=== PATIENT | male | born 1945 ===

== ENCOUNTER 2020-06-19 07:16 | Outpatient (REF) | payer MEDICARE, SELFPAY ==
--- NOTE | 2020-06-19 07:34 | CT_ITS ---
EXAMINATION: CT CHEST WITHOUT CONTRAST CLINICAL INFORMATION: Pulmonary nodules, follow-up. COMPARISON: Chest CT scans dated 01/18/2020 and 10/12/2019. TECHNIQUE: Multidetector volumetric CT imaging of the chest was done. Axial MIP volume rendering provided. Sagittal and coronal reformatted images were obtained. This CT examination was performed using dose optimization techniques as appropriate, variously including the following: *Automated exposure control *Adjustment of mA and/or kV according to patient size (this includes techniques or standardized protocols for targeted exams where dose is matched to indication/reason for exam; i.e. extremities or head) *Use of iterative reconstruction technique DLP: 230.4 mGy-cm FINDINGS: LUNGS/PLEURA/AIRWAYS: Right: The previously seen branching opacity posterolaterally in the right lower lobe demonstrates a similar, if not less pronounced appearance, especially in the coronal projection (construction representative image 198, series 7). A 0.4 cm nodule inferomedially in the right middle lobe is unchanged (image 451, series 7). Left: A nodule medially along the left major fissure is again seen measuring 0.6 cm without interval change (image 277, series 7). A nodule centrally in the left lower lobe has decreased in size measuring 0.3 cm (previously 0.7 cm), image 422, series 7. Mild linear atelectasis/scarring is again seen in the right middle lobe, lingula and lung bases. There are no pleural effusions. The central airways are patent. MEDIASTINUM: The thyroid gland shows a coarsely calcified nodules bilaterally without significant change. Mild to moderate coronary and thoracic aortic atherosclerosis is seen. Ectasia of the posterior arch measures up to 4.1 cm (image 18, series 3). No pericardial effusion. No mediastinal or hilar lymphadenopathy. AXILLA: No lymphadenopathy. UPPER ABDOMEN: Partial visualization of high attenuation renal cysts bilaterally, right greater than left without significant change. Partial visualization of left lateral pararenal calcifications without significant change. OSSEOUS STRUCTURES: Mild to moderate multilevel marginal osteophyte formation is seen. No suspicious abnormality. IMPRESSION: 1. No significant new or suspicious pulmonary abnormality. A nodule in the left lower lobe has decreased in size as detailed above and may represent an improving mucous plugging. Other findings have not significantly changed. A precautionary follow-up chest CT scan could be performed in 9-12 months to assess for change.
== END 2020-06-19 07:17 | disposition home or self-care (01) ==
LOC: HO.CT 07:16
PROVIDERS: PCP Nurse Practitioner Family; Referring Provider Internal Medicine; Visit Provider Hospitalist
DX: Z20.828 Contact with and (suspected) exposure to other viral communicable diseases (principal); J41.8 Mixed simple and mucopurulent chronic bronchitis; R05 Cough; R91.1 Solitary pulmonary nodule
CPT/HCPCS: 71250; 87635

== ENCOUNTER → 2020-06-28 08:54 | Outpatient (BNVA) | payer MEDICARE, SELFPAY | PROVIDERS: PCP Nurse Practitioner Family; Referring Provider Nurse Practitioner Family; Visit Provider Hospitalist | DX: J41.0 Simple chronic bronchitis (principal); R91.8 Other nonspecific abnormal finding of lung field; J30.9 Allergic rhinitis, unspecified; F17.210 Nicotine dependence, cigarettes, uncomplicated | CPT/HCPCS: 99214 ==

== ENCOUNTER 2021-01-15 07:38 | Outpatient (REF) | payer MEDICARE, SELFPAY ==
--- NOTE | 2021-01-15 17:37 | PFT_ITS ---
INDICATION: Bronchitis, COPD. SPIROMETRY: The FEV1 to FVC of 72% with an FEV1 of 2.87 L which is 97% predicted, and FVC of 4 L, which is 98% predicted. The maximum voluntary ventilation 104% predicted. Again, bronchodilators were not used due to the fact that he had used Symbicort recently just prior to the procedure. LUNG VOLUMES: Total lung capacity 92% predicted with expiratory reserve volume of 25% predicted. DIFFUSION CAPACITY: DLCO 49% predicted. COMPARISONS: None available at this time. INTERPRETATION: No definitive obstructive ventilatory defect, although, he does have an obstructive physiology. Likely has a component of asthma/COPD overlap syndrome. Again, bronchodilators were not used because he had just used them. Lung volumes do demonstrate a decrease in the expiratory reserve volume secondary to elevated BMI. However, the patient does have an audible portion moderate decrease in his diffusing capacity suggesting moderate diffusion impairment, therefore need to consider underlying anemia or pulmonary vascular conditions or occult interstitial lung conditions to account for that. Clinical correlation warranted. MD JARETH Schroeder/HEMAL / [id number]
== END 2021-01-15 07:39 | disposition home or self-care (01) ==
LOC: HO.RESP 07:38
PROVIDERS: PCP Nurse Practitioner Family; Visit Provider Hospitalist
DX: J41.0 Simple chronic bronchitis (principal)
CPT/HCPCS: 94010; 94727; 94729; 99212

== ENCOUNTER 2021-01-24 06:01 | Outpatient (REF) | payer MEDICARE, SELFPAY ==
[2021-01-24 12:21] LABS: Alanine Aminotransferase 29 U/L (0-40); Albumin Level 4.1 g/dL (3.5-5.0); Alkaline Phosphatase 52 U/L (39-117); Anion Gap 13 (12-20); Aspartate Amino Transferase 23 U/L (5-37); Bilirubin Total 0.6 mg/dL (0.0-1.0); Blood Urea Nitrogen 18 mg/dL (9-16); Calcium 9.6 mg/dL (8.4-10.2); Carbon Dioxide 28 mmol/L (22-29); Chloride 106 mmol/L (96-108); Cholesterol 132 mg/dL; Estimated Glomerular Filt Rate > 60; Glucose Fasting 101 mg/dL (60-99); HDL Cholesterol 30 mg/dL; LDL Cholesterol Calculated 38 mg/dl; Potassium 3.7 mmol/L (3.3-5.1); Prostate Specific Antigen Scr 0.32 ng/mL (<0.05-4.0); Sodium 143 mmol/L (135-145); TSH reflex Free T4 2.69 uIU/mL (0.32-4.0); Total Protein 6.6 g/dL (6.5-8.0); Triglycerides 320 mg/dL
[2021-01-24 12:37] LABS: Creatinine Urine 162.96 mg/dL; Microalbum/Creatinine Ratio Ur 34.3 ug/mg cr
== END 2021-01-24 06:02 | disposition home or self-care (01) ==
LOC: HO.HMGCLDS 06:01
PROVIDERS: PCP Nurse Practitioner Family; Visit Provider Nurse Practitioner Family
DX: E11.9 Type 2 diabetes mellitus without complications (principal); R19.7 Diarrhea, unspecified; I48.0 Paroxysmal atrial fibrillation; I10 Essential (primary) hypertension; Z87.891 Personal history of nicotine dependence; Z12.5 Encounter for screening for malignant neoplasm of prostate; Z79.899 Other long term (current) drug therapy
CPT/HCPCS: 36415; 80053; 80061; 82043; 84153; 84443; 93005; 99212

== ENCOUNTER 2021-05-23 06:50 | Outpatient (REF) | payer MEDICARE, SELFPAY ==
[2021-05-23 11:54] LABS: Alanine Aminotransferase 35 U/L (0-40); Albumin Level 4.3 g/dL (3.5-5.0); Alkaline Phosphatase 53 U/L (39-117); Anion Gap 13 (12-20); Aspartate Amino Transferase 27 U/L (5-37); Blood Urea Nitrogen 18 mg/dL (9-16); Calcium 9.6 mg/dL (8.4-10.2); Carbon Dioxide 26 mmol/L (22-29); Chloride 107 mmol/L (96-108); Cholesterol 119 mg/dL; Estimated Glomerular Filt Rate 56; Glucose Fasting 112 mg/dL (60-99); HDL Cholesterol 32 mg/dL; LDL Cholesterol Calculated 48 mg/dl; Potassium 3.9 mmol/L (3.3-5.1); Sodium 142 mmol/L (135-145); Total Protein 6.9 g/dL (6.5-8.0); Triglycerides 198 mg/dL
== END 2021-05-23 06:51 | disposition home or self-care (01) ==
LOC: HO.HMGCLDS 06:50
PROVIDERS: PCP Nurse Practitioner Family; Visit Provider Nurse Practitioner Family
DX: E78.1 Pure hyperglyceridemia (principal)
CPT/HCPCS: 36415; 80053; 80061

== ENCOUNTER 2021-05-29 12:38 | Outpatient (REF) | payer MEDICARE, SELFPAY ==
--- NOTE | ~2021-05-29 | CT_ITS ---
EXAMINATION: CT CHEST WITHOUT CONTRAST CLINICAL INFORMATION: Follow-up lung nodule left lower lobe. COMPARISON: CT chest 06/19/2020. TECHNIQUE: Multidetector volumetric CT imaging of the chest was done. Axial MIP volume rendering provided. Sagittal and coronal reformatted images were obtained. This CT examination was performed using dose optimization techniques as appropriate, variously including the following: *Automated exposure control *Adjustment of mA and/or kV according to patient size (this includes techniques or standardized protocols for targeted exams where dose is matched to indication/reason for exam; i.e. extremities or head) *Use of iterative reconstruction technique DLP: 345 mGy-cm. FINDINGS: SITE PROJECT MANAGER: Unremarkable. LUNGS: Previously seen branching opacity right upper lobe posterior segment is again visualized and is less prominent on present exam, axial image 171/9. There is a 7 mm nodule along the left major fissure in left lower lobe, axial image 245/9, a 2 mm calcified nodule left lower lobe superior segment, image 225/9 and a 2 mm nodule left lower lobe centrally, axial image 368/9 is stable. No new nodules are visualized. MEDIASTINUM: The thyroid lobes are symmetrical with punctate calcifications. The central trachea and the bronchi are widely patent. Heart size and the great vessels are normal caliber. There are coronary artery calcifications present. No pericardial effusion seen. PLEURA: There is no pleural effusion. No pleural mass or thickening. AXILLA: Small shotty lymph nodes are seen in the axilla. UPPER ABDOMEN: Visualized liver, spleen, pancreas and bilateral adrenal glands are unremarkable. OSSEOUS STRUCTURES: No lytic or sclerotic process seen. There is moderate ventral spondylosis mid dorsal spine. CT/CT chest wo con IMPRESSION: Stable bilateral upper nodules and the largest 7 mm left lower lobe pulmonary nodule adjacent to a major fissure. Branching tree opacity right upper lobe posterior segment is stable or slightly improved. There are no new findings. No abnormal lymphadenopathy. Recommend follow-up in 18-24 months.
== END 2021-05-29 12:39 | disposition home or self-care (01) ==
LOC: HO.CT 12:38
PROVIDERS: PCP Nurse Practitioner Family; Visit Provider Hospitalist
DX: R91.8 Other nonspecific abnormal finding of lung field (principal)
CPT/HCPCS: 71250

== ENCOUNTER → 2021-07-17 08:11 | Outpatient (BNVA) | payer MEDICARE, SELFPAY | PROVIDERS: PCP Nurse Practitioner Family; Visit Provider Hospitalist | DX: J41.0 Simple chronic bronchitis (principal); J30.9 Allergic rhinitis, unspecified; R91.8 Other nonspecific abnormal finding of lung field | CPT/HCPCS: 99212 ==

== ENCOUNTER 2021-10-24 07:27 | Outpatient (REF) | payer MEDICARE, SELFPAY ==
[2021-10-24 11:37] LABS: Appearance Urine CLEAR; Color Urine YELLOW; Glucose Urine UA NEG (NEG); Leukocyte Esterase Urine NEG (NEG); Nitrite Urine NEG (NEG); Specific Gravity - Urine >= 1.030 (1.005-1.025); UACC Culture Trigger NO; Urine Blood TRACE (NEG); Urine Ketones NEG (NEG); Urine Protein TRACE MG/DL (NEG-TRACE)
[2021-10-24 11:52] LABS: WBC Urine 0-2 /HPF (0-4)
[2021-10-24 11:53] LABS: Squamous Epithelial Cell Urine 1+ /LPF
[2021-10-24 14:09] LABS: Alanine Aminotransferase 30 U/L (0-40); Albumin Level 4.2 g/dL (3.5-5.0); Alkaline Phosphatase 54 U/L (39-117); Anion Gap 12 (12-20); Aspartate Amino Transferase 24 U/L (5-37); Bilirubin Total 0.8 mg/dL (0.0-1.0); Carbon Dioxide 29 mmol/L (22-29); Chloride 106 mmol/L (96-108); Cholesterol 125 mg/dL; Estimated Glomerular Filt Rate > 60; Glucose Fasting 126 mg/dL (60-99); HDL Cholesterol 29 mg/dL; LDL Cholesterol Calculated 54 mg/dl; Potassium 3.9 mmol/L (3.3-5.1); Sodium 143 mmol/L (135-145); Triglycerides 214 mg/dL
[2021-10-24 14:27] LABS: TSH reflex Free T4 1.38 uIU/mL (0.32-4.0)
[2021-10-24 14:58] LABS: Blood Urea Nitrogen 15 mg/dL (9-16); Calcium 9.9 mg/dL (8.4-10.2)
[2021-10-24 15:37] LABS: Estimated Average Glucose 137 mg/dL; Hemoglobin A1c % 6.4 %
== END 2021-10-24 07:28 | disposition home or self-care (01) ==
LOC: HO.HMGCLDS 07:27
PROVIDERS: Visit Provider Nurse Practitioner Family
DX: E11.9 Type 2 diabetes mellitus without complications (principal)
CPT/HCPCS: 36415; 80053; 80061; 81001; 83036; 84443

== ENCOUNTER 2021-12-10 10:10 | Day surgery (SDC) | payer MEDICARE, SELFPAY ==
[2021-12-05 16:27] VITALS: BMI 30.2
--- NOTE | 2021-12-06 14:59 | P.CONAN_ITS ---
Documented by User: Sarah Soler NP 12/06/21 15:01 HPI - Anesthesia Eval Consult details Narrative: 76yo M for Colonoscopy Eliquis for afib *Multiple Med Allergies* PMFSH Active Problems Active Problems: All Active Problems (Updated 12/05/21 @ 16:26 by Iris Raines, RN) Screening PSA (prostate specific antigen) (Acute) Diabetes (Acute) Malignant neoplasm of kidney (Acute) HTN (hypertension) (Acute) High triglycerides (Acute) Encounter for annual wellness visit (AWV) in Medicare patient (Acute) Paroxysmal atrial fibrillation (Acute) Chronic allergic rhinitis (Acute) COPD (chronic obstructive pulmonary disease) (Acute) Pulmonary nodules (Acute) Past Medical History Medical History Actinic keratoses Chronic allergic rhinitis COPD (chronic obstructive pulmonary disease) History of kidney cancer IBS (irritable bowel syndrome) Paroxysmal atrial fibrillation Pulmonary nodules Family History Family History Father Heart attack Mother No problems noted. Surgical History Surgical History H/O cardiac radiofrequency ablation H/O inguinal hernia repair H/O left hemicolectomy History of cardioversion S/P correction of deviated nasal septum Social History Social History Housing: House Are you a primary healthcare insurance sales agent to a significant other at home: No Do you presently have visiting nurse or other home services: No Patient Tobacco Use Status: Former Tobacco user Quit Date: 1989 Tobacco use type: Cigarette Years Smoked: 20 years Use of substances other than those prescribed or required for medical reasons: No Have you been hit, kicked, punched, or otherwise hurt by someone within the past year? If so, by whom?: No Are you DNR?: No Advance Directives: Yes Advance Directives Information Provided: No Advance Directives on File: Yes Advance Directives Date on File: 06/19/20 Recently lost weight without trying: No Nutrition Risks: No Nutritional Risk Current occupational status: retired Meds Allergies Allergy/AdvReac Type Severity Reaction Status Date / Time amiodarone Allergy Severe Rash/Itchin Verified 12/05/21 16:25 g amlodipine Allergy Severe tachycardia Verified 12/05/21 16:25 Sulfamethoxazole-TMP DS Allergy Severe Rash/Itchin Verified 12/05/21 16:25 g morphine [MORPHINE] Allergy Intermediate ITCHING Verified 12/05/21 16:25 and CONGESTION hydromorphone [From Dilaudid] Allergy Mild ITCHING,ANX Verified 12/05/21 16:25 IETY Sulfa (Sulfonamide Allergy Mild RASH,ITCHIN Verified 12/05/21 16:25 Antibiotics) G [Sulfa (Sulfonamides)] ENVIROMENTAL Allergy Intermediate HAYFEVER Uncoded 12/05/21 16:25 Home Medications Medication Instructions Recorded Confirmed Last Taken Type alprazolam 0.25 mg tablet 0.25 mg PO BEDTIME 06/12/20 12/05/21 Unknown History dicyclomine 10 mg capsule mg PO 06/12/20 07/30/21 Unknown History flu vacc [id number](65yr up)-PF 240 ml IM 06/12/20 07/30/21 Unknown History mcg/0.7 mL intramuscular syringe fluoride (sodium) 1.1 % dental gel PO BEDTIME 06/12/20 07/30/21 Unknown History lorazepam 1 mg tablet 1 mg PO BID 06/28/20 12/05/21 Unknown History fluticasone propionate 50 1 spray INTRANASAL DAILY PRN 01/15/21 12/05/21 Unknown History mcg/actuation nasal spray,suspension Exam Exam Date and Time: December 06, 2021 1459 Height,Weight and Vital Signs: Height 5 ft 9 in Weight 92.986 kg Pertinent Lab Results Pertinent Lab Results: Laboratory Tests 10/24/21 07:32 Sodium 143 Potassium 3.9 Chloride 106 Carbon Dioxide 29 BUN 15 Creatinine 1.13 Narrative Narrative: EKG 2020 NSR @ 66 LAD RBBB Assessment and Plan Assessment Anesthesia Assessment: Chart Reviewed Documented by User: Fiona Mendoza MD 12/10/21 12:32 [facility] Past Medical History Medical History Actinic keratoses Chronic allergic rhinitis COPD (chronic obstructive pulmonary disease) History of kidney cancer IBS (irritable bowel syndrome) Paroxysmal atrial fibrillation Pulmonary nodules Family History Family History Father Heart attack Mother No problems noted. Family history of problems with anesthesia: No Surgical History Surgical History H/O cardiac radiofrequency ablation H/O inguinal hernia repair H/O left hemicolectomy History of cardioversion S/P correction of deviated nasal septum History of Problems with Anesthesia: No Social History Social History Housing: House Are you a primary healthcare insurance sales agent to a significant other at home: No Do you presently have visiting nurse or other home services: No Patient Tobacco Use Status: Former Tobacco user Quit Date: 1989 Tobacco use type: Cigarette Years Smoked: 20 years Use of substances other than those prescribed or required for medical reasons: No Have you been hit, kicked, punched, or otherwise hurt by someone within the past year? If so, by whom?: No Are you DNR?: No Advance Directives: Yes Advance Directives Information Provided: No Advance Directives on File: Yes Advance Directives Date on File: 06/19/20 Recently lost weight without trying: No Nutrition Risks: No Nutritional Risk Current occupational status: retired Meds Allergies Allergy/AdvReac Type Severity Reaction Status Date / Time amiodarone Allergy Severe Rash/Itchin Verified 12/05/21 16:25 g amlodipine Allergy Severe tachycardia Verified 12/05/21 16:25 Sulfamethoxazole-TMP DS Allergy Severe Rash/Itchin Verified 12/05/21 16:25 g morphine [MORPHINE] Allergy Intermediate ITCHING Verified 12/05/21 16:25 and CONGESTION hydromorphone [From Dilaudid] Allergy Mild ITCHING,ANX Verified 12/05/21 16:25 IETY Sulfa (Sulfonamide Allergy Mild RASH,ITCHIN Verified 12/05/21 16:25 Antibiotics) G [Sulfa (Sulfonamides)] ENVIROMENTAL Allergy Intermediate HAYFEVER Uncoded 12/05/21 16:25 Home Medications Medication Instructions Recorded Confirmed Last Taken Type alprazolam 0.25 mg tablet 0.25 mg PO BEDTIME 06/12/20 12/05/21 Unknown History dicyclomine 10 mg capsule mg PO 06/12/20 07/30/21 Unknown History flu vacc [id number](65yr up)-PF 240 ml IM 06/12/20 07/30/21 Unknown History mcg/0.7 mL intramuscular syringe fluoride (sodium) 1.1 % dental gel PO BEDTIME 06/12/20 07/30/21 Unknown History lorazepam 1 mg tablet 1 mg PO BID 06/28/20 12/05/21 Unknown History fluticasone propionate 50 1 spray INTRANASAL DAILY PRN 01/15/21 12/05/21 Unknown History mcg/actuation nasal spray,suspension Exam Airway Mallampati Class: III TM Dist: >3cm Neck ROM: Full Assessment and Plan Assessment Anesthesia Assessment: Anesthesia Plan Discussed Final Anesthetic Review Family History of Problems with Anesthesia: No History of Problems with Anesthesia: No NPO: Yes ASA Class: III Final Preanesthetic Review: No Changes in Pt Med Stat, Meds/Allgs Chart Reviewed, Consent Obtained/Reviewed and Anes Risks/Benef Reviewed Patient Risk: Intermediate Procedure Risk: Low Anesthetic Plan Anesthetic Plan: MAC: Disposition: Standard PACU
[2021-12-10 11:21] VITALS: BP 151/98; PULSE 81; RESP 18; TEMP 36.7; O2SAT 95; BMI 30.2
[2021-12-10] MEDS: Lactated Ringers 1,000 ML 100 ML IVCONT (11:26)
--- NOTE | 2021-12-10 12:57 | P.CONAN_ITS ---
[facility] Active Problems Active Problems: All Active Problems (Updated 12/05/21 @ 16:26 by Iris Raines, RN) Screening PSA (prostate specific antigen) (Acute) Diabetes (Acute) Malignant neoplasm of kidney (Acute) HTN (hypertension) (Acute) High triglycerides (Acute) Encounter for annual wellness visit (AWV) in Medicare patient (Acute) Paroxysmal atrial fibrillation (Acute) Chronic allergic rhinitis (Acute) COPD (chronic obstructive pulmonary disease) (Acute) Pulmonary nodules (Acute) Past Medical History Medical History Actinic keratoses Chronic allergic rhinitis COPD (chronic obstructive pulmonary disease) History of kidney cancer IBS (irritable bowel syndrome) Paroxysmal atrial fibrillation Pulmonary nodules Family History Family History Father Heart attack Mother No problems noted. Family history of problems with anesthesia: No Surgical History Surgical History H/O cardiac radiofrequency ablation H/O inguinal hernia repair H/O left hemicolectomy History of cardioversion S/P correction of deviated nasal septum History of Problems with Anesthesia: No Social History Social History Housing: House Are you a primary managed care coordinator to a significant other at home: No Do you presently have visiting nurse or other home services: No Patient Tobacco Use Status: Former Tobacco user Quit Date: 1989 Tobacco use type: Cigarette Years Smoked: 20 years Use of substances other than those prescribed or required for medical reasons: No Have you been hit, kicked, punched, or otherwise hurt by someone within the past year? If so, by whom?: No Are you DNR?: No Advance Directives: Yes Advance Directives Information Provided: No Advance Directives on File: Yes Advance Directives Date on File: 06/19/20 Recently lost weight without trying: No Nutrition Risks: No Nutritional Risk Current occupational status: retired Meds Allergies Allergy/AdvReac Type Severity Reaction Status Date / Time amiodarone Allergy Severe Rash/Itchin Verified 12/05/21 16:25 g amlodipine Allergy Severe tachycardia Verified 12/05/21 16:25 Sulfamethoxazole-TMP DS Allergy Severe Rash/Itchin Verified 12/05/21 16:25 g morphine [MORPHINE] Allergy Intermediate ITCHING Verified 12/05/21 16:25 and CONGESTION hydromorphone [From Dilaudid] Allergy Mild ITCHING,ANX Verified 12/05/21 16:25 IETY Sulfa (Sulfonamide Allergy Mild RASH,ITCHIN Verified 12/05/21 16:25 Antibiotics) G [Sulfa (Sulfonamides)] ENVIROMENTAL Allergy Intermediate HAYFEVER Uncoded 12/05/21 16:25 Active Medications: Current Medications Albuterol Sulfate (Albuterol Sulfate (0.083%) 2.5 Mg/3 Ml Vial.Neb) 2.5 mg INHALE ONCE PRN PRN Reason: Shortness of Breath/Wheezing Lactated Ringer's (Lr) 1,000 mls @ 100 mls/hr IVCONT .Q10H BRYAN Last Admin: 12/10/21 11:26 Dose: 100 mls/hr Documented by: Sodium Biphosphate/Sodium Phosphate (Sodium Phosphate,[place]ñuel[place]-Dibasic 133 Ml Enema) 133 ml IN ONCE PRN PRN Reason: Poor Colonoscopy Prep Results Home Medications Medication Instructions Recorded Confirmed Last Taken Type alprazolam 0.25 mg tablet 0.25 mg PO BEDTIME 06/12/20 12/05/21 Unknown History dicyclomine 10 mg capsule mg PO 06/12/20 07/30/21 Unknown History flu vacc [id number](65yr up)-PF 240 ml IM 06/12/20 07/30/21 Unknown History mcg/0.7 mL intramuscular syringe fluoride (sodium) 1.1 % dental gel PO BEDTIME 06/12/20 07/30/21 Unknown History lorazepam 1 mg tablet 1 mg PO BID 06/28/20 12/05/21 Unknown History fluticasone propionate 50 1 spray INTRANASAL DAILY PRN 01/15/21 12/05/21 Unknown History mcg/actuation nasal spray,suspension Exam Exam Date and Time: December 10, 2021 1257 Height,Weight and Vital Signs: Height 5 ft 9 in Weight 92.86 kg Last Vital Signs Temp 98.1 F 12/10/21 11:21 Pulse 81 12/10/21 11:21 Resp 18 12/10/21 11:21 BP 151/98 H 12/10/21 11:21 Pulse Ox 95 12/10/21 11:21 Airway Mallampati Class: II TM Dist: >3cm Neck ROM: Full Assessment and Plan Assessment Anesthesia Assessment: Anesthesia Plan Discussed, Smoking Cess. Discussed and Chart Reviewed Final Anesthetic Review Family History of Problems with Anesthesia: No History of Problems with Anesthesia: No NPO: Yes ASA Class: I and II Final Preanesthetic Review: No Changes in Pt Med Stat, Meds/Allgs Chart Reviewed, Consent Obtained/Reviewed and Anes Risks/Benef Reviewed Patient Risk: Intermediate Procedure Risk: Intermediate Anesthetic Plan Anesthetic Plan: GA Disposition: Standard PACU
[2021-12-10 13:52] VITALS: BP 114/76; PULSE 77; RESP 16; TEMP 36.2; O2SAT 96
--- NOTE | 2021-12-10 13:57 | PM.OP ---
Brief Operative Note Date of Service: 12/10/21 Pre-op diagnosis: Screening, Diarrhea, Hx of polyps Post-op diagnosis: other (Colon polyps, AVM's, R/O Microscopic colitis) Procedure: Colonoscopy to the cecum and TI with biopsies, snare polypectomy x 3, and placement of 1 Resolution clip on each polypectomy site Surgeon: Jeremías Gómez Anesthesia: MAC Was an Carbon Brusher Assembler used for this Procedure?: No Estimated blood loss (mL): 2.0 Pathology: other (A. Ascending colon B. Ascending colon polyp C. Polyp at 60cm D. Polyp at 15cm) Condition: stable Disposition: PACU
[2021-12-10 14:05] VITALS: BP 113/72; PULSE 78; RESP 16; TEMP 36.2; O2SAT 95
[2021-12-10 14:20] VITALS: BP 103/82; PULSE 76; RESP 16; TEMP 36.6; O2SAT 96
--- NOTE | 2021-12-10 22:41 | OP_ITS ---
SURGEON: Jeremías Gómez MD INDICATIONS: The patient presents for evaluation of intermittent diarrhea, personal history of tubular adenoma of the colon, and colorectal cancer screening. Full consent has been obtained from him for this, including risks of bleeding and perforation. PREOPERATIVE DIAGNOSIS: POSTOPERATIVE DIAGNOSIS: PROCEDURE PERFORMED: Colonoscopy to the cecum and terminal ileum with hot snare polypectomy, placement of 3 resolution clips, and biopsy. ESTIMATED BLOOD LOSS: COMPLICATIONS: ANESTHESIA: Medication used, monitored anesthesia care. ASSISTANTS: SPECIMENS: PREOPERATIVE DIAGNOSES: Colorectal cancer screening, diarrhea, personal history of tubular adenoma of the colon. POSTOPERATIVE DIAGNOSES: Colorectal cancer screening, diarrhea, personal history of tubular adenoma of the colon, colon polyps, cecal AVM's, rule out microscopic colitis, diverticulosis, and internal hemorrhoids. DESCRIPTION OF PROCEDURE: The patient was placed in the left lateral decubitus position the digital rectal exam revealed no abnormalities. The [employer] video pediatric colonoscope was entered into the rectum and advanced easily to the cecum. Once in the cecum, I did identify a normal-appearing cecal pouch with appendiceal orifice and a normal-appearing ileocecal valve. The terminal ileum was cannulated and appeared normal. Scope was withdrawn back in the colon. In the cecum were 2 or 3 less than 5 mm nonbleeding angiodysplasias. The remainder of the cecum appeared normal. The scope was then slowly withdrawn assessing all mucosal surfaces carefully. Preparation was excellent. I did not visualize any sign of other angiodysplasias nor colitis. Biopsies were obtained in the ascending colon to rule out microscopic colitis. In the ascending colon, at 60 cm and at 15 cm were approximately 8 to 10 mm grossly adenomatous polyps, which were removed with a hot snare polypectomy and recovered by suction. The polypectomy sites appeared clean, without any sign of residual polyp nor bleeding. A single resolution clip was applied to each polypectomy site with good deployment and good hemostasis. I did not visualize any other polyps. There was a mild amount of sigmoid diverticulosis. In the rectum, the scope was retroflexed visualizing some small internal hemorrhoids, but no other pathology. The rectal mucosa appeared normal. The scope was straightened and withdrawn from the patient. He tolerated the procedure well and was returned to the recovery area in stable condition. IMPRESSION: 1. Colon polyps, status post hot snare polypectomy x3 with application of resolution clip at each polypectomy site. 2. Rule out microscopic colitis. 3. Diverticulosis. 4. Internal hemorrhoids. 5. Nonbleeding angiodysplasias in cecum. PLAN: The results of the pathology will be checked. Given these findings and his age, I do not think he will need any further screening colonoscopies in the future. He was advised to resume his Eliquis in 48 hours. He was advised to not use any aspirin or NSAIDs for at least 1 week. He will continue to use Imodium and dicyclomine for irritable bowel syndrome and loose stools, or he does have a prescription to try cholestyramine powder as well. I advised him to see me again in the Fall for a followup visit but to call sooner as needed. MD JENNIFER Williamson/HEMAL / [id number] MTDD
== END 2021-12-10 15:01 | disposition home or self-care (01) ==
PROVIDERS: PCP Nurse Practitioner Family; Visit Provider Internal Medicine
PROC: 0DJD8ZZ Inspection of Lower Intestinal Tract, Via Natural or Artificial Opening Endoscopic (ICD-10-PCS; CPT 45378; principal; 2021-12-10 11:30)
DX: Z12.11 Encounter for screening for malignant neoplasm of colon (principal); Z86.010 Personal history of colon polyps; D12.2 Benign neoplasm of ascending colon; D12.4 Benign neoplasm of descending colon; K63.5 Polyp of colon; K57.30 Diverticulosis of large intestine without perforation or abscess without bleeding; K64.8 Other hemorrhoids; K55.20 Angiodysplasia of colon without hemorrhage; K58.0 Irritable bowel syndrome with diarrhea; Z87.19 Personal history of other diseases of the digestive system; Z90.49 Acquired absence of other specified parts of digestive tract; J44.9 Chronic obstructive pulmonary disease, unspecified; I48.0 Paroxysmal atrial fibrillation; Z79.01 Long term (current) use of anticoagulants; R91.8 Other nonspecific abnormal finding of lung field; Z85.528 Personal history of other malignant neoplasm of kidney; Z79.51 Long term (current) use of inhaled steroids; Z79.899 Other long term (current) drug therapy; Z88.2 Allergy status to sulfonamides; Z88.8 Allergy status to other drugs, medicaments and biological substances; Z87.891 Personal history of nicotine dependence
CPT/HCPCS: 45385; 45380; 88305

== ENCOUNTER → 2022-01-22 09:00 | Outpatient (REF) | payer MEDICARE, SELFPAY ==
--- NOTE | 2022-01-22 09:47 | CA_ITS ---
Transthoracic Echocardiogram Patient (Last, First, Middle): Forest Stevens R Gender: Male Date of : 1945 Age: 76 Procedure Date: 01/22/2022 Procedure Type: Transthoracic Echocardiogram Location: OP Height: 175.26 cm Weight: 92.99 kg BSA: 2.09 m2 Heart Rate: bpm BP: 120 / 80 mmHg District Home Economics Agent: MARLEEN Referring MD: Ivan Young MD Dot Etcher Apprentice: Ivna Young MD Symptoms: I48.0 - Paroxysmal atrial fibrillation Study Quality: Adequate ECG Rhythm: Sinus Conclusions: - 1. Normal LV systolic function with impaired relaxation filling pattern 2. Trivial aortic regurgitation 3. Normal RV systolic pressure 4. No gross pericardial effusion Findings Left Ventricle Normal left ventricular size, thickness, and systolic function. The visually estimated ejection fraction is between 60-65%. Spectral Doppler is indicative of an impaired relaxation filling pattern. E/E prime ratio is between 8 and 15 consistent with indeterminate filling pressures. Right Ventricle Normal right ventricular cavity size and systolic function. Atria The left atrium is normal in size. The right atrium is normal in size. Aortic Valve There is mild calcification of the aortic valve. There is moderate thickening of the aortic valve. There is no aortic valve stenosis. There is trace (trivial) aortic valve regurgitation. Mitral Valve There is mild anterior and posterior mitral leaflet thickening. There is trace mitral valve regurgitation. There is no mitral valve stenosis. Pulmonic Valve The pulmonic valve was not well visualized. Tricuspid Valve Likely normal tricuspid valve structure and function. There is trace tricuspid valve regurgitation. The right ventricular systolic pressure is normal. The right ventricular systolic pressure is 25 mmHg. Normal right atrial pressure. There is no evidence of pulmonary hypertension. Great Vessels All visible segments of the aorta are normal in size. The pulmonary artery was not well visualized. Small plaque is seen in the sino tubular ridge. Venous The inferior vena cava is normal in size and collapses greater than 50% with inspiration. Pericardium/Pleural There is no evidence of pericardial effusion. Prior Study Comparison No significant change compared to prior study dated: 09/29/2018. Measurements 2D Linear Measurements IVSd: 1.14 0.6-0.9/0.6-1.0 cm LVIDd: 5.02 3.9-5.3/4.2-5.9 cm LVIDd Index: 2.40 2.4-3.2/2.2-3.1 cm/m2 LVIDs: 3.08 2.0-3.6 cm LVPWd: 0.94 0.7-1.1 cm LA Diam: 3.10 2.7-3.8/3.0-4.0 cm LAIDs Index: 1.48 1.5-2.3 cm/m2 LV Mass: 240.03 67-162/88-224 g LV Mass Index: 114.85 43-95/49-115 g/m2 LVOT Diam: 2.00 3.0+(-)1.3 cm Mitral Valve MV Pk E: 0.76 MV PK A: 0.66 MV Decel Time: 188.00 E/A: 1.20 E'Lateral: 5.11 E'Medial: 5.11 E/E' Med: 14.90 E/E' Lat: 14.90 PHT: 55.00 MVA PHT: 4.00 Decel [place]: 4.06 Aortic Valve AoV Pk Slick: 1.18 AoV Mn Slick: 0.85 AoV VTI: 0.25 AoV Pk Grad: 6.00 Aov Mn Grad: 3.00 NAIDA Cont.VTI: 2.94 LVOT LVOT Pk Slick: 1.21 LVOT Mn Slick: 0.86 LVOT VTI: 0.23 LVOT Pk Grad: 6.00 LVOT Mn Grad: 3.00 LVOT Diam: 2.00 LVOT Area: 3.14 Diastolic Function MV Pk E: 0.76 MV Pk A: 0.66 E/A: 1.20 E'Medial: 5.11 E/E' Med: 14.90 E' Laterial: 5.11 E/E' Lat: 14.90 Right Ventricle TAPSE (mm): 19.90 TVS' Slick: 11.00 Tricuspid Valve TR Pk Slick: 2.34 TR Pk Grad: 22.00 RA Press: 3.00 RVSP: 25.00 Great Vessels Aorta Sinus of Valsalva: 3.10 2.0-3.[address] Ridge: 2.90 1.7-3.4 cm Ao Asc: 3.40 2.1-3.4 cm Pulmonary Valve PV Pk Slick: 0.91 Peak PV Grad: 3.00 Updated in Other Vendor System with Status of Final Ivan Young MD electronically signed on 01/23/2022 12:44:31 PM with status of Final
== END ==
LOC: HO.CARD 09:00
PROVIDERS: PCP Nurse Practitioner Family; Visit Provider Internal Medicine Cardiovascular Disease
DX: I48.0 Paroxysmal atrial fibrillation (principal)
CPT/HCPCS: 93306

== ENCOUNTER → 2022-02-04 11:09 | Outpatient (BNVA) | payer MEDICARE, SELFPAY | PROVIDERS: PCP Nurse Practitioner Family; Referring Provider Nurse Practitioner Family; Visit Provider Internal Medicine Cardiovascular Disease | DX: I48.0 Paroxysmal atrial fibrillation (principal); I45.2 Bifascicular block; I10 Essential (primary) hypertension | CPT/HCPCS: 93005; 99212 ==

== ENCOUNTER 2022-03-20 09:01 | Outpatient (RCR) | payer MEDICARE, SELFPAY | END 2022-07-24 10:40 | disposition home or self-care (01) | LOC: HO.PTCHIC 09:01 | PROVIDERS: PCP Nurse Practitioner Family; Visit Provider Orthopaedic Surgery | DX: M17.11 Unilateral primary osteoarthritis, right knee (principal) | CPT/HCPCS: 97110; 97162 ==

== ENCOUNTER → 2022-04-03 09:52 | Outpatient (REF) | payer MEDICARE, SELFPAY ==
--- NOTE | ~2022-04-03 | NM_ITS ---
Myocardial perfusion study Indication: Preoperative cardiovascular risk stratification Technique: The patient was brought in for a Lexiscan perfusion study on 04/03/2022. Patient performed low-level exercise and was injected 0.4 mg of Lexiscan intravenously. Within a minute of injection, 35 mCi of sestamibi was given intravenously. Images were obtained using the SPECT gamma camera interlaced with the gating device. Images were obtained in supine position. Resting perfusion study was performed on 04/04/2022. Patient was administered 35 mCi of sestamibi intravenously at rest. Images were then obtained in supine position. Images obtained with and without CT attenuation. Total DLP 102 mGy-cm. Images were processed with the software and compared side to side in short axis, horizontal long axis and vertical long axis views. Findings: The stress perfusion study showed non attenuated images show moderately reduced uptake in the basal inferior wall of the LV myocardium. Remainder of the LV myocardium is normally perfused. Attenuated corrected images show mildly reduced uptake in the apex of the LV myocardium.. The gated study shows normal LV systolic function with visually estimated LVEF of greater than 60%. LV cavity is normal in size. The gated study shows normal systolic wall thickening and contraction of segments. Resting study shows no change in perfusion pattern compared to stress perfusion study. Gating at rest reveals normal cyst wall motion with ejection fraction at 67%. The findings are consistent with no clear reversible defect suggestive of ischemia. Likely normal myocardial perfusion. NM/NM cardiolite stress test Impression: 1. Myocardial perfusion imaging study shows likely normal myocardial perfusion 2. Gated LVEF is 67% 3. Transient ischemic dilatation not present EKG is nondiagnostic for ischemia
--- NOTE | 2022-04-03 09:54 | CA_ITS ---
Acquisition Time: 2022-04-03 10:09:14 Total Exercise Time: 00:02:00 Test Indications: AFIB/PRE-OP Medications: SEE H Protocol: LEXISCAN Max HR: 107 BPM 74% of Pred: 144 BPM Max BP: 142/076 mmHG Max Work Load: 1.0 METS Pharmacological stress test with Lexiscan injection, while sitting and kicking his legs, without anginal symptoms, with isolated PACs, atrial cuplets and one atrial triplet, with normotensive response to injection, with nondiagnostic EKG for ischemia. In recovery he reported head fullness that was treated with Aminophylline 75mg IVP to reverse Lexiscan with resolution of symptom. Nuclear images pending. Test reviewed with Dr Hamilton. Referred By: Ivan Young Overread By: SUNI SKINNER
== END ==
LOC: HO.CARD 09:52
PROVIDERS: PCP Nurse Practitioner Family; Visit Provider Internal Medicine Cardiovascular Disease
DX: Z01.818 Encounter for other preprocedural examination (principal); I48.0 Paroxysmal atrial fibrillation
CPT/HCPCS: 78452; 93017; A9500; J0280; J2785

== ENCOUNTER 2022-04-19 06:47 | Outpatient (REF) | payer MEDICARE, SELFPAY ==
[2022-04-19 11:56] LABS: Appearance Urine CLEAR; Color Urine YELLOW; Glucose Urine UA NEG (NEG); Leukocyte Esterase Urine NEG (NEG); Nitrite Urine NEG (NEG); Urine Blood NEG (NEG); Urine Ketones NEG (NEG); Urine Protein TRACE MG/DL (NEG-TRACE)
[2022-04-19 12:16] LABS: Alanine Aminotransferase 40 U/L (0-40); Albumin Level 3.8 g/dL (3.5-5.0); Alkaline Phosphatase 67 U/L (39-117); Anion Gap 14 (12-20); Aspartate Amino Transferase 32 U/L (5-37); Bilirubin Total 1.3 mg/dL (0.0-1.0); Blood Urea Nitrogen 15 mg/dL (9-16); Calcium 9.2 mg/dL (8.4-10.2); Carbon Dioxide 26 mmol/L (22-29); Chloride 104 mmol/L (96-108); Cholesterol 124 mg/dL; Estimated Glomerular Filt Rate > 60; Glucose Fasting 116 mg/dL (60-99); HDL Cholesterol 33 mg/dL; LDL Cholesterol Calculated 54 mg/dl; Potassium 4.1 mmol/L (3.3-5.1); Sodium 140 mmol/L (135-145); Total Protein 6.5 g/dL (6.5-8.0); Triglycerides 187 mg/dL
[2022-04-19 12:19] LABS: Estimated Average Glucose 126 mg/dL
[2022-04-19 12:44] LABS: Prostate Specific Antigen Scr 0.26 ng/mL (<0.05-4.0); TSH reflex Free T4 0.96 uIU/mL (0.32-4.0)
[2022-04-19 12:49] LABS: Creatinine Urine 140.41 mg/dL; Microalbum/Creatinine Ratio Ur 68.3 ug/mg cr
== END 2022-04-19 06:48 | disposition home or self-care (01) ==
LOC: HO.HMGCLDS 06:47
PROVIDERS: PCP Nurse Practitioner Family; Visit Provider Nurse Practitioner Family
DX: E11.9 Type 2 diabetes mellitus without complications (principal); I10 Essential (primary) hypertension; R19.7 Diarrhea, unspecified; R35.0 Frequency of micturition; Z12.5 Encounter for screening for malignant neoplasm of prostate
CPT/HCPCS: 36415; 80053; 80061; 81003; 82043; 83036; 84153; 84443

== ENCOUNTER 2022-05-13 09:39 | Outpatient (REF) | payer MEDICARE, SELFPAY ==
--- NOTE | ~2022-05-13 | CT_ITS ---
EXAMINATION: CT CHEST WITHOUT CONTRAST CLINICAL INFORMATION: Follow-up pulmonary nodules COMPARISON: Previous chest CT scans most recent from May 2021 TECHNIQUE: Multidetector volumetric CT imaging of the chest was done. Axial MIP volume rendering provided. Sagittal and coronal reformatted images were obtained. This CT examination was performed using dose optimization techniques as appropriate, variously including the following: *Automated exposure control *Adjustment of mA and/or kV according to patient size (this includes techniques or standardized protocols for targeted exams where dose is matched to indication/reason for exam; i.e. extremities or head) *Use of iterative reconstruction technique DLP: 213 mGy-cm FINDINGS: LUNGS: There are small calcified and noncalcified pulmonary nodules that are stable. Largest pulmonary nodule is a 6 mm noncalcified peripheral or subpleural left lower lobe nodule adjacent to the fissure axial image 275 series 7. This probably represents a subpleural lymph node. No new pulmonary nodules. MEDIASTINUM: The heart does not appear enlarged. There is coronary artery and aortic valve calcification. There is ectasia of the aortic arch measuring 4 cm. This is similar to previous exam. There is no pericardial effusion. There are no enlarged hilar or mediastinal lymph nodes. There are multiple calcified bilateral thyroid nodules. PLEURA: There is no pleural effusion. No pleural mass or thickening. AXILLA: No lymphadenopathy. UPPER ABDOMEN: There are bilateral high attenuation renal lesions that appear stable. There is diverticulosis of the colon. The spleen is upper normal in size. OSSEOUS STRUCTURES: There are degenerative changes of the spine. CT/CT chest wo IV con IMPRESSION: Stable pulmonary nodules. Atherosclerotic disease with coronary artery and aortic valve calcification. Dilated aortic arch measuring 4 cm stable from prior exams. Fleischner guidelines were followed.
== END 2022-05-13 09:40 | disposition home or self-care (01) ==
LOC: HO.CT 09:39
PROVIDERS: PCP Nurse Practitioner Family; Visit Provider Hospitalist
DX: R91.8 Other nonspecific abnormal finding of lung field (principal)
CPT/HCPCS: 71250

== ENCOUNTER 2022-06-20 08:00 | Outpatient (RCR) | payer MEDICARE, SELFPAY | END 2022-08-28 09:02 | disposition home or self-care (01) | LOC: HO.PTCHIC 08:00 | PROVIDERS: PCP Nurse Practitioner Family; Visit Provider Orthopaedic Surgery | DX: Z96.651 Presence of right artificial knee joint (principal) | CPT/HCPCS: 97110; 97112; 97140; 97162; 97530 ==

== ENCOUNTER → 2022-07-24 09:57 | Outpatient (BNVA) | payer MEDICARE, SELFPAY | PROVIDERS: PCP Nurse Practitioner Family; Visit Provider Hospitalist | DX: R91.8 Other nonspecific abnormal finding of lung field (principal); J41.0 Simple chronic bronchitis; J30.9 Allergic rhinitis, unspecified; I77.810 Thoracic aortic ectasia | CPT/HCPCS: 99212 ==

== ENCOUNTER → 2023-02-04 10:44 | Outpatient (BNVA) | payer MEDICARE, SELFPAY | PROVIDERS: PCP Nurse Practitioner Family; Referring Provider Nurse Practitioner Family; Visit Provider Internal Medicine Cardiovascular Disease | DX: I45.2 Bifascicular block (principal); I48.0 Paroxysmal atrial fibrillation; I10 Essential (primary) hypertension; Z98.890 Other specified postprocedural states | CPT/HCPCS: 93005; 99212 ==

== ENCOUNTER 2023-05-09 13:39 | Outpatient (REF) | payer MEDICARE, SELFPAY ==
--- NOTE | ~2023-05-09 | CT_ITS ---
EXAMINATION: CT CHEST WITHOUT CONTRAST CLINICAL INFORMATION: Other nonspecific abnormal finding lung field; pulmonary nodules COMPARISON: 05/13/2022, 05/29/2021 TECHNIQUE: Multidetector volumetric CT imaging of the chest was done. Axial MIP volume rendering provided. Sagittal and coronal reformatted images were obtained. This CT examination was performed using dose optimization techniques as appropriate, variously including the following: *Automated exposure control *Adjustment of mA and/or kV according to patient size (this includes techniques or standardized protocols for targeted exams where dose is matched to indication/reason for exam; i.e. extremities or head) *Use of iterative reconstruction technique DLP: 321.00 mGy-cm FINDINGS: SOCIAL SERVICES COUNSELOR: No diagnostic abnormality. LUNGS: The lungs are well expanded and clear of focal airspace opacity. There are occasional tiny calcified granulomas which appear unchanged. There is a nodule abutting the interlobar fissure in the left perihilar region measuring 6 mm in diameter which appears unchanged. There is an increasing lobulated focal nodular opacity in subpleural region and central base of the left lower lobe measuring approximately 10 x 9 x 8 mm. MEDIASTINUM: The heart is normal in size. There is dilatation of the posterior arch of the aorta to 4.2 cm, unchanged from prior examinations. There is moderate calcific atherosclerotic plaque in the aorta. CORONARY ARTERY CALCIFICATION: None visualized on this study. PLEURA: There is no pleural effusion. No pleural mass or thickening. AXILLA: No lymphadenopathy. UPPER ABDOMEN: Unremarkable. OSSEOUS STRUCTURES: Unremarkable. CT/CT chest wo IV con IMPRESSION: There is a developing focal irregular nodular subpleural density at the base of the left lower lobe, with mean diameter of 9 mm. Further evaluation by PET/CT is recommended. The examination is otherwise unchanged. Fleischner guidelines were followed.
== END 2023-05-09 13:40 | disposition home or self-care (01) ==
LOC: HO.CT 13:39
PROVIDERS: PCP Nurse Practitioner Family; Visit Provider Hospitalist
DX: R91.8 Other nonspecific abnormal finding of lung field (principal)
CPT/HCPCS: 71250

== ENCOUNTER 2023-05-13 09:08 | Outpatient (AMB) | payer MEDICARE, SELFPAY ==
--- NOTE | 2023-05-13 09:24 | A.OFFVIS_ITS ---
Intake Vital Signs 05/13/23 09:27 Height 5 ft 9 in Weight 204 lb BMI 30.1 BP 132/78 Blood Pressure Location Lt brachial Position Sitting Pulse 78 Pulse Source Pulse Oximeter Pulse Oximetry (%) 94 Oxygen Delivery Method Room Air Intake Visit Reasons: Abnormal CT Chest Results Kitchen Mechanic Required: No Allergies amiodarone Allergy (Severe, Verified 05/13/23 09:29) Rash/Itching amlodipine Allergy (Severe, Verified 05/13/23 09:29) tachycardia Sulfamethoxazole-TMP DS Allergy (Severe, Verified 05/13/23 09:29) Rash/Itching morphine [MORPHINE] Allergy (Intermediate, Verified 05/13/23 09:29) ITCHING and CONGESTION hydromorphone [From Dilaudid] Allergy (Mild, Verified 05/13/23 09:29) ITCHING,ANXIETY Sulfa (Sulfonamide Antibiotics) [Sulfa (Sulfonamides)] Allergy (Mild, Verified 05/13/23 09:29) RASH,ITCHING ENVIROMENTAL Allergy (Intermediate, Uncoded 05/13/23 09:29) HAYFEVER HPI HPI Comments History of Present Illness Details The patient is a 78-year-old gentleman known COPD in addition to p ulmonary nodules. Back in September he had a subsolid pulmonary nodule pimarily in the right lung but also has some other nodular densities throughout. he did have a repeat CT scan in January and more recently had a CT scan June 2020. the nodular density in the right hemithorax appears to be a little smaller also a left-sided pulmonary nodule to also appears to be little smaller. This is reassuring findings but will have to repeat monitoring the nodules to the fact that he is high risk for cancer. In the meantime he has been complaining of increasing chest congestion in addition to chest tightness. His symptoms appear to be worse at nighttime. [id number] severity. He has had to use his rescue inhaler at nighttime. We went over his inhalers including Symbicort and also a albuterol HFA. Does not appear that he is using Symbicort as prescribed. I did request that he uses Symbicort on a daily basis. I did also provide him a spacer. Will reassess his respiratory status 6 months with pulmonary function studies. 01/15/2021 for the patient is here for pulmonary follow-up visit. Overall the patient has been doing well from a respiratory status. He still has some shortness of breath and cough which is mild in severity. Sometimes specially in the summer his symptoms do worsen. He continues to use the Symbicort with very good effect. He has not had to use his rescue inhaler. Today, he did undergo pulmonary function studies. It demonstrates no significant obstructive nor restrictive ventilatory defects. However it appears that his diffusion impairment has worsen. We did look at his CT scan from back in June 2020 in did not have any evidence of any significant emphysema or interstitial lung disease to explain the drop in the diffusing capacity to 49% predicted. The patient does have underlying pulmonary nodules that need to be continued to be followed. Plan to repeat the CT scan a year from his last 1 which will be in June 2021. Therefore he will go for additional blood work including checking his hemoglobin to make sure that he is not anemic. 07/17/2021 Patient is here for a pulmonary follow-up visit. Overall he is doing a lot better. His cough is better after starting Astelin nasal spray. He still continues use of fluticasone nasal spray. He has had 3 bouts of epistaxis that landed him in the hospital. That is because he has been on Eliquis. Again we talked about the use of fluticasone in the proper administration. We also talked about using saline gel to try to lubricate the nose. Will try these interventions. If the patient continues bleeding he knows to decrease or stop the fluticasone nasal spray. The Symbicort has been working very well for him. He has not needed a rescue inhaler. Today we are reviewing CT scan of the chest. The patient had a CT scan in May 2021 we did compared to the CT scan from January 2021. He also had a CT scan on June 2020. It appears that he has a 7 mm nodule that is not changing. 07/24/2022 the patient is here for a pulmonary follow-up visit. This been about a year since we last spoke. His major complaint still has to do with significant nasal congestion postnasal drip and cough. Moderate severity. Does effective sleep. He believes is typically in the fall usually when he is dealing with all the falling leaves. Usually in the winter time things trial. In the meantime we did talk about making sure that he is using his fluticasone in addition to his antihistamine nasal spray. Also will optimize his allergy medication. The patient should also be rinsing every night. I did talk about considering an allergy referral. At this point would like to hold off since he has done that in the past. He also should use a mask when he is doing with leaves outside. The patient did have a CT scan of the chest that was personally by me. It appears that his pulmonary nodules largest 1 being 6 mm has not changed when compared to 2020. Also, it was noted that the ascending thoracic aorta is dilated to 4 cm. Was not aware this. I will make sure to mention it to his fisheries specialist. I will repeat the CT scan in a year's time in order to evaluate the pulmonary nodule 1 last time and also we can monitor his ectatic aorta. If the patient has any new respiratory issues or any concerning symptoms prior to that he is to call the office for an earlier assessment. 05/13/2023 the patient is here for a pulmonary follow-up visit. He is complaining of increasing allergy symptoms. Most likely transitioning to the fall. Does use his nasal sprays both the fluticasone the Astelin. He is also using the allergy medicine. Still having some sinus congestion and pressure. He typically responds well to prednisone. Will send him a Medrol pack so we can start that and hopefully get some relief. In the meantime he did have a CT scan of the chest April 2023. We did review it. Appears that his left lower lobe pulmonary nodule has remained increasing in size. This nodule has been changing even from 3071-5700 just slightly and now more significantly in 2022. Therefore based on the fact that is growing will be reasonable to further address this nodule. We did talk about a PET scan although the nodule is small. At this point will have the patient follow-up with thoracic surgery. They can decide either to remove the nodule or to form a PET scan. [facility] Medical History Actinic keratoses Bifascicular block Chronic allergic rhinitis COPD (chronic obstructive pulmonary disease) Ectatic thoracic aorta History of kidney cancer IBS (irritable bowel syndrome) Paroxysmal atrial fibrillation Pulmonary nodules Surgical History H/O cardiac radiofrequency ablation H/O inguinal hernia repair H/O left hemicolectomy History of cardioversion History of total right knee replacement S/P correction of deviated nasal septum Family History Father Heart attack Mother No problems noted. Social History Housing: House Are you a primary child care center assistant director to a significant other at home: No Do you presently have visiting nurse or other home services: No Patient Tobacco Use Status: Former Tobacco user Quit Date: 1989 Tobacco use type: Cigarette Years Smoked: 20 years e-Cigarette/Vaping Use: Never Used Second Hand Smoke Exposure: No Advance Directives Date on File: 06/19/20 service: Yes Current occupational status: retired Cognitive needs: No Hearing needs: Yes Vision needs: Yes Review of Systems Const Denies night sweats ENT Denies change in voice, Denies lip swelling, Reports epistaxis, Denies mouth pain, Reports nasal congestion, Reports nasal discharge, Reports post nasal drip, Reports sinus pressure and Denies tongue swelling Card Denies chest pain and Denies dyspnea Resp Reports cough and Denies dyspnea GI Reports abdominal pain Musc Denies no additional complaints Neuro Denies Neuro-related abnormal movements Psych Denies no additional complaints Amor/Lymph Denies easy bleeding and Denies lymphadenopathy Aller/Immun Denies lip swelling, Reports seasonal rhinorrhea and Denies tongue swelling Physical Exam Vital Signs: Last Vital Signs Pulse 78 05/13/23 09:27 BP 132/78 05/13/23 09:27 Pulse Ox 94 05/13/23 09:27 Oxygen Delivery Method Room Air 05/13/23 09:27 BMI result Body Mass Index 30.1 Const General: alert Neck Neck: Yes normal visual inspection, Yes full ROM and Yes no lymphadenopathy Chest Chest palpation & inspection: normal inspection of the chest Resp Auscultation: no wheezes and diminished lung sounds Cardio Rate: regular rate Rhythm: regular rhythm Heart sounds: S1 normal heart sound present, S2 normal heart sound present and Murmur heart sound present diastolic and systolic GI Palpation (GI): Soft to palpation and nontender Auscultation: normal bowel sounds Skin General skin exam: rashes and/or lesions noted Results Reviewed Results Reviewed: [address] [address] [address] Scan Report Signed Patient: Forest Stevens MR#: [id number] : 1945 Acct:[id number] Age/Sex: 78 / M ADM Date: 05/09/23 Loc: .CT Attending Dr: Ryan Joel MD Ordering Physician: Ryan Joel MD Date of Service: 05/09/23 Procedure(s): CT chest wo IV con Accession Number(s): [id number] cc: Ryan Joel MD~ EXAMINATION: CT CHEST WITHOUT CONTRAST CLINICAL INFORMATION: Other nonspecific abnormal finding lung field; pulmonary nodules? COMPARISON: 05/13/2022, 05/29/2021 TECHNIQUE: Multidetector volumetric CT imaging of the chest was done. Axial MIP volume rendering provided. Sagittal and coronal reformatted images were obtained.? This CT examination was performed using dose optimization techniques as appropriate, variously including the following: *Automated exposure control *Adjustment of mA and/or kV according to patient size (this includes techniques or standardized protocols for targeted exams where dose is matched to indication/reason for exam; i.e. extremities or head) *Use of iterative reconstruction technique DLP: 321.00 mGy-cm FINDINGS: LAVATORY ATTENDANT: No diagnostic abnormality. LUNGS: The lungs are well expanded and clear of focal airspace opacity. There are occasional tiny calcified granulomas which appear unchanged. There is a nodule abutting the interlobar fissure in the left perihilar region measuring 6 mm in diameter which appears unchanged. There is an increasing lobulated focal nodular opacity in subpleural region and central base of the left lower lobe measuring approximately 10 x 9 x 8 mm.? MEDIASTINUM: The heart is normal in size. There is dilatation of the posterior arch of the aorta to 4.2 cm, unchanged from prior examinations. There is moderate calcific atherosclerotic plaque in the aorta.? CORONARY ARTERY CALCIFICATION: None visualized on this study. PLEURA: There is no pleural effusion. No pleural mass or thickening.? AXILLA: No lymphadenopathy.? UPPER ABDOMEN: Unremarkable.? OSSEOUS STRUCTURES: Unremarkable.? CT/CT chest wo IV con IMPRESSION: There is a developing focal irregular nodular subpleural density at the base of the left lower lobe, with mean diameter of 9 mm. Further evaluation by PET/CT is recommended. ? The examination is otherwise unchanged.? ? Fleischner guidelines were followed. Dictated By: Facundo Yang MD Signed By: <Electronically signed by Facundo Yang MD in OV> 05/12/23 1200 DD/ 1417 TD/TT:? Jacquard Card Cutter: Assessment & Plan Assessment & Plan (1) Pulmonary nodules: Code(s): R91.8 - Other nonspecific abnormal finding of lung field (2) COPD (chronic obstructive pulmonary disease): Code(s): J44.9 - Chronic obstructive pulmonary disease, unspecified Qualifiers: COPD type: chronic bronchitis Chronic bronchitis type: simple Qualified Code(s): J41.0 - Simple chronic bronchitis (3) Chronic allergic rhinitis: Code(s): J30.9 - Allergic rhinitis, unspecified (4) Ectatic thoracic aorta: Code(s): I77.810 - Thoracic aortic ectasia Plan Continue Symbicort as prescribed. The patient does get his Symbicort from the [place], [place] Continue Aztelin nasal spray continue Fluticasone nasal spray start medrol pack continue loratidine stopped singulair due to dry eyes sinus rinse at night referral to Thoracic surgery to assess the growing LLL irregular nodule. PET maybe an option versus resection. CT guided biopsy would be very difficult and risky based on the medial location and proximity t the diaphram. F/U with cardiology re: ectatic aorta F/U 1 year Orders: Referrals Thoracic Surgery Referral R91.8 - Other nonspecific abnormal finding of lung field Medications: New methylprednisolone (Medrol ([place])) PO PER PKG DIR 6 days 21 ea 0RF Changed From fluticasone propionate 50 mcg/actuation 1 spray intranasal DAILY PRN 16 grams 3RF Nasal Congestion To fluticasone propionate 50 mcg/actuation 2 sprays intranasal DAILY 90 days PRN 16 grams 3RF Nasal Congestion Refilled azelastine administer into each nostril 2 sprays intranasal BID 90 days 3 ea 3RF Coding Level of Care Code Est Pt Level 4 (56889) Diagnoses Pulmonary nodules R91.8 COPD (chronic obstructive pulmonary disease) J41.0 COPD type: chronic bronchitis Chronic bronchitis type: simple Chronic allergic rhinitis J30.9 Ectatic thoracic aorta I77.810 Time Spent (min) 20
[2023-05-13 09:27] VITALS: BP 132/78; PULSE 78; O2SAT 94; BMI 30.1
== END 2023-05-13 09:58 | disposition home or self-care (01) ==
PROVIDERS: PCP Nurse Practitioner Family; Visit Provider Hospitalist
DX: R91.8 Other nonspecific abnormal finding of lung field (principal); J41.0 Simple chronic bronchitis; J30.9 Allergic rhinitis, unspecified; I77.810 Thoracic aortic ectasia
CPT/HCPCS: 99214

== ENCOUNTER → 2023-05-13 09:08 | Outpatient (BNVA) | payer MEDICARE, SELFPAY | PROVIDERS: PCP Nurse Practitioner Family; Visit Provider Hospitalist | DX: J41.0 Simple chronic bronchitis (principal); R91.8 Other nonspecific abnormal finding of lung field; J30.9 Allergic rhinitis, unspecified; I77.810 Thoracic aortic ectasia; Z79.899 Other long term (current) drug therapy | CPT/HCPCS: 99212 ==

== ENCOUNTER 2023-05-30 09:21 | Outpatient (AMB) | payer MEDICARE, SELFPAY ==
--- NOTE | 2023-05-30 09:40 | MHC.OFFVIS ---
Intake Vital Signs 05/30/23 10:07 Height 5 ft 9 in Weight 203 lb BMI 30.0 BP 120/74 Blood Pressure Location Lt brachial Position Sitting Pulse 90 Pulse Oximetry (%) 95 Intake Visit Reasons: Abnormal CT Chest Allergies amiodarone Allergy (Severe, Verified 05/30/23 10:09) Rash/Itching amlodipine Allergy (Severe, Verified 05/30/23 10:09) tachycardia Sulfamethoxazole-TMP DS Allergy (Severe, Verified 05/30/23 10:09) Rash/Itching morphine [MORPHINE] Allergy (Intermediate, Verified 05/30/23 10:09) ITCHING and CONGESTION hydromorphone [From Dilaudid] Allergy (Mild, Verified 05/30/23 10:09) ITCHING,ANXIETY Sulfa (Sulfonamide Antibiotics) [Sulfa (Sulfonamides)] Allergy (Mild, Verified 05/30/23 10:09) RASH,ITCHING ENVIROMENTAL Allergy (Intermediate, Uncoded 05/30/23 10:09) HAYFEVER Medication List - Last Reconciled 05/30/23 by Susy Unger MD albuterol sulfate 90 mcg/actuation 2 inhalations inhalation Q6H PRN 30 days alprazolam 0.25 mg PO BEDTIME atorvastatin 20 mg PO DAILY azelastine 2 sprays intranasal BID 90 days betamethasone dipropionate 0.05% 1 appl topical DAILY PRN dicyclomine 10 mg PO flu vacc [id number](65yr up)-PF mL IM fluoride (sodium) 1.1% PO BEDTIME fluticasone propionate 50 mcg/actuation 2 sprays intranasal DAILY PRN 90 days lorazepam 1 mg PO BID losartan-hydrochlorothiazide 100-12.5 mg 1 tab PO DAILY methylprednisolone (Medrol (Edinson)) PO PER PKG DIR 6 days metoprolol succinate ER 100 mg PO DAILY Symbicort 160-4.5 mcg/actuation (budesonide-formoterol) 2 puffs inhalation BID 90 days NS HPI Abnormal CT Chest HPI Details 78-year-old male former smoker quit 1989 prior to that smoked a pack per day who has been followed with serial CT scans since 2019. Most recently he had a CT scan done on 05/09/2023 which was compared by me directly and interpreted with all of his prior CT scans back to 2019. This scan shows a lobulated 10 x 9 x 8 mm nodule at the base of the left lower lobe which has increased slowly since 2019 at which time it was about 5 mm in size. There is no mediastinal lymphadenopathy and no pleural fluid. He tells me he did have atrial fibrillation and had an ablation at 1 point and his precision lens grinder is Dr. Zhao. He is not on anticoagulation. He reports feeling generally good health denies unintentional weight loss decreased appetite fevers chills or soaking sweats. He denies shortness of breath cough or hemoptysis. He can go up a flight of stairs without stopping but then is breathing at that point. He does report headaches with allergy season which is now for him but denies any other new neurologic symptoms. [facility] Medical History Ectatic thoracic aorta Bifascicular block IBS (irritable bowel syndrome) History of kidney cancer Actinic keratoses Paroxysmal atrial fibrillation Chronic allergic rhinitis COPD (chronic obstructive pulmonary disease) Pulmonary nodules Surgical History History of total right knee replacement H/O left hemicolectomy H/O inguinal hernia repair H/O cardiac radiofrequency ablation History of cardioversion S/P correction of deviated nasal septum Family History Father Heart attack Mother No problems noted. Social History Housing: House Are you a primary healthcare advisory services manager to a significant other at home: No Do you presently have visiting nurse or other home services: No Patient Tobacco Use Status: Former Tobacco user Quit Date: 1989 Tobacco use type: Cigarette Years Smoked: 20 years e-Cigarette/Vaping Use: Never Used Second Hand Smoke Exposure: No Advance Directives Date on File: 06/19/20 service: Yes Current occupational status: retired Cognitive needs: No Hearing needs: Yes Vision needs: Yes Physical Exam Vital Signs: Last Vital Signs Pulse 90 05/30/23 10:07 BP 120/74 05/30/23 10:07 Pulse Ox 95 05/30/23 10:07 BMI result Body Mass Index 30.0 General: No acute distress HEENT: Moist mucous membranes, normocephalic, pupils equal round and reactive to light. Neck: No thyromegaly, supple, no JVD Lymph: No cervical, supraclavicular, or other lymphadenopathy Chest: No chest wall abnormalities or deformities Heart: Regular rate and rhythm Lungs: Clear to auscultation bilaterally Abdomen: Soft, nontender, normal bowel sounds Extremities: No edema, cyanosis, or clubbing. Full range of motion Neuro: Grossly intact, alert and oriented x3, and nonfocal Skin: Warm and dry no rashes Affect: Normal Assessment & Plan Assessment & Plan (1) Pulmonary nodules: Code(s): R91.8 - Other nonspecific abnormal finding of lung field Plan: 78-year-old male former smoker although somewhat remote from that with a slowly enlarging lobulated pulmonary nodule in the left lower lobe at the base. I had a discussion with him and his about the findings on his CT scan as described in HPI. We also discussed pulmonary nodule in general and other size, shape, and increase over time affect her level of suspicion for malignancy. I do think this is a clinical stage I lung cancer until proven otherwise given its growth over time size and shape. I also discussed the diagnosis, staging, and treatment of lung cancer which he seemed understand along with his who recently had an operation for a right upper lobe lung cancer. Options I discussed with him were continued observation which I would not necessarily recommend given it has grown over time versus needle biopsy versus surgical wedge resection possible lobectomy. Ultimately he decided on surgical wedge resection so will plan on booking him for a navigational bronchoscopy with dye marking Davinci left lower lobe wedge resection possible lobectomy after June 29. He will need pulmonary function testing and to see his precision lens grinder which is Dr. Zhao prior to the operation. All questions were answered. Orders: Orders PFT pulmonary function test Today R91.8 - Other nonspecific abnormal finding of lung field Coding Level of Care Code New Pt Level 5 (25951) Diagnoses Pulmonary nodules R91.8 Time Spent (min) 69
[2023-05-30 10:07] VITALS: BP 120/74; PULSE 90; O2SAT 95
== END 2023-05-30 10:37 | disposition home or self-care (01) ==
PROVIDERS: PCP Nurse Practitioner Family; Visit Provider Surgery
DX: R91.8 Other nonspecific abnormal finding of lung field (principal)

== ENCOUNTER → 2023-05-30 09:21 | Outpatient (BNVA) | payer MEDICARE, SELFPAY | PROVIDERS: PCP Nurse Practitioner Family; Visit Provider Surgery | DX: R91.8 Other nonspecific abnormal finding of lung field (principal); Z87.891 Personal history of nicotine dependence | CPT/HCPCS: 99202 ==

== ENCOUNTER 2023-06-09 06:13 | Outpatient (REF) | payer MEDICARE, SELFPAY ==
[2023-06-09 11:57] LABS: MANUAL DIFF FLAG NO
[2023-06-09 12:08] LABS: Basophils Absolute Auto 0.1 X10*3/uL (0.0-0.2); Basophils Percent Auto 0.8 % (0-2); Eosinophils Absolute Auto 0.2 X10*3/uL (0.0-0.4); Eosinophils Percent Auto 2.8 % (0-4); Hematocrit 48.6 % (42.0-52.0); Hemoglobin 16.1 g/dl (14.0-18.0); Imm Gran Abs Auto 0.03 X10*3/uL (0.00-0.03); Imm Gran Pct Auto 0.3 % (0.0-0.4); Lymphocytes Absolute Auto 2.9 X10*3/uL (1.2-4.9); Lymphocytes Percent Auto 33.3 % (20-40); Mean Corpuscular HGB Conc 33.1 g/dl (31.0-36.0); Mean Corpuscular Hemoglobin 29.4 pg (27.0-33.0); Mean Corpuscular Volume 88.8 fL (80.0-98.0); Monocytes Absolute Auto 0.6 X10*3/uL (0.1-1.2); Monocytes Percent Auto 7.3 % (2-11); Neutrophils Absolute Auto 4.8 x10*3/uL (2.0-8.3); Neutrophils Percent Auto 55.5 % (45-73); Platelet Count 200 X10*3/uL (160-400); Red Blood Count 5.47 X10*6/uL (4.60-5.80); Red Cell Distribution Width 13.3 % (11.0-16.0); White Blood Count 8.7 X10*3/uL (4.8-10.8)
[2023-06-09 12:12] LABS: Appearance Urine Clear; Color Urine Yellow; Glucose Urine UA Negative (Negative); Leukocyte Esterase Urine Negative (Negative); Nitrite Urine Negative (Negative); PH 5.5 (5.0-9.0); UMIC TRIGGER UACC YES; Urine Blood Negative (Negative); Urine Ketones Negative (Negative); Urine Protein 100 (2+) mg/dL (Neg-Trace)
[2023-06-09 12:19] LABS: Bacteria Urine None Seen (None Seen); Hyaline Casts Urine 0-2 /LPF (0-2); RBC Urine 0-2 /HPF (0-2); Squamous Epithelial Cell Urine 0-2 /HPF (0-2); WBC Urine 0-5 /HPF (0-5)
[2023-06-09 12:21] LABS: Estimated Average Glucose 134 mg/dL; Hemoglobin A1c % 6.3 % (<6.0)
[2023-06-09 12:27] LABS: Creatinine Urine 174.76 mg/dL; Microalbum/Creatinine Ratio Ur 169.9 ug/mg cr (<30)
[2023-06-09 12:55] LABS: Alanine Aminotransferase 34 U/L (0-40); Albumin Level 4.1 g/dL (3.5-5.0); Alkaline Phosphatase 51 U/L (39-117); Anion Gap 12 (12-20); Aspartate Amino Transferase 28 U/L (5-37); Bilirubin Total 0.7 mg/dL (0.0-1.0); Blood Urea Nitrogen 13 mg/dL (9-16); Calcium 9.6 mg/dL (8.4-10.2); Carbon Dioxide 24 mmol/L (22-29); Chloride 108 mmol/L (96-108); Cholesterol 121 mg/dL (<200); Estimated Glomerular Filt Rate > 60; Glucose Fasting 126 mg/dL (60-99); HDL Cholesterol 32 mg/dL (>40); LDL Cholesterol Calculated 50 mg/dL (<100); Potassium 3.6 mmol/L (3.3-5.1); Sodium 140 mmol/L (135-145); Triglycerides 195 mg/dL (<150)
[2023-06-09 13:15] LABS: Prostate Specific Antigen Scr 0.25 ng/mL (<0.05-4.0)
== END 2023-06-09 06:14 | disposition home or self-care (01) ==
LOC: HO.HMGCLDS 06:13
PROVIDERS: PCP Nurse Practitioner Family; Visit Provider Nurse Practitioner Family
DX: E11.9 Type 2 diabetes mellitus without complications (principal); Z12.5 Encounter for screening for malignant neoplasm of prostate
CPT/HCPCS: 36415; 80053; 80061; 81001; 81003; 82043; 82570; 83036; 84153; 84443; 85025

== ENCOUNTER 2023-06-20 09:11 | Outpatient (REF) | payer MEDICARE, SELFPAY | END 2023-06-20 09:12 | disposition home or self-care (01) | LOC: HO.RESP 09:11 | PROVIDERS: PCP Nurse Practitioner Family; Visit Provider Surgery | DX: R91.8 Other nonspecific abnormal finding of lung field (principal) | CPT/HCPCS: 94010; 94727; 94729 ==

== ENCOUNTER → 2023-06-20 09:56 | Outpatient (BNV) | payer MEDICARE, SELFPAY | PROVIDERS: PCP Nurse Practitioner Family; Visit Provider Hospitalist | DX: Z01.811 Encounter for preprocedural respiratory examination (principal); R91.1 Solitary pulmonary nodule | CPT/HCPCS: 94060; 94727; 94729 ==

== ENCOUNTER 2023-08-06 08:41 | Outpatient (AMB) | payer MEDICARE, SELFPAY ==
[2023-08-06 08:53] VITALS: PULSE 82; O2SAT 94; BMI 29.9
--- NOTE | 2023-08-06 08:53 | A.OFFVIS_ITS ---
Intake Vital Signs 08/06/23 08:53 Height 5 ft 9 in Weight 202 lb 13.204 oz BMI 29.9 Pulse 82 Pulse Source Pulse Oximeter Pulse Oximetry (%) 94 Oxygen Delivery Method Room Air Intake Visit Reasons: Pulmonary Nodules Camp Coordinator Required: No Allergies amiodarone Allergy (Severe, Verified 08/06/23 08:55) Rash/Itching amlodipine Allergy (Severe, Verified 08/06/23 08:55) tachycardia sulfamethoxazole [From Sulfamethoxazole-Trimethoprim] Allergy (Severe, Verified 08/06/23 15:27) Rash and itching trimethoprim [From Sulfamethoxazole-Trimethoprim] Allergy (Severe, Verified 08/06/23 15:27) Rash and itching environmental allergies Allergy (Intermediate, Verified 08/06/23 15:26) Hayfever morphine [MORPHINE] Allergy (Intermediate, Verified 08/06/23 15:26) Itching and congestion hydromorphone [From Dilaudid] Allergy (Mild, Verified 08/06/23 15:26) Itching and anxiety Sulfa (Sulfonamide Antibiotics) [Sulfa (Sulfonamides)] Allergy (Mild, Verified 08/06/23 15:26) Rash and Itching HPI HPI Comments History of Present Illness Details The patient is a 78-year-old gentleman known COPD in addition to pulmonary nodules. Back in September he had a subsolid pulmonary nodule pimarily in the right lung but also has some other nodular densities throughout. he did have a repeat CT scan in January and more recently had a CT scan June 2020. the nodular density in the right hemithorax appears to be a little smaller also a left-sided pulmonary nodule to also appears to be little smaller. This is reassuring findings but will have to repeat monitoring the nodules to the fact that he is high risk for cancer. In the meantime he has been complaining of increasing chest congestion in addition to chest tightness. His symptoms appear to be worse at nighttime. [id number] severity. He has had to use his rescue inhaler at nighttime. We went over his inhalers including Symbicort and also a albuterol HFA. Does not appear that he is using Symbicort as prescribed. I did request that he uses Symbicort on a daily basis. I did also provide him a spacer. Will reassess his respiratory status 6 months with pulmonary function studies. 01/15/2021 for the patient is here for p ulmonary follow-up visit. Overall the patient has been doing well from a respiratory status. He still has some shortness of breath and cough which is mild in severity. Sometimes specially in the summer his symptoms do worsen. He continues to use the Symbicort with very good effect. He has not had to use his rescue inhaler. Today, he did undergo pulmonary function studies. It demonstrates no significant obstructive nor restrictive ventilatory defects. However it appears that his diffusion im pairment has worsen. We did look at his CT scan from back in June 2020 in did not have any evidence of any significant emphysema or interstitial lung disease to explain the drop in the diffusing capacity to 49% predicted. The patient does have underlying pulmonary nodules that need to be continued to be followed. Plan to repeat the CT scan a year from his last 1 which will be in June 2021. Therefore he will go for additional blood work including checking his hemoglobin to make sure that he is not anemic. 07/17/2021 Patient is here for a pulmona ry follow-up visit. Overall he is doing a lot better. His cough is better after starting Astelin nasal spray. He still continues use of fluticasone nasal spray. He has had 3 bouts of epistaxis that landed him in the hospital. That is because he has been on Eliquis. Again we talked about the use of fluticasone in the proper administration. We also talked about using saline gel to try to lubricate the nose. Will try these interventions. If the patient continues bleeding he knows to decrease or stop the fluticasone nasal spray. The Symbicort has been working very well for him. He has not needed a rescue inhaler. Today we are reviewing CT scan of the chest. The patient had a CT scan in May 2021 we did compared to the CT scan from January 2021. He also had a CT scan on June 2020. It appears that he has a 7 mm nodule that is not changing. 07/24/2022 the patient is here for a pulmonary follow-up visit. This been about a year since we last spoke. His major complaint still has to do with significant nasal congestion postnasal drip and cough. Moderate severity. Does effective sleep. He believes is typically in the fall usually when he is dealing with all the falling leaves. Usually in the winter time things trial. In the meantime we did talk about making sure that he is using his fluticasone in addition to his antihistamine nasal spray. Also will optimize his allergy medication. The patient should also be rinsing every night. I did talk about considering an allergy referral. At this point would like to hold off since he has done that in the past. He also should use a mask when he is doing with leaves outside. The patient did have a CT scan of the chest that was personally by me. It appears that his pulmonary nodules largest 1 being 6 mm has not changed when compared to 2020. Also, it was noted that the ascending thoracic aorta is dilated to 4 cm. Was not aware this. I will make sure to mention it to his mothers helper. I will repeat the CT scan in a year's time in order to franklyn luate the pulmonary nodule 1 last time and also we can monitor his ectatic aorta. If the patient has any new respiratory issues or any concerning symptoms prior to that he is to call the office for an earlier assessment. 05/13/2023 the patient is here for a pulm onary follow-up visit. He is complaining of increasing allergy symptoms. Most likely transitioning to the fall. Does use his nasal sprays both the fluticasone the Astelin. He is also using the allergy medicine. Still having some sinus congestion and pressure. He typically responds well to prednisone. Will send him a Medrol pack so we can start that and hopefully get some relief. In the meantime he did have a CT scan of the chest April 2023. We did review it. Appears that his left lower lobe pulmonary nodule has remained increasing in size. This nodule has been changing even from [id number] just slightly and now more significantly in 2022. Therefore based on the fact that is growing will be reasonable to further address this nodule. We did talk about a PET scan although the nodule is small. At this point will have the patient follow-up with thoracic surgery. They can decide either to remove the nodule or to form a PET scan. 08/06/2023 the patient is here for a hos pital follow-up visit. He did follow-up with surgeon and did undergo an elective video-assisted thoracoscopy with wedge resections in the left lower lobe area. Two wedge resections were done. 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 Therefore, I am happy that the nodules have been removed specially since they have the propensity of worsening. The patient postoperatively did have significant pain but now doing a lot better. He is postop now a little more than 2 weeks. He did have his postop check and did well. While he was in the hospital he did have a CT scan of the chest because of the significant pain and everything looked well. Will have him come back in 6 months with a chest x- ray and then if all is stable will plan to get repeat the CT scan in a year's time. The patient did not have any other worrisome nodules. Sometimes with the atypical edematous hyperplasia they can be found in other parts of the lungs and may be small although he does not have any other nodules that I am worried about right now. [facility] Medical History Ectatic thoracic aorta Bifascicular block IBS (irritable bowel syndrome) History of kidney cancer Actinic keratoses Paroxysmal atrial fibrillation Chronic allergic rhinitis COPD (chronic obstructive pulmonary disease) Pulmonary nodules Surgical History History of total right knee replacement H/O left hemicolectomy H/O inguinal hernia repair H/O cardiac radiofrequency ablation History of cardioversion S/P correction of deviated nasal septum Family History Father Heart attack Mother No problems noted. Housing: House Are you a primary senior care manager to a significant other at home: No Do you presently have visiting nurse or other home services: No Patient Tobacco Use Status: Former Tobacco user Quit Date: 1989 Tobacco use type: Cigarette Years Smoked: 20 years e-Cigarette/Vaping Use: Never Used Second Hand Smoke Exposure: No Advance Directives Date on File: 06/19/20 service: Yes Current occupational status: retired Cognitive needs: No Hearing needs: Yes Vision needs: Yes Review of Systems Const Denies night sweats ENT Denies change in voice, Denies lip swelling, Reports epistaxis, Denies mouth pain, Reports nasal congestion, Reports nasal discharge, Reports post nasal drip, Reports sinus pressure and Denies tongue swelling Card Denies chest pain and Reports dyspnea on exertion Resp Reports cough, Reports pain on inspiration, Reports pain with cough and Reports dyspnea on exertion GI Reports no additional complaints Musc Denies no additional complaints Neuro Denies Neuro-related abnormal movements Psych Denies no additional complaints Amor/Lymph Denies easy bleeding and Denies lymphadenopathy Aller/Immun Denies lip swelling, Reports seasonal rhinorrhea and Denies tongue swelling Physical Exam Vital Signs: Last Vital Signs Pulse 82 08/06/23 08:53 Pulse Ox 94 08/06/23 08:53 Oxygen Delivery Method Room Air 08/06/23 08:53 BMI result Body Mass Index 29.9 Const General: alert Neck Neck: Yes normal visual inspection, Yes full ROM and Yes no lymphadenopathy Chest Chest palpation & inspection: normal inspection of the chest Resp Auscultation: no wheezes and diminished lung sounds Cardio Rate: regular rate Rhythm: regular rhythm Heart sounds: S1 normal heart sound present, S2 normal heart sound present and Murmur heart sound present diastolic and systolic GI Palpation (GI): Soft to palpation and nontender Auscultation: normal bowel sounds Skin General skin exam: rashes and/or lesions noted Assessment & Plan Assessment & Plan (1) Pulmonary nodules: Comment: pathology: Atypical adematous hyperplacia and neuroedocrine tumorlets Code(s): R91.8 - Other nonspecific abnormal finding of lung field (2) COPD (chronic obstructive pulmonary disease): Code(s): J44.9 - Chronic obstructive pulmonary disease, unspecified Qualifiers: COPD type: chronic bronchitis Chronic bronchitis type: simple Qualified Code(s): J41.0 - Simple chronic bronchitis (3) Chronic allergic rhinitis: Code(s): J30.9 - Allergic rhinitis, unspecified (4) Ectatic thoracic aorta: Code(s): I77.810 - Thoracic aortic ectasia Plan Continue Symbicort as prescribed. The patient does get his Symbicort from the [place], [facility] Continue Aztelin nasal spray continue Fluticasone nasal spray continue loratidine stopped singulair due to dry eyes sinus rinse at night CXR F/U 6 months Orders: Orders XR chest 2V 5 Months R91.8 - Other nonspecific abnormal finding of lung field Coding Level of Care Code Est Pt Level 4 (63868) Diagnoses Pulmonary nodules R91.8 Simple chronic bronchitis J41.0 COPD type: chronic bronchitis Chronic bronchitis type: simple Chronic allergic rhinitis J30.9 Ectatic thoracic aorta I77.810 Time Spent (min) 18
== END 2023-08-06 09:24 | disposition home or self-care (01) ==
PROVIDERS: PCP Nurse Practitioner Family; Visit Provider Hospitalist
DX: R91.8 Other nonspecific abnormal finding of lung field (principal); J41.0 Simple chronic bronchitis; J30.9 Allergic rhinitis, unspecified; I77.810 Thoracic aortic ectasia
CPT/HCPCS: 99214

== ENCOUNTER → 2023-08-06 08:41 | Outpatient (BNVA) | payer MEDICARE, SELFPAY | PROVIDERS: PCP Nurse Practitioner Family; Visit Provider Hospitalist | DX: J41.0 Simple chronic bronchitis (principal); J30.9 Allergic rhinitis, unspecified; R91.8 Other nonspecific abnormal finding of lung field; I77.810 Thoracic aortic ectasia; Z87.891 Personal history of nicotine dependence | CPT/HCPCS: 99212 ==

== ENCOUNTER 2023-08-18 13:07 | Outpatient (AMB) | payer MEDICARE, SELFPAY ==
--- NOTE | 2023-08-18 13:10 | MHC.PC.OV ---
Vital Signs 08/18/23 13:15 Height 5 ft 9 in Weight 212 lb BMI 31.3 BP 138/78 Blood Pressure Location Rt brachial Position Sitting Pulse 79 Pulse Source Pulse Oximeter Pulse Oximetry (%) 95 Oxygen Delivery Method Room Air Intake Visit Reasons: DM follow up Intake Note: Pt is here today for his DM f/u Allergies amiodarone Allergy (Severe, Verified 08/18/23 13:12) Rash/Itching amlodipine Allergy (Severe, Verified 08/18/23 13:12) tachycardia sulfamethoxazole [From Sulfamethoxazole-Trimethoprim] Allergy (Severe, Verified 08/18/23 13:12) Rash and itching trimethoprim [From Sulfamethoxazole-Trimethoprim] Allergy (Severe, Verified 08/18/23 13:12) Rash and itching environmental allergies Allergy (Intermediate, Verified 08/18/23 13:12) Hayfever morphine [MORPHINE] Allergy (Intermediate, Verified 08/18/23 13:12) Itching and congestion hydromorphone [From Dilaudid] Allergy (Mild, Verified 08/18/23 13:12) Itching and anxiety Sulfa (Sulfonamide Antibiotics) [Sulfa (Sulfonamides)] Allergy (Mild, Verified 08/18/23 13:12) Rash and Itching Tobacco use date assessed: 08/18/23 Fall risk assessment: No Falls in past year Last assessed Fall Risk: 08/18/23 Dental Screening Dental Screen Date: 08/18/23 Did you have a dental visit in the last 12 months?: Yes Did you have a dental problem in the last 6 months where you did not have access to dental care?: No Was dental information given to patient?: Patient has dentist HPI DM follow up HPI Details Pt is a diabetic, on a statin. Last A1C was 6.3, microalbumin is up to date. Denies polyuria, polydipsia, and neuropathy. Pt denies any signs and symptoms of hypoglycemia and does know how to correct it. Eye exam is up to date, follows up with an eye doctor. Pt follows up with pulmonology, cardiology, and thoracic. Microalbuminuria noted, will refer to nephrology. [facility] Medical History Ectatic thoracic aorta Bifascicular block IBS (irritable bowel syndrome) History of kidney cancer Actinic keratoses Paroxysmal atrial fibrillation Chronic allergic rhinitis COPD (chronic obstructive pulmonary disease) Pulmonary nodules Surgical History History of total right knee replacement H/O left hemicolectomy H/O inguinal hernia repair H/O cardiac radiofrequency ablation History of cardioversion S/P correction of deviated nasal septum Family History Father Heart attack Mother No problems noted. Social History Housing: House Are you a primary home visit field care manager to a significant other at home: No Do you presently have visiting nurse or other home services: No Patient Tobacco Use Status: Former Tobacco user Quit Date: 1989 Tobacco use type: Cigarette Years Smoked: 20 years e-Cigarette/Vaping Use: Never Used Second Hand Smoke Exposure: No Advance Directives Date on File: 06/19/20 service: Yes Current occupational status: retired Cognitive needs: No Hearing needs: Yes Vision needs: Yes Review of Systems Const Reports as per HPI Physical exam (Primary Care) Vital Signs: Last Vital Signs Pulse 79 08/18/23 13:15 BP 138/78 08/18/23 13:15 Pulse Ox 95 08/18/23 13:15 Oxygen Delivery Method Room Air 08/18/23 13:15 BMI result Body Mass Index 31.3 Tobacco/Smoking Status: Tobacco use Status Tobacco use date assessed 08/18/23 08/18/23 13:14 Patient Tobacco Use Status Former Tobacco user 08/18/23 13:12 Tobacco use type Cigarette 08/18/23 13:12 e-Cigarette/Vaping Use Never Used 08/18/23 13:12 Const General: cooperative Orientation/consciousness: patient oriented x3 Resp Effort & Inspection: normal respiratory effort Auscultation: clear to auscultation bilaterally Cardio Rate: regular rate Rhythm: regular rhythm Heart sounds: S1 normal heart sound present and S2 normal heart sound present Neuro General: patient oriented x3 Extrem Other: bilat feet: + sensation with use of monofilament, feet intact without lesions or ulcerations Psych Appearance: grossly normal Mental Status: mental status grossly normal Speech and movement: Normal speech and movement present Affect: normal affect Attitude: cooperative Thought process: Normal thought process present Thought content: Normal thought content present Insight: Good insight present (Psych) Judgement: Good judgement present (Psych) Assessment and Plan Assessment & Plan (1) Microalbuminuria: Code(s): R80.9 - Proteinuria, unspecified Plan: Referred to nephrology (2) Diabetes: Code(s): E11.9 - Type 2 diabetes mellitus without complications Plan: Labs ordered Plan The patient agreed to the use of a certified medical transcriptionist for this encounter. Scribed for MARK Leblanc by Barbara Menon certified medical transcriptionist, on 08/18/2023 at 13:30 EST. Orders: Orders Complete Blood Count Auto Diff Today E11.9 - Type 2 diabetes mellitus without complications Comprehensive [place]. Panel Fast Today E11.9 - Type 2 diabetes mellitus without complications TSH reflex Free T4 Today E11.9 - Type 2 diabetes mellitus without complications Lipid Panel Today E11.9 - Type 2 diabetes mellitus without complications Hemoglobin A1c Today E11.9 - Type 2 diabetes mellitus without complications UA CC w/rflx Micro + Cult Today E11.9 - Type 2 diabetes mellitus without complications Referrals Nephrology Referral R80.9 - Proteinuria, unspecified Coding Level of Care Code Est Pt Level 3 (45886) Diagnoses Microalbuminuria R80.9 Diabetes E11.9
[2023-08-18 13:15] VITALS: BP 138/78; PULSE 79; O2SAT 95; BMI 31.3
== END 2023-08-18 15:27 | disposition home or self-care (01) ==
PROVIDERS: PCP Nurse Practitioner Family; Visit Provider Nurse Practitioner Family
DX: R80.9 Proteinuria, unspecified (principal); E11.9 Type 2 diabetes mellitus without complications
CPT/HCPCS: 99213

== ENCOUNTER 2023-08-22 12:08 | Outpatient (AMB) | payer MEDICARE, SELFPAY ==
[2023-08-22 12:09] VITALS: BP 136/80; PULSE 78; O2SAT 95; BMI 31.3
--- NOTE | 2023-08-22 12:09 | HO.NEPHOV_ITS ---
HPI HPI Comments History of Present Illness Details 78-year-old man with a history of hypert ension has been referred for proteinuria. He has a history of renal cell carcinoma. In this was encapsulated mass. This was removed in 2013. He was having periodic survei llance at [facility]. He has had no further follow-up for the last year or so. He carries a diagnosis of diabetes mellitus. However he has not had any anti diabetic medications. He denies having diabetes. Using recent fasting blood sugars have been more than 100 and staying around 126. Recently a hemoglobin A1c is 6.3 PFSH Medical History Ectatic thoracic aorta Bifascicular block IBS (irritable bowel syndrome) History of kidney cancer Actinic keratoses Paroxysmal atrial fibrillation Chronic allergic rhinitis COPD (chronic obstructive pulmonary disease) Pulmonary nodules Surgical History History of total right knee replacement H/O left hemicolectomy H/O inguinal hernia repair H/O cardiac radiofrequency ablation History of cardioversion S/P correction of deviated nasal septum Family History Father Heart attack Mother No problems noted. Social History Housing: House Are you a primary rn care transition to a significant other at home: No Do you presently have visiting nurse or other home services: No Patient Tobacco Use Status: Former Tobacco user Quit Date: 1989 Tobacco use type: Cigarette Years Smoked: 20 years e-Cigarette/Vaping Use: Never Used Second Hand Smoke Exposure: No Advance Directives Date on File: 06/19/20 service: Yes Current occupational status: retired Cognitive needs: No Hearing needs: Yes Vision needs: Yes Vital Signs 08/22/23 12:09 Height 5 ft 9 in Weight 212 lb BMI 31.3 BP 136/80 Blood Pressure Location Rt brachial Position Sitting Pulse 78 Pulse Source Pulse Oximeter Pulse Oximetry (%) 95 Oxygen Delivery Method Room Air Physical Exam Vital Signs: Last Vital Signs Pulse 78 08/22/23 12:09 BP 136/80 08/22/23 12:09 Pulse Ox 95 08/22/23 12:09 Oxygen Delivery Method Room Air 08/22/23 12:09 BMI result Body Mass Index 31.3 Const General: comfortable Nutritional Appearance: well nourished Orientation/consciousness: patient oriented x3 HEENT Head: No normal to inspection Mouth: moist mucous membranes Neck Neck: Yes supple and Yes no JVD Resp Auscultation: clear to auscultation bilaterally, no rales and rub present Cardio Jugular venous distension: no JVD Palpation: no palpable S3 and no palpable S4 Heart sounds: no rubs GI Palpation (GI): Soft to palpation and nontender Percussion: No Fluid wave present General: Yes no CVA tenderness Back/Spine/Pelvis Back: no CVA tenderness Skin General skin exam: no rashes or lesions noted Neuro General: patient oriented x3 Extrem General: Yes no pedal edema and No clubbing Assessment & Plan Assessment & Plan (1) Microalbuminuria: Code(s): R80.9 - Proteinuria, unspecified (2) HTN (hypertension): Code(s): I10 - Essential (primary) hypertension Plan Elderly man with a history of microalbuminuria in the setting of hypertension and a questionable diagnosis of diabetes mellitus and obesity. He is currently on losartan for renal protection. He has no significant hematuria. No evidence of any active glomerulonephritis. I would recommend to continue with angiotensin receptor samanta. Maintain blood pressure less than 130/80. Maintain A1c less than 6% As with a history of renal cell carcinoma without obtain a follow-up renal ultrasonogram. Orders: Orders Total Protein Urine Random 3 Weeks I10 - Essential (primary) hypertension, R80.9 - Proteinuria, unspecified Creatinine Urine 3 Weeks I10 - Essential (primary) hypertension, R80.9 - Proteinuria, unspecified Immunofixation Pnl, Serum 3 Weeks I10 - Essential (primary) hypertension, R80.9 - Proteinuria, unspecified US renal BI Today N28.1 - Cyst of kidney, acquired Coding Level of Care Code New Pt Level 4 (99377) Diagnoses Microalbuminuria R80.9 HTN (hypertension) I10 Results Reviewed Nephrology Results: Hgb 16.1 g/dl (14.0-18.0) 06/09/23 WBC 8.7 X10*3/uL (4.8-10.8) 06/09/23 Plt Count 200 X10*3/uL (160-400) 06/09/23 Sodium 140 mmol/L (135-145) 06/09/23 Potassium 3.6 mmol/L (3.3-5.1) 06/09/23 Chloride 108 mmol/L (96-108) 06/09/23 Carbon Dioxide 24 mmol/L (22-29) 06/09/23 BUN 13 mg/dL (9-16) 06/09/23 Creatinine 1.03 mg/dL (0.5-1.4) 06/09/23 Calcium 9.6 mg/dL (8.4-10.2) 06/09/23 Urine Protein 100 (2+) mg/dL (Neg-Trace) H 06/09/23 Urine Creatinine 174.76 mg/dL 06/09/23
== END 2023-08-22 12:35 | disposition home or self-care (01) ==
PROVIDERS: PCP Nurse Practitioner Family; Visit Provider Internal Medicine Hypertension Specialist
DX: R80.9 Proteinuria, unspecified (principal); I10 Essential (primary) hypertension
CPT/HCPCS: 99204

== ENCOUNTER → 2023-08-22 12:08 | Outpatient (BNVA) | payer MEDICARE, SELFPAY | PROVIDERS: PCP Nurse Practitioner Family; Visit Provider Internal Medicine Hypertension Specialist | DX: I10 Essential (primary) hypertension (principal); R80.9 Proteinuria, unspecified | CPT/HCPCS: 99202 ==

== ENCOUNTER 2023-09-16 07:41 | Outpatient (REF) | payer MEDICARE, SELFPAY ==
[2023-09-16 11:07] LABS: MANUAL DIFF FLAG NO
[2023-09-16 11:12] LABS: Basophils Absolute Auto 0.1 X10*3/uL (0.0-0.2); Basophils Percent Auto 0.7 % (0-2); Eosinophils Absolute Auto 0.3 X10*3/uL (0.0-0.4); Eosinophils Percent Auto 2.5 % (0-4); Hematocrit 50.8 % (42.0-52.0); Hemoglobin 16.7 g/dl (14.0-18.0); Imm Gran Abs Auto 0.05 X10*3/uL (0.00-0.03); Imm Gran Pct Auto 0.4 % (0.0-0.4); Lymphocytes Absolute Auto 3.4 X10*3/uL (1.2-4.9); Lymphocytes Percent Auto 30.2 % (20-40); Mean Corpuscular HGB Conc 32.9 g/dl (31.0-36.0); Mean Corpuscular Hemoglobin 29.6 pg (27.0-33.0); Mean Corpuscular Volume 90.1 fL (80.0-98.0); Mean Platelet Volume 9.9 fL (9.4-12.4); Monocytes Absolute Auto 0.8 X10*3/uL (0.1-1.2); Monocytes Percent Auto 6.7 % (2-11); Neutrophils Absolute Auto 6.6 x10*3/uL (2.0-8.3); Neutrophils Percent Auto 59.5 % (45-73); Platelet Count 210 X10*3/uL (160-400); Red Blood Count 5.64 X10*6/uL (4.60-5.80); Red Cell Distribution Width 13.6 % (11.0-16.0); White Blood Count 11.2 X10*3/uL (4.8-10.8)
[2023-09-16 11:13] LABS: Appearance Urine Clear; Color Urine Dark Yellow; Glucose Urine UA Negative (Negative); Leukocyte Esterase Urine Negative (Negative); Nitrite Urine Negative (Negative); PH 5.5 (5.0-9.0); Specific Gravity - Urine 1.025 (1.005-1.025); UMIC TRIGGER UACC YES; Urine Blood Negative (Negative); Urine Ketones Trace mg/dL (Negative); Urine Protein 30 (1+) mg/dL (Neg-Trace)
[2023-09-16 11:17] LABS: Bacteria Urine None Seen (None Seen); RBC Urine 0-2 /HPF (0-2); Squamous Epithelial Cell Urine 0-2 /HPF (0-2); WBC Urine 0-5 /HPF (0-5)
[2023-09-16 11:38] LABS: Estimated Average Glucose 134 mg/dL; Hemoglobin A1c % 6.3 % (<6.0)
[2023-09-16 12:30] LABS: Alanine Aminotransferase 44 U/L (0-40); Albumin Level 4.4 g/dL (3.5-5.0); Alkaline Phosphatase 63 U/L (39-117); Anion Gap 16 (12-20); Aspartate Amino Transferase 36 U/L (5-37); Bilirubin Total 0.7 mg/dL (0.0-1.0); Blood Urea Nitrogen 14 mg/dL (9-16); Calcium 9.8 mg/dL (8.4-10.2); Carbon Dioxide 26 mmol/L (22-29); Chloride 104 mmol/L (96-108); Cholesterol 129 mg/dL (<200); Estimated Glomerular Filt Rate > 60; Glucose Fasting 127 mg/dL (60-99); HDL Cholesterol 34 mg/dL (>40); LDL Cholesterol Calculated 44 mg/dL (<100); Potassium 3.8 mmol/L (3.3-5.1); Sodium 142 mmol/L (135-145); Total Protein 7.5 g/dL (6.5-8.0); Triglycerides 258 mg/dL (<150)
[2023-09-16 12:37] LABS: TSH reflex Free T4 1.73 uIU/mL (0.32-4.0)
[2023-09-16 13:51] LABS: Creatinine Urine 240.24 mg/dL; Total Protein Urine Random 55 mg/dL (<12)
[2023-09-18 13:39] LABS: IgA 107 mg/dL (70-320); IgG 1090 mg/dL (600-1540); IgM 115 mg/dL (50-300)
== END 2023-09-16 07:42 | disposition home or self-care (01) ==
LOC: HO.HMGCLDS 07:41
PROVIDERS: PCP Nurse Practitioner Family; Referring Provider Internal Medicine Hypertension Specialist; Visit Provider Nurse Practitioner Family
DX: E11.9 Type 2 diabetes mellitus without complications (principal); R80.9 Proteinuria, unspecified; I10 Essential (primary) hypertension
CPT/HCPCS: 36415; 80053; 80061; 81001; 82570; 82784; 83036; 84156; 84443; 85025; 86334

== ENCOUNTER 2023-09-26 13:54 | Outpatient (REF) | payer MEDICARE, SELFPAY ==
--- NOTE | ~2023-09-26 | CT_ITS ---
EXAMINATION: CT ABDOMEN WITHOUT CONTRAST CLINICAL INFORMATION: Renal cyst. COMPARISON: Chest CT dated May 09, 2023. CT scans of the abdomen dating between February 24, 2014 and October 18, 2006 TECHNIQUE: Contiguous axial thin section helical images of the abdomen were performed without contrast. The data set was reformatted in the coronal and sagittal planes and reviewed on an independent workstation. This CT examination was performed using dose optimization techniques as appropriate, variously including the following: *Automated exposure control *Adjustment of mA and/or kV according to patient size (this includes techniques or standardized protocols for targeted exams where dose is matched to indication/reason for exam; i.e. extremities or head) *Use of iterative reconstruction technique DLP: 403 mGy-cm FINDINGS: LUNG BASES: Surgical lisa at the posterior medial aspect of the left lower lobe with associated airspace disease, not otherwise characterized. Heart normal in size. Calcification of the aortic valve. Partially imaged coronary arterial calcification. No pericardial effusion. LIVER, GALLBLADDER, AND BILIARY TREE: The liver appears unremarkable in size, shape, and attenuation. No focal hepatic lesion or biliary ductal dilatation is appreciated. Unremarkable appearance of the gallbladder. PANCREAS: Unremarkable SPLEEN: Unremarkable ADRENAL GLANDS: Unremarkable KIDNEYS AND URETERS: Innumerable, 2.6 cm or less, round, homogeneous, hyperdense and hypodense lesions scattered throughout both kidneys, with thinner imperceptible gerber and no evidence of mural nodule, septic, or calcification on this noncontrast study. These generally demonstrate Hounsfield unit density of between 21 and 41. Many were not clearly evident on CT scan from 10 years prior. No hydronephrosis, hydroureter, or calculi seen. GASTROINTESTINAL TRACT: Extensive colonic diverticula without evidence of diverticulitis. Normal-appearing distal ileum and vermiform appendix. ABDOMINAL WALL: Approximately 3 cm lipoma at the left lateral abdominal wall (image 25, series 3). No significant hernia is appreciated. LYMPH NODES: No evidence of adenopathy by size criteria. VASCULAR: Unremarkable OSSEOUS STRUCTURES: Disc and facet degenerative changes most notable at L3-S1. CT/CT abdomen wo IV con IMPRESSION: Innumerable, 2.6 cm or less, round, homogeneous, hyperdense and hypodense lesions scattered throughout both kidneys, with thinner imperceptible gerber and no evidence of mural nodule, septic, or calcification on this noncontrast study. These generally demonstrate Hounsfield unit density of between 21 and 41. Many were not clearly evident on CT scan from 10 years prior. These are incompletely characterized on the current study and are indeterminate. MRI or CT scan with and without contrast is recommended for further evaluation if clinically indicated. Surgical lisa at the posterior medial aspect of the left lower lobe with associated airspace disease, not otherwise characterized. Additional findings, as above.
== END 2023-09-26 13:55 | disposition home or self-care (01) ==
LOC: HO.CT 13:54
PROVIDERS: PCP Nurse Practitioner Family; Visit Provider Internal Medicine Hypertension Specialist
DX: N28.1 Cyst of kidney, acquired (principal); C64.9 Malignant neoplasm of unspecified kidney, except renal pelvis
CPT/HCPCS: 74150

== ENCOUNTER 2023-11-22 10:31 | Outpatient (REF) | payer MEDICARE, SELFPAY ==
--- NOTE | ~2023-11-22 | XR_ITS ---
EXAMINATION: XR CHEST CLINICAL INFORMATION: Abnormal lung findings. COMPARISON: None available. TECHNIQUE: 2 views of the chest were obtained. FINDINGS: The lungs are well-expanded with platelike atelectasis left lung base. Heart size and pulmonary vascularity is normal. No gross bony abnormality seen XR/XR chest 2V IMPRESSION: Platelike atelectasis left lung base.
== END 2023-11-22 10:32 | disposition home or self-care (01) ==
LOC: HO.HMGCX 10:31
PROVIDERS: PCP Nurse Practitioner Family; Visit Provider Hospitalist
DX: R91.8 Other nonspecific abnormal finding of lung field (principal)
CPT/HCPCS: 71046

== ENCOUNTER 2023-11-24 10:44 | Outpatient (AMB) | payer MEDICARE, SELFPAY ==
[2023-11-24 10:46] VITALS: BP 140/78; PULSE 73; O2SAT 96; BMI 31.0
--- NOTE | 2023-11-24 10:46 | HO.NEPHOV ---
HPI HPI Comments History of Present Illness Details 78-year-old man with a history of hypertension has been referred for proteinuria. He has a history of renal cell carcinoma. In this was encapsulated mass. This was removed in 2013. He was having periodic surveillance at [facility]. He has had no further follow-up for the last year or so. He carries a diagnosis of diabetes mellitus. However he has not had any anti diabetic medications. He denies having diabetes. Using recent fasting blood sugars have been more than 100 and staying around 126. Recently a hemoglobin A1c is 6.3 11/24/23 Doing well. No new issues Had CT chest last month NO nodules CT abd shows multiple cysts PFSH Medical History Ectatic thoracic aorta Bifascicular block IBS (irritable bowel syndrome) History of kidney cancer Actinic keratoses Paroxysmal atrial fibrillation Chronic allergic rhinitis COPD (chronic obstructive pulmonary disease) Pulmonary nodules Surgical History History of total right knee replacement H/O left hemicolectomy H/O inguinal hernia repair H/O cardiac radiofrequency ablation History of cardioversion S/P correction of deviated nasal septum Family History Father Heart attack Mother No problems noted. Social History Housing: House Are you a primary floor care technician to a significant other at home: No Do you presently have visiting nurse or other home services: No Patient Tobacco Use Status: Former Tobacco user Quit Date: 1989 Tobacco use type: Cigarette Years Smoked: 20 years e-Cigarette/Vaping Use: Never Used Second Hand Smoke Exposure: No Advance Directives Date on File: 06/19/20 service: Yes Current occupational status: retired Cognitive needs: No Hearing needs: Yes Vision needs: Yes Vital Signs 11/24/23 10:46 Height 5 ft 9 in Weight 210 lb BMI 31.0 BP 140/78 H Blood Pressure Location Rt brachial Position Sitting Pulse 73 Pulse Source Pulse Oximeter Pulse Oximetry (%) 96 Oxygen Delivery Method Room Air Physical Exam Vital Signs: Last Vital Signs Pulse 73 11/24/23 10:46 BP 140/78 H 11/24/23 10:46 Pulse Ox 96 11/24/23 10:46 Oxygen Delivery Method Room Air 11/24/23 10:46 BMI result Body Mass Index 31.0 Assessment & Plan Assessment & Plan (1) Microalbuminuria: Code(s): R80.9 - Proteinuria, unspecified (2) HTN (hypertension): Code(s): I10 - Essential (primary) hypertension Plan Elderly man with a history of microalbuminuria in the setting of hypertension and a questionable diagnosis of diabetes mellitus and obesity. He is currently on losartan for renal protection. He has no significant hematuria. No evidence of any active glomerulonephritis. continue with angiotensin receptor samanta. Maintain blood pressure less than 130/80. Maintain A1c less than 6% renal cell carcinoma CT abdomen shows multiple cysts Will schedule follow up CT Will need to schedule along with Chest CT per patients request Orders: Orders Basic Metabolic Panel 6 Months N28.1 - Cyst of kidney, acquired Coding Level of Care Code Est Pt Level 4 (25342) Diagnoses Microalbuminuria R80.9 HTN (hypertension) I10 Results Reviewed Nephrology Results: Hgb 16.7 g/dl (14.0-18.0) 09/16/23 WBC 11.2 X10*3/uL (4.8-10.8) H 09/16/23 Plt Count 210 X10*3/uL (160-400) 09/16/23 Sodium 142 mmol/L (135-145) 09/16/23 Potassium 3.8 mmol/L (3.3-5.1) 09/16/23 Chloride 104 mmol/L (96-108) 09/16/23 Carbon Dioxide 26 mmol/L (22-29) 09/16/23 BUN 14 mg/dL (9-16) 09/16/23 Creatinine 1.08 mg/dL (0.5-1.4) 09/16/23 Calcium 9.8 mg/dL (8.4-10.2) 09/16/23 Urine Protein 30 (1+) mg/dL (Neg-Trace) H 09/16/23 Urine Creatinine 240.24 mg/dL 09/16/23
== END 2023-11-24 11:08 | disposition home or self-care (01) ==
PROVIDERS: PCP Nurse Practitioner Family; Visit Provider Internal Medicine Hypertension Specialist
DX: R80.9 Proteinuria, unspecified (principal); I10 Essential (primary) hypertension
CPT/HCPCS: 99214

== ENCOUNTER → 2023-11-24 10:44 | Outpatient (BNVA) | payer MEDICARE, SELFPAY | PROVIDERS: PCP Nurse Practitioner Family; Visit Provider Internal Medicine Hypertension Specialist | DX: R80.9 Proteinuria, unspecified (principal); I10 Essential (primary) hypertension | CPT/HCPCS: 99212 ==

== ENCOUNTER 2023-12-03 09:45 | Outpatient (AMB) | payer MEDICARE, SELFPAY ==
--- NOTE | 2023-12-03 09:51 | A.OFFVIS_ITS ---
Intake Vital Signs 12/03/23 09:57 Height 5 ft 9 in Weight 205 lb BMI 30.3 Pulse 81 Pulse Source Pulse Oximeter Pulse Oximetry (%) 94 Oxygen Delivery Method Room Air Intake Visit Reasons: Abnormal CT Chest Results Rn Community Required: No Allergies amiodarone Allergy (Severe, Verified 12/03/23 09:58) Rash/Itching amlodipine Allergy (Severe, Verified 12/03/23 09:58) tachycardia sulfamethoxazole [From Sulfamethoxazole-Trimethoprim] Allergy (Severe, Verified 12/03/23 09:58) Rash and itching trimethoprim [From Sulfamethoxazole-Trimethoprim] Allergy (Severe, Verified 12/03/23 09:58) Rash and itching environmental allergies Allergy (Intermediate, Verified 12/03/23 09:58) Hayfever morphine [MORPHINE] Allergy (Intermediate, Verified 12/03/23 09:58) Itching and congestion hydromorphone [From Dilaudid] Allergy (Mild, Verified 12/03/23 09:58) Itching and anxiety Seasonal Allergies Allergy (Mild, Verified 12/03/23 09:58) Unknown Sulfa (Sulfonamide Antibiotics) [Sulfa (Sulfonamides)] Allergy (Mild, Verified 12/03/23 09:58) Rash and Itching HPI HPI Comments History of Present Illness Details The patient is a 78-year-old gentleman known COPD in addition to pulmonary nodules. Back in September he had a subsolid pulmonary nodule pimarily in the right lung but also has some other nodular densities throughout. he did have a repeat CT scan in January and more recently had a CT scan June 2020. the nodular density in the right hemithorax appears to be a little smaller also a left-sided pulmonary nodule to also appears to be little smaller. This is reassuring findings but will have to repeat monitoring the nodules to the fact that he is high risk for cancer. In the meantime he has been complaining of increasing chest congestion in addition to chest tightness. His symptoms appear to be worse at nighttime. [id number] severity. He has had to use his rescue inhaler at nighttime. We went over his inhalers including Symbicort and also a albuterol HFA. Does not appear that he is using Symbicort as prescribed. I did request that he uses Symbicort on a daily basis. I did also provide him a spacer. Will reassess his respiratory status 6 months with pulmonary function studies. 01/15/2021 for the patient is here for p ulmonary follow-up visit. Overall the patient has been doing well from a respiratory status. He still has some shortness of breath and cough which is mild in severity. Sometimes specially in the summer his symptoms do worsen. He continues to use the Symbicort with very good effect. He has not had to use his rescue inhaler. Today, he did undergo pulmonary function studies. It demonstrates no significant obstructive nor restrictive ventilatory defects. However it appears that his diffusion impairment has worsen. We did look at his CT scan from back in June 2020 in did not have any evidence of any significant emphysema or interstitial lung disease to explain the drop in the diffusing capacity to 49% predicted. The patient does have underlying pulmonary nodules that need to be continued to be followed. Plan to repeat the CT scan a year from his last 1 which will be in June 2021. Therefore he will go for additional blood work including checking his hemoglobin to make sure that he is not anemic. 07/17/2021 Patient is here for a pulmona ry follow-up visit. Overall he is doing a lot better. His cough is better after starting Astelin nasal spray. He still continues use of fluticasone nasal spray. He has had 3 bouts of epistaxis that landed him in the hospital. That is because he has been on Eliquis. Again we talked about the use of fluticasone in the proper administration. We also talked about using saline gel to try to lubricate the nose. Will try these interventions. If the patient continues bleeding he knows to decrease or stop the fluticasone nasal spray. The Symbicort has been working very well for him. He has not needed a rescue inhaler. Today we are reviewing CT scan of the chest. The patient had a CT scan in May 2021 we did compared to the CT scan from January 2021. He also had a CT scan on June 2020. It appears that he has a 7 mm nodule that is not changing. 07/24/2022 the patient is here for a pulm onary follow-up visit. This been about a year since we last spoke. His major complaint still has to do with significant nasal congestion postnasal drip and cough. Moderate severity. Does effective sleep. He believes is typically in the fall usually when he is de aling with all the falling leaves. Usually in the winter time things trial. In the meantime we did talk about making sure that he is using his fluticasone in addition to his antihistamine nasal spray. Also will optimize his allergy medication. The patient should also be rinsing every night. I did talk about considering an allergy referral. At this point would like to hold off since he has done that in the past. He also should use a mask when he is doing with leaves outside. The patient did have a CT scan of the chest that was personally by me. It appears that his pulmonary nodules largest 1 being 6 mm has not changed when compared to 2020. Also, it was noted that the ascending thoracic aorta is dilated to 4 cm. Was not aware this. I will make sure to mention it to his police justice. I will repeat the CT scan in a year's time in order to evaluate the pulmonary nodule 1 last time and also we can monitor his ectatic aorta. If the patient has any new respiratory issues or any concerning symptoms prior to that he is to call the office for an earlier assessment. 05/13/2023 the patient is here for a pulm onary follow-up visit. He is complaining of increasing allergy symptoms. Most likely transitioning to the fall. Does use his nasal sprays both the fluticasone the Astelin. He is also using the allergy medicine. Still having some sinus congestion and pressure. He typically responds well to prednisone. Will send him a Medrol pack so we can start that and hopefully get some relief. In the meantime he did have a CT scan of the chest April 2023. We did review it. Appears that his left lower lobe pulmonary nodule has remained increasing in size. This nodule has been changing even from [id number] just slightly and now more significantly in 2022. Therefore based on the fact that is growing will be reasonable to further address this nodule. We did talk about a PET scan although the nodule is small. At this point will have the patient follow-up with thoracic surgery. They can decide either to remove the nodule or to form a PET scan. 08/06/2023 the patient is here for a hos pital follow-up visit. He did follow-up with surgeon and did undergo an elective video-assisted thoracoscopy with wedge resections in the left lower lobe area. Two wedge resections were done. 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 Therefore, I am happy that the nodules have been removed specially since they have the propensity of worsening. The patient postoperatively did have significant pain but now doing a lot better. He is postop now a little more than 2 weeks. He did have his postop check and did well. While he was in the hospital he did have a CT scan of the chest because of the significant pain and everything looked well. Will have him come back in 6 months with a chest x-ray and then if all is stable will plan to get repeat the CT scan in a year's time. The patient did not have any other worrisome nodules. Sometimes with the atypical edematous hyperplasia they can be found in other parts of the lungs and may be small although he does not have any other nodules that I am worried about right now. 12/03/2023 the patient is here for follow -up visit. The patient overall has been doing fairly well. Although he is concerned about the springtime in his allergies. He is now being evaluated by Nephrology because of abnormal findings on his kidneys. The patient did have a repeat CT scan of the abdomen which I personally reviewed back in the fall. The patient is status post resection that area demonstrating a carcinoid tumor lab. He does have some postoperative changes now that area. Will see what his next CT scan of the abdomen shows which would be in couple months. Patient denies any worsening cough or shortness of breath and mucus production. The area looks like a little airspace disease but again postoperative changes are more likely. The nodules guard but that is because it was resected. The patient has been using his fluticasone nasal spray which seems to be partially helpful. Will go ahead and add an additional nasal therapy for his upcoming spring allergies. Patient also been use Afrin for short period time 5 days and I will give some prednisone in case the sinuses getting worse he can use small amount to make sure that his sugars increased. Otherwise patient is without any other complaints. ON LICENSE OF [facility] Medical History Ectatic thoracic aorta Bifascicular block IBS (irritable bowel syndrome) History of kidney cancer Actinic keratoses Paroxysmal atrial fibrillation Chronic allergic rhinitis COPD (chronic obstructive pulmonary disease) Pulmonary nodules Surgical History History of total right knee replacement H/O left hemicolectomy H/O inguinal hernia repair H/O cardiac radiofrequency ablation History of cardioversion S/P correction of deviated nasal septum Family History Father Heart attack Mother No problems noted. Social History Housing: House Are you a primary healthcare customer service to a significant other at home: No Do you presently have visiting nurse or other home services: No Patient Tobacco Use Status: Former Tobacco user Quit Date: 1989 Tobacco use type: Cigarette Years Smoked: 20 years e-Cigarette/Vaping Use: Never Used Second Hand Smoke Exposure: No Advance Directives Date on File: 06/19/20 service: Yes Current occupational status: retired Cognitive needs: No Hearing needs: Yes Vision needs: Yes Review of Systems Const Denies night sweats ENT Denies change in voice, Denies lip swelling, Reports epistaxis, Denies mouth pain, Reports nasal congestion, Reports nasal discharge, Reports post nasal drip, Reports sinus pressure and Denies tongue swelling Card Denies chest pain and Reports dyspnea on exertion Resp Reports cough, Reports pain on inspiration, Reports pain with cough and Reports dyspnea on exertion GI Reports no additional complaints Musc Denies no additional complaints Neuro Denies Neuro-related abnormal movements Psych Denies no additional complaints Amor/Lymph Denies easy bleeding and Denies lymphadenopathy Aller/Immun Denies lip swelling, Reports seasonal rhinorrhea and Denies tongue swelling Physical Exam Vital Signs: Last Vital Signs Pulse 81 12/03/23 09:57 Pulse Ox 94 12/03/23 09:57 Oxygen Delivery Method Room Air 12/03/23 09:57 BMI result Body Mass Index 30.3 Const General: alert Neck Neck: Yes normal visual inspection, Yes full ROM and Yes no lymphadenopathy Chest Chest palpation & inspection: normal inspection of the chest Resp Auscultation: no wheezes and diminished lung sounds Cardio Rate: regular rate Rhythm: regular rhythm Heart sounds: S1 normal heart sound present, S2 normal heart sound present and Murmur heart sound present diastolic and systolic GI Palpation (GI): Soft to palpation and nontender Auscultation: normal bowel sounds Skin General skin exam: rashes and/or lesions noted Assessment & Plan Assessment & Plan (1) Pulmonary nodules: Comment: pathology: Atypical adematous hyperplacia and neuroedocrine tumorlets Code(s): R91.8 - Other nonspecific abnormal finding of lung field (2) COPD (chronic obstructive pulmonary disease): Code(s): J44.9 - Chronic obstructive pulmonary disease, unspecified Qualifiers: COPD type: chronic bronchitis Chronic bronchitis type: simple Qualified Code(s): J41.0 - Simple chronic bronchitis (3) Chronic allergic rhinitis: Code(s): J30.9 - Allergic rhinitis, unspecified (4) Ectatic thoracic aorta: Code(s): I77.810 - Thoracic aortic ectasia Plan Continue Symbicort as prescribed. The patient does get his Symbicort from the [facility] Continue Astelin nasal spray increase Fluticasone nasal spray to BID continue loratidine stopped singulair due to dry eyes sinus rinse at night CXR was ok, will f/u with ABD CT to re-evaluate the LLL area F/U 6-12 months Medications: New prednisone PO daily; Take 2 tabs daily x 10 days, then 1 tab daily x 10 days 20 days 30 tabs 0RF fluticasone propionate 50 mcg/actuation 2 sprays intranasal BID 30 days 15.8 mL 11RF J31.0 - Chronic rhinitis Coding Level of Care Code Est Pt Level 4 (59630) Diagnoses Pulmonary nodules R91.8 Simple chronic bronchitis J41.0 COPD type: chronic bronchitis Chronic bronchitis type: simple Chronic allergic rhinitis J30.9 Ectatic thoracic aorta I77.810 Time Spent (min) 18
[2023-12-03 09:57] VITALS: PULSE 81; O2SAT 94; BMI 30.3
== END 2023-12-03 10:27 | disposition home or self-care (01) ==
PROVIDERS: PCP Nurse Practitioner Family; Visit Provider Hospitalist
DX: R91.8 Other nonspecific abnormal finding of lung field (principal); J41.0 Simple chronic bronchitis; J30.9 Allergic rhinitis, unspecified; I77.810 Thoracic aortic ectasia
CPT/HCPCS: 99214

== ENCOUNTER → 2023-12-03 09:45 | Outpatient (BNVA) | payer MEDICARE, SELFPAY | PROVIDERS: PCP Nurse Practitioner Family; Visit Provider Hospitalist | DX: R91.8 Other nonspecific abnormal finding of lung field (principal); J30.9 Allergic rhinitis, unspecified; I77.810 Thoracic aortic ectasia; J41.0 Simple chronic bronchitis | CPT/HCPCS: 99212 ==

== ENCOUNTER 2024-02-05 09:21 | Outpatient (AMB) | payer MEDICARE, SELFPAY ==
[2024-02-05 09:23] VITALS: BP 120/74; PULSE 77; BMI 30.9
--- NOTE | 2024-02-05 09:23 | A.OFFVIS_ITS ---
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: No Allergies amiodarone Allergy (Severe, Verified 12/03/23 09:58) Rash/Itching amlodipine Allergy (Severe, Verified 12/03/23 09:58) tachycardia sulfamethoxazole [From Sulfamethoxazole-Trimethoprim] Allergy (Severe, Verified 12/03/23 09:58) Rash and itching trimethoprim [From Sulfamethoxazole-Trimethoprim] Allergy (Severe, Verified 0 12/03/23 09:58) Rash and itching environmental allergies Allergy (Intermediate, Verified 12/03/23 09:58) Hayfever morphine [MORPHINE] Allergy (Intermediate, Verified 12/03/23 09:58) Itching and congestion hydromorphone [From Dilaudid] Allergy (Mild, Verified 12/03/23 09:58) Itching and anxiety Seasonal Allergies Allergy (Mild, Verified 12/03/23 09:58) Unknown Sulfa (Sulfonamide Antibiotics) [Sulfa (Sulfonamides)] Allergy (Mild, Verified 12/03/23 09:58) Rash and Itching Medication List - Last Reconciled 02/05/24 by Ivan Young MD albuterol sulfate 90 mcg/actuation 2 inhalations inhalation Q6H PRN 30 days alprazolam 0.25 mg PO BEDTIME atorvastatin 20 mg PO DAILY azelastine 2 sprays intranasal BID 90 days betamethasone dipropionate 0.05% 1 appl topical DAILY PRN budesonide-formoterol 160-4.5 mcg/actuation (Symbicort) 2 puffs inhalation BID PRN carboxymethylcellulose sodium 0.5% (Lubricant Eye Drops) 1 drp ophthalmic (eye) BID dicyclomine 10 mg PO PRN fluoride (sodium) 1.1% PO BEDTIME fluticasone propionate 50 mcg/actuation 2 sprays intranasal DAILY PRN 90 days glucosamine sulfate mg PO lactobacillus combination no.9 (Adult 50 Plus Probiotic) 4,000 mmu cells PO DAILY lorazepam 1 mg PO DAILY losartan-hydrochlorothiazide 100-12.5 mg 1 tab PO DAILY metoprolol succinate ER 100 mg PO DAILY omega-3 acid ethyl esters 1 cap PO BID HPI Comments Details: Forest comes for follow-up. Overall he has been doing well. He has had no recurrent episodes of atrial fibrillation. He has currently not taking oral anticoagulation therapy due to epistaxis that required hospitalization. He said he is never got a complete treatment option for epistaxis. However since stopping Eliquis he said he feels better has not had any bleeding issues. Denies any neurologic events. He denies any prolonged palpitations, irregular heartbeat, dizziness. Denies any lightheadedness, syncope. Denies any exertional chest pain. Has been walking and is COPD restricts him, and he gets short of breath but he can continue to function adequately. Denies orthopnea, PND. Is currently modifying his diet to lose weight. FOR[facility]LY [facility] Medical History Ectatic thoracic aorta Bifascicular block IBS (irritable bowel syndrome) History of kidney cancer Actinic keratoses Paroxysmal atrial fibrillation Chronic allergic rhinitis COPD (chronic obstructive pulmonary disease) Pulmonary nodules Surgical History History of total right knee replacement H/O left hemicolectomy H/O inguinal hernia repair H/O cardiac radiofrequency ablation History of cardioversion S/P correction of deviated nasal septum Family History Father Heart attack Mother No problems noted. Social History Housing: House Are you a primary patient care secretary to a significant other at home: No Do you presently have visiting nurse or other home services: No Patient Tobacco Use Status: Former Tobacco user Quit Date: 1989 Tobacco use type: Cigarette Years Smoked: 20 years e-Cigarette/Vaping Use: Never Used Second Hand Smoke Exposure: No Advance Directives Date on File: 06/19/20 service: Yes Current occupational status: retired Cognitive needs: No Hearing needs: Yes Vision needs: Yes Review of Systems Const Denies chills, Denies fatigue, Denies fever(s), Denies frequent falls, Denies weakness, Denies weight gain and Denies weight loss ENT Denies dizziness Card Denies chest pain, Denies leg edema, Denies lightheadedness, Denies palpitations, Denies dyspnea, Denies dyspnea on exertion, Denies orthopnea and Denies other (loss of consciousness) Resp Denies cough, Denies dyspnea and Denies dyspnea on exertion GI Denies hematochezia and Denies change in stool character Musc Denies abnormal gait, Denies muscle weakness, Denies numbness, Denies radiating pain into limb and Denies tingling Neuro Denies abnormal gait, Denies dizziness, Denies frequent falls, Denies numbness, Denies tingling and Denies weakness Endo Denies fatigue and Denies palpitations Physical Exam Vital Signs: Last Vital Signs Pulse 77 02/05/24 09:23 BP 120/74 02/05/24 09:23 BMI result Body Mass Index 30.9 Const General: cooperative, comfortable, no acute distress, alert, awake and well groomed Nutritional Appearance: overweight Orientation/consciousness: patient oriented x3 Limitations: no limitations Neck Neck: Yes trachea midline, Yes supple and Yes no JVD Resp Effort & Inspection: normal respiratory effort Auscultation: clear to auscultation bilaterally Cardio Jugular venous distension: no JVD Palpation: normal PMI Rate: regular rate Rhythm: regular rhythm Heart sounds: S1 normal heart sound present and S2 normal heart sound present GI Auscultation: normal bowel sounds Skin General skin exam: no rashes or lesions noted Neuro General: patient oriented x3 and no focal motor deficits Extrem General: Yes no clubbing, cyanosis or edema Psych Appearance: grossly normal Office Procedures EKG Details: EKG shows normal sinus rhythm with right bundle-branch block and left anterior fascicular block, unchanged from before [id number], Complete Assessment & Plan Assessment & Plan (1) Paroxysmal atrial fibrillation: Code(s): I48.0 - Paroxysmal atrial fibrillation Category: Medical Plan: Highly symptomatic paroxysmal atrial fibrillation which has remained controlled on current therapy. He is done well with rhythm control approach will continue pursue rhythm control approach. Continue current therapy with metoprolol has helped him. No indication for antiarrhythmic drug therapy at this point time. Importance of oral anticoagulation was discussed with CHADSVASc score of at least 4. However he is not want to consider this due to recurrent epistaxis hospitalization. Also discussed about possibility of Watchman device. Have provided him with literature. He wants to think about it. If he is agreeable will refer him for the same. (2) Bifascicular block: Code(s): I45.2 - Bifascicular block Category: Medical Plan: Bifascicular block which is unchanged. No interventions required per se for the same. Continue to monitor with annual EKG. (3) HTN (hypertension): Code(s): I10 - Essential (primary) hypertension Category: Medical Plan: Hypertension which is currently well optimized advised to monitor blood pressure at home maintain a log. Goal blood pressure less than 130/84. Low-salt diet was discussed. Continue current therapy with losartan hydrochlorothiazide and metoprolol. Importance of good blood pressure control was discussed. Encouraged to continue to participate in physical activity as tolerated. Will follow up in the clinic in 1 year's time, sooner p.r.n.. Thank you for allowing me to partake in his care Orders: Orders CA echo transthoracic complete 1 Year I48.0 - Paroxysmal atrial fibrillation Coding Level of Care Code Est Pt Level 4 (80863) Diagnoses Paroxysmal atrial fibrillation I48.0 Bifascicular block I45.2 HTN (hypertension) I10 CPT Codes EKG - CPT: 24624-[id number], Complete ([id number])
== END 2024-02-05 09:49 | disposition home or self-care (01) ==
PROVIDERS: Visit Provider Internal Medicine Cardiovascular Disease
DX: I48.0 Paroxysmal atrial fibrillation (principal); I45.2 Bifascicular block; I10 Essential (primary) hypertension
CPT/HCPCS: 93010; 99214

== ENCOUNTER → 2024-02-05 09:21 | Outpatient (BNVA) | payer MEDICARE, SELFPAY | PROVIDERS: Visit Provider Internal Medicine Cardiovascular Disease | DX: I45.2 Bifascicular block (principal); I48.0 Paroxysmal atrial fibrillation; I10 Essential (primary) hypertension | CPT/HCPCS: 93005; 99212 ==

== ENCOUNTER 2024-02-10 06:39 | Outpatient (REF) | payer MEDICARE, SELFPAY ==
[2024-02-10 10:22] LABS: MANUAL DIFF FLAG NO
[2024-02-10 10:36] LABS: Basophils Absolute Auto 0.1 X10*3/uL (0.0-0.2); Basophils Percent Auto 0.8 % (0-2); Eosinophils Absolute Auto 0.3 X10*3/uL (0.0-0.4); Hematocrit 47.6 % (42.0-52.0); Imm Gran Abs Auto 0.04 X10*3/uL (0.00-0.03); Imm Gran Pct Auto 0.4 % (0.0-0.4); Lymphocytes Percent Auto 32.2 % (20-40); Mean Corpuscular HGB Conc 33.6 g/dl (31.0-36.0); Mean Corpuscular Hemoglobin 30.1 pg (27.0-33.0); Mean Corpuscular Volume 89.5 fL (80.0-98.0); Mean Platelet Volume 10.3 fL (9.4-12.4); Monocytes Absolute Auto 0.8 X10*3/uL (0.1-1.2); Monocytes Percent Auto 8.4 % (2-11); Neutrophils Absolute Auto 5.1 x10*3/uL (2.0-8.3); Neutrophils Percent Auto 55.2 % (45-73); Platelet Count 199 X10*3/uL (160-400); Red Blood Count 5.32 X10*6/uL (4.60-5.80); Red Cell Distribution Width 13.7 % (11.0-16.0); White Blood Count 9.2 X10*3/uL (4.8-10.8)
[2024-02-10 13:41] LABS: Appearance Urine Clear; Color Urine Yellow; Glucose Urine UA Negative (Negative); Leukocyte Esterase Urine Negative (Negative); Nitrite Urine Negative (Negative); PH 6.5 (5.0-9.0); UMIC TRIGGER UACC YES; Urine Blood Negative (Negative); Urine Ketones Negative (Negative); Urine Protein 30 (1+) mg/dL (Neg-Trace)
[2024-02-10 13:48] LABS: Bacteria Urine None Seen (None Seen); Hyaline Casts Urine 0-2 /LPF (0-2); RBC Urine 0-2 /HPF (0-2); Squamous Epithelial Cell Urine 0-2 /HPF (0-2); WBC Urine 0-5 /HPF (0-5)
== END 2024-02-10 06:40 | disposition home or self-care (01) ==
LOC: HO.HMGCLDS 06:39
PROVIDERS: PCP Nurse Practitioner Family; Visit Provider Nurse Practitioner Family
DX: D72.829 Elevated white blood cell count, unspecified (principal); E11.9 Type 2 diabetes mellitus without complications
CPT/HCPCS: 36415; 81001; 85025

== ENCOUNTER 2024-02-16 09:23 | Outpatient (AMB) | payer MEDICARE, SELFPAY ==
--- NOTE | 2024-02-16 09:28 | MHC.PC.OV ---
Vital Signs 02/16/24 09:32 02/16/24 10:07 Height 5 ft 9 in Weight 211 lb BMI 31.2 BP 136/90 H 122/90 H Blood Pressure Location Rt brachial Rt brachial Position Sitting Sitting Pulse 72 Pulse Source Pulse Oximeter Pulse Oximetry (%) 96 Oxygen Delivery Method Room Air Intake Visit Reasons: 6 month fu Intake Note: Patient here to discuss meds and the reasons why he is on them. Allergies amiodarone Allergy (Severe, Verified 02/16/24 09:46) Rash/Itching amlodipine Allergy (Severe, Verified 02/16/24 09:46) tachycardia sulfamethoxazole [From Sulfamethoxazole-Trimethoprim] Allergy (Severe, Verified 02/16/24 09:46) Rash and itching trimethoprim [From Sulfamethoxazole-Trimethoprim] Allergy (Severe, Verified 02/16/24 09:46) Rash and itching environmental allergies Allergy (Intermediate, Verified 02/16/24 09:46) Hayfever morphine [MORPHINE] Allergy (Intermediate, Verified 02/16/24 09:46) Itching and congestion hydromorphone [From Dilaudid] Allergy (Mild, Verified 02/16/24 09:46) Itching and anxiety Seasonal Allergies Allergy (Mild, Verified 02/16/24 09:46) Unknown Sulfa (Sulfonamide Antibiotics) [Sulfa (Sulfonamides)] Allergy (Mild, Verified 02/16/24 09:46) Rash and Itching Medication List - Last Reconciled 02/16/24 by Jesus Miller, MIXER OPERATOR RAW SALT- albuterol sulfate 90 mcg/actuation 2 inhalations inhalation Q6H PRN 30 days alprazolam 0.25 mg PO BEDTIME atorvastatin 20 mg PO DAILY azelastine 2 sprays intranasal BID 90 days betamethasone dipropionate 0.05% 1 appl topical DAILY PRN budesonide-formoterol 160-4.5 mcg/actuation (Symbicort) 2 puffs inhalation BID PRN carboxymethylcellulose sodium 0.5% (Lubricant Eye Drops) 1 drp ophthalmic (eye) BID dicyclomine 10 mg PO PRN fluoride (sodium) 1.1% PO BEDTIME fluticasone propionate 50 mcg/actuation 2 sprays intranasal DAILY PRN 90 days glucosamine sulfate mg PO lactobacillus combination no.9 (Adult 50 Plus Probiotic) 4,000 mmu cells PO DAILY lorazepam 1 mg PO DAILY losartan-hydrochlorothiazide 100-12.5 mg 1 tab PO DAILY metoprolol succinate ER 100 mg PO DAILY omega-3 acid ethyl esters 1 cap PO BID Tobacco use date assessed: 02/16/24 Fall risk assessment: No Falls in past year Last assessed Fall Risk: 02/16/24 Dental Screening Dental Screen Date: 02/16/24 Did you have a dental visit in the last 12 months?: Yes Did you have a dental problem in the last 6 months where you did not have access to dental care?: No Was dental information given to patient?: Patient has dentist HPI 6 month fu HPI Details Pt is a diabetic, on an ARB and a statin. A1C in office today 6.7. Microalbumin is up to date. Denies polyuria, polydipsia, and neuropathy. Pt denies any signs and symptoms of hypoglycemia and does know how to correct it. Eye exam is up to date. HTN: Blood pressure is managed with losartan-hydrochlorothiazide 100-12.5mg and metoprolol 100mg. Will increase losart-hctz to 100-25mg. Denies chest pain, shortness of breath, headache, dizziness, and blurred vision. [facility] Medical History Ectatic thoracic aorta Bifascicular block IBS (irritable bowel syndrome) History of kidney cancer Actinic keratoses Paroxysmal atrial fibrillation Chronic allergic rhinitis COPD (chronic obstructive pulmonary disease) Pulmonary nodules Surgical History History of total right knee replacement H/O left hemicolectomy H/O inguinal hernia repair H/O cardiac radiofrequency ablation History of cardioversion S/P correction of deviated nasal septum Family History Father Heart attack Mother No problems noted. Social History Housing: House Are you a primary home health aide caregiver to a significant other at home: No Do you presently have visiting nurse or other home services: No Patient Tobacco Use Status: Former Tobacco user Tobacco use type: Cigarette Years Smoked: 20 years e-Cigarette/Vaping Use: Never Used Second Hand Smoke Exposure: No Advance Directives Date on File: 06/19/20 service: Yes Current occupational status: retired Cognitive needs: No Hearing needs: Yes Vision needs: Yes Questionnaire PHQ-9 Over the last 2 weeks, how often have you been bothered by any of the following problems? 81738 - PHQ-9 Billing: Patient declined-do not bill Source: Developed by Drs. Jeremías Pisano, Yolie Jones, Yordy Reynolds and colleagues, with an educational crystal from [employer] Thrive Questionnaire Date Thrive assessed: 02/16/24 What is your living situation today?: I choose not to answer this question Within the past 12 months, did the food you bought not last and you didn't have the money to get more?: I choose not to answer this question Within the past 12 months, did you worry whether your food would run out before you got money to buy more?: I choose not to answer this question Do you have trouble paying for medicines?: I choose not to answer this question Do you have trouble getting transportation to medical appointments?: I choose not to answer this question Do you have trouble paying your heating and electricity bill?: I choose not to answer this question Do you have trouble taking care of your child, family member or friend?: I choose not to answer this question Do you have trouble with day-to-day activities such as bathing, preparing meals, shopping, managing finances, etc.?: I choose not to answer this question Are you currently unemployed and looking for a job?: I choose not to answer this question Are you interested in more education?: I choose not to answer this question Currently or been in a relationship where the following occur: I choose not to answer this question THRIVE Score: 0 AUDIT C Alcohol Use Questionnaire (AUDIT-C) 1. How often do you have a drink containing alcohol?: Never 3. How often do you have six or more drinks on one occasion?: Never Total Score: 0 Score Reviewed/Action Taken: No JUAN-7 AMB Questionnaire JUAN-7 Date JUAN - 7 assessed: 02/16/24 Source: Developed by Drs. Jeremías Pisano, Yordy Rodrigues and colleagues, with an educational crystal from [employer]. JUAN-7 Assessment Billing JUAN-7 Assessment Tool: pt declined-do not bill Review of Systems Const Reports as per HPI Physical exam (Primary Care) Vital Signs: Last Vital Signs Pulse 72 02/16/24 09:32 BP 136/90 H 02/16/24 09:32 Pulse Ox 96 02/16/24 09:32 Oxygen Delivery Method Room Air 02/16/24 09:32 BMI result Body Mass Index 31.2 Tobacco/Smoking Status: Tobacco use Status Tobacco use date assessed 02/16/24 02/16/24 09:37 Patient Tobacco Use Status Former Tobacco user 02/16/24 09:28 Tobacco use type Cigarette 02/16/24 09:28 e-Cigarette/Vaping Use Never Used 02/16/24 09:28 Currently or been in a relationship where the following occur: I choose not to answer this question Const General: cooperative Nutritional Appearance: obese Orientation/consciousness: patient oriented x3 Neuro General: patient oriented x3 Psych Appearance: grossly normal Mental Status: mental status grossly normal Speech and movement: Normal speech and movement present Affect: normal affect Attitude: cooperative Thought process: Normal thought process present Thought content: Normal thought content present Insight: Good insight present (Psych) Judgement: Good judgement present (Psych) Results AMB Hemoglobin A1c AMB Hemoglobin A1c 6.7 % Last Edit by JAMAR Phelps on 02/16/24 09:56 Results Reviewed Results Reviewed: Laboratory Last Values Hgb A1c (Clinic) 6.7 % (4.0-6.0) H 02/16/24 09:55 Assessment and Plan Assessment & Plan (1) Diabetes: Code(s): E11.9 - Type 2 diabetes mellitus without complications Plan: Labs ordered (2) HTN (hypertension): Code(s): I10 - Essential (primary) hypertension Plan: Increasing losartan-hctz from 100-12.5mg to 100-25mg Plan The patient agreed to the use of a medical transcription supervisor for this encounter. Scribed for MARK Leblanc by Barbara Menon medical transcription supervisor, on 02/16/2024 at 09:45 EST. Orders: Orders Comprehensive [place]. Panel Fast Today E11.9 - Type 2 diabetes mellitus without complications TSH reflex Free T4 Today E11.9 - Type 2 diabetes mellitus without complications AMB Hemoglobin A1c Today Z13.9 - Encounter for screening, unspecified Complete Blood Count Auto Diff Today E11.9 - Type 2 diabetes mellitus without complications UA CC w/rflx Micro + Cult Today E11.9 - Type 2 diabetes mellitus without complications Lipid Panel Today E11.9 - Type 2 diabetes mellitus without complications Medications: New losartan-hydrochlorothiazide 100-25 mg 1 tab PO DAILY 90 tabs 0RF Changed From omega-3 acid ethyl esters 1 cap PO BID To omega-3 acid ethyl esters 1 cap PO BID 90 days 180 caps 2RF Discontinued losartan-hydrochlorothiazide 100-12.5 mg Discontinued Reason: Doctor's Order 1 tab PO DAILY 90 tabs 1RF Coding Level of Care Code Est Pt Level 3 (44398) Diagnoses Diabetes E11.9 HTN (hypertension) I10
[2024-02-16 09:32] VITALS: BP 136/90; PULSE 72; O2SAT 96; BMI 31.2
[2024-02-16 10:07] VITALS: BP 122/90
== END 2024-02-16 10:58 | disposition home or self-care (01) ==
PROVIDERS: PCP Nurse Practitioner Family; Visit Provider Nurse Practitioner Family
DX: E11.9 Type 2 diabetes mellitus without complications (principal); I10 Essential (primary) hypertension; Z13.9 Encounter for screening, unspecified
CPT/HCPCS: 83036; 99213

== ENCOUNTER 2024-06-04 06:22 | Outpatient (REF) | payer MEDICARE, SELFPAY ==
[2024-06-04 10:02] LABS: Appearance Urine Clear; Color Urine Yellow; Glucose Urine UA Negative (Negative); Leukocyte Esterase Urine Negative (Negative); Nitrite Urine Negative (Negative); PH 5.5 (5.0-9.0); Specific Gravity - Urine 1.015 (1.005-1.025); Urine Blood Negative (Negative); Urine Ketones Negative (Negative); Urine Protein Negative (Neg-Trace)
[2024-06-04 10:05] LABS: MANUAL DIFF FLAG NO
[2024-06-04 10:11] LABS: Basophils Absolute Auto 0.1 X10*3/uL (0.0-0.2); Basophils Percent Auto 0.8 % (0-2); Eosinophils Absolute Auto 0.3 X10*3/uL (0.0-0.4); Eosinophils Percent Auto 3.4 % (0-4); Hematocrit 46.7 % (42.0-52.0); Hemoglobin 15.6 g/dl (14.0-18.0); Imm Gran Abs Auto 0.05 X10*3/uL (0.00-0.03); Imm Gran Pct Auto 0.6 % (0.0-0.4); Lymphocytes Absolute Auto 2.8 X10*3/uL (1.2-4.9); Lymphocytes Percent Auto 31.6 % (20-40); Mean Corpuscular HGB Conc 33.4 g/dl (31.0-36.0); Mean Corpuscular Hemoglobin 29.4 pg (27.0-33.0); Mean Corpuscular Volume 88.1 fL (80.0-98.0); Mean Platelet Volume 10.2 fL (9.4-12.4); Monocytes Absolute Auto 0.7 X10*3/uL (0.1-1.2); Monocytes Percent Auto 8.1 % (2-11); Neutrophils Percent Auto 55.5 % (45-73); Platelet Count 214 X10*3/uL (160-400); Red Cell Distribution Width 13.5 % (11.0-16.0); White Blood Count 8.9 X10*3/uL (4.8-10.8)
[2024-06-04 10:29] LABS: Alanine Aminotransferase 41 U/L (0-40); Albumin Level 4.1 g/dL (3.5-5.0); Alkaline Phosphatase 54 U/L (39-117); Anion Gap 11 (12-20); Aspartate Amino Transferase 39 U/L (5-37); Bilirubin Total 0.8 mg/dL (0.0-1.0); Blood Urea Nitrogen 18 mg/dL (9-16); Calcium 9.9 mg/dL (8.4-10.2); Carbon Dioxide 30 mmol/L (22-29); Chloride 104 mmol/L (96-108); Cholesterol 123 mg/dL (<200); Estimated Glomerular Filt Rate 55; Glucose Fasting 144 mg/dL (60-99); HDL Cholesterol 31 mg/dL (>40); LDL Cholesterol Calculated 52 mg/dL (<100); Potassium 3.6 mmol/L (3.3-5.1); Sodium 141 mmol/L (135-145); Triglycerides 200 mg/dL (<150)
[2024-06-04 10:54] LABS: TSH reflex Free T4 1.54 uIU/mL (0.32-4.0)
== END 2024-06-04 06:23 | disposition home or self-care (01) ==
LOC: HO.HMGCLDS 06:22
PROVIDERS: PCP Nurse Practitioner Family; Referring Provider Internal Medicine Hypertension Specialist; Visit Provider Nurse Practitioner Family
DX: E11.9 Type 2 diabetes mellitus without complications (principal)
CPT/HCPCS: 36415; 80053; 80061; 81003; 84443; 85025

== ENCOUNTER 2024-06-16 08:37 | Outpatient (REF) | payer MEDICARE, SELFPAY ==
--- NOTE | ~2024-06-16 | US_ITS ---
EXAMINATION: US ABDOMEN COMPLETE CLINICAL INFORMATION: Abnormal levels of other serum enzymes. COMPARISON: CT abdomen 09/26/2023. Renal ultrasound 02/14/2014. Abdomen ultrasound 06/24/2013. TECHNIQUE: Real-time imaging of the abdominal viscera. FINDINGS: PANCREAS: The visualized pancreas appears unremarkable but the pancreatic tail is obscured by bowel gas. ABDOMINAL AORTA: Atherosclerotic change seen without aneurysm. INFERIOR VENA CAVA: Visualized portions are normal. LIVER: Liver measures 17.1 cm in greatest dimension. The liver contour is normal. There is diffuse increased liver parenchymal echogenicity, consistent with hepatic steatosis. No focal hepatic lesion. There is no intrahepatic biliary duct dilatation seen. GALLBLADDER: Some comet tail shadowing suggests adenomyomatosis. The gallbladder is physiologically distended without evidence of stones, sludge, polyps, wall thickening or pericholecystic fluid. COMMON BILE DUCT: Normal in caliber measuring 0.53 cm in diameter. RIGHT KIDNEY: Multiple benign Bosniak class I and Bosniak class II renal cysts are noted, the largest measuring 5.0 cm, which require no additional imaging or follow-up. Right mid renal cyst has septations consistent with Bosniak class II (image 56/98). No solid renal masses are seen. No hydronephrosis or renal calculi. The kidney measures 13.1 cm in maximum dimension. LEFT KIDNEY: Multiple benign Bosniak class I renal cysts are noted, the largest measuring 2.0 cm, which require no additional imaging or follow-up. No solid renal masses are seen. No hydronephrosis or renal calculi. The kidney measures 11.8 cm in maximum dimension. SPLEEN: Spleen is mildly enlarged measuring 12.8 cm in maximum dimension. FREE FLUID: None. US/US abdomen complete IMPRESSION: 1. Hepatic steatosis. 2. Mild splenomegaly. 3. Other incidental findings as described above. Electronically signed by: Roberto Bean MD 07/29/2024 01:45 PM EST
== END 2024-06-16 08:38 | disposition home or self-care (01) ==
LOC: HO.HMGCX 08:37
PROVIDERS: PCP Nurse Practitioner Family; Visit Provider Nurse Practitioner Family
DX: R74.8 Abnormal levels of other serum enzymes (principal)
CPT/HCPCS: 76700

== ENCOUNTER 2024-06-22 09:21 | Outpatient (AMB) | payer MEDICARE, SELFPAY ==
--- NOTE | 2024-06-22 09:23 | A.OFFPC_ITS ---
Vital Signs 06/22/24 09:26 Height 5 ft 9 in Weight 208 lb BMI 30.7 BP 120/72 Blood Pressure Location Lt brachial Position Sitting Pulse 77 Pulse Source Pulse Oximeter Pulse Oximetry (%) 98 Intake Visit Reasons: Annual PE Intake Note: pt is here for annual exam Construction Or Leak Gang Laborer Required: No Accompanied by: Self / Same As Patient Allergies amiodarone Allergy (Severe, Verified 06/22/24 09:27) Rash/Itching amlodipine Allergy (Severe, Verified 06/22/24 09:27) tachycardia sulfamethoxazole [From Sulfamethoxazole-Trimethoprim] Allergy (Severe, Verified 06/22/24 09:27) Rash and itching trimethoprim [From Sulfamethoxazole-Trimethoprim] Allergy (Severe, Verified 06/22/24 09:27) Rash and itching environmental allergies Allergy (Intermediate, Verified 06/22/24 09:27) Hayfever morphine [MORPHINE] Allergy (Intermediate, Verified 06/22/24 09:27) Itching and congestion hydromorphone [From Dilaudid] Allergy (Mild, Verified 06/22/24 09:27) Itching and anxiety Seasonal Allergies Allergy (Mild, Verified 06/22/24 09:27) Unknown Sulfa (Sulfonamide Antibiotics) [Sulfa (Sulfonamides)] Allergy (Mild, Verified 06/22/24 09:27) Rash and Itching Medication List - Last Reconciled 06/22/24 by Jesus Miller, SCHOOL CHILD CARE ATTENDANT- albuterol sulfate 90 mcg/actuation 2 inhalations inhalation Q6H PRN 30 days alprazolam 0.25 mg PO BEDTIME atorvastatin 20 mg PO DAILY azelastine 2 sprays intranasal BID 90 days betamethasone dipropionate 0.05% 1 appl topical DAILY PRN budesonide-formoterol 160-4.5 mcg/actuation (Symbicort) 2 puffs inhalation BID P RN carboxymethylcellulose sodium 0.5% (Lubricant Eye Drops) 1 drp ophthalmic (eye) BID dicyclomine 10 mg PO PRN fluoride (sodium) 1.1% PO BEDTIME fluticasone propionate 50 mcg/actuation 2 sprays intranasal DAILY PRN 90 days glucosamine sulfate mg PO lactobacillus combination no.9 (Adult 50 Plus Probiotic) 4,000 mmu cells PO DAILY lorazepam 1 mg PO DAILY losartan-hydrochlorothiazide 100-25 mg 1 tab PO DAILY metoprolol succinate ER 100 mg PO DAILY omega-3 acid ethyl esters 1 cap PO BID 90 days Tobacco use date assessed: 02/16/24 Fall risk assessment: No Falls in past year Last assessed Fall Risk: 06/22/24 Dental Screening Dental Screen Date: 02/16/24 HPI Annual PE HPI Details pt is here for a PE. Does not need a colonoscopy. Pt sees a silver recovery operator, outdoor illuminating engineer, waste water operator, neurology, and a record librarian. Pt is a diabetic. Denies any numbness and tingling to feet. A1c is 6.9 today. Pt has a eye MD. Pt is currently on a statin and a ARB. [facility] Medical History Ectatic thoracic aorta Bifascicular block IBS (irritable bowel syndrome) History of kidney cancer Actinic keratoses Paroxysmal atrial fibrillation Chronic allergic rhinitis COPD (chronic obstructive pulmonary disease) Pulmonary nodules Surgical History History of total right knee replacement H/O left hemicolectomy H/O inguinal hernia repair H/O cardiac radiofrequency ablation History of cardioversion S/P correction of deviated nasal septum Family History Father Heart attack Mother No problems noted. Social History Housing: House Are you a primary managed care manager to a significant other at home: No Do you presently have visiting nurse or other home services: No Patient Tobacco Use Status: Former Tobacco user Tobacco use type: Cigarette Years Smoked: 20 years e-Cigarette/Vaping Use: Never Used Second Hand Smoke Exposure: No Advance Directives Date on File: 06/19/20 service: Yes Current occupational status: retired Cognitive needs: No Hearing needs: Yes Vision needs: Yes Questionnaire PHQ-9 Over the last 2 weeks, how often have you been bothered by any of the following problems? 1. Little interest or pleasure in doing things: not at all 2. Feeling down, depressed, or hopeless: not at all 3. Trouble falling or staying asleep, or sleeping too much: not at all 4. Feeling tired or having little energy: not at all 5. Poor appetite or overeating: not at all 6. Feeling bad about yourself - or that you are a failure or have let yourself or your family down: not at all 7. Trouble concentrating on things, such as reading the newspaper or watching television: not at all 8. Moving or speaking so slowly that other people could have noticed. Or the opposite - being so fidgety or restless that you have been moving around a lot more than usual: not at all 9. Thoughts that you would be better off or of hurting yourself in some way: not at all Total score: 0 Depression Screening Interpretation: Negative Depression Screening Done: Yes 01112 - PHQ-9 Billing: Yes Source: Developed by Drs. Jeremías Pisano, Yolie Jones, Yordy Reynolds and colleagues, with an educational crystal from [employer]. Thrive Questionnaire Date Thrive assessed: 06/22/24 I am a: Patient What is your living situation today?: I have a steady place to live Within the past 12 months, did the food you bought not last and you didn't have the money to get more?: Never true Within the past 12 months, did you worry whether your food would run out before you got money to buy more?: Never true Do you have trouble paying for medicines?: No Do you have trouble getting transportation to medical appointments?: No Do you have trouble paying your heating and electricity bill?: No Do you have trouble taking care of your child, family member or friend?: No Do you have trouble with day-to-day activities such as bathing, preparing meals, shopping, managing finances, etc.?: No Are you interested in more education?: No Please select the resources that you would like help with: None Currently or been in a relationship where the following occur: I choose not to answer THRIVE Score: 0 AUDIT C Alcohol Use Questionnaire (AUDIT-C) 1. How often do you have a drink containing alcohol?: Monthly or less 2. How many drinks containing alcohol do you have on a typical day when you are drinking?: 1 or 2 3. How often do you have six or more drinks on one occasion?: Never Total Score: 1 Score Reviewed/Action Taken: Yes JUAN-7 AMB Questionnaire JUAN-7 Date JUAN - 7 assessed: 06/22/24 Feeling nervous, anxious, or on edge: 1 = Several days Not being able to stop or control worryin = Not at all Worrying too much about different things: 0 = Not at all Trouble relaxin = Not at all Being so restless that it is hard to sit still: 0 = Not at all Becoming easily annoyed or irritable: 0 = Not at all Feeling afraid as if something awful might happen: 0 = Not at all Total JUAN-7 score (0-4 normal; 5-9 mild; 10-14 moderate; 15-21 severe): 1 Source: Developed by Drs. Jeremías Pisano, Yolie Jones, Yordy Reynolds and colleagues, with an educational crystal from [employer]. JUAN-7 Assessment Billing JUAN-7 Assessment Tool: JUAN-7 Assessment 68551 Review of Systems Const Denies chills and Denies fever(s) Eyes Denies blurry vision ENT Denies vertigo, Denies dizziness and Denies sore throat Card Denies chest pain at rest, Denies chest pain with activity, Denies diaphoresis, Denies dyspnea and Denies dyspnea on exertion Resp Denies cough, Denies dyspnea, Denies dyspnea on exertion and Denies wheezing GI Denies abdominal pain, Denies melena, Denies hematochezia, Denies constipation, Denies diarrhea and Denies loose stools Denies hematuria Musc Denies numbness and Denies tingling Skin/Breast Denies lesions Neuro Denies vertigo, Denies dizziness, Denies numbness and Denies tingling Psych Denies anxiety, Denies depression, Denies homicidal ideation, Denies suicidal ideation and Denies other (substance abuse) Aller/Immun Denies wheezing Physical exam (Primary Care) Vital Signs: Last Vital Signs Pulse 77 06/22/24 09:26 BP 120/72 06/22/24 09:26 Pulse Ox 98 06/22/24 09:26 BMI result Body Mass Index 30.7 Tobacco/Smoking Status: Tobacco use Status Tobacco use date assessed 02/16/24 06/22/24 09:24 Patient Tobacco Use Status Former Tobacco user 06/22/24 09:24 Tobacco use type Cigarette 06/22/24 09:24 e-Cigarette/Vaping Use Never Used 06/22/24 09:24 PHQ-9: PHQ-9 Score PHQ-9: Total score 0 06/22/24 09:30 Depression Screening Interpretation: Negative Thrive Assessment: Date of Thrive Assessment Date Thrive assessed 06/22/24 06/22/24 09:30 Currently or been in a relationship where the following occur: I choose not to answer Const General: cooperative Nutritional Appearance: well nourished Orientation/consciousness: patient oriented x3 HENMT Head: Yes normal to inspection, Yes normocephalic and Yes atraumatic Ears: TM normal on the right and TM normal on the left Eyes General: appearance normal, both eyes and all related structures Alignment and Position: alignment normal and position normal Neck Neck: Yes normal visual inspection, Yes no lymphadenopathy and Yes supple Resp Effort & Inspection: normal respiratory effort Auscultation: clear to auscultation bilaterally Cardio Rate: regular rate Rhythm: regular rhythm Heart sounds: S1 normal heart sound present, S2 normal heart sound present and Murmur heart sound present (? faint systolic) GI Palpation (GI): Soft to palpation and nontender Auscultation: normal bowel sounds Male General Exam: Yes normal external exam Penis: normal penis Scrotum: scrotum normal, testes descended bilaterally and no inguinal hernias Testes: no testicular mass Skin Other: scattered singular papular lesions (skin colored) to BUE and BLE. Rashes: no rashes Neuro Other: right foot and left foot intact, slightly lack of sensation to right foot with use of monofilament. + sensation to left with use of monofilament. General: patient oriented x3, moves all extremities, no focal motor deficits and deep tendon reflexes 2+ bilaterally Romberg Test: Negative Extrem Right lower extremity: no edema Left lower extremity: no edema Psych Affect: normal affect Attitude: cooperative Thought process: Normal thought process present Results AMB Hemoglobin A1c AMB Hemoglobin A1c 6.9 % Last Edit by Attila Valderrama CMA on 06/22/24 09: 41 Coding Level of Care Code Est Pt Prev Care >65y(12828) Diagnoses Physical exam Z00.00 Diabetes E11.9 Screening PSA (prostate specific antigen) Z12.5 Vitamin D deficiency E55.9 Additional Codes JUAN-7 Assessment Billing - JUAN-7 Assessment Tool: JUAN-7 Assessment 93506 ([id number]) Assessment & Plan Assessment & Plan (1) Physical exam: Code(s): Z00.00 - Encounter for general adult medical examination without abnormal findings Category: Medical Plan: lab ordered (2) Diabetes: Code(s): E11.9 - Type 2 diabetes mellitus without complications Category: Medical Plan: 6.9 a1c (3) Screening PSA (prostate specific antigen): Code(s): Z12.5 - Encounter for screening for malignant neoplasm of prostate Category: Medical Plan: psa ordered (4) Vitamin D deficiency: Code(s): E55.9 - Vitamin D deficiency, unspecified Category: Medical Plan: vit d lab ordered Orders: Orders Comprehensive [place]. Panel Fast Today Z00.00 - Encounter for general adult medical examination without abnormal findings TSH reflex Free T4 Today Z00.00 - Encounter for general adult medical examinat ion without abnormal findings UA CC w/rflx Micro + Cult Today Z00.00 - Encounter for general adult medical examination without abnormal findings Vitamin D 25-OH Total Today E55.9 - Vitamin D deficiency, unspecified AMB Hemoglobin A1c Today Z13.9 - Encounter for screening, unspecified Complete Blood Count Auto Diff Today Z00.00 - Encounter for general adult medical examination without abnormal findings Lipid Panel Today Z00.00 - Encounter for general adult medical examination without abnormal findings Prostate Specific Antigen Scr Today Z12.5 - Encounter for screening for malignant neoplasm of prostate
[2024-06-22 09:26] VITALS: BP 120/72; PULSE 77; O2SAT 98; BMI 30.7
== END 2024-06-22 15:26 | disposition home or self-care (01) ==
PROVIDERS: PCP Nurse Practitioner Family; Visit Provider Nurse Practitioner Family
DX: Z00.00 Encounter for general adult medical examination without abnormal findings (principal); E11.9 Type 2 diabetes mellitus without complications; Z12.5 Encounter for screening for malignant neoplasm of prostate; E55.9 Vitamin D deficiency, unspecified; Z13.9 Encounter for screening, unspecified

== ENCOUNTER → 2024-06-22 12:44 | Outpatient (BNV) | payer MEDICARE, SELFPAY | PROVIDERS: PCP Nurse Practitioner Family; Visit Provider Radiology Diagnostic Radiology | DX: N28.1 Cyst of kidney, acquired (principal) | CPT/HCPCS: 74183 ==

== ENCOUNTER 2024-06-22 12:46 | Outpatient (REF) | payer MEDICARE, SELFPAY ==
--- NOTE | ~2024-06-22 | MR_ITS ---
EXAMINATION: MR ABDOMEN WITHOUT AND WITH CONTRAST CLINICAL INFORMATION: Cyst of the kidney, acquired. COMPARISON: No priors. Correlated to CT dated September 26, 2023. TECHNIQUE: MR abdomen was performed without and with use of 9.0 mL intravenous Gadavist gadolinium contrast. Postcontrast images are performed in multiphase dynamic sequences. Imaging was performed in 3 planes. No reported immediate complications FINDINGS: Submitted for interpretation on August 24, 2024. Limited by patient's breathing motion artifact. LIVER, GALLBLADDER, AND BILIARY TREE: Liver measures 16 cm. No focal mass. Portal vein, hepatic veins and intrahepatic portions of the IVC are patent. There is a cluster/grape-shaped abnormality in the fundus of the gallbladder. No pericholecystic fluid collection or gallbladder wall thickening. The common bile duct measures 6 mm in maximum diameter with an abrupt cut off in the distal segment near the second portion of the duodenum. There is a questionable 8 mm isointense T2 signal.. PANCREAS: No gross focal mass. No main pancreatic ductal dilatation. No peripancreatic fluid collection. SPLEEN: 11 cm. No focal mass. ADRENAL GLANDS: No nodular lesions. KIDNEYS AND URETERS: Right kidney: There are multifocal, different sizes, exophytic and cortical medullary junction lesions with the intrinsic hyperintense T1 signal, enhancing septations, the largest measures 2.2 cm. No hydronephrosis. The main vessels are patent. No lymphadenopathy in the renal hilum or the paranephric compartment. Left kidney: There are multifocal exophytic and corticomedullary junction intrinsic hyperintense T1 septal enhancing mass lesions, the largest measures 2 cm. No hydronephrosis. Main vessels are patent. No lymphadenopathy in the paranephric compartment. GASTROINTESTINAL TRACT: Abundant stool within the large intestine. No intestinal obstruction pattern. Numerous diverticula throughout the transverse and left hemicolon. Appendix is normal. No ascites. ABDOMINAL WALL: Paramagnetic field distortion in the umbilical region. LYMPH NODES: No gross lymphadenopathy, mesenteric or retroperitoneal. VASCULAR: No aneurysm or dissection, abdominal aorta. OSSEOUS STRUCTURES: Multilevel thoracolumbar spondylosis and levoconvex curvature apex at L3-4 central spinal canal stenosis from L3-4 to L5-S1 on a degenerative basis. MR/MR kidney wo/w con IMPRESSION: Bosniak type III and IIf lesions with a hemorrhagic and proteinaceous component. Underlying lesion/mass cannot be excluded. Questionable 8mm lesion at the sphincter of Oddi. Graped-shaped lesion , gallbladder fundus. Electronically signed by: Shlomo Tsai MD 08/24/2024 10:01 AM MARJORIE
[2024-06-22] MEDS: gadobutroL 10 ML VIAL IVPUSH (13:49)
== END 2024-06-22 12:47 | disposition home or self-care (01) ==
LOC: HO.MRI 12:46
PROVIDERS: PCP Nurse Practitioner Family; Visit Provider Psychiatry & Neurology Neurology
DX: N28.1 Cyst of kidney, acquired (principal)
CPT/HCPCS: 74183; 83036; 96127; 99397; A9585

== ENCOUNTER 2024-07-13 12:10 | Outpatient (AMB) | payer MEDICARE, SELFPAY ==
[2024-07-13 12:13] VITALS: BP 124/54; PULSE 102; O2SAT 96; BMI 30.7
--- NOTE | 2024-07-13 12:13 | HO.NEPHOV ---
Vital Signs 07/13/24 12:13 Height 5 ft 9 in Weight 208 lb BMI 30.7 BP 124/54 L Blood Pressure Location Lt brachial Position Sitting Pulse 102 H Pulse Source Pulse Oximeter Pulse Oximetry (%) 96 Oxygen Delivery Method Room Air Intake Visit Reasons: 6 Months/ HTN/ Conf Picture Framer Required: No Accompanied by: Spouse Allergies amiodarone Allergy (Severe, Verified 07/13/24 12:13) Rash/Itching amlodipine Allergy (Severe, Verified 07/13/24 12:13) tachycardia sulfamethoxazole [From Sulfamethoxazole-Trimethoprim] Allergy (Severe, Verified 07/13/24 12:13) Rash and itching trimethoprim [From Sulfamethoxazole-Trimethoprim] Allergy (Severe, Verified 07/13/24 12:13) Rash and itching environmental allergies Allergy (Intermediate, Verified 07/13/24 12:13) Hayfever morphine [MORPHINE] Allergy (Intermediate, Verified 07/13/24 12:13) Itching and congestion hydromorphone [From Dilaudid] Allergy (Mild, Verified 07/13/24 12:13) Itching and anxiety Seasonal Allergies Allergy (Mild, Verified 07/13/24 12:13) Unknown Sulfa (Sulfonamide Antibiotics) [Sulfa (Sulfonamides)] Allergy (Mild, Verified 07/13/24 12:13) Rash and Itching Medication List - Last Reconciled 07/13/24 by Christian Watson MD albuterol sulfate 90 mcg/actuation 2 inhalations inhalation Q6H PRN 30 days alprazolam 0.25 mg PO BEDTIME atorvastatin 20 mg PO DAILY azelastine 2 sprays intranasal BID 90 days betamethasone dipropionate 0.05% 1 appl topical DAILY PRN budesonide-formoterol 160-4.5 mcg/actuation (Symbicort) 2 puffs inhalation BID PRN carboxymethylcellulose sodium 0.5% (Lubricant Eye Drops) 1 drp ophthalmic (eye) BID dicyclomine 10 mg PO PRN fluoride (sodium) 1.1% PO BEDTIME fluticasone propionate 50 mcg/actuation 2 sprays intranasal DAILY PRN 90 days glucosamine sulfate mg PO lactobacillus combination no.9 (Adult 50 Plus Probiotic) 4,000 mmu cells PO DAILY lorazepam 1 mg PO DAILY losartan-hydrochlorothiazide 100-25 mg 1 tab PO DAILY metoprolol succinate ER 100 mg PO DAILY omega-3 acid ethyl esters 1 cap PO BID 90 days HPI Comments Details: 78-year-old man with a history of hypertension has been referred for proteinuria. He has a history of renal cell carcinoma. In this was encapsulated mass. This was removed in 2013. He was having periodic surveillance at [facility]. He has had no further follow-up for the last year or so. He carries a diagnosis of diabetes mellitus. However he has not had any anti diabetic medications. He denies having diabetes. Using recent fasting blood sugars have been more than 100 and staying around 126. Recently a hemoglobin A1c is 6.3 11/24/23 Doing well. No new issues;Had CT chest last month ;NO nodules; CT abd shows multiple cysts 07/13/24 Had USG and MRI- results pending No hematuria No edema [facility] Medical History Ectatic thoracic aorta Bifascicular block IBS (irritable bowel syndrome) History of kidney cancer Actinic keratoses Paroxysmal atrial fibrillation Chronic allergic rhinitis COPD (chronic obstructive pulmonary disease) Pulmonary nodules Surgical History History of total right knee replacement H/O left hemicolectomy H/O inguinal hernia repair H/O cardiac radiofrequency ablation History of cardioversion S/P correction of deviated nasal septum Family History Father Heart attack Mother No problems noted. Social History Housing: House Are you a primary career services director to a significant other at home: No Do you presently have visiting nurse or other home services: No Patient Tobacco Use Status: Former Tobacco user Tobacco use type: Cigarette Years Smoked: 20 years e-Cigarette/Vaping Use: Never Used Second Hand Smoke Exposure: No Advance Directives Date on File: 06/19/20 service: Yes Current occupational status: retired Cognitive needs: No Hearing needs: Yes Vision needs: Yes Physical Exam Const General: comfortable; No acute distress Orientation/consciousness: patient oriented x3 Eyes General: appearance normal, both eyes and all related structures Visual Dangelo: normal visual dangelo by confrontation Neck Neck: Yes supple and Yes no JVD Resp Effort & Inspection: normal respiratory effort and respiratory effort not decreased Auscultation: rhonchi Cardio Palpation: no palpable S3 and no palpable S4 Heart sounds: no rubs GI Inspection: Yes normal to inspection Palpation (GI): Soft to palpation Percussion: Yes normal to percussion Auscultation: normal bowel sounds General: Yes no CVA tenderness Back/Spine/Pelvis Back: no CVA tenderness Skin General skin exam: no petechiae and no purpura Neuro General: patient oriented x3 and no focal motor deficits Extrem General: No clubbing and No edema Results Reviewed Nephrology Results: Hgb 15.6 g/dl (14.0-18.0) 06/04/24 WBC 8.9 X10*3/uL (4.8-10.8) 06/04/24 Plt Count 214 X10*3/uL (160-400) 06/04/24 Sodium 141 mmol/L (135-145) 06/04/24 Potassium 3.6 mmol/L (3.3-5.1) 06/04/24 Chloride 104 mmol/L (96-108) 06/04/24 Carbon Dioxide 30 mmol/L (22-29) H 06/04/24 BUN 18 mg/dL (9-16) H 06/04/24 Creatinine 1.27 mg/dL (0.5-1.4) 06/04/24 Calcium 9.9 mg/dL (8.4-10.2) 06/04/24 Urine Protein Negative mg/dL (Neg-Trace) 06/04/24 Assessment & Plan Assessment & Plan (1) Microalbuminuria: Code(s): R80.9 - Proteinuria, unspecified Category: Medical (2) HTN (hypertension): Code(s): I10 - Essential (primary) hypertension Category: Medical (3) Renal cyst: Code(s): N28.1 - Cyst of kidney, acquired Category: Medical Plan Elderly man with a history of microalbuminuria in the setting of hypertension and a questionable diagnosis of diabetes mellitus and obesity. He is currently on losartan for renal protection. He has no significant hematuria. No evidence of any active glomerulonephritis. continue with angiotensin receptor samanta. Maintain blood pressure less than 130/80. Maintain A1c less than 6% Mild increase in creatinine to 1.27 AFTER increasing Losartan HCT in May 2024 BP is well controlled Watch for now Recheck in 3 months( ordered) If Cr increases further , would decrease or DC HCTZ renal cell carcinoma CT abdomen shows multiple cysts MRI and USG were done 4 weeks ago Still NOT reported wait for results Orders: Orders Electrolytes 3 Months I10 - Essential (primary) hypertension, N28.1 - Cyst of kidney, acquired Calcium 3 Months I10 - Essential (primary) hypertension, N28.1 - Cyst of kidney, acquired Blood Urea Nitrogen 3 Months I10 - Essential (primary) hypertension, N28.1 - Cyst of kidney, acquired Creatinine 3 Months I10 - Essential (primary) hypertension, N28.1 - Cyst of kidney, acquired Coding Level of Care Code Est Pt Level 4 (84644) Diagnoses Microalbuminuria R80.9 HTN (hypertension) I10 Renal cyst N28.1
== END 2024-07-13 12:30 | disposition home or self-care (01) ==
LOC: HO.HKA 12:10
PROVIDERS: PCP Nurse Practitioner Family; Visit Provider Internal Medicine Hypertension Specialist
DX: R80.9 Proteinuria, unspecified (principal); I10 Essential (primary) hypertension; N28.1 Cyst of kidney, acquired
CPT/HCPCS: 99214

== ENCOUNTER → 2024-07-13 12:10 | Outpatient (BNVA) | payer MEDICARE, SELFPAY | PROVIDERS: PCP Nurse Practitioner Family; Visit Provider Internal Medicine Hypertension Specialist | DX: R80.9 Proteinuria, unspecified (principal); I10 Essential (primary) hypertension; N28.1 Cyst of kidney, acquired; Z85.528 Personal history of other malignant neoplasm of kidney | CPT/HCPCS: 99212 ==

== ENCOUNTER 2024-07-30 08:07 | Outpatient (AMB) | payer MEDICARE, SELFPAY ==
[2024-07-30 08:09] VITALS: BP 126/60; PULSE 75; TEMP 36.6; O2SAT 96
--- NOTE | 2024-07-30 08:09 | AM.OFFWIN_ITS ---
Intake Vital Signs 3 07/30/24 08:09 Height 5 ft 9 in BP 126/60 Blood Pressure Location Rt brachial Position Sitting Pulse 75 Pulse Source Pulse Oximeter Temp 97.9 F Temp Source Oral Pulse Oximetry (%) 96 Intake Visit Reasons: EP Rash on back Intake Note: pt is here for rash on back Patient Tobacco Use Status: Former Tobacco user Allergies amiodarone Allergy (Severe, Verified 07/30/24 08:09) Rash/Itching amlodipine Allergy (Severe, Verified 07/30/24 08:09) tachycardia sulfamethoxazole [From Sulfamethoxazole-Trimethoprim] Allergy (Severe, Verified 07/30/24 08:09) Rash and itching trimethoprim [From Sulfamethoxazole-Trimethoprim] Allergy (Severe, Verified 07/30/24 08:09) Rash and itching environmental allergies Allergy (Intermediate, Verified 07/30/24 08:09) Hayfever morphine [MORPHINE] Allergy (Intermediate, Verified 07/30/24 08:09) Itching and congestion hydromorphone [From Dilaudid] Allergy (Mild, Verified 07/30/24 08:09) Itching and anxiety Seasonal Allergies Allergy (Mild, Verified 07/30/24 08:09) Unknown Sulfa (Sulfonamide Antibiotics) [Sulfa (Sulfonamides)] Allergy (Mild, Verified 07/30/24 08:09) Rash and Itching Do you need a note to return to daycare/school/sports/work: No HPI HPI Comments 2 History of Present Illness0 Details Patient is a 79-year-old male complaining of a ?rash on his back . He tells me it is not itchy, it is not painful but it feels like sand. He has not tried to take anything to make it feel better. He does not know how long it has been there for. He does tell me he saw Hygienist at [facility] a month ago and presumably these spots where they are then and he did not seem concerned about them. The patient states that every time he lays on his back, he can feel them in it that is uncomfortable and feels like sand . [facility] Medical History (Updated 07/30/24 @ 08:27 by Ann Umana PA-C) Splenomegaly Ectatic thoracic aorta Bifascicular block IBS (irritable bowel syndrome) History of kidney cancer Actinic keratoses Paroxysmal atrial fibrillation Chronic allergic rhinitis COPD (chronic obstructive pulmonary disease) Pulmonary nodules Surgical History History of total right knee replacement H/O left hemicolectomy H/O inguinal hernia repair H/O cardiac radiofrequency ablation History of cardioversion S/P correction of deviated nasal septum Family History Father Heart attack Mother No problems noted. Social History Housing: House Are you a primary child day care center worker to a significant other at home: No Do you presently have visiting nurse or other home services: No Patient Tobacco Use Status: Former Tobacco user Tobacco use type: Cigarette Years Smoked: 20 years e-Cigarette/Vaping Use: Never Used Second Hand Smoke Exposure: No Advance Directives Date on File: 06/19/20 service: Yes Current occupational status: retired Cognitive needs: No Hearing needs: Yes Vision needs: Yes Review of Systems Const All systems reviewed & are unremarkable except as noted in HPI and below Physical Exam Vital Signs: Last Vital Signs Temp 97.9 F 07/30/24 08:09 Pulse 75 07/30/24 08:09 BP 126/60 07/30/24 08:09 Pulse Ox 96 07/30/24 08:09 Const General: cooperative, healthy appearing, comfortable, no acute distress and well developed Orientation/consciousness: patient oriented x3 Limitations: no limitations HEENT Head: Yes normal to inspection Ears: hearing grossly normal bilaterally General nose exam: Normal external nose present Face and sinus: Yes normal facial exam Eyes General: appearance normal, both eyes and all related structures Neck Neck: Yes normal visual inspection and Yes full ROM Resp Effort & Inspection: normal respiratory effort and able to speak in complete sentences Skin Other: Patient pointed to the dark plaque in right lower corner of his back as one of the ones that feels like sand Neuro General: patient oriented x3 Extrem General: Yes normal to inspection Assessment & Plan Assessment & Plan (1) Seborrheic keratosis: Code(s): L82.1 - Other seborrheic keratosis Plan: He appears to have seborrheic keratosis as well as actinic keratosis, recommended he follow up with 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 Plan see above Coding Level of Care Code Est Pt Level 3 (08023) Diagnoses Seborrheic keratosis L82.1
== END 2024-07-30 08:29 | disposition home or self-care (01) ==
PROVIDERS: PCP Nurse Practitioner Family; Visit Provider Physician Assistant
DX: L82.1 Other seborrheic keratosis (principal)

== ENCOUNTER → 2024-07-30 08:07 | Outpatient (BNVA) | payer MEDICARE, SELFPAY | PROVIDERS: PCP Nurse Practitioner Family; Visit Provider Nurse Practitioner Family | DX: L82.1 Other seborrheic keratosis (principal) | CPT/HCPCS: 99212 ==

== ENCOUNTER 2024-12-13 10:50 | Outpatient (AMB) | payer MEDICARE, SELFPAY ==
--- NOTE | 2024-12-13 10:53 | A.OFFVIS_ITS ---
Vital Signs 12/13/24 10:54 Height 5 ft 9 in Weight 210 lb 8.663 oz BMI 31.1 BP 136/78 Blood Pressure Location Rt brachial Position Sitting Pulse 86 Pulse Source Pulse Oximeter Pulse Oximetry (%) 93 Oxygen Delivery Method Room Air Intake Visit Reasons: COPD Allergies amiodarone Allergy (Severe, Verified 12/13/24 11:00) Rash/Itching amlodipine Allergy (Severe, Verified 12/13/24 11:00) tachycardia sulfamethoxazole [From Sulfamethoxazole-Trimethoprim] Allergy (Severe, Verified 12/13/24 11:00) Rash and itching trimethoprim [From Sulfamethoxazole-Trimethoprim] Allergy (Severe, Verified 12/13/24 11:00) Rash and itching environmental allergies Allergy (Intermediate, Verified 12/13/24 11:00) Hayfever morphine [MORPHINE] Allergy (Intermediate, Verified 12/13/24 11:00) Itching and congestion hydromorphone [From Dilaudid] Allergy (Mild, Verified 12/13/24 11:00) Itching and anxiety Seasonal Allergies Allergy (Mild, Verified 12/13/24 11:00) Unknown Sulfa (Sulfonamide Antibiotics) [Sulfa (Sulfonamides)] Allergy (Mild, Verified 12/13/24 11:00) Rash and Itching HPI Comments Details: The patient is a 79-year-old gentleman known COPD in addition to pulmonary nodules. Back in September he had a subsolid pulmonary nodule pimarily in the right lung but also has some other nodular densities throughout. he did have a repeat CT scan in January and more recently had a CT scan June 2020. the nodular density in the right hemithorax appears to be a little smaller also a left-sided pulmonary nodule to also appears to be little smaller. This is reassuring findings but will have to repeat monitoring the nodules to the fact that he is high risk for cancer. In the meantime he has been complaining of increasing chest congestion in addition to chest tightness. His symptoms appear to be worse at nighttime. [id number] severity. He has had to use his rescue inhaler at nighttime. We went over his inhalers including Symbicort and also a albuterol HFA. Does not appear that he is using Symbicort as prescribed. I did request that he uses Symbicort on a daily basis. I did also provide him a spacer. Will reassess his respiratory status 6 months with pulmonary function studies. 01/15/2021 for the patient is here for pulmonary follow-up visit. Overall the patient has been doing well from a respiratory status. He still has some shortness of breath and cough which is mild in severity. Sometimes specially in the summer his symptoms do worsen. He continues to use the Symbicort with very good effect. He has not had to use his rescue inhaler. Today, he did undergo pulmonary function studies. It demonstrates no significant obstructive nor restrictive ventilatory defects. However it appears that his diffusion impairment has worsen. We did look at his CT scan from back in June 2020 in did not have any evidence of any significant emphysema or interstitial lung disease to explain the drop in the diffusing capacity to 49% predicted. The patient does have underlying pulmonary nodules that need to be continued to be followed. Plan to repeat the CT scan a year from his last 1 which will be in June 2021. Therefore he will go for additional blood work including checking his hemoglobin to make sure that he is not anemic. 07/17/2021 Patient is here for a pulmonary follow-up visit. Overall he is doing a lot better. His cough is better after starting Astelin nasal spray. He still continues use of fluticasone nasal spray. He has had 3 bouts of epistaxis that landed him in the hospital. That is because he has been on Eliquis. Again we talked about the use of fluticasone in the proper administration. We also talked about using saline gel to try to lubricate the nose. Will try these interventions. If the patient continues bleeding he knows to decrease or stop the fluticasone nasal spray. The Symbicort has been working very well for him. He has not needed a rescue inhaler. Today we are reviewing CT scan of the chest. The patient had a CT scan in May 2021 we did compared to the CT scan from January 2021. He also had a CT scan on June 2020. It appears that he has a 7 mm nodule that is not changing. 07/24/2022 the patient is here for a pulmonary follow-up visit. This been about a year since we last spoke. His major complaint still has to do with signific ant nasal congestion postnasal drip and cough. Moderate severity. Does effective sleep. He believes is typically in the fall usually when he is dealing with all the falling leaves. Usually in the winter time things trial. In the meantime we did talk about making sure that he is using his fluticasone in addition to his antihistamine nasal spray. Also will optimize his allergy medication. The patient should also be rinsing every night. I did talk about considering an allergy referral. At this point would like to hold off since he has done that in the past. He also should use a mask when he is doing with leaves outside. The patient did have a CT scan of the chest that was personally by me. It appears that his pulmonary nodules largest 1 being 6 mm has not changed when compared to 2020. Also, it was noted that the ascending thoracic aorta is dilated to 4 cm. Was not aware this. I will make sure to mention it to his report developer. I will repeat the CT scan in a year's time in order to evaluate the pulmonary nodule 1 last time and also we can monitor his ectatic aorta. If the patient has any new respiratory issues or any concerning symptoms prior to that he is to call the office for an earlier assessment. 05/13/2023 the patient is here for a pulmonary follow-up visit. He is complaining of increasing allergy symptoms. Most likely transitioning to the fall. Does use his nasal sprays both the fluticasone the Astelin. He is also using the allergy medicine. Still having some sinus congestion and pressure. He typically responds well to prednisone. Will send him a Medrol pack so we can start that and hopefully get some relief. In the meantime he did have a CT scan of the chest April 2023. We did review it. Appears that his left lower lobe pulmonary nodule has remained increasing in size. This nodule has been changing even from 2393-2928 just slightly and now more significantly in 2022. Therefore based on the fact that is growing will be reasonable to further address this nodule. We did talk about a PET scan although the nodule is small. At this point will have the patient follow-up with thoracic surgery. They can decide either to remove the nodule or to form a PET scan. 08/06/2023 the patient is here for a hospital follow-up visit. He did follow-up with surgeon and did undergo an elective video-assisted thoracoscopy with wedge resections in the left lower lobe area. Two wedge resections were done. 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 Therefore, I am happy that the nodules have been removed specially since they have the propensity of worsening. The patient postoperatively did have significant pain but now doing a lot better. He is postop now a little more than 2 weeks. He did have his postop check and did well. While he was in the hospital he did have a CT scan of the chest because of the significant pain and everything looked well. Will have him come back in 6 months with a chest x- ray and then if all is stable will plan to get repeat the CT scan in a year's time. The patient did not have any other worrisome nodules. Sometimes with the atypical edematous hyperplasia they can be found in other parts of the lungs and may be small although he does not have any other nodules that I am worried about right now. 12/03/2023 the patient is here for follow-up visit. The patient overall has been doing fairly well. Although he is concerned about the springtime in his allergies. He is now being evaluated by Nephrology because of abnormal findings on his kidneys. The patient did have a repeat CT scan of the abdomen which I personally reviewed back in the fall. The patient is status post resection that area demonstrating a carcinoid tumor lab. He does have some postoperative changes now that area. Will see what his next CT scan of the abdomen shows which would be in couple months. Patient denies any worsening cough or shortness of breath and mucus production. The area looks like a little airspace disease but again postoperative changes are more likely. The nodules guard but that is because it was resected. The patient has been using his fluticasone nasal spray which seems to be partially helpful. Will go ahead and add an additional nasal therapy for his upcoming spring allergies. Patient also been use Afrin for short period time 5 days and I will give some prednisone in case the sinuses getting worse he can use small amount to make sure that his sugars increased. Otherwise patient is without any other complaints. 12/13/2024 the patient is here for pulmonary follow-up visit. Overall he is doing well. Since we last spoke he did undergo the Watchman procedure. He tolerated it well. He did have to return to [facility] because lower extremity edema. There he had a repeat CT scan to assess the Watchman and apparently was okay. The swelling improved. His breathing has been stable. He does continues uses Symbicort and also has his allergy and nasal therapy that becomes a little bit more of an issue in the spring and also in the summer. He will increase the medications as needed. As far as CT scans he did have a CT scan back in [facility] in May 2024 demonstrating stable findings. He is status post resection which demonstrated the tumor let us neuroendocrine tumor growth. He will likely have a repeat CAT scan in the fall of 2024 again with thoracic surgery. Otherwise if he does not when he follows up with us will order additional imaging studies. But for now the patient is doing well on the current therapy will follow-up in a year's time. [facility] Medical History (Updated 08/23/24 @ 10:35 by CHRISTINA Rodriguez-) Presence of Watchman left atrial appendage closure device Splenomegaly Ectatic thoracic aorta Bifascicular block IBS (irritable bowel syndrome) History of kidney cancer Actinic keratoses Paroxysmal atrial fibrillation Chronic allergic rhinitis COPD (chronic obstructive pulmonary disease) Pulmonary nodules Surgical History History of total right knee replacement H/O left hemicolectomy H/O inguinal hernia repair H/O cardiac radiofrequency ablation History of cardioversion S/P correction of deviated nasal septum Family History Father Heart attack Mother No problems noted. Social History Housing: House Are you a primary wound care physician to a significant other at home: No Do you presently have visiting nurse or other home services: No Patient Tobacco Use Status: Former Tobacco user Tobacco use type: Cigarette Years Smoked: 20 years e-Cigarette/Vaping Use: Never Used Second Hand Smoke Exposure: No Advance Directives Date on File: 06/19/20 service: Yes Current occupational status: retired Cognitive needs: No Hearing needs: Yes Vision needs: Yes Review of Systems Const Denies night sweats ENT Denies change in voice, Denies lip swelling, Reports epistaxis, Denies mouth pain, Reports nasal congestion, Reports nasal discharge, Reports post nasal drip, Reports sinus pressure and Denies tongue swelling Card Denies chest pain and Reports dyspnea on exertion Resp Reports cough, Reports pain on inspiration, Reports pain with cough and Reports dyspnea on exertion GI Reports no additional complaints Musc Denies no additional complaints Neuro Denies Neuro-related abnormal movements Psych Denies no additional complaints Amor/Lymph Denies easy bleeding and Denies lymphadenopathy Aller/Immun Denies lip swelling, Reports seasonal rhinorrhea and Denies tongue swelling Physical Exam Vital Signs: Last Vital Signs Pulse 86 12/13/24 10:54 BP 136/78 12/13/24 10:54 Pulse Ox 93 12/13/24 10:54 Oxygen Delivery Method Room Air 12/13/24 10:54 BMI result Body Mass Index 31.1 Const General: alert Neck Neck: Yes normal visual inspection, Yes full ROM and Yes no lymphadenopathy Chest Chest palpation & inspection: normal inspection of the chest Resp Auscultation: no wheezes and diminished lung sounds Cardio Rate: regular rate Rhythm: regular rhythm Heart sounds: S1 normal heart sound present, S2 normal heart sound present and Murmur heart sound present diastolic and systolic GI Palpation (GI): Soft to palpation and nontender Auscultation: normal bowel sounds Skin General skin exam: rashes and/or lesions noted Assessment & Plan Assessment & Plan (1) Pulmonary nodules: Comment: pathology: Atypical adematous hyperplacia and neuroedocrine tumorlets Code(s): R91.8 - Other nonspecific abnormal finding of lung field Category: Medical (2) COPD (chronic obstructive pulmonary disease): Code(s): J44.9 - Chronic obstructive pulmonary disease, unspecified Category: Medical Qualifiers: COPD type: chronic bronchitis Chronic bronchitis type: simple Qualified Code(s): J41.0 - Simple chronic bronchitis (3) Chronic allergic rhinitis: Code(s): J30.9 - Allergic rhinitis, unspecified Category: Medical (4) Ectatic thoracic aorta: Code(s): I77.810 - Thoracic aortic ectasia Category: Medical Plan Continue Symbicort as prescribed. The patient does get his Symbicort from the [place], [place] Continue Astelin nasal spray Fluticasone nasal spray continue loratidine stopped singulair due to dry eyes sinus rinse at night serial imaging at [facility] F/U 6-12 months Coding Level of Care Code Est Pt Level 4 (20304) Diagnoses Pulmonary nodules R91.8 Simple chronic bronchitis J41.0 COPD type: chronic bronchitis Chronic bronchitis type: simple Chronic allergic rhinitis J30.9 Ectatic thoracic aorta I77.810 Time Spent (min) 17
[2024-12-13 10:54] VITALS: BP 136/78; PULSE 86; O2SAT 93; BMI 31.1
--- OUTSIDE RECORDS SUMMARY | 2024-12-13 12:17 | XMS_ITS | Encounter Summary ---
Author Name [facility] [place] Organization [facility] [place] Address [address] [place] [id number] Care Team Providers Care Telecommunication Operator Name Role Phone BAN LIRIANO Primary Care Provider Unavailabl e Insurance Providers: All historical and current Section Date Range: From patient's date of to the date document was created. This section includes the names of all active insurance providers for the patient. Insurance Provider Type of Coverage Plan Name Start of Policy Coverage End of Policy Coverage Group Number Member ID Insurance Provider's Telephone Number Policy Haynes's Name Patient's Relationship to Policy Haynes EVELYN BCBS [facility] MEDICARE (M) ANTHE M MEDIB LUE [facility] Feb 13, 2011 [id number] BYRNES PATIENT BCBS [facility] (WNR) MEDICARE ADVANTAGE [facility] (WNR) Feb 13, 2011 [id number] BYRNES PATIENT [employer] ([id number]) PRESCRIPT ION BCBS Feb 13, 2011 [id number] BYRNES PATIENT Selected Encounter This section includes the information on record at [place] for the Encounter. Date/Time Encounter Type Encounter Description Reason Provider Source Jun 04, 2024 03:00 PM OFFICE O/P EST MOD 30 MIN PRIMARY CARE/MEDICINE ICD-10-CM I48.91 Unspecified atrial fibrillation NAOMIE HUERTAS Encounter Template Text not used by [place] Assessments - Encounter Diagnoses This section includes the primary and secondary diagnoses documented for the Encounter. Date/Time Primary/Secondary Diagnosis Diagnosis Name Provider Source Jun 04, 2024 04:12 PM PRIMARY Unspecified atrial fibrillation NAOMIE HUERTAS Jun 04, 2024 04:12 PM SECONDARY Essential (primary) hypertension NAOMIE HUERTAS Jun 04, 2024 04:12 PM SECONDARY Type 2 diabetes mellitus without complications NAOMIE HUERTAS Plan of Treatment: Future Appointments (+ 6 months) and Future Tests (+/- 45 days) The Plan of Treatment section includes future care activities for the patient [facility] [place] [facility] This section includes future appointments and future orders which are active, pending or scheduled. Future Appointments This section includes appointments that were scheduled to occur 6 months from the date of the Encounter, up to a maximum of 20 appointments. The data comes from all [place] treatment facilities. Appointment Date/Time Appointment Type Appointme nt Facility Name Jul 05, 2024 09:00 AM [facility] Jul 06, 2024 10:00 AM AMBULATORY - MEDICINE [facility] Sep 06, 2024 04:30 PM AMBULATORY - REHAB MEDICIN [facility] [place] [facility] Sep 28, 2024 09:00 AM AMBULATORY - REHAB MEDICIN E [facility] [place] [facility] Nov 10, 2024 08:00 AM [facility] - [facility] Active, Pending, and Scheduled Orders This section includes a listing of several types of active, pending, and scheduled orders, including clinic medications orders, diagnostic test orders, procedure orders and consult orders; where the start date of the order is 45 days before the date of the Encounter or 45 days after the date of theEncounter. The data comes from all [facility] facilities. Test Date/Time Test Type Test Details Facility Name Jul 05, 2024 10:32 AM Consult Order PSYCHIATRI C MEDICATION [facility] OUTPT Cons [place] Installation Helper's Choice [facility] Vital Signs: All taken on the encounter date This section contains inpatient and outpatient Vital Signs collected on the date of the Encounter. Date/Time Temperature Pulse Blood Pressure Respiratory Rate SP02 Pain Height Weight Body Mass Index Source Jun 04, 2024 03:13 PM 98.2 76 135/75 [address] [facility] IELD Advance Directives: All historical and current Section Date Range: From patient's date of to the date document was created. This section includes ALL of a patient's completed or amended VA Advance and Rescinded Directives. The entries below indicate that a directive exists for the patient, but an actual copy is not included with this document. The data comes from all [place] facilities. Date Advance Directives Provider Source Jun 20, 2003 ADVANCE DIRECTIVE REEDEMANI [facility] Encounter Notes: All associated encounter notes This section contains the clinical notes associated to the Encounter. Date/Time Encounter Note(s) Provider Source Jun 04, 2024 03:09 PM PHYSICIAN DEIRDRE T NOTE: LOCAL TITLE: PA NOTE STANDARD TITLE: PHYSICIAN MOLD YARD CRANE OPERATOR NOTE DATE OF NOTE: JUN 04, 2024@15:09 ENTRY DATE: JUN 04, 2024@15:09:14 AUTHOR: NAOMIE HUERTASIGNER: URGENCY: STATUS: COMPLETED Active Outpatient Medications (including Supplies): Active Outpatient Medications Status 1) CARBOXYMETHYLCELLULOSE NA 0.5% OPH SOLN INSTILL 1 ACTIVE DROP INTO EACH EYE FOUR TIMES A DAY FOR DRY EYE Active Non-VA Medications Status 1) Non-VA ALBUTEROL 90MCG (CFC-F) 200D ORAL INHL 2 PUFFS ACTIVE BY MOUTH EVERY 6 HOURS NEEDED 2) Non-VA APIXABAN 5MG TAB 5MG BY MOUTH TWICE DAILY ACTIVE 3) Non-VA ATORVASTATIN CALCIUM 40MG TAB 20MG BY MOUTH ACTIVE EVERY DAY 4) Non-VA BUDESONIDE 160/FORMOTER 4.5MCG 120D INH 2 ACTIVE PUFFS BY MOUTH TWICE DAILY 5) Non-VA DICYCLOMINE HCL 10MG CAP 10MG BY MOUTH EVERY 6 ACTIVE HOURS NEEDED 6) Non-VA FLUTICASONE PROP 50MCG 120D NASAL INHL 1 SPRAY ACTIVE INTO EACH NOSTRIL TWICE DAILY 7) Non-VA GLUCOSAMINE CAP/TAB 1000 EVERY DAY ACTIVE 8) Non-VA LOPERAMIDE HCL 2MG CAP 2MG BY MOUTH EVERY 6 ACTIVE HOURS NEEDED 9) Non-VA LORAZEPAM 2MG TAB 2MG BY MOUTH AT BEDTIME ACTIVE 10) Non-VA METOPROLOL SUCCINATE 100MG SA TAB 100MG BY ACTIVE MOUTH EVERY DAY 11) Non-VA MONTELUKAST NA 10MG TAB 10MG BY MOUTH ONCE ACTIVE DAILY 12 Total Medications S - 79 y/o M Allergy: NKAM MEDS: see below CC: new pt initial eval HPI: see Problem List PMH: neg CAD/AMI +A Fib +HTN neg PVD or PAD neg COPD +Asthma neg Hepatic Disorders +Renal CA, L Kidney neg CVA/TIA neg Seizures neg Chronic Coagulopathy neg PUD, UGI Bleed neg Anemia, Excess Bleeding, Easy Bruising neg Blood Transfusions +DM neg Thyroid Disorders neg BPH any Signif Infectious Diseases? 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 WIA - never TBI - no [place]: retired worked at [employer] SH: O - coop A&Ox3 NAD W-N/H/D VS: Stable HEENT: Eyes - PERRL, anicteric OU Ears - EAC clear AU TM clear AU Oropharynx - no petechiae, uvula midline NECK: no adeno no bruits PUL: Resp full, reg, unlabored; CTA B/L COR: RRR, no M ABD: no distention no bruits no tenderness no mass/megaly RECTAL: defer EXT: no LLE or calf tenderness FEET: no cutaneous lesions dist neuro vascu intact INTEG: NL texture/turgor NAILS: no clubbing no spooning LABS: not done yet A/P - 1) Hypertension - BP 136/76 - on Losartan/HCTZ (100 MG / 12.5 MG) 2) C/V Stable - never LA 3) A FIB and s/p Ablation Yrs Ago - HR 76 today - sees Cardio as of JUN 08; Is Candidate for Watchman Device 3) Neuro Stable - never CVA/TIA 4) Hypercholesterolemia - was on DOAG; stopped on his own much to chagrin of his Cardio - on Metoprol SUCC - on Lipitor - I would recommend at leat taking 81 MG/ASA 5) DM II - A1C of 6.3 in 2018 - never Medicated for DM - eye and fot care - diet, wt 6) Coagulopathy - No 7) Fall Risk: No 8) Urinary Incontinence: No 9) Asthma - on Both Symbicort and Alb Inh's - on Monteculast 10) Anxiety - CON: Psych 11) Hearing Loss - has Amplification via VA 12) Pes Planus - CON: Podiatry for New Customized Orthotics MEDS: Reconciled - has list RTC JUN 09 - sooner prn Fast Labs Few Days Before Next Visit Medication Reconciliation: Outpatient: Has the patient been taking medications as documented in the EMLR? YES: The patient has been taking medications as documented in the EMLR. Essential Medication List for Review used to complete this medication reconciliation. INCLUDED IN THIS LIST: Alphabetical list of active outpatient prescriptions dispensed from this [facility] (local) and dispensed from another VA or [facility] facility (remote) as well as inpatient orders (local, pending and active), local clinic medications, locally documented non-VA medications, and local prescriptions that have or been discontinued in the past 90 days. - All changes in medications, including all non-VA/Herbal/OTC medications were entered into CPRS. Changes: nt - If there were any medications the patient should no longer take, they were discontinued. - The patient/caregiver was instructed to update this list, discard old lists, and take this list to the next appointment, whether with a VA or non-VA provider. Hemoglobin A1C: Order for HBA1C placed. PAVE Foot Check: A complete foot check was completed at this encounter. VISUAL INSPECTION: Includes inspection for skin breaks, deformity, erythema, trauma, pallor on elevation, dependent rubor, nail deformities, extensive callus and pitting edema. Visual exam results: Normal Comment: nl PEDAL PULSES: Includes palpation of dorsalis and posterior tibial pulses and signs/symptoms of vascular compromise like pain, pallor, parasthesia or paralysis. Present (even if diminished) Comment: nl SENSORY CHECK: Includes 10 gram Monofilament ([place]) test of sensation. Intact (Greater than or equal to 80% of sites checked) Abnormal (Less than 80% of sites checked): Intact Comment: nl LOW-RISK: LOW RISK INFORMATION PROVIDED: 1. Advised patient not to walk barefoot. 2. Explained the importance of daily foot checks for changes. 3. Stressed the importance of daily foot hygiene, including bathing and complete drying. Eye Care At-Risk Screen : Patient identified to be at risk for the following eye condition(s): MACULAR DEGENERATION: Macular Degeneration Risk Factors Information: Reminder Term: VA-AMD RISK FACTORS Problem Diagnosis: 05/24/2024 Z68.41 (ICD-10-CM) Body mass index [BMI] 40.0-44.9, adult Date Entered: 05/24/2024; Date Last Modified: 05/24/2024 Status: ACTIVE; Priority: UNDEFINED Prov. Narr. - Body mass index 40+ - severely obese Action: No Referral Ordered: Eye exam completed elsewhere by an Job Placement Officer or Grey Goods Tester Exam Information: Date: October, ? Exact date is unknown Findings/Comment catarcts; pt reports no retinal' +f;oaters Location: Outside Healthcare Provider Diabetes: Kidney Health Evaluation: Last eGFR: EGFR No data available for: eGFR(CKD-EPI 2020) eGFR Last uACR: No uACR found within the past year eGFR and uACR (estimated Glomerular Filtration Rate and Urine Albumin-Creatinine Ratio)* Serum or plasma creatinine, quantitative urine creatinine and quantitative urine albumin lab tests were ordered. Medication Reconciliation: Outpatient: Has the patient been taking medications as documented in the EMLR? YES: The patient has been taking medications as documented in the EMLR. Essential Medication List for Review used to complete this medication reconciliation. INCLUDED IN THIS LIST: Alphabetical list of active outpatient prescriptions dispensed from this VA (local) and dispensed from another VA or [facility] facility (remote) as well as inpatient orders (local, pending and active), local clinic medications, locally documented non-VA medications, and local prescriptions that have or been discontinued in the past 90 days. - All changes in medications, including all non-VA/Herbal/OTC medications were entered into CPRS. Changes: nt - If there were any medications the patient should no longer take, they were discontinued. - The patient/caregiver was instructed to update this list, discard old lists, and take this list to the next appointment, whether with a VA or non-VA provider. /dereje/ NAOMIE HUERTAS PA-C STAFF PHYSICIAN MOLD YARD CRANE OPERATOR Signed: 06/04/2024 16:13 NAOMIE HUERTAS
--- OUTSIDE RECORDS SUMMARY | 2024-12-13 12:17 | XMS_ITS | Continuity of Care Document ---
Author Name [facility] Organization [facility] Care Team Providers Care Carrot Tier Name Role Phone [facility] Unavailable Unavailable Problems Combined list of problems from Department of Defense and Veterans Affairs facilities. It does not include entries that were removed or entered in error. Problem Status Onset Date Problem Type Date of Resolution Comments Source Asthma Active Condition [facility] Atrial fibrillation Active Condition Jun 04, 2024 Entered By: NAOMIE HUERTAS Comment: Asymptomatic as of JUN 08:Jun 04, 2024 Entered By: NAOMIE HUERTAS Comment: Has Private Cardio - s/p Ablation Yrs Ago; Is Candidate for Watchman as of JUN 08Sep 2023 Entered By: NAOMIE HUERTAS Comment: Private Cardio - [facility] Body mass index 40+ - severely obese Active Condition [facility] 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 Jun 04, 2024 Entered By: NAOMIE HUERTAS Comment: Hx Renal CA, L Side 2013; Lesion Excised; No NephrectomySep 2023 Entered By: NAOMIE HUERTAS Comment: In Remission; Discharged from [employer] [facility] approx 1Sep 2023 Entered By: NOAMIE HUERTAS Comment: Surg Done [facility] Chronic tension-type headache (SNOMED CT 810160679) Active Condition [facility] Cortical senile cataract (ICD-9-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.15/366.10) Active Condition [facility] Deviated nasal septum Active Condition [facility] Diabetes mellitus (SNOMED CT 39628244) Active Condition Jun 04, 2024 Entered By: NAOMIE HUERTAS Comment: No Report of DR as of JUN 08: Private Ophth Dr Huffman @ [facility] Essential hypertension (SNOMED CT 47330846) Active Condition [facility] Ex-smoker Active Condition May 24 24 Entered By: VIVIANE MONAE Comment: Ex-smoker, quit 1995Sep 2023 Entered By: NAOMIE HUERTAS Comment: Never Lung Ca; May Have Had Benign Nodules [facility] Hearing loss (SNOMED CT 66880013) Active Condition Jun 04, 2024 Entered By: NAOMIE HUERTAS Comment: Has Amplification via [facility] History of operative procedure on knee Active Condition [facility] History of partial resection of colon Active Condition May 24, 2024 Entered By: VIVIANE MONAE Comment: H/O left hemicolectomySep 2023 Entered By: NAOMIE HUERTAS Comment: Indication for Partial Colectomy 2008: Diverticulitis [facility] Hyperlipidemia (SNOMED CT 16236915) Active Condition [facility] Irritable bowel syndrome Active Condition Mar 30, 2020 Entered By: VIRIDIANA GAN Comment: diarrhea [facility] Malignant melanoma Active Condition Jun 04, 2024 Entered By: NAOMIE HUERTAS Comment: Location - Nose; Excised 2022; Sees Derm Once Yr for Survellance [facility] Pes planus Active Condition Jun 04 Entered By: NAOMIE HUERTAS Comment: See Podiatry at [place] for Customized [facility] Screening for malignant neoplasm of colon done Active Condition Jun 04, 2024 Entered By: NAOMIE HUERTAS Comment: Last Diagnost Colonoscopy approx 2021; no CRCSep 2023 Entered By: NAOMIE HUERTAS Comment: Poss. Benign Polyposis [facility] Under care of doctor Active Condition Jun 04, 2024 Entered By: NAOMIE HUERTAS Comment: Private PCP is at [facility] Impaired glucose tolerance Inactive Condition 06/04/2024 [facility] Diagnosis: ICD-10-CM F41.9 Anxiety disorder, unspecified Active Diagnosis [facility] Diagnosis: ICD-10-CM Z46.0 Encounter for fit/adjst of spectacles and contact lenses Active Diagnosis [facility] Diagnosis: ICD-10-CM E11.9 Type 2 diabetes mellitus without complications Active [facility] Diagnosis: ICD-10-CM H90.3 Sensorineural hearing loss, bilateral Active Diagnosis [facility] [place] [facility] Diagnosis: ICD-10-CM Z46.1 Encounter for fitting and adjustment of hearing aid Active Diagnosis [facility] Diagnosis: ICD-10-CM M21.42 Flat foot [pes planus] (acquired), left foot Active Diagnosis [facility] Diagnosis: ICD-10-CM I48.91 Unspecified atrial fibrillation Active Diagnosis [facility] Medications Combined list of outpatient medications from Department of Defense and [facility] facilities.Medications provided include 1) outpatient medications from the last 15 months, and 2) patient-reported medications. Medication Details Route Status Patient Instructions Prescription Expires Prescription Number Last Dispense Date Ordering Provider Order Date Order Qty Source ALBUTEROL 90MCG/ACTUA T (CFC-F) INHL,ORAL,8 .5GM DOSE COUNTER INHALE 2 PUFFS BY MOUTH EVERY 6 HOURS NEEDED RESPIR ATORY (INHAL ATION) [facility] ATORVASTATI N CA 40MG TAB TAKE ONE-HALF TABLET BY MOUTH QD ORAL ACTIVE RA JOJO RODRIGUEZ 2018 [facility] BUDESONIDE 160MCG/FORM OTEROL FUM 4.5MCG/SPRA Y INHL,ORAL,1 0.2GM INHALE 2 PUFFS BY MOUTH TWICE DAILY RESPIR ATORY (INHAL ATION) ACTIVE [facility] 2019 [facility] CARBOXYMETH YLCELLULOSE NA 0.5% SOLN,OPH INSTILL 1 DROP INTO EACH EYE FOUR TIMES A DAY FOR DRY EYE OPHTHA LMIC ACTIVE 11/11/2025 [id number] [place] 2024 45 [facility] CARBOXYMETH YLCELLULOSE NA 0.5% SOLN,OPH INSTILL 1 DROP INTO EACH EYE FOUR TIMES A DAY FOR DRY EYE OPHTHA LMIC DISCONT INUED 11/20/2024 [id number] [place] 2023 45 [facility] DICYCLOMINE HCL 10MG CAP TAKE 1 CAPSULE BY MOUTH EVERY 6 HOURS NEEDED ORAL [facility] 2019 [facility] FLUTICASONE PROPIONATE 50MCG/SPRAY SOLN,NASAL, 16GM INSTILL 1 SPRAY INTO EACH NOSTRIL TWICE DAILY NASAL [facility] 2011 [facility] GLUCOS[facility] CAP/TAB 1000 EVERY DAY [facility] HYDROCHLORO THIAZIDE 25MG TAB TAKE ONE-HALF TABLET BY MOUTH ONCE DAILY ORAL ACTIVE JESSICA HUERTAS 2023 [facility]ELD LOPERAMIDE HCL 2MG CAP TAKE 1 CAPSULE BY MOUTH EVERY 6 HOURS NEEDED ORAL [facility] LORAZEPAM 2MG TAB TAKE ONE TABLET BY MOUTH AT BEDTIME ORAL ACTIVE [facility] [place] POTASSIUM 100MG TAB TAKE ONE TABLET BY MOUTH ONCE DAILY ORAL ACTIVE JESSICA HUERTAS 2023 [place] METOPROLOL SUCCINATE 100MG TAB,SA TAKE ONE TABLET BY MOUTH EVERY DAY ORAL ACTIVE [facility] 2016 [facility] MINERAL OIL,LIGHT/P ETROLATUM (PF) OINT,OPH APPLY THIN RIBBON INTO EACH EYE AT BEDTIME FOR DRY EYE OPHTHA LMIC ACTIVE 11/11/2025 [id number] [place] 2024 3 [facility] MONTELUKAST NA 10MG TAB TAKE ONE TABLET BY MOUTH ONCE DAILY ORAL ACTIVE [facility] 2019 [facility] Allergies, Adverse Reactions, Alerts Combined list of allergies from Department of Defense and Veterans Affairs facilities. It does not include entries that were removed or entered in error. Substance Category Reaction Severity Reaction type Status Date Reported Comments Source DILAUDID INJECTION 2 MG/ML Propensity to adverse reactions to drug (finding) Injection site pain, Generalized aches and pains active 0 [facility] MORPHINE Propensity to adverse reactions to drug (finding) active 4 [facility] SULFA DRUGS Propensity to adverse reactions to drug (finding) Eruption active 0 [facility] Immunizations Combined list of available immunizations from the Department of Defense and Veterans Affairs facilities. Immunization Series Date Given Administered By Site Reaction Lot Number CVX Code Drug Stenocaptioner Status Comments Source INFLUENZA, UNSPECIFIED FORMULATION 2023 88 complet ed [facility] COVID-19 (PFIZER), MRNA, LNP-S, PF, 30 MCG/0.3 ML DOSE 2 2020 208 complet ed [facility] COVID-19 (PFIZER), MRNA, LNP-S, PF, 30 MCG/0.3 ML DOSE 1 2020 208 complet ed [facility] TDAP 2019 115 complet ed Site: Left Deltoid [facility] INFLUENZA, SEASONAL, INJECTABLE [address] [place] [facility] ZOSTER RECOMBINANT 2 2018 187 complet ed yes [facility] ZOSTER RECOMBINANT 1 2018 187 complet ed yes [facility] INFLUENZA, SEASONAL, INJECTABLE 2016 141 complet ed outside PCP [facility] FLU,3 YRS (HISTORICAL) 2015 88 complet ed [facility] FLU,3 YRS (HISTORICAL) 2013 88 complet ed outside provider [facility] PNEUMOCOCCAL POLYSACCHARID E PPV23 2013 33 complet ed [facility] ZOSTER (HISTORICAL) 2011 121 complet ed [facility] FLU,3 YRS (HISTORICAL) 2011 88 complet ed [facility] FLU,3 YRS (HISTORICAL) 2010 88 complet ed [facility] FLU,3 YRS (HISTORICAL) 2009 88 complet ed [facility] PNEUMOCOCCAL, UNSPECIFIED FORMULATION 2009 109 complet ed [facility] NOVEL INFLUENZA-H1N 1-09, ALL FORMULATIONS 2008 128 complet ed [facility] FLU,3 YRS (HISTORICAL) 2008 88 complet ed [facility] TD(ADULT) UNSPECIFIED FORMULATION 2007 139 complet ed [facility] Results Combined list of recent chemistry, hematology and other laboratory results from Department of Defense and Veterans Affairs, ranging from 15 months to all on record, depending upon the facility. Order Name Results Value Reference Range Date Interpretation Specimen Comments Source CALCIUM CALCIUM [MASS/VOLUM E] IN SERUM OR PLASMA 9.7 mg/dL 8.5 - 10.2 10/18 Specimen Type: SERUM No comment entered. Ordering Provider: NAOMIE HUERTAS Report Released Date/Time: Jun 04, 2024 04:01 PM Reporting Lab: [facility] [address] [address] Performing Lab: [facility] [address] [address] [place] URIC ACID URATE [MASS/VOLUM E] IN SERUM OR PLASMA 5.5 mg/dL 3.5 - 7.2 10/18 Specimen Type: SERUM No comment entered. Ordering Provider: NAOMIE HUERTAS Report Released Date/Time: Jun 04, 2024 04:01 PM Reporting Lab: [facility] [address] [address] Performing Lab: [facility] [address] [place] LIPID PANEL FASTING CHOLESTEROL [MASS/VOLUM E] IN SERUM OR PLASMA 139 mg/dL 10/18 Specimen Type: SERUM No comment entered. Ordering Provider: NAOMIE HUERTAS Report Released Date/Time: Jun 04, 2024 04:01 PM Reporting Lab: [facility] [address] [address] Performing Lab: [address] [address] [place] LIPID PANEL FASTING TRIGLYCERID E [MASS/VOLUM E] IN SERUM OR PLASMA 272 mg/dL 0 - 150 10/18 H Specimen Type: SERUM No comment entered. Ordering Provider: NAOMIE HUERTAS Report Released Date/Time: Jun 04, 2024 04:01 PM Reporting Lab: [address] [address] Performing Lab: [address] [address] [facility] FASTING CHOLESTEROL IN LDL [MASS/VOLUM E] IN SERUM OR PLASMA BY CALCULATION 51 mg/dL 0 - 129 10/18 Specimen Type: SERUM No comment entered. Ordering Provider: NAOMIE HUERTAS Report Released Date/Time: Jun 04, 2024 04:01 PM Reporting Lab: [address] [address] Performing Lab: [address] [address] [place] LIPID PANEL FASTING CHOLESTEROL .TOTAL/CHOL ESTEROL IN HDL [MASS RATIO] IN SERUM OR PLASMA 4.1 10/18 Specimen Type: SERUM No comment entered. Ordering Provider: NAOMIE HUERTAS Report Released Date/Time: Jun 04, 2024 04:01 PM Reporting Lab: [address] [address] Performing Lab: [address] [address] [place] LIPID PANEL FASTING CHOLESTEROL IN HDL [MASS/VOLUM E] IN SERUM OR PLASMA 34 mg/dL 40 - 60 10/18 L Specimen Type: SERUM No comment entered. Ordering Provider: NAOMIE HUERTAS Report Released Date/Time: Jun 04, 2024 04:01 PM Reporting Lab: [address] [address] Performing Lab: [address] [address] [place] VITAMIN D (25-OH) 25-HYDROXYV ITAMIN D3 [MASS/VOLUM E] IN SERUM OR PLASMA 14 ng/mL 20 - 50 10/18 L Specimen Type: SERUM No comment entered. Ordering Provider: NAOMIE HUERTAS Report Released Date/Time: Jun 04, 2024 04:01 PM Reporting Lab: [address] [address] Performing Lab: [address] [address] [place] VITAMIN B12 COBALAMIN (VITAMIN B12) [MASS/VOLUM E] IN SERUM OR PLASMA 384 pg/mL 200 - 900 10/18 Specimen Type: SERUM No comment entered. Ordering Provider: NAOMIE HUERTAS Report Released Date/Time: Jun 04, 2024 04:01 PM Reporting Lab: [address] [address] Performing Lab: [address] [address] [place] RETICULOC YTES RETICULOCYT ES [#/VOLUME] IN BLOOD 2.2 0.6 - 2.0 10/18 H Specimen Type: BLOOD No comment entered. Ordering Provider: NAOMIE HUERTAS Report Released Date/Time: Jun 04, 2024 04:01 PM Reporting Lab: [address] [address] Performing Lab: [address] [address] [place] RETICULOC YTES RETICULOCYT ES/100 ERYTHROCYTE S IN BLOOD BY AUTOMATED COUNT 121.8 10*3/u L 30.0 - 90.0 10/18 H Specimen Type: BLOOD No comment entered. Ordering Provider: NAOMIE HUERTAS Report Released Date/Time: Jun 04, 2024 04:01 PM Reporting Lab: [facility] [address] [address] Performing Lab: [facility] [address] [address] [place] RETICULOC YTES HEMOGLOBIN [ENTITIC MASS] IN RETICULOCYT ES BY AUTOMATED COUNT 33.2 pg 27.9 - 42.0 10/18 Specimen Type: BLOOD No comment entered. Ordering Provider: NAOMIE HUERTAS Report Released Date/Time: Jun 04, 2024 04:01 PM Reporting Lab: [facility] [address] [address] Performing Lab: [address] [address] [place] FERRITIN FERRITIN [MASS/VOLUM E] IN SERUM OR PLASMA 376 ng/mL 20 - 300 10/18 H Specimen Type: SERUM No comment entered. Ordering Provider: NAOMIE HUERTAS Report Released Date/Time: Jun 04, 2024 04:01 PM Reporting Lab: [facility] [address] [address] Performing Lab: [address] [address] [place] HEMOGLOBI N A1C PANEL HEMOGLOBIN A1C/HEMOGLO BIN.TOTAL IN BLOOD BY HPLC 6.9 4.0 - 5.6 10/18 H Specimen Type: BLOOD Comment: Values obtained from A1C measurement s can vary. For atypical A1C assays, a reported value of 7.0 could actually be between 6.72 and 7.28 if measured by a reference method. A reported value of 9.0 could actually be between 8.73 and 9.27. Ref: http://www. ngsp.org/[place] Pdata.asp Ordering Provider: NAOMIE HUERTAS Report Released Date/Time: Jun 04, 2024 04:01 PM Reporting Lab: [address] [address] Performing Lab: [address] [address] [place] CBC AND DIFF (AUTO) LEUKOCYTES [#/VOLUME] IN BLOOD BY AUTOMATED COUNT 9.54 10*3/u L 4.50 - 11.00 10/18 Specimen Type: BLOOD No comment entered. Ordering Provider: NAOMIE HUERTAS Report Released Date/Time: Jun 04, 2024 04:01 PM Reporting Lab: [facility] [place] [address] [address] Performing Lab: [facility] [address] [address] [place] CBC AND DIFF (AUTO) ERYTHROCYTE S [#/VOLUME] IN BLOOD BY AUTOMATED COUNT 5.51 10*6/u L 4.23 - 5.66 10/18 Specimen Type: BLOOD No comment entered. Ordering Provider: NAOMIE HUERTAS Report Released Date/Time: Jun 04, 2024 04:01 PM Reporting Lab: [facility] [address] [address] Performing Lab: [facility] [place] [address] [address] [place] CBC AND DIFF (AUTO) HEMOGLOBIN [MASS/VOLUM E] IN BLOOD 16.2 g/dL 12.8 - 17 10/18 Specimen Type: BLOOD No comment entered. Ordering Provider: NAOMIE HUERTAS Report Released Date/Time: Jun 04, 2024 04:01 PM Reporting Lab: [facility] [address] [address] Performing Lab: [facility] [place] [address] [address] [place] CBC AND DIFF (AUTO) HEMATOCRIT [VOLUME FRACTION] OF BLOOD BY AUTOMATED COUNT 48.2 39.2 - 50.4 10/18 Specimen Type: BLOOD No comment entered. Ordering Provider: NAOMIE HUERTAS Report Released Date/Time: Jun 04, 2024 04:01 PM Reporting Lab: [facility] [place] [address] [address] Performing Lab: [facility] [address] [place] CBC AND DIFF (AUTO) MCV [ENTITIC VOLUME] BY AUTOMATED COUNT 87.5 fL 82 - 99 10/18 Specimen Type: BLOOD No comment entered. Ordering Provider: NAOMIE HUERTAS Report Released Date/Time: Jun 04, 2024 04:01 PM Reporting Lab: [facility] [address] [address] Performing Lab: [facility]RPR[facility]ERN [facility] [address] [address] [place] CBC AND DIFF (AUTO) MCHC [MASS/VOLUM E] BY AUTOMATED COUNT 33.6 g/dL 30.8 - 35.1 10/18 Specimen Type: BLOOD No comment entered. Ordering Provider: NAOMIE HUERTAS Report Released Date/Time: Jun 04, 2024 04:01 PM Reporting Lab: [facility] [address] [address] Performing Lab: [facility] [address] [address] [place] CBC AND DIFF (AUTO) PLATELETS [#/VOLUME] IN BLOOD BY AUTOMATED COUNT 200 10*3/u L 140 - 360 10/18 Specimen Type: BLOOD No comment entered. Ordering Provider: NAOMIE HUERTAS Report Released Date/Time: Jun 04, 2024 04:01 PM Reporting Lab: [facility] [address] [address] Performing Lab: [facility]RPRINC[facility]ERN [facility]ITALUSE[address] [address] [place] CBC AND DIFF (AUTO) ERYTHROCYTE DISTRIBUTIO N WIDTH [RATIO] BY AUTOMATED COUNT 13.1 12.0 - 16.0 10/18 Specimen Type: BLOOD No comment entered. Ordering Provider: NAOMIE HUERTAS Report Released Date/Time: Jun 04, 2024 04:01 PM Reporting Lab: [facility] [address] [address] Performing Lab: [facility] [address] [address] [place] CBC AND DIFF (AUTO) MONOCYTES [#/VOLUME] IN BLOOD BY AUTOMATED COUNT 0.74 10*3/u L 0.30 - 1.10 10/18 Specimen Type: BLOOD No comment entered. Ordering Provider: NAOMIE HUERTAS Report Released Date/Time: Jun 04, 2024 04:01 PM Reporting Lab: [facility] [place] [facility] [address] [address] Performing Lab: [facility] [place] [address] [address] [place] CBC AND DIFF (AUTO) MCH [ENTITIC MASS] BY AUTOMATED COUNT 29.4 pg 26.2 - 32.6 10/18 Specimen Type: BLOOD No comment entered. Ordering Provider: NAOMIE HUERTAS Report Released Date/Time: Jun 04, 2024 04:01 PM Reporting Lab: [facility] [address] [address] Performing Lab: [facility] [address] [address] [place] CBC AND DIFF (AUTO) NEUTROPHILS /100 LEUKOCYTES IN BLOOD BY AUTOMATED COUNT 63.1 43.7 - 75.8 10/18 Specimen Type: BLOOD No comment entered. Ordering Provider: NAOMIE HUERTAS Report Released Date/Time: Jun 04, 2024 04:01 PM Reporting Lab: [facility] [address] [address] Performing Lab: [facility] MONTGOMERYTRN [address] [address] [place] CBC AND DIFF (AUTO) LYMPHOCYTES /100 LEUKOCYTES IN BLOOD BY AUTOMATED COUNT 25.4 14.0 - 42.3 10/18 Specimen Type: BLOOD No comment entered. Ordering Provider: NAOMIE HUERTAS Report Released Date/Time: Jun 04, 2024 04:01 PM Reporting Lab: [place] [facility] [place] [address] [address] Performing Lab: [facility] [address] [place] CBC AND DIFF (AUTO) MONOCYTES/1 00 LEUKOCYTES IN BLOOD BY AUTOMATED COUNT 7.8 5.1 - 13.7 10/18 Specimen Type: BLOOD No comment entered. Ordering Provider: NAOMIE HUERTAS Report Released Date/Time: Jun 04, 2024 04:01 PM Reporting Lab: [facility]RL WSTRN [facility]ITAL[facility] [address] [address] Performing Lab: [facility] [address] [address] [place] CBC AND DIFF (AUTO) EOSINOPHILS /100 LEUKOCYTES IN BLOOD BY AUTOMATED COUNT 2.6 0.4 - 6.8 10/18 Specimen Type: BLOOD No comment entered. Ordering Provider: NAOMIE HUERTAS Report Released Date/Time: Jun 04, 2024 04:01 PM Reporting Lab: [facility] MONTGOMERYTRN [facility] [address] [address] Performing Lab: [facility] [address] [address] [place] CBC AND DIFF (AUTO) BASOPHILS/1 00 LEUKOCYTES IN BLOOD BY AUTOMATED COUNT 0.6 0.1 - 2.0 10/18 Specimen Type: BLOOD No comment entered. Ordering Provider: NAOMIE HUERTAS Report Released Date/Time: Jun 04, 2024 04:01 PM Reporting Lab: [facility] MON[facility]OMERYTRN [facility]ITALUSETS [address] [address] Performing Lab: [facility]ITALRL TRN [facility]ITALUSETS [address] [address] [place] CBC AND DIFF (AUTO) NEUTROPHILS [#/VOLUME] IN BLOOD BY AUTOMATED COUNT 6.02 10*3/u L 2.20 - 7.60 10/18 Specimen Type: BLOOD No comment entered. Ordering Provider: NAOMIE HUERTAS Report Released Date/Time: Jun 04, 2024 04:01 PM Reporting Lab: [facility] [address] [address] Performing Lab: [facility]ITALUS[facility] [address] [address] [place] CBC AND DIFF (AUTO) LYMPHOCYTES [#/VOLUME] IN BLOOD BY AUTOMATED COUNT 2.42 10*3/u L 1.00 - 3.20 10/18 Specimen Type: BLOOD No comment entered. Ordering Provider: NAOMIE HUERTAS Report Released Date/Time: Jun 04, 2024 04:01 PM Reporting Lab: [facility] [address] [address] Performing Lab: PR CNTRL [facility] [address] [address] [place] CBC AND DIFF (AUTO) EOSINOPHILS [#/VOLUME] IN BLOOD BY AUTOMATED COUNT 0.25 10*3/u L 0.03 - 0.44 10/18 Specimen Type: BLOOD No comment entered. Ordering Provider: NAOMIE HUERTAS Report Released Date/Time: Jun 04, 2024 04:01 PM Reporting Lab: [facility]ERYTRN [address] [address] Performing Lab: [facility]ERN [address] [address] [place] CBC AND DIFF (AUTO) BASOPHILS [#/VOLUME] IN BLOOD BY AUTOMATED COUNT 0.06 10*3/u L 0.01 - 0.13 10/18 Specimen Type: BLOOD No comment entered. Ordering Provider: NAOMIE HUERTAS Report Released Date/Time: Jun 04, 2024 04:01 PM Reporting Lab: [facility] [address] [address] Performing Lab: [facility] [address] [place] CBC AND DIFF (AUTO) IMMATURE GRANULOCYTE S/100 LEUKOCYTES IN BLOOD BY AUTOMATED COUNT 0.5 0.0 - 0.7 10/18 Specimen Type: BLOOD No comment entered. Ordering Provider: NAOMIE HUERTAS Report Released Date/Time: Jun 04, 2024 04:01 PM Reporting Lab: [facility]ITALUSETS [address] [address] Performing Lab: [facility]ITAL[facility] [address] [place] CBC AND DIFF (AUTO) IMMATURE GRANULOCYTE S [#/VOLUME] IN BLOOD 0.05 10*3/u L 0.00 - 0.06 10/18 Specimen Type: BLOOD No comment entered. Ordering Provider: NAOMIE HUERTAS Report Released Date/Time: Jun 04, 2024 04:01 PM Reporting Lab: [facility] [address] [facility] [address] Performing Lab: [facility]ENTERN [address] [address] [place] CBC AND DIFF (AUTO) NRBC % 0.0 0.0 - 0.0 10/18 Specimen Type: BLOOD No comment entered. Ordering Provider: NAOMIE HUERTAS Report Released Date/Time: Jun 04, 2024 04:01 PM Reporting Lab: [facility] [address] [address] Performing Lab: [facility] [address] [address] [place] CBC AND DIFF (AUTO) NRBC, ABS 0.00 10*3/u L 0.00 - 0.00 10/18 Specimen Type: BLOOD No comment entered. Ordering Provider: NAOMIE HUERTAS Report Released Date/Time: Jun 04, 2024 04:01 PM Reporting Lab: [facility] [address] [address] Performing Lab: [facility] [address] [place] MICROALBU MIN CREATININ E RATIO PANEL MICROALBUMI N/CREATININ E [MASS RATIO] IN URINE 103.3 mg/g 0 - 29.9 10/18 H Specimen Type: URINE No comment entered. Ordering Provider: NAOMIE HUERTAS Report Released Date/Time: Jun 04, 2024 04:01 PM Reporting Lab: [facility] [address] Performing Lab: [facility] [address] [place] MICROALBU MIN CREATININ E RATIO PANEL MICROALBUMI N [MASS/VOLUM E] IN URINE 14.3 mg/dL 10/18 Specimen Type: URINE No comment entered. Ordering Provider: NAOMIE HUERTAS Report Released Date/Time: Jun 04, 2024 04:01 PM Reporting Lab: [facility] [place] [facility] [address] [facility] [address] Performing Lab: [facility] [place] [facility] [address] [facility] [address] [facility] MICROALBU MIN CREATININ E RATIO PANEL CREATININE [MASS/VOLUM E] IN URINE 138.43 mg/dL 10/18 Specimen Type: URINE No comment entered. Ordering Provider: NAOMIE HUERTAS Report Released Date/Time: Jun 04, 2024 04:01 PM Reporting Lab: [facility] [place] [facility] [address] [facility] [address] Performing Lab: [facility] [place] [facility] [address] [facility] [address] [facility] Vital Signs Combined list of inpatient and outpatient Vital Signs from Department of Defense and Veterans Affairs, ranging from 12 months to all on record, depending upon the facility. Vital Sign Value Date Comments Source SYSTOLIC BLOOD PRESSURE 135 06/04/2024 15:13:14 [facility] DIASTOLIC BLOOD PRESSURE 75 06/04/2024 15:13:14 [facility] PULSE OXIMETRY 95 06/04/2024 15:13:14 S [facility]INFORM[facility] WEIGHT 208 06/04/2024 15:13:14 [facility] BMI 31 kg/m2 06/04/2024 15:13:14 [facility] HEIGHT 69 06/04/2024 15:13:14 [facility] TEMPERATURE 98.2 06/04/2024 15:13:14 [facility] PULSE 76 06/04/2024 15:13:14 [facility] RESPIRATION 19 06/04/2024 15:13:14 [facility] Encounters Combined list of: 1) Encounters from Department of Veterans Affairs facilities going backup to the last 18 months, not all [place] inpatient encounters are included; 2) Encounters from the Department of Defense facilities going backup to 280 months. Location Location Details Encounter Type Encounter Number Reason For Visit Attending Provider ADM Date DC Date Status Disposition Source [facility] [facility] Outpatient Encounter [id number] 10/16 [facility] [place] HEARING AID REPAIR/MOD IFYING [id number] Diagnos is: ICD-10- CM Z46.1 Encount er for fitting and adjustm ent of hearing aid BEVERLEYCATA Samson 11/13 [place] [facility] En[facility] [id number] 11/18 [facility] En[facility] [id number] 03/04 [facility] En[facility] [id number] 03/25 [facility] En[facility] [id number] 03/25 [facility] En[facility] [id number] 05/03 [facility] [place] Outpatient Encounter [id number] 05/21 [place] [facility] En[facility] [id number] 05/24 [facility] HEARING AID FITTING/CH ECKING [id number] Diagnos is: ICD-10- CM Z46.1 Encount er for fitting and adjustm ent of hearing aid Calli PABON 06/01 [facility] En[facility] [id number] 06/04 [facility] [place] OFF[place] O/P EST MOD 30 MIN [id number] Diagnos is: ICD-10- CM I48.91 Unspeci fied atrial fibrill ANDREWS Coulter 06/04 [place] [facility] Out[facility] Encounter [id number] 06/04 [facility] [place] [facility] PSYCH DIAGNOSTIC EVALUATION [id number] Diagnos is: ICD-10- CM F41.9 Anxiety disorde r, unspeci fied AME ZEE 07/05 [place] [facility] Out[facility] Encounter [id number]. AME ZEE 07/05 [facility] [place] [facility] [facility] OFFICE O/P NEW LOW 30 MIN [id number] Diagnos is: ICD-10- CM M21.42 Flat foot [pes planus] (acquir ed), left foot ROSS,CHARL ES F 07/06 [place] [facility] Out[facility] Encounter [id number] 07/07 [facility] Out[facility] Encounter [id number] 1.08/16 [facility] HEARING AID REPAIR/MOD IFYING [id number] Diagnos is: ICD-10- CM Z46.1 Encount er for fitting and adjustm ent of hearing aid SENIOR,FRANCOISE OLE L 09/06 [facility] HEARING AID REPAIR/MOD IFYING [id number] Diagnos is: ICD-10- CM H90.3 Sensori neural hearing loss, bilWANDY Jo 09/28 [facility] [place] [facility] Outpatient Encounter [id number] 10/21 [facility] [place] OFF[facility] O/P EST MOD 30 MIN [id number] Diagnos is: ICD-10- CM E11.9 Type 2 diabete s mellitu s without complic ations BRODY CARRERA 11/10 [facility] [place] [facility] FIT SPECTACLES BIFOCAL [id number] Diagnos is: ICD-10- CM Z46.0 Encount er for fit/adj st of spectac les and contact lenses BRODY CARRERA 11/10 [facility] [place] [facility] [place] OFFICE O/P NEW HI 60 MIN [id number] Diagnos is: ICD-10- CM F41.9 Anxiety disorde r, unspeci fied DOC,W TIKA 12/07 [place] [facility] Outpatient Encounter [id number] 12/13 [facility] [place] Social History Combined list of available smoking, tobacco, and other social history from Department of Defense and Veterans Affairs facilities. Social History Type Response Date Comment Sourc e Tobacco smoking status [facility] VA-TOBACCO FORMER USER 03/25/2024 [facility] [place] [facility] History of tobacco use VA-TOBACCO QUIT 15 YRS OR MORE 03/25/2024 [facility] History of tobacco use VA-TOBACCO QUIT 15 YRS OR MORE 04/01/2019 [facility] History of tobacco use VA-TOBACCO QUIT 15 YRS OR MORE 04/01/2018 [facility] [place] [facility] History of tobacco use QUIT TOBACCO USE > 7 YEARS AGO 04/01/2018 [facility] [place] [facility] History of tobacco use QUIT TOBACCO USE > 7 YEARS AGO 02/17/2017 [facility] History of tobacco use QUIT TOBACCO USE > 7 YEARS AGO 01/18/2016 . [facility] History of tobacco use QUIT TOBACCO USE > 7 YEARS AGO 03/12/2010 [facility] Plan of Care List of future care activities from [facility] facilities. Additional future care activities may be listed in the Assessment and Plan section. Date/Time Care Activity Care Activity Detail Facili ty 02/08/2025 [facility] Advance Directives List of completed, amended, or rescinded Advance Directives on record at [facility] facilities. An actual copy of the Directive is not included. Date Advance Directive Provider Source 06/20/2003 ADVANCE DIRECTIVE EMANI REED [facility]
--- OUTSIDE RECORDS SUMMARY | 2024-12-13 12:17 | XMS_ITS | Encounter Summary ---
Author Name [facility] [place] Organization [facility] [place] Address [address] [place] [address] Care Team Providers Care Director Of Patient Care Name Role Phone BAN LIRIANO Primary Care [...] Name Patient's Relationship to Policy Haynes EVELYN [facility] MEDICARE (M) ANTHE M MEDIB LUE [facility] Feb 13, 2011 [id number] BRYNES PATIENT BCBS [facility] (WNR) MEDICARE ADVANTAGE [facility] (WNR) Feb 13, 2011 [id number] [phone] BYRNES PATIENT [employer] ([id number]) PRESCRIPT ION BCBS Feb 13, 2011 [id number] BYRNES PATIENT Selected Encounter This section includes the information on record at [place] for the Encounter. Date/Time Encounter Type Encounter Description Reason Pro vider Source IHE Encounter Template Text not used by VA Advance Directives: All historical and current Section Date Range: From patient's date of to the date document was created. This section includes ALL of a patient's completed or amended VA Advance and Rescinded Directives. The entries below indicate that a directive exists for the patient, but an actual copy is not included with this document. The data comes from all [place] facilities. Date Advance Directives Provider Source Jun 20, 2003 ADVANCE DIRECTIVE EMANI REED [place] [facility]
--- OUTSIDE RECORDS SUMMARY | 2024-12-13 12:17 | XMS_ITS | Clinical Summary ---
Author Organization [facility] it Address [address] [place] [address] Care Team Providers Care Sociology Teacher Name Role Phone WaleJesus renee Nils SHAIKH Primary Care Provider Surgical History Surgery Date Site/Laterality Comments TOTAL KNEE ARTHROPLASTY Right PROCEDURE: HISTORICAL TOTAL KNEE REPLACE OTHER SURGICAL HISTORY N/A PROCEDURE: [place] ANES CARDIAC ELECTROPHYSIOL STDY W/RF ABLATION OTHER SURGICAL HISTORY N/A PROCEDURE: [place] CARDIOVERSION ELECTIVE ARRHYTHMIA EXTERNAL NOSE SURGERY N/A PROCEDURE: [place] UNLISTED PROCEDURE NOSE OTHER SURGICAL HISTORY 07/09/2023 Left PROCEDURE: [place] THORACOSCOPY W/THERA WEDGE RESEXN INITIAL UNILAT; COMMENT: LLL wedge x2 Medical History Medical History Date Comments Ectatic thoracic aorta (CMS/HCC) DX:Ectatic thoracic aorta (HCC) Bifascicular block DX:Bifascicul ar block IBS (irritable bowel syndrome) D X:IBS (irritable bowel syndrome) History of kidney cancer exc luding renal pelvis DX:History of kidney cancer excluding renal pelvis Actinic keratoses DX:Actinic ker atoses PAF (paroxysmal atrial fibri llation) (CMS/HCC) DX:PAF (paroxysmal atrial fi brillation) ([facility]) Chronic allergic rhinitis DX:Chr onic allergic rhinitis COPD (chronic obstructive pu lmonary disease) (CMS/HCC) DX:COPD (chronic obstructive pulmonary disease) ([facility]) Pulmonary nodules DX:Pulmonary n odules Family History Medical History Relation Name Comments Heart attack Father No Known Problems Mother Relation Name Status Comments Father Mother Social History Tobacco Use Types Packs/Day Years Used Date Smoking Tobacco: Former Cigarettes Q uit: 09/15/1989 Smokeless Tobacco: Never Sex and Gender Information Value Date Recorded Sex Assigned at Not on file Legal Sex Male 8:09 PM EST Gender Identity Not on file Sexual Orientation Not on file Obstetrics History Last Filed Vital Signs Vital Sign Reading Time Taken Comments Blood Pressure 155/79 10/30/2023 9:48 AM EST Sit ting L Arm Pulse 90 10/30/2023 9:48 AM EST Temperature - - Respiratory Rate - - Oxygen Saturation - - Inhaled Oxygen Concentration - - Weight 96.2 kg (212 lb) 10/30/2023 9:48 AM EST Height 176.5 cm (5' 9.5 ) 10/30/2023 9:48 AM EST Body Mass Index 30.86 10/30/2023 9:48 AM EST Plan of Treatment Health Maintenance Due Date Last Done Comments DTaP,Tdap,and Td Vaccines (1 - Tdap) 1965 Pneumococcal Vaccine: 50+ Ye ars (1 of 1 - PCV) 02/22/1996 Zoster Vaccines (1 of 2) 02/22/1996 RSV Immunization Patients 60 + Years Old (1 - 1-dose 75+ series) 2021 Cholesterol Screening (Lipid Panel) 10/09/2023 Depression Screening 10/09/2023 Falls Risk Assessment 10/09/2023 Hepatitis C Screening 10/09/2023 Social Influencers of Health Screening 10/09/2023 COVID-19 Vaccine ( - 2023-2 5 season) 2024 Influenza Vaccine (#1) 2024 HIB Vaccines Aged Out No longer eligi ble based on patient's age to complete this topic HPV Vaccines Aged Out No longer eligi ble based on patient's age to complete this topic Hepatitis A Vaccines Aged Out No long er eligible based on patient's age to complete this topic Hepatitis B Vaccines Aged Out No long er eligible based on patient's age to complete this topic IPV Vaccines Aged Out No longer eligi ble based on patient's age to complete this topic MMR Vaccines Aged Out No longer eligi ble based on patient's age to complete this topic Meningococcal ACWY Vaccine Aged Out N o longer eligible based on patient's age to complete this topic Meningococcal B Vacine Aged Out No lo nger eligible based on patient's age to complete this topic RSV Immunization Patients Un nury 20 months Aged Out No longer eligible b ased on patient's age to complete this topic Varicella Vaccines Aged Out No longer eligible based on patient's age to complete this topic Care Teams Sociology Teacher Relationship Specialty Start Date End Date Jesus Miller NP [address] [place], [place] PCP - General 10/30/23
--- OUTSIDE RECORDS SUMMARY | 2024-12-13 12:17 | XMS_ITS ---
Author Name [facility] [place] [facility] [place] Address [address] [place] [address] Care Team Providers Care Staffing Recruiter Name Role Phone BAN LIRIANO Primary Care Provider Unavailtoo e Insurance Providers: All historical and current [...] Patient's Relationship to Policy Haynes EVELYN [place] MEDICARE (M) CELINA Riggins MEDIB LUE [facility] Feb 13, 2011 [id number] BYRNES PATIENT BCBS [facility] (WNR) MEDICARE ADVANTAGE [facility] (WNR) Feb 13, 2011 [id number] BYRNES PATIENT [employer] ([id number]) PRESCRIPT ION BCBS Feb 13, 2011 [id number] BYRNES PATIENT Selected Encounter This section includes the information on record at [place] for the Encounter. Date/Time Encounter Type Encounter Description Reason Provider Source Jun 01, 2024 08:30 AM HEARING AID FITTING/CHECKIN G AUDIOLOGY ICD-10-CM Z46.1 Encounter for fitting and adjustment of hearing aid CAMINITI,NIKO E IHE Encounter Template Text not used by [place] Assessments - Encounter Diagnoses This section includes the primary and secondary diagnoses documented for the Encounter. Date/Time Primary/Secondary Diagnosis Diagnosis Name Provider Source Jun 01, 2024 08:56 AM PRIMARY Encounter for fitting and adjustment of hearing aid NIKO PABON [place] [facility] [place] [facility] Jun 01, 2024 08:56 AM SECONDARY Sensorineural hearing loss, bilateral NIKO PABON [facility] [place] [facility] Plan of Treatment: Future Appointments (+ 6 months) and Future Tests (+/- 45 days) The Plan of Treatment section includes future care activities for the patient from all [place] [facility]. This section includes future appointments and future orders which are active, pending or scheduled. Future Appointments This section includes appointments that were scheduled to occur 6 months from the date of the Encounter, up to a maximum of 20 appointments. The data comes from all [facility]. Appointment Date/Time Appointment Type Appointme nt Facility Name Jun 04, 2024 03:00 PM AMBULATORY - [facility]INE [facility] Jul 05, 2024 09:00 AM [facility] Jul 06, 2024 10:00 AM [facility] Sep 06, 2024 04:30 PM AMBULATORY - REH[place] [facility] [place] [facility] Sep 28, 2024 09:00 AM AMBULATORY - REHAB MEDICIN [place] [facility] [place] [facility] Nov 10, 2024 08:00 AM [facility] [place] Active, Pending, and Scheduled Orders This section includes a listing of several types of active, pending, and scheduled orders, including clinic medications orders, diagnostic test orders, procedure orders and consult orders; where the start date of the order is 45 days before the date of the Encounter or 45 days after the date of theEncounter. The data comes from all [facility]. Test Date/Time Test Type Test Details Facility Name Jul 05, 2024 10:32 AM Consult Order PSYCHIATRI C MEDICATION [facility] OUTPT Cons Construction Consultant's Choice [facility] [place] [facility] Social History: Smoking Status (Most current) and Tobacco Use (All prior to encounter date) This section includes the most current, and the historical, smoking and tobacco- related health factors from the [place] facility where the Encounter took place. Current Smoking Status This section includes the most current smoking, or tobacco-related health factor, from the [place] facility where the Encounter took place. Date/Time Current Smoking Status Comment Avis ity Mar 25, 2024 12:03 PM VA-TOBACCO FORMER USER [facility] Tobacco Use History This section includes a history of the smoking, or tobacco-related health factors, that were collected on or before the date of the Encounter. The data comes from the [place] facility where the Encounter took place. Date/Time Smoking Status/Tobacco Use Comment Maribel acbrittani Mar 25, 2024 12:03 PM VA-TOBACCO QUIT 15 YRS OR MORE [facility] Apr 01, 2019 09:37 AM VA-TOBACCO FORMER USER [facility] Apr 01, 2019 09:37 AM VA-TOBACCO QUIT 15 YRS OR MORE [facility] Apr 01, 2018 09:18 AM [facility] Apr 01, 2018 09:18 AM VA-TOBACCO QUIT 15 YRS OR MORE [facility] Apr 01, 2018 08:44 AM QUIT TOBACCO USE > 7 YEARS AGO [facility] Feb 17, 2017 10:42 AM QUIT TOBACCO USE > 7 YEARS AGO [facility] January 18, 2016 08:51 AM QUIT TOBACCO USE > 7 YEARS AGO . [facility] Mar 12, 2010 11:19 AM QUIT TOBACCO USE > 7 YEARS AGO [facility] Advance Directives: All historical and current Section Date Range: From patient's date of to the date document was created. This section includes ALL of a patient's completed or amended [place] Advance and Rescinded Directives. The entries below indicate that a directive exists for the patient, but an actual copy is not included with this document. The data comes from all [place] facilities. Date Advance Directives Provider Source Jun 20, 2003 ADVANCE DIRECTIVE EMANI REED [facility] Encounter Notes: All associated encounter notes This section contains the clinical notes associated to the Encounter. Date/Time Encounter Note(s) Provider Source Jun 01, 2024 07:45 AM AUDIOLOGY E & M NO TE: LOCAL TITLE: AUDIOLOGY CLINIC STANDARD TITLE: AUDIOLOGY E & M NOTE DATE OF NOTE: JUN 01, 2024@07:45 ENTRY DATE: JUN 01, 2024@07:45:15 AUTHOR: NIKO PABON EXP COSIGNER: URGENCY: STATUS: COMPLETED Skippers has a history of bilateral sensorineural hearing loss. He was seen on 06-01-24 for hearing aid follow up regarding his Cindy BTE Rs. He reports that he is using the right earmold from the spare set because the newer aid does not work with its original earmold. He reports he gets feedback. Otoscopy was WNLs AU. Tubing was replaced on both BTE Rs's earmolds. The right spare earmold was reattached to the spare aid. The listening check was positive for both hearing aids. They were connected to [employer] a new feedback test was run. Good gain margins were noted. Skippers will contact the clinic as needed. He asks about an updated hearing test at the next maintenance interval and he was advised this could be scheduled at any time. /dereje/ Wilman KOTHARI, [facility]-A STAFF JEWEL SUPERVISOR Signed: 06/01/2024 08:57 NIKO PABON [facility]
--- OUTSIDE RECORDS SUMMARY | 2024-12-13 12:17 | XMS_ITS ---
Author Name [facility] Organization [facility] Address [address] [place] [id number] Care Team Providers Care Whale Trainer Name Role Phone BAN LIRIANO Primary Care [...] CT MEDICARE (M) CELINA Riggins MEDIB LUE [facility] Feb 13, 2011 [id number] BYRNES PATIENT BCBS [facility] (WNR) MEDICARE ADVANTAGE [facility] (WNR) Feb 13, 2011 [id number] [phone] BYRNES PATIENT [employer] ([id number]) PRESCRIPT ION BCBS Feb 13, 2011 [id number] BYRNES PATIENT Selected Encounter This section includes the information on record at OR for the Encounter. Date/Time Encounter Type Encounter Description Reason Provider Source Sep 06, 2024 04:30 PM HEARING AID REPAIR/MODIFYIN G AUDIOLOGY ICD-10-CM Z46.1 Encounter for fitting and adjustment of hearing aid JEMMA LOUIS Encounter Template Text not used by OR Assessments - Encounter Diagnoses This section includes the primary and secondary diagnoses documented for the Encounter. Date/Time Primary/Secondary Diagnosis Diagnosis Name Provider Source Sep 06, 2024 05:08 PM PRIMARY Encounter for fitting and adjustment of hearing aid [facility] Sep 06, 2024 05:08 PM SECONDARY Sensorineural hearing loss, bilateral JEMMA LOUIS [facility] Plan of Treatment: Future Appointments (+ 6 months) and Future Tests (+/- 45 days) The Plan of Treatment section includes future care activities for the patient from all [facility]. This section includes future appointments and future orders which are active, pending or scheduled. Future Appointments This section includes appointments that were scheduled to occur 6 months from the date of the Encounter, up to a maximum of 20 appointments. The data comes from all [facility]. Appointment Date/Time Appointment Type Appointme nt Facility Name Sep 28, 2024 09:00 AM [facility] Nov 10, 2024 08:00 AM [facility] Dec 07, 2024 09:30 AM AMBULATORY - PSYCHIATRY [facility] February 08, 2025 09:00 AM AMBULATORY - PSYCHIATRY [facility] February 10, 2025 10:00 AM AMBULATORY - MEDICINE [facility] Active, Pending, and Scheduled Orders This section includes a listing of several types of active, pending, and scheduled orders, including clinic medications orders, diagnostic test orders, procedure orders and consult orders; where the start date of the order is 45 days before the date of the Encounter or 45 days after the date of theEncounter. The data comes from all [facility]. Test Date/Time Test Type Test Details Facility Name Oct 04, 2024 12:00 AM Laboratory - Chemi stry Order HEMOGLOBIN A1C PANEL BLOOD (LAV-BLOOD) [facility] Social History: Smoking Status (Most current) and Tobacco Use (All prior to encounter date) This section includes the most current, and the historical, smoking and tobacco- related health factors from the OR facility where the Encounter took place. Current Smoking Status This section includes the most current smoking, or tobacco-related health factor, from the OR facility where the Encounter took place. Date/Time Current Smoking Status Comment Avis ity Mar 25, 2024 12:03 PM VA-TOBACCO FORMER USER [facility] Tobacco Use History This section includes a history of the smoking, or tobacco-related health factors, that were collected on or before the date of the Encounter. The data comes from the OR facility where the Encounter took place. Date/Time Smoking Status/Tobacco Use Comment Maribel acbrittani Mar 25, 2024 12:03 PM [facility]TOBACCO [facility] Apr 01, 2019 09:37 AM [facility] Apr 01, 2019 09:37 AM VA-TOBACCO QUIT 15 YRS OR MORE [facility] Apr 01, 2018 09:18 AM VA[facility]TOBACCO [facility] Apr 01, 2018 09:18 AM VA-TOBACCO QUIT 15 YRS OR MORE [facility] Apr 01, 2018 08:44 AM QUIT TOBACCO USE > 7 YEARS AGO [facility] Feb 17, 2017 10:42 AM QUIT TOBACCO USE > 7 YEARS AGO [facility] January 18, 2016 08:51 AM QUIT TOBACCO USE > 7 YEARS AGO . [facility] Mar 12, 2010 11:19 AM QUIT TOBACCO USE > 7 YEARS AGO [facility] Advance Directives: All historical and current Section Date Range: From patient's date of to the date document was created. This section includes ALL of a patient's completed or amended OR Advance and Rescinded Directives. The entries below indicate that a directive exists for the patient, but an actual copy is not included with this document. The data comes from all OR facilities. Date Advance Directives Provider Source Jun 20, 2003 ADVANCE DIRECTIVE EMANI REED [facility] Encounter Notes: All associated encounter notes This section contains the clinical notes associated to the Encounter. Date/Time Encounter Note(s) Provider Source Sep 06, 2024 10:19 AM AUDIOLOGY E & M NO TE: LOCAL TITLE: AUDIOLOGY CLINIC STANDARD TITLE: AUDIOLOGY E & M NOTE DATE OF NOTE: SEP 06, 2024@10:19 ENTRY DATE: SEP 06, 2024@10:19:29 AUTHOR: EJMMA LUOIS COSIGNER: URGENCY: STATUS: COMPLETED AUDIOLOGY CLINIC Has ADDENDA Dx CODE: Z46.1-Encounter for Fitting/Adjusting Hearing Aid(s); H90.3- Sensorineural Hearing Loss, Bilateral APPOINTMENT TYPE: Hearing Aid Check HISTORY/BACKGROUND: Rachel was seen for a hearing aid follow-up appointment, unaccompanied. He was fit on 07/08/22 with [employer] EVOLV AI BTE Rs. He scheduled today's appointment noting problems with the hearing aids. He notes that the volume seems to fluctuate and decrease in volume. Concord notes that this has been a problem for a while and the efforts made at his last visit did not help. Decided to send the devices for repair due to intermittency. Concord brought his spare 2018 The [employer] IQ I2400 MINI BTE 312s with him as well and noted that the earmolds on these devices are more comfortable than the newer molds. The serial numbers of these molds were recorded (L- [id number], R- [id number]) and new canal lock earmolds with size 5 thin tubes were ordered in [facility] and will to be attached to the 2021 aids. The 2018 aids were cleaned and checked. Size 5 thin tubes and microphone covers were replaced. These devices are in good working condition. PLAN/RECOMMENDATION(S): 1. RTC on 09/28/24 at 9:00AM in clinic D for an updated hearing evaluation at Concord's request. Repaired hearing aids and new canal lock earmolds will be issued to Concord at that time. Patient Education Education provided on the following topics: Hearing aids Education provided to: P Response to Education: MK Flaherty Patient P Family F Significant Other SO Verbalizes Understanding VU Returns Demonstration RD Performs Independently PI Lacks Comprehension LC Refused Education RE Not Applicable NA /dereje/ JUDAH GOLDSTEIN, [facility] STAFF [employer] BARN TECHNICIAN Signed: 09/06/2024 17:08 Receipt Acknowledged By: 09/09/2024 10:27 /dereje/ FRANK GONSALEZ LEAD STORE CLERK CHECKER 09/28/2024 ADDENDUM STATUS: COMPLETED Repaired hearing aids and earmolds not found in clinic. was called and offered to keep today's test appointment or reschedule upon receipt of repaired devices. He wished to be rescheduled once the hearing aids and earmolds arrive. /dereje/ VIVIANE MCGINNIS STAFF [employer] BARN TECHNICIAN Signed: 09/28/2024 08:01 JEMMA LOUIS [facility]
--- OUTSIDE RECORDS SUMMARY | 2024-12-13 12:17 | XMS_ITS ---
Author Organization [facility] Address [address] [place] [phone] Care Team Providers Care Braille And Talking Books Clerk Name Role Phone NAOMIE SMALL Primary Care Provider Jeremías Cole [phone] REASON FOR VISIT Needs refill Medications Medication SIG (Take, Route, Fr equency, Duration) Notes Start Date End Date Status Dicyclomine HCl 10 MG 1 or 2 capsules Or ally Every 6 hours as needed for abdominal cramps, bloating, or discomfort for 90 days 09/02/2023 Active Encounters Encounter Location Date Provider Diagnosis [facility] [address] [place] [id number] 09/01/2023 Jeremías Gómez Plan Of Treatment Medication Medication Name Sig Start Date Stop Date Notes Dicyclomine HCl 10 MG 1 or 2 capsules Or ally Every 6 hours as needed for abdominal cramps, bloating, or discomfort for 90 days 09/02/2023 Progress Notes * ANDRE BALDWINDOB:1945 (78 yo M)Acc No.[id number]:09/01/2023 Patient:?ANDRE BALDWIN :1945???Age:78 Y???Sex:Male Address:[address] [place] [id number] * Refills? Start Dicyclomine HCl Capsule, 10 MG, Orally, 360, 1 or 2 capsules, Every 6 hours as needed for abdominal cramps, bloating, or discomfort, 90 days, Refills=3 * true * Date:? Generated for Printi ng/Faxing/eTransmitting on:?12/13/2024 12:17 PM EDT
--- OUTSIDE RECORDS SUMMARY | 2024-12-13 12:17 | XMS_ITS | Encounter Summary ---
Author Name [facility] [place] Organization [facility] [place] Address [address] [place] [address] Care Team Providers Care Program Director Name Role Phone BAN LIRIANO Primary Care [...] Haynes EVELYN BCBS OF [place] MEDICARE (M) [facility] Feb 13, 2011 [id number] BUSTAMANTEIS PATIENT BCBS [facility] (WNR) MEDICARE ADVANTAGE [facility] (WNR) Feb 13, 2011 [id number] BYRNES PATIENT [employer] ([id number]) PRESCRIPT ION BCBS Feb 13, 2011 [id number] [phone] BYRNES PATIENT Selected Encounter This section includes the information on record at [place] for the Encounter. Date/Time Encounter Type Encounter Description Reason Provider Source Jul 05, 2024 09:00 AM PSYCH DIAGNOSTIC EVALUATION [facility] [place] ICD-10-CM F41.9 Anxiety disorder, unspecified TOMASA ZEE IHE Encounter Template Text not used by VA Assessments - Encounter Diagnoses This section includes the primary and secondary diagnoses documented for the Encounter. Date/Time Primary/Secondary Diagnosis Diagnosis Name Provider Source Jul 05, 2024 10:16 AM PRIMARY Anxiety disorder, unspecified ALFREDREJIMARITA LUANN Jul 05, 2024 10:16 AM SECONDARY Chronic tension-type headache, not intractable MARITA ZEE KULWANT Guillermo LUANN Plan of Treatment: Future Appointments (+ 6 months) and Future Tests (+/- 45 days) The Plan of Treatment section includes future care activities for the patient from all [place] [facility]. This section includes future appointments and future orders which are active, pending or scheduled. Future Appointments This section includes appointments that were scheduled to occur 6 months from the date of the Encounter, up to a maximum of 20 appointments. The data comes from all [place] treatment facilities. Appointment Date/Time Appointment Type Appointme nt Facility Name Jul 06, 2024 10:00 AM AMBULATORY - MEDICINE [facility] Sep 06, 2024 04:30 PM [facility] Sep 28, 2024 09:00 AM [facility] Nov 10, 2024 08:00 AM AM[facility] MED[facility] Dec 07, 2024 09:30 AM AMBULATORY - PSYCHIATRY [facility] Active, Pending, and Scheduled Orders This [...] Order PSYCHIATRI C MEDICATION SOPC OUTPT Cons Biomedical Equipment Specialist's Choice [facility] Advance Directives: All historical and current Section Date Range: From patient's date of to the date document was created. This section includes ALL of a patient's completed or amended VA Advance and Rescinded Directives. The entries below indicate that a directive exists for the patient, but an actual copy is not included with this document. The data comes from all [place] facilities. Date Advance Directives Provider Source Jun 20, 2003 ADVANCE DIRECTIVE EMANI REED [place] [facility] [facility] Encounter Notes: All associated encounter notes This section contains the clinical notes associated to the Encounter. Date/Time Encounter Note(s) Provider Source Jul 05, 2024 08:56 AM MENTAL HEALTH CONS ULT: LOCAL TITLE: CONSULT REPORT/UNIFORM OUTPATIENT MENTAL HEALTH ASS STANDARD TITLE: MENTAL HEALTH CONSULT DATE OF NOTE: JUL 05, 2024@08:56 ENTRY DATE: JUL 05, 2024@08:56:44 AUTHOR: AME ZEEIGNER: URGENCY: STATUS: COMPLETED INFORMED CONSENT TO PARTICIPATE IN ASSESSMENT: At beginning of session reviewed rights and limits of confidentiality, mandatory reporting situations, duty to warn and protect, Pineda Warning, (if treatment team finds patient to be an acute danger to himself or others, that this information could be relayed to a court of law and presented to a magistrate judge), and DOD access for active duty service members. Provided Suicide Prevention Hotline number, and other contact numbers as necessary. Uniform Outpatient Mental Health Assessment I. IDENTIFYING INFORMATION: ANDRE BALDWIN Feb [phone] SERVICE CONNECTED % - NONE FOUND MARITAL STATUS - Referral source: Present at time of intake: [X] Family member [ ] Supportive person(s) Name: Language Preference:Nauruan Language Spoken:Nauruan II. PRESENTING SITUATION: A. What brings you into Mental Health at this time: was recently seen by new PCP and discussing problems with his provider and shared that he's been taking lorazepam (2mg per day) for chronic tension- type headaches and was willing to meet with a prescriber to discuss possible alternatives but ambivalent about changing his medications. Until now-- he's been prescribed Lorazepam by Neurologist and has never seen psychiatry for this problem. B. What are some of your goals for treatment: [place] is open to trying something new and more effective for his anxiety, which comes out for him as tension headaches. Chronic bronchitis, lung cancer, and lots of environmental allergies. C. What are some of your strengths: I've made a pretty good life for myself--good relationship, good career, travel. D. What are the obstacles or challenges preventing you from meeting your goals?: Chronic bronchitis, lung cancer, and limits ability to do things. III: ASSESSMENT: A. 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 How do you see these concerns impacting past and current quality of life (School, Work, Family, Housing, Finances, Social life, Legal): There are ways in which it prevented him from going as fast/efficiently as he'd liked and stayed away from bigger jobs because he feared he wouldn't be able to handle the stress. B. Have you previously been involved in Mental Health treatment: Yes [ ] No [x] If yes, please check all that apply and describe: [ ] Hospitalizations (when, where, etc.): [X] Medication trials (what, when, doses, etc.): only lorazepam for anxiety/headaches for the past 30 years but prescribed by a neurologist. [ ] Therapy trials (type, when, etc.): C. Do you have concerns about current or past substance use: Yes [ ] No [X] If yes, please identify 's primary and secondary substances of choice: ALCOHOL Age of onset: /age 19 Method of aquiring substance: legal Means of use: oral Pattern of use: very infrequent, social use Duration (how long have you been using for the most recent episode): n/a Frequency: once in a while Amount: 6 pack per year Last use: ? What was you longest period of sobriety?: n/a TOBACCO Age of onset: agd 19 in Method of aquiring substance: legally Means of use: smoking Pattern of use: daily Duration (how long have you been using for the most recent episode): n/a Frequency: daily Amount: 1.5 packs a day Last use: 1989 What was you longest period of sobriety?: 35 years IV: PERSONAL HISTORY/INFORMATION: A. Biological/Social History (including: relevant developmental history, family of origin, sexual/physical/emotional traumas, cultural factors, applicable sexual history): Raised by mother/father, grew up in [place], [place]. 3 brothers and 1 sister-- he was eldest. I was a slacker in school -- smart but didn't always try his hardest. 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 Denies history of trauma. B. 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 Scheduled to go to [place] but pulled and sent to [facility]-- in [place]. 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 Never went to [place]. 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 Honorable discharge. Denies trauma while in . C. What provides you with sense of value or quality of life: My and my health-- they've had a lot of health issues. D. What are some accomplishments that you feel a sense of pride about: retiring out of [employer], also service-- I did good for the 's first unexpectedly and now they've been together 23 years-- proud of that relationship E. 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 Are you comfortable with your current living arrangement (Have you ever been homelessness or at risk for homelessness): denies G. What are your social or community Supports, your healthy or positive relationships: , cheondoism, shooting club H: What is your educational history or current goals: two college degrees-- business and management I. 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 Threw out of job 20 years ago--[employer] had a huge fine they had to pay to the federal government and huge percentage of workforce was let go. has not worked since then and has no goals in this area. J. Do you have a legal history (incarcerations, probation, parole, divorce, child custody issues): no K. What is your level of protestant or spiritual fulfillment: father was in a long line of ministers-he is protestant but skeptical about protestant institutions. L. How do you culturally identify? Can you anticipate any particular cultural on treatment? mostly tajik background M. Is there anybody you would like involved in the planning or delivery of your care: no N. Do you have concerns for your safety or the safety of others (domestic violence, abuse/neglect, etc): denies O. Have you ever been in a situation where you felt you were taken advantage of or exploited, particularly by someone in a position of power? 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 P. Income source: father [employer] vet and invested money-- dividends from that, still. V. PHYSICAL HEALTH SCREENING A. 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 06/04/2024 NAOMIE HUERTAS Screening for malignant neoplasm of 06/04/2024 NAOMIE HUERTAS Malignant melanoma C43.9 06/04/2024 NAOMIE HUERTAS Under care of doctor Z76.89 06/04/2024 NAOMIE HUERTAS Pes planus M21.40 06/04/2024 NAOMIE HUERTAS Body mass index 40+ - severely obes 05/24/2024January,VIVIANE Fowler History of partial resection of col 06/04/2024 NAOMIE HUERTAS History of operative procedure on k 05/24/2024January,VIVIANE Fowler Ex-smoker Z87.891 06/04/2024 NAOMIE HUERTAS Deviated nasal septum J34.2 05/24/2024JanuaryVIVIANE Atrial fibrillation I48.91 06/04/2024 NAOMIE HUERTAS Irritable bowel syndrome K58.0 03/30/2020 VIRIDIANA GAN JAWED Asthma J45.998 03/30/2020 VIRIDIANA GAN JAWED Cortical senile cataract (ICD-9-CM 09/18/2012 JONELLE ROSS Diabetes mellitus (SNOMED CT 098377 06/04/2024 NAOMIE HUERTAS Essential hypertension (SNOMED CT 5 01/21/2016 VIRIDIANA GAN JAWBERTIN Hyperlipidemia (SNOMED CT 15468954) 04/01/2019 VIRIDINAA GAN JAWED Chronic tension-type headache (SNOM 04/01/2018 AHMED,MOHAMMED JAWED Hearing loss (SNOMED CT 07469468) H 06/04/2024 NAOMIE HUERTAS Other medical problems not listed above: a lot of allergies to environment B. Date of last physical exam:06/04[ ]Unknown C.Are you experiencing pain: Rating (0-10: 0 Comment on pain rating: denies significant pain D. Nutritional screening - Have you experienced any of the following: Food Allergies? Yes, describe:tomatoes Significant (+/- 10lbs) gain or loss in the last three months? No, describe: Decrease in food intake/appetite? No, describe: Notable Dental problems? Yes, describe: teeth are falling out, have to keep capping them. Significant change in eating habits (purging, restricting, etc.)? No, describe: E. How do you see these concerns impacting on past and current quality of life (School, Work, Family, Housing, Finances, Social life, Legal, etc): physical health concerns make it harder to do active things Active Outpatient Medications (including Supplies): CARBOXYMETHYLCELLULOSE NA 0.5% OPH SOLN INSTILL 1 DROP ACTIVE INTO EACH EYE FOUR TIMES A DAY FOR DRY EYE Non-VA ALBUTEROL 90MCG (CFC-F) 200D ORAL INHL 2 PUFFS BY ACTIVE MOUTH EVERY 6 HOURS NEEDED Non-VA ATORVASTATIN CALCIUM 40MG TAB 20MG BY MOUTH EVERY ACTIVE DAY Non-VA BUDESONIDE 160/FORMOTER 4.5MCG 120D INH 2 PUFFS BY ACTIVE MOUTH TWICE DAILY Non-VA DICYCLOMINE HCL 10MG CAP 10MG BY MOUTH EVERY 6 ACTIVE HOURS NEEDED Non-VA FLUTICASONE PROP 50MCG 120D NASAL INHL 1 SPRAY INTO ACTIVE EACH NOSTRIL TWICE DAILY Non-VA GLUCOSAMINE CAP/TAB 1000 EVERY DAY ACTIVE Non-VA HYDROCHLOROTHIAZIDE 25MG TAB 12.5MG BY MOUTH ONCE ACTIVE DAILY Non-VA LOPERAMIDE HCL 2MG CAP 2MG BY MOUTH EVERY 6 HOURS ACTIVE NEEDED Non-VA LORAZEPAM 2MG TAB 2MG BY MOUTH AT BEDTIME ACTIVE Non-VA LOSARTAN 100MG TAB 100MG BY MOUTH ONCE DAILY ACTIVE Non-VA METOPROLOL SUCCINATE 100MG SA TAB 100MG BY MOUTH ACTIVE EVERY DAY Non-VA MONTELUKAST NA 10MG TAB 10MG BY MOUTH ONCE DAILY ACTIVE : MENTAL STATUS / SUBJECTIVE COMPLAINTS: (check all that apply): Appearance:Unremarkable, Neatly groomed, Appropriate to season Behavior:Appropriate, Pleasant Mood/Affect:Normal, Bright Energy:Normal, Lethargic Sleep:Normal Orientation: Oriented to person: Yes Oriented to place: Yes Oriented to time: Yes Stream of thought:Normal, No evidence of thought disorder, No overt psychosis, Denies Flashbacks Speech:Normal Insight / Judgment:Normal Other cognitive problems:Cognition intact, Logical and Linear, Memory sufficient for interview, None Relevant Observations, other notes: : DSM5 DIAGNOSES: Anxiety disorder, unspecified Chronic tension-type headaches VII: SUMMARY AND IMPRESSIONS: is a 79 year old, , , NSC AF presenting to clinic for reassessment of medications he has chronically taken for anxiety with somaticized headaches as the primary symptom. He has been seeing a neurologist for these headaches and has been taking Lorazepam for these headaches for past 20-30 years. He does have a great understanding of his triggers but feels that the medication he's been taking has been pretty effective for managing his headaches but is interested in getting another opinion from a psychiatric prescriber if there are alternatives that might be more effective. Broiler Supervisor recommended psychotherapy to help him with behavioral interventions for anxiety/stress management but is not interested, stating I think I just have a chemical imbalance . VIII: NEXT STEPS: A: How can we work to meet your goals: psychiatry referral /es/ AME ZEE CLINICAL PSYCHOLOGIST Signed: 07/05/2024 10:31 AME ZEE BUTLER
--- OUTSIDE RECORDS SUMMARY | 2024-12-13 12:17 | XMS_ITS | Patient Health Record ---
Author Organization [facility] Address [address] [place] [id number] Care Team Providers Care Mathematics Instructor Name Role Phone NAOMIE SMALL Primary Care Provider Jeremías Cole [phone] Allergies Allergen (clinical drug ingredient) Drug/Non Drug Allergy documented on EMR Reaction Allergy Type Onset Date Status Sulfa Unknown Drug Allergy Active morphine Morphine Sulfate Unknown Drug Allergy Active hydromorphone Dilaudid Unknown Drug Allergy Act sigrid amiodarone Amiodarone HCl Unknown Drug Allergy A ctive Reason For Referral No Information Medications Medication SIG (Take, Route, Frequency, Duration) Notes Start Date End Date Status [place] 3 Not-Taking Fluticasone Propionate 50 MCG/ACT 1 spray in each nostril Nasally Twice a day Active Magnesium 500 MG 1 tablet with a meal Orally Once a day Not-Taking Dicyclomine HCl 10 MG 1 or 2 capsules Or ally Every 6 hours as needed for abdominal cramps, bloating, or discomfort for 90 days 09/02/2023 Active Metoprolol Succinate ER 100 MG 1 tablet Orally Once a day Active Losartan Potassium-HCTZ 100-12.5 MG 1 tablet Orally Once a day Active Atorvastatin Calcium 20 MG 1 tablet Oral ly Once a day Active Eliquis 5 MG 1 Orally twice a day Active Albuterol Sulfate (sensor) 108 (90 Base) MCG/ACT 1 puff as needed Inhalation every 4 hrs Active Dicyclomine HCl 10 MG 1-2 Orally QID prn abdominal cramps/discomfort/bloa ting for 90 days 07/18/2020 Active Symbicort 160-4.5 MCG/ACT 2 puffs Inhala tion Twice a day Active Montelukast Sodium 10 MG 1 tablet Orally Once a day for 30 day(s) Active Cholestyramine 4 GM/DOSE 1/2 to 1 scoop mixed in a glass of orange juice or water Orally Once or twice a day for diarrhea for 30 day(s) 11/12/2021 Active LORazepam 1 MG 1 tablet at bedtime as needed Orally twice a day Active Immunizations Vaccine Route Administration Date Status Comme nts Influenza Unknown 06/16/2018 Administered Influenza Unknown 06/11/2019 Administered Influenza Unknown 06/11/2019 Administered Influenza Unknown 05/16/2021 Administered Influenza Unknown 06/19/2022 Administered Social History Tobacco Use: Social History Observation Description Date Details (start date - stop date) Former Smoker NA - NA Tobacco Use/Smoking Question Answer Notes Patient is a former smoker When did you stop smoking? 20 years ago Alcohol Screen Question Answer Notes Did you have a drink contain ing alcohol in the past year? Yes How often did you have a dri nk containing alcohol in the past year? Monthly or less (1 point) How many drinks did you have on a typical day when you were drinking in the past year? 1 or 2 drinks (0 point) How often did you have 6 or more drinks on one occasion in the past year? Never (0 point) Points 1 Interpretation Negative Section Notes: Nonsmoker; occasional alcoho l Nonsmoker; occasional alcoho l Nonsmoker; occasional alcoho l Nonsmoker; occasional alcoho l Nonsmoker; occasional alcoho l Nonsmoker; occasional alcoho l Nonsmoker; occasional alcoho l Problems Problem Type SNOMED Code ICD Code Onset Dates Problem Status W/U Status Risk Notes Problem 208745657 Encounter for screening for malignant neoplasm of colon (Z12.11) Active confirmed Problem 027895896 History of adenomatous polyp of colon (Z86.010) Active confirmed Problem 872927011 Irritable bowel syndrome with diarrhea (K58.0) Active confirmed Problem 034052620 Gastroesophageal reflux disease without esophagitis (K21.9) Active confirmed Problem 747053260 Hx of adenomatou s colonic polyps (Z86.010) Active confirmed Problem 76710034 Hypertension, unspecified type (I10) Active confirmed Problem Diverticulosis of colon (829603881) Diverticulosis of colon (K57.30) Active confirmed Plan Of Treatment Pending Test Test Name Order Date LIVER PROFILE 11/14/2014 CRP 11/14/2014 CBC with MANUAL DIFFERENTIAL 11/14/2014 SED RATE (ESR) 11/14/2014 CLOSTRIDIUM DIFF TOXIN A&B (C DIFF) 10/2014 STOOL WBC 11/14/2014 GIARDIA AG, STOOL EIA 11/14/2014 OVA & PARASITES (O&P) 11/14/2014 CULTURE, STOOL 11/14/2014 Future Test Test Name Order Date UPPER GI ENDOSCOPY 12/23/2014 COLONOSCOPY 12/23/2014 COLONOSCOPY 07/17/2018 COLONOSCOPY 11/01/2021 Insurance Providers Payer Name Payer Address Payer Phone Subscriber Number Group Number Insured Name Patient Relationship to Insured Coverage Start Date Coverage End Date [facility] [address] [place], [place] [id number] ANDRE BALDWIN Self - patient is the insured Medical (General) History Medical History History ICD Code Tubular adenomas of the colo n--he had a relatively large and sessile tubular adenoma removed from transverse colon 2006--followup colonoscopies in 2008 and February of 2012 revealed small tubular adenomas that were removed Diverticulitis with surgery as below Hypertension Diet-controlled DM Hyperlipidemia Denies DE,CVA,Lung disease,renal disease Kidney cancer--Partial left nephrectomy at the [facility]--04/2014 Atrial fibrillation--had an ablation EGD 02/2015--small hiatal her aniyah and mild reflux esophagitis-biopsies were negative for Jeffery's esophagus and negative for celiac disease Colonoscopy 02/2015--small tu bular adenomas, internal hemorrhoids, and some diverticulosis Anxiety Colonoscopy in 08/2018 with multiple sma ll tubular adenomas, no colitis IBS with diarrhea--negative labs for ginger iac disease in 2014-- Bronchitis Colonoscopy 11/2021 small tub ular adenomas and AVM's, bx negative for microscopic colitis Surgical History Surgery Date(Month/Year) Sigmoid resection due to diverticulitis [place] [address] Murray Hernia surgery Left renal cancer with a par tial left nephrectomy in April of 2014 at the [facility] Right knee replacement 04/08/2022
--- OUTSIDE RECORDS SUMMARY | 2024-12-13 12:17 | XMS_ITS ---
Author Name [facility] [place] Organization [facility] [place] [facility] [place] Address [address] [place] [id number] Care Team Providers Care Material Expediter Name Role Phone BAN LIRIANO Primary Care [...] EVELYN BCBS OF [place] MEDICARE (M) CELINA M MEDIB LUE [facility] Feb 13, 2011 [id number] [phone] BUSTAMANTEIS PATIENT BCBS [facility] (WNR) MEDICARE ADVANTAGE [facility] (WNR) Feb 13, 2011 [id number] [phone] BYRNES PATIENT [employer] ([id number]) PRESCRIPT ION BCBS Feb 13, 2011 [id number] [phone] BYRNES PATIENT Selected Encounter This section includes the information on record at [place] for the Encounter. Date/Time Encounter Type Encounter Description Reason Provider Source Nov 10, 2024 08:00 AM OFFICE O/P EST MOD 30 MIN OPTOMETRY ICD-10-CM E11.9 Type 2 diabetes mellitus without complications GLORIA CARRERA Encounter Template Text not used by [place] Assessments - Encounter Diagnoses This section includes the primary and secondary diagnoses documented for the Encounter. 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, left eye [facility]A,[facility] Nov 10, 2024 12:53 PM SECONDARY Dry eye syndrome of bilateral lacrimal glands CARRERA,GLORIA [facility] Nov 10, 2024 12:53 PM SECONDARY Presbyopia [facility] Nov 10, 2024 12:53 PM SECONDARY Presence of intraocular lens [facility] Nov 10, 2024 12:53 PM SECONDARY Unsp lagophthalmos, bilateral, upper and lower eyelids C[facility]A,[facility] Plan of Treatment: Future Appointments (+ 6 months) and Future Tests (+/- 45 days) The Plan of Treatment section includes future care activities for the patient from all [facility]. This section includes future appointments and future orders which are active, pending or scheduled. Future Appointments This section includes appointments that were scheduled to occur 6 months from the date of the Encounter, up to a maximum of 20 appointments. The data comes from all [place] treatment [facility]. Appointment Date/Time Appointment Type Appointme nt Facility Name Dec 07, 2024 09:30 AM AMBULATORY - PSYCHIATRY [facility] February 08, 2025 09:00 AM AMBULATORY - PSYCHIATRY [facility] February 10, 2025 10:00 AM AMBULATORY - MEDICINE [facility] Active, Pending, and Scheduled Orders This section includes a listing of several types of active, pending, and scheduled orders, including clinic medications orders, diagnostic test orders, procedure orders and consult orders; where the start date of the order is 45 days before the date of the Encounter or 45 days after the date of theEncounter. The data comes from all [place] treatment [facility]. Test Date/Time Test Type Test Details Facility Name Oct 04, 2024 12:00 AM Laboratory - Chemi stry Order HEMOGLOBIN A1C PANEL BLOOD (LAV-BLOOD) [facility] Nov 04, 2024 12:00 AM Laboratory - Chemi stry Order MICROALBUMIN CREATININE RATIO PANEL URINE (RANDOM) [facility] Lab Results: +/- 30 days of the encounter This section includes the Chemistry and Hematology Lab Results on record with [place] for the patient. Radiology Reports and Pathology Reports are provided separately, in subsequent sections. Lab Results This section contains the Chemistry/Hematology Results that were resulted 30 days before or 30 daysafter the date of the Encounter. Date/Time Source Result Type Result - Unit Interpretation Reference Range Comment Oct 18, 2024 10:39 AM [facility] CALCIUM Specimen Type: SERUM No comment entered. Ordering Provider: NAOMIE HUERTAS Report Released Date/Time: Jun 04, 2024 04:01 PM Reporting Lab: [address] [address] Performing Lab: [address] [address] CALCIUM 9.7 mg/dL 8.5-10.2 Oct 18, 2024 10:39 AM [facility] LIPID PANEL FASTING Specimen Type: SERUM No comment entered. Ordering Provider: NAOMIE HUERTAS Report Released Date/Time: Jun 04, 2024 04:01 PM Reporting Lab: [address] [address] Performing Lab: [address] [address] CHOLESTEROL 139 mg/dL TRIGLYCERIDE 272 mg/dL H 0-150 LDL calculated 51 mg/dL 0-129 CHOL/HDL 4.1 HDL CHOLESTEROL 34 mg/dL L 40-60 Oct 18, 2024 10:39 AM [facility] URIC ACID Specimen Type: SERUM No comment entered. Ordering Provider: NAOMIE HUERTAS Report Released Date/Time: Jun 04, 2024 04:01 PM Reporting Lab: [address] [address] Performing Lab: [address] [address] URIC ACID 5.5 mg/dL 3.5-7.2 Oct 18, 2024 10:39 AM [facility] VITAMIN D (25-OH) Specimen Type: SERUM No comment entered. Ordering Provider: NAOMIE HUERTAS Report Released Date/Time: Jun 04, 2024 04:01 PM Reporting [facility]: [facility] [address] [address] Performing Lab: [address] [address] VITAMIN D (25-OH) 14 ng/mL L 20-50 Oct 18, 2024 10:39 AM [facility] VITAMIN B12 Specimen Type: SERUM No comment entered. Ordering Provider: NAOMIE HUERTAS Report Released Date/Time: Jun 04, 2024 04:01 PM Reporting Lab: [address] [address] Performing Lab: [address] [address] VITAMIN B12 384 pg/mL 200-900 Oct 18, 2024 10:39 AM [facility] RETICULOCYTES Specimen Type: BLOOD No comment entered. Ordering Provider: NAOMIE HUERTAS Report Released Date/Time: Jun 04, 2024 04:01 PM Reporting Lab: [address] [address] Performing Lab: [address] [address] RETIC % 2.2 H 0.6-2.0 RETIC, ABS 121.8 10*3/uL H 30.0-90.0 RET-HE 33.2 pg 27.9-42.0 Oct 18, 2024 10:39 AM [facility] CBC AND DIFF (AUTO) Specimen Type: BLOOD No comment entered. Ordering Provider: NAOMIE HUERTAS Report Released Date/Time: Jun 04, 2024 04:01 PM Reporting Lab: [address] [address] Performing Lab: [address] [address] WBC 9.54 10*3/uL 4.50-11.00 RBC 5.51 10*6/uL 4.23-5.66 HGB 16.2 g/dL 12.8-17 HCT 48.2 39.2-50.4 MCV 87.5 fL 82-99 MCHC 33.6 g/dL 30.8-35.1 PLT 200 10*3/uL 140-360 RDW-CV 13.1 12.0-16.0 MONO, ABS 0.74 10*3/uL 0.30-1.10 MCH 29.4 pg 26.2-32.6 NEUT % 63.1 43.7-75.8 LYMPH % 25.4 14.0-42.3 MONO % 7.8 5.1-13.7 EOS % 2.6 0.4-6.8 BASO % 0.6 0.1-2.0 NEUT, ABS 6.02 10*3/uL 2.20-7.60 LYMPH, ABS 2.42 10*3/uL 1.00-3.20 EOS, ABS 0.25 10*3/uL 0.03-0.44 BASO, ABS 0.06 10*3/uL 0.01-0.13 IMMATURE GRAN % 0.5 0.0-0.7 IMMATURE GRAN, ABS 0.05 10*3/uL 0.00-0.06 NRBC % 0.0 0.0-0.0 NRBC, ABS 0.00 10*3/uL 0.00-0.00 Oct 18, 2024 10:39 AM [facility] FERRITIN Specimen Type: SERUM No comment entered. Ordering Provider: NAOMIE HUERTAS Report Released Date/Time: Jun 04, 2024 04:01 PM Reporting Lab: [address] [address] Performing Lab: [address] [address] FERRITIN 376 ng/mL H 20-300 Oct 18, 2024 10:39 AM [facility] HEMOGLOBIN A1C PANEL Specimen Type: BLOOD Comment: Values obtained from A1C measurements can vary. For atypical A1C assays, a reported value of 7.0 could actually be between 6.72 and 7.28 if measured by a reference method. A reported value of 9.0 could actually be between 8.73 and 9.27. Ref: http://www.ngs p.org/CAPdata. asp Ordering Provider: NAOMIE HUERTAS Report Released Date/Time: Jun 04, 2024 04:01 PM Reporting Lab: [address] [address] Performing Lab: [address] [address] HEMOGLOBIN A1C 6.9 H 4.0-5.6 Oct 18, 2024 10:39 AM [facility] MICROALBUMIN CREATININE RATIO PANEL Spe cimen Type: URINE No comment entered. Ordering Provider: NAOMIE HUERTAS Report Released Date/Time: Jun 04, 2024 04:01 PM Reporting Lab: [address] [address] Performing Lab: [address] [address] MICROALBUMIN/CR EATININE RATIO 103.3 mg/g H 0-29.9 MICROALBUMIN,QU ANTITATIVE 14.3 mg/dL RR UNAVAIL CREATININE URINE 138.43 mg/dL Oct 18, 2024 10:39 AM [facility] TSH Specimen Type: SERUM No comment entered. Ordering Provider: NAOMIE HUERTAS Report Released Date/Time: Jun 04, 2024 04:01 PM Reporting Lab: [address] [address] Performing Lab: [address] [address] TSH 1.24 u[IU]/mL 0.35-5.00 Oct 18, 2024 10:39 AM [facility] URINALYSIS Specimen Type: URINE Comment: If Glucose = >500 and Ketones are positive, please alert the Physician. Ordering Provider: NAOMIE HUERTAS Report Released Date/Time: Jun 04, 2024 04:01 PM Reporting Lab: [address] [address] Performing Lab: [address] [address] UA COLOR Light-Yellow Yellow UA APPEARANCE Clear Clear UA GLUCOSE Normal mg/dL Negative UA KETONES NEGATIVE mg/dL Negative UA BLOOD NEGATIVE mg/dL Negative UA PROTEIN 30 mg/dL Negative UA NITRITE NEGATIVE mg/dL Negative UA BILIRUBIN NEGATIVE mg/dL Negative UA SPECIFIC GRAVITY 1.021 1.016-1.02 2 UA pH 6.0 5.0-9.0 UA UROBILINOGEN Normal mg/dL <2.0 UA LEUKOCYTE NEGATIVE Negative Oct 18, 2024 10:39 AM [facility] LIVER FUNCTION Specimen Type: SERUM No comment entered. Ordering Provider: NAOMIE HUERTAS Report Released Date/Time: Jun 04, 2024 04:01 PM Reporting Lab: [address] [address] Performing Lab: [address] [address] PROTEIN,TOTAL 7.2 g/dL 6.0-8.3 ALBUMIN 4.0 g/dL 3.5-5.0 ALKALINE PHOSPHATASE 54 U/L 40-150 AST 33 U/L 5-34 ALT 39 U/L BILIRUBIN, TOTAL 0.9 mg/dL 0.2-1.2 Oct 18, 2024 10:39 AM [facility] BASIC METABOLIC PANEL (fasting) Specime n Type: SERUM No comment entered. Ordering Provider: NAOMIE HUERTAS Report Released Date/Time: Jun 04, 2024 04:01 PM Reporting Lab: [address] [address] Performing Lab: [address] [address] UREA NITROGEN 14 mg/dL 7-25 GLUCOSE 167 mg/dL H 65-100 SODIUM 140 mmol/L 135-145 POTASSIUM 3.8 mmol/L 3.5-5.0 CHLORIDE 104 mmol/L 100-110 CO2 27 meq/L 20-30 CREATININE, Serum 1.10 mg/dL 0.50-1.40 eGFR(CKD-EPI 2020) 68 mL/min >60 Oct 18, 2024 10:39 AM [facility] CREATININE (eGFR 2020) Specimen Type: SERUM No comment entered. Ordering Provider: NAOMIE HUERTAS Report Released Date/Time: Jun 04, 2024 04:01 PM Reporting Lab: [address] [address] Performing Lab: [address] [address] CREATININE, Serum 1.10 mg/dL 0.50-1.40 eGFR(CKD-EPI 2020) 68 mL/min >60 Social History: Smoking Status (Most current) and Tobacco Use (All prior to encounter date) This section includes the most current, and the historical, smoking and tobacco- related health factors from the [place] facility where the Encounter took place. Current Smoking Status This section includes the most current smoking, or tobacco-related health factor, from the [place] facility where the Encounter took place. Date/Time Current Smoking Status Comment Facil ity Mar 25, 2024 12:03 PM VA-TOBACCO [facility] Tobacco Use History This section includes a history of the smoking, or tobacco-related health factors, that were collected on or before the date of the Encounter. The data comes from the [place] facility where the Encounter took place. Date/Time Smoking Status/Tobacco Use Comment F acility Mar 25, 2024 12:03 PM VA-TOBACCO QUIT 15 YRS OR MORE [facility] Apr 01, 2019 09:37 AM VA-TOBACCO FORMER USER [place] [facility] [place] [facility] Apr 01, 2019 09:37 AM VA-TOBACCO QUIT 15 YRS OR MORE [facility] Apr 01, 2018 09:18 AM VA-TOBACCO FORMER USER [facility] [place] [facility] Apr 01, 2018 09:18 AM VA-TOBACCO QUIT 15 YRS OR MORE [facility] Apr 01, 2018 08:44 AM QUIT TOBACCO USE > 7 YEARS AGO [facility] [place] [facility] Feb 17, 2017 10:42 AM QUIT TOBACCO USE > 7 YEARS AGO [facility] [place] [facility] January 18, 2016 08:51 AM QUIT TOBACCO USE > 7 YEARS AGO . [facility] Mar 12, 2010 11:19 AM QUIT TOBACCO USE > 7 YEARS AGO [facility] Advance Directives: All historical and current Section Date Range: From patient's date of to the date document was created. This section includes ALL of a patient's completed or amended [place] Advance and Rescinded Directives. The entries below indicate that a directive exists for the patient, but an actual copy is not included with this document. The data comes from all [place] facilities. Date Advance Directives Provider Source Jun 20, 2003 ADVANCE DIRECTIVE EMANI REED [facility] Encounter Notes: All associated encounter notes This section contains the clinical notes associated to the Encounter. Date/Time Encounter Note(s) Provider Source Nov 10, 2024 07:12 AM OPTOMETRY NOTE: LOCAL TITLE: OPTOMETRY NOTE STANDARD TITLE: OPTOMETRY NOTE DATE OF NOTE: NOV 10, 2024@07:12 ENTRY DATE: NOV 10, 2024@07:12:10 AUTHOR: ISABELL LISA COSIGNER: GLORIA CARRERA URGENCY: STATUS: COMPLETED OPTOMETRY NOTE Has ADDENDA Active problems - Computerized Problem List is the source for the followin. Carcinoma in situ of kidney 2. Screening for malignant neoplasm of colon done 3. Malignant melanoma 4. Under care of doctor 5. Pes planus 6. Body mass index 40+ - severely obese 7. History of partial resection of colon 8. History of operative procedure on knee 9. Ex-smoker 10. Deviated nasal septum 11. Atrial fibrillation 12. Irritable bowel syndrome 13. Asthma 14. Cortical senile cataract 15. Diabetes mellitus (SNOMED CT 29843334) 16. Essential hypertension (SNOMED CT 95946078) 17. Hyperlipidemia (SNOMED CT 28938639) 18. Chronic tension-type headache (SNOMED CT 375672911) 19. Hearing loss (SNOMED CT 10895863) Active Outpatient Medications (including Supplies): Active Outpatient Medications Status 1) CARBOXYMETHYLCELLULOSE NA 0.5% OPH SOLN INSTILL 1 DROP INTO ACTIVE EACH EYE FOUR TIMES A DAY Indication: FOR DRY EYE Active Non-VA Medications Status 1) Non-VA ALBUTEROL 90MCG (CFC-F) 200D ORAL INHL 2 PUFFS BY ACTIVE MOUTH EVERY 6 HOURS NEEDED 2) Non-VA ATORVASTATIN CALCIUM 40MG TAB 20MG BY MOUTH EVERY DAY ACTIVE 3) Non-VA BUDESONIDE 160/FORMOTER 4.5MCG 120D INH 2 PUFFS BY ACTIVE MOUTH TWICE DAILY 4) Non-VA DICYCLOMINE HCL 10MG CAP 10MG BY MOUTH EVERY 6 HOURS ACTIVE NEEDED 5) Non-VA FLUTICASONE PROP 50MCG 120D NASAL INHL 1 SPRAY INTO ACTIVE EACH NOSTRIL TWICE DAILY 6) Non-VA GLUCOSAMINE CAP/TAB 1000 EVERY DAY ACTIVE 7) Non-VA HYDROCHLOROTHIAZIDE 25MG TAB 12.5MG BY MOUTH ONCE ACTIVE DAILY 8) Non-VA LOPERAMIDE HCL 2MG CAP 2MG BY MOUTH EVERY 6 HOURS ACTIVE NEEDED 9) Non-VA LORAZEPAM 2MG TAB 2MG BY MOUTH AT BEDTIME ACTIVE 10) Non-VA LOSARTAN 100MG TAB 100MG BY MOUTH ONCE DAILY ACTIVE 11) Non-VA METOPROLOL SUCCINATE 100MG SA TAB 100MG BY MOUTH ACTIVE EVERY DAY 12) Non-VA MONTELUKAST NA 10MG TAB 10MG BY MOUTH ONCE DAILY ACTIVE 13 Total Medications Allergies: SULFA DRUGS, DILAUDID INJECTION 2 MG/ML, MORPHINE All medications including those prescribed by outside VA's, community providers, and all OTC meds were reviewed and reconciled with patient to the best of their abilities. This 79 year old MALE is seen today for DIABETIC CEE KHDARA: 05/10/22 Chief Complaint: Denied any vision or ocular health concerns but reports he feels eyes are dry and did not realize that is what it was at first and was given a medication that started with TOB and is an ointment that he has used and feels helps with his dryness, unclear if medication is tobramycin or tobradex. Reports symptoms started about a year ago. Personal history A-fib and was treated with a watchman in his heart 10/2024. Next appt with combination operator is coming up next month Diabetic - not on any meds yet Last A1C: 6.9 Ocular history 1. Type 2 DM without complications OU 2. 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 BAUDILIO OU 6. RE and presbyopia OU Ocular Medications: ATs TID OU (-) Pain: (-) NGO: (-) Diplopia: (-) Flashes: (+) Floaters: Longstanding (-) Amaurosis Fugax/Tia's: (-) Eye Injury: (+) Eye Surgery: CE with multifocal PCIOL with Dr. Venegas (-) TBI FOHx: (-) Glaucoma/ARMD/Blindness VITALS (most recent, as listed in the electronic record): B/P: 135/75 (06/04/2024 15:13) Pulse: 76 (06/04/2024 15:13) Temperature: 98.2 F [36.8 C] (06/04/2024 15:13) Weight: 208 lb [94.35 kg] (06/04/2024 15:13) Height: 69 in [175.3 cm] (06/04/2024 15:13) BMI: BMI: 30.8 PERTINENT LABS: HEMOGLOBIN A1C TREND Collection DT Spec HGBA1c 10/18/2024 10:39 BLOOD 6.9 H 04/01/2018 09:30 BLOOD 6.3 H 01/28/2017 09:13 BLOOD 5.8 H 01/30/2012 07:27 BLOOD 6.0 (-) Smoker/Length of Time/PPD: Current Rx with last BCVA: OD: +0.50-0.50 x075 20/20 OS: +0.50-0.50 x104 20/20 Add:+2.25 DVA ( )sc ( x )cc - phoropter OD: 20/20-2 OS: 20/25-1 Pupils: PERRL (-)APD EOMs: SAFE OU, (-)Pain/Diplopia CVF (facial, peripheral): FTFC OU Subjective Refraction: No improvement OD: +0.50-0.50 x075 20/20-2 OS: [place]-0.75 x104 20/25- Add:+2.25 20/20- All the above performed by student, reviewed by attending Anterior segment: Performed by student, repeated by attending Lids: Dermatochalasis OU and mild ptosis RAYMOND>RUL; mild hyperemia RAYMOND (-)hordeolum/chalazion OU; (+) 2+ lid laxity OU Conj: white and quiet OU Cornea: Peripheral corneal haze OU, arcus OU (-)k spindle OU 2-3+ coleseced SPK inferior 1/3 OS>OD AC: D&Q OU Angles: 4x4 OU Iris: flat and clear (-)NVI/TID OU Lens: PCIOL well-centered and clear OU, 1+ peripheral PCO OD (-)PXF OU Tonometry: Performed by student, reviewed by attending [x ] GAT [ ] iCare OD 12 mmHg OS 13 mmHg Time: 08:20 Last IOP OD: 13 OS: 13 Fundus exam: Dilated: Non dilated: Dilating Drops: 1GTT 1 % Tropicamide OU & 1GTT 2.5% Phenylephrine OU (Pt. ed. on side effects, dilation warning given and verbal consent obtained) Patient advised not to drive if they feel they have any symptoms which could affect their ability to drive safely. Patient advised not to engage in any activities which could put themselves or others at risk if they feel they have any symptoms which could affect their ability to perform those activities safely. Performed by student, repeated by attending Vit: Dense steroid hyalosis OS C/D: 0.30 OU pink & healthy rim tissue,(-)Drance heme Macula: flat and clear OU (-) CSME OU PPole: clear (-) embolus seen OU (-) heme/exudates/CWS A/V: 2/3 Vessels: normal caliber OU (-)VB OU Periph: flat and intact (-)NVE, holes, tears, detachments 360 OU Assessment/Plan: 1. Type II Diabetes without evidence of retinopathy or macular edema OU. Last A1c 6.9 - Pt ed on today's findings and the possible ocular health and visual complications associated with diabetes as well as importance of attending follow up appts - Encouraged pt to monitor blood sugar and continue taking medications as prescribed by their PCP - Pt ed to call immediately if experiencing any sudden changes in vision - Monitor annually 2. 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 Pseudophakia OU - PCIOLs appear well centered and stable today - Pt. ed. on findings - Monitor 4. Asteroid hyalosis OS - Pt ed about finding - Asteroid hyalosis is dense enough that pt is symptomatic with obstructed vision at certain position - Monitor 5. Regular astigmatism and presbyopia OU - Odering new frames for bifocals with side shield - Monitor Return to Clinic 1yr or earlier PRN Total Time: 35 minutes Medication Reconciliation: Outpatient: Has the patient been [...] all non-VA/Herbal/OTC medications were entered into CPRS. - If there were any medications the patient should no longer take, they were discontinued. - The patient/caregiver was instructed to update this list, discard old lists, and take this list to the next appointment, whether with a VA or non-VA provider. Medication List: JLV Link Data on this list may not be complete. Please check JLV. Allergies/ADRs (Tool #5) FACILITY ALLERGY/ADR -------- No Remote Allergy/ADR Data available for this patient [facility] DILAUDID [facility]JECTION 2 MG/ML [facility] MORPHINE [facility] SULFA DRUGS Med. Reconciliation (Tool #1) INCLUDED IN THIS LIST: Alphabetical list of active outpatient prescriptions dispensed from this [place] (local) and dispensed from another [place] or [facility] facility (remote) as well as inpatient orders (local pending and active), local clinic medications, locally documented non-VA medications, and local prescriptions that have or been discontinued in the past 90 days. Non-VA Meds Last Documented On: Jun 04, 2024 NOTE The display of VA prescriptions dispensed from another [place] or [facility] facility (remote) is limited to active outpatient prescription entries matched to National Drug File at the originating site and may not include some items such as investigational drugs, compounds, etc. NOT INCLUDED IN THIS LIST: Medications self-entered by the patient into personal health records (i.e. [email or web address]) are NOT included in this list. Non-VA medications documented outside this [place], remote inpatient orders (regardless of status) and remote clinic medications are NOT included in this list. The patient and provider must always discuss medications the patient is taking, regardless of where the medication was dispensed or obtained. Non-VA ALBUTEROL 90MCG (CFC-F) 200D ORAL INHL INHALE 2 PUFFS BY MOUTH EVERY 6 HOURS NEEDED Non-VA ATORVASTATIN CALCIUM 40MG TAB TAKE ONE-HALF TABLET BY MOUTH every day Medication prescribed by Non-VA provider. Non-VA BUDESONIDE 160/FORMOTER 4.5MCG 120D INH INHALE 2 PUFFS BY MOUTH TWICE DAILY OUTPT CARBOXYMETHYLCELLULOSE NA 0.5% OPH SOLN (Status = Active) INSTILL 1 DROP INTO EACH EYE FOUR TIMES A DAY FOR DRY EYE Rx# [id number] Last Released: 05/10/24 Qty/Days Supply: Rx Expiration Date: 11/20/24 Refills Remainin Indication: FOR DRY EYE OUTPT CARBOXYMETHYLCELLULOSE NA 0.5% OPH SOLN (Status = Pending) INSTILL 1 DROP INTO EACH EYE FOUR TIMES A DAY FOR DRY EYE Renewed from Rx# [id number] Qty/Days Supply: Login Date: 11/10/24 Refills Ordered: 3 Non-VA DICYCLOMINE HCL 10MG CAP TAKE 1 CAPSULE BY MOUTH EVERY 6 HOURS NEEDED Non-VA FLUTICASONE PROP 50MCG 120D NASAL INHL INSTILL 1 SPRAY INTO EACH NOSTRIL TWICE DAILY Non-VA GLUCOSAMINE CAP/TAB 1000 EVERY DAY Non-VA HYDROCHLOROTHIAZIDE 25MG TAB TAKE ONE-HALF TABLET BY MOUTH ONCE DAILY Non-VA LOPERAMIDE HCL 2MG CAP TAKE 1 CAPSULE BY MOUTH EVERY 6 HOURS NEEDED Non-VA LORAZEPAM 2MG TAB TAKE ONE TABLET BY MOUTH AT BEDTIME Non-VA LOSARTAN 100MG TAB TAKE ONE TABLET BY MOUTH ONCE DAILY OUTPT LUBRICATING (PF) OPH OINT (Status = Pending) APPLY THIN RIBBON INTO EACH EYE AT BEDTIME Login Date: 11/10/24 Qty/Days Supply: Refills Ordered: 3 Non-VA METOPROLOL SUCCINATE 100MG SA TAB TAKE ONE TABLET BY MOUTH EVERY DAY Non-VA MONTELUKAST NA 10MG TAB TAKE ONE TABLET BY MOUTH ONCE DAILY SUPPLIES PHARMACY TERMS AND POSSIBLE PATIENT ACTIONS INPT = [place] inpatient order IV = [place] intravenous medication OUTPT = [place] outpatient prescription PHARMACY POSSIBLE PATIENT TERMS EXPLANATION ACTIONS -------- - ACTIVE A prescription that can be If you have refills, filled at the local [place] pharmacy. you may request a refill of this prescription from your [place] pharmacy. CLINIC A medication you received during If you have questions a visit to a [place] clinic or about this medication emergency department. contact your [place] healthcare team. DISCONTINUED A prescription your provider has Contact your VA stopped. It is no longer healthcare team if you available to be sent to you or need more of this picked up at the [place] pharmacy medication. window. A prescription which is too old Contact your VA to fill. This does not refer to healthcare team if you the expiration date of the need more of this medication in the container. medication. NON-VA A medication that came from If this medication someplace other than a VA information is pharmacy. This may be a incorrect or out of prescription from either the [place] date, please tell your or non VA providers that was VA healthcare team. filled outside the VA. Or, it may be an [id number] (OTC), herbal, dietary supplements or sample medication. ON HOLD An active prescription that will Contact your VA not be filled until pharmacy pharmacy when you need resolves the issue. more of this medication. PARKED An active prescription that will Contact your VA not be filled until the patient pharmacy when you need requests it. this medication. PENDING This prescription order has been If you have been sent to the pharmacy for review instructed to start and is not ready yet. this medication now, contact your VA pharmacy. SUSPENDED An active prescription that is Contact your VA not scheduled to be filled yet. pharmacy if you need You should receive it before this medication now. you run out. ==== (x) Printed Medication Reconciliation List Offered and Declined by [place] () Medication Reconciliation List Printed for [place] at Exam () Optometry HT Please Print and Mail Copy of Medication Reconciliation List () AMSA Please Print and Mail Copy of Medication Reconciliation List /dereje/ ISABELL LISA OPTOMETRY STUDENT Signed: 11/10/2024 16:04 /dereje/ GLORIA CARRERA OD WOOD MODEL MAKER Cosigned: 11/10/2024 16:18 11/10/2024 ADDENDUM STATUS: COMPLETED The optometry quality assurance intern participated in this exam, I saw this [place] in conjunction with the optometry student. The entrance tests and refraction were performed by the student and reviewed by me. I personally met with the patient, confirmed the hisory, complaints and the student's findings, and performed slit lamp and fundus evaluation as indicated. I reviewed and agree with the stated findings, assessment and plan. I have added/edited the documentation to reflect my exam findings and changes to the assessment and plan. Ed re today's findings. Harlan repeated back the plan and education. All reminders completed by attending and documented in student note. /dereje/ GLROIA CARRERA OD WOOD MODEL MAKER Signed: 11/10/2024 16:19 ISABELL LISA [place] [facility]
--- OUTSIDE RECORDS SUMMARY | 2024-12-13 12:17 | XMS_ITS ---
Author Name [place] Address [address] [place] [id number] Care Team Providers Care Out Of Town Collection Clerk Name Role Phone BAN LIRIANO Primary Care [...] Haynes EVELYN BCBS OF [place] MEDICARE (M) JOSHUAE M MEDIB LUE [facility] Feb 13, 2011 [id number] BYRNES PATIENT BCBS [facility] (WNR) MEDICARE ADVANTAGE [facility] (WNR) Feb 13, 2011 [id number] [phone] BYRNES PATIENT [employer] ([id number]) PRESCRIPT ION BCBS Feb 13, 2011 [id number] [phone] BYRNES PATIENT Selected Encounter This section includes the information on record at [place] for the Encounter. Date/Time Encounter Type Encounter Description Reason Pro vider Source Dec 13, 2024 09:35 AM Outpatient Encounter [facility] - IND IHE Encounter Template Text not used by [place] Plan of Treatment: Future Appointments (+ 6 months) and Future Tests (+/- 45 days) The Plan of Treatment section includes future care activities for the patient from all [place] [facility] This section includes future appointments and future orders which are active, pending or scheduled. Future Appointments This section includes appointments that were scheduled to occur 6 months from the date of the Encounter, up to a maximum of 20 appointments. The data comes from all [place] treatment facilities. Appointment Date/Time Appointment Type Appointme nt Facility Name February 08, 2025 09:00 AM AMBULATORY - PSYCHIATRY [facility] February 10, 2025 10:00 AM AMBULATORY - MEDICINE [facility] Active, Pending, and Scheduled Orders This section includes a listing of several types of active, pending, and scheduled orders, including clinic medications orders, diagnostic test orders, procedure orders and consult orders; where the start date of the order is 45 days before the date of the Encounter or 45 days after the date of theEncounter. The data comes from all [place] treatment [facility]. Test Date/Time Test Type Test Details Facility Name Nov 04, 2024 12:00 AM Laboratory - Chemi str Order MICROALBUMIN CREATININE RATIO PANEL URINE (RANDOM) [facility] Social History: Smoking Status (Most current) and Tobacco Use (All prior to encounter date) This section includes the most current, and the historical, smoking and tobacco- related health factors from the VA facility where the Encounter took place. Current Smoking Status This section includes the most current smoking, or tobacco-related health factor, from the [place] facility where the Encounter took place. Date/Time Current Smoking Status Comment Facil ity Mar 25, 2024 12:03 PM VA-TOBACCO FORMER USER [place] [facility] Tobacco Use History This section includes a history of the smoking, or tobacco-related health factors, that were collected on or before the date of the Encounter. The data comes from the [place] facility where the Encounter took place. Date/Time Smoking Status/Tobacco Use Comment F acility Mar 25, 2024 12:03 PM VA-TOBACCO QUIT 15 YRS OR MORE [place] [facility] [place] [facility] Apr 01, 2019 09:37 AM VA-TOBACCO FORMER USER [place] [facility] [place] [facility] Apr 01, 2019 09:37 AM VA-TOBACCO QUIT 15 YRS OR MORE [place] [facility] [place] [facility] Apr 01, 2018 09:18 AM [facility]AC[facility] Apr 01, 2018 09:18 AM VA-TOBACCO QUIT 15 YRS OR MORE [facility] Apr 01, 2018 08:44 AM QUIT TOBACCO USE > 7 YEARS AGO [facility] Feb 17, 2017 10:42 AM QUIT TOBACCO USE > 7 YEARS AGO [facility] January 18, 2016 08:51 AM QUIT TOBACCO USE > 7 YEARS AGO . [facility] Mar 12, 2010 11:19 AM QUIT TOBACCO USE > 7 YEARS AGO [facility] Advance Directives: All historical and current Section Date Range: From patient's date of to the date document was created. This section includes ALL of a patient's completed or amended [place] Advance and Rescinded Directives. The entries below indicate that a directive exists for the patient, but an actual copy is not included with this document. The data comes from all [place] facilities. Date Advance Directives Provider Source Jun 20, 2003 ADVANCE DIRECTIVE BRIANNAEMANI MCKAY [facility] Encounter Notes: All associated encounter notes This section contains the clinical notes associated to the Encounter. Date/Time Encounter Note(s) Provider Source Dec 13, 2024 09:35 AM ADMINISTRATIVE NOT E: LOCAL TITLE: ADMINISTRATIVE NOTE STANDARD TITLE: ADMINISTRATIVE NOTE DATE OF NOTE: DEC 13, 2024@09:35 ENTRY DATE: DEC 13, 2024@09:35:52 AUTHOR: WILMER DAI EXP COSIGNER: URGENCY: STATUS: COMPLETED called office would like to speak to TRAINING TECHNICIAN about his alpha stim. telegraphic typewriter repairer let know she is not in [facility] on this date and it might take her a day to get back to him. phone number on file is confirmed at this time. /dereje/ WILMER DAI ADVANCED BONDING MACHINE SETTER Signed: 12/13/2024 09:37 Receipt Acknowledged By: 12/13/2024 09:41 /dereje/ FRANK GAMBINO Registered Nurse * AWAITING SIGNATURE * BETTINA ROACH KALEENA [place]
--- OUTSIDE RECORDS SUMMARY | 2024-12-13 12:17 | XMS_ITS | Encounter Summary ---
Author Name [facility] [place] Address [address] [place] [address] Care Team Providers Care Automotive Vehicle Inspector Name Role Phone BAN LIRIANO Primary Care [...] Patient's Relationship to Policy Haynes EVELYN BCBS [facility] MEDICARE (M) ANTHE M MEDIB LUE [facility] Feb 13, 2011 [id number] [phone] BUSTAMANTEIS PATIENT BCBS [facility] (WNR) MEDICARE ADVANTAGE [facility] (WNR) Feb 13, 2011 [id number] BYRNES PATIENT [employer] ([id number]) PRESCRIPT ION BCBS Feb 13, 2011 [id number] BYRNES PATIENT Selected Encounter This section includes the information on record at [place] for the Encounter. Date/Time Encounter Type Encounter Description Reason Provider Source Jul 06, 2024 10:00 AM OFFICE O/P NEW LOW 30 MIN PODIATRY ICD-10-CM M21.42 Flat foot [pes planus] (acquired), left foot GREY RICARDO Encounter Template Text not used by [place] Assessments - Encounter Diagnoses This section includes the primary and secondary diagnoses documented for the Encounter. Date/Time Primary/Secondary Diagnosis Diagnosis Name Provider Source Jul 06, 2024 12:57 PM PRIMARY Flat foot [pes planus] (acquired), left foot HALEIGHGREY Maribel KONG Jul 06, 2024 12:57 PM SECONDARY Charcot's joint, left ankle and foot GREY RICARDO Plan of Treatment: Future Appointments (+ 6 months) and Future Tests (+/- 45 days) The Plan of Treatment section includes future care activities for the patient from all [place] [facility] This section includes future appointments and future orders which are active, pending or scheduled. Future Appointments This section includes appointments that were scheduled to occur 6 months from the date of the Encounter, up to a maximum of 20 appointments. The data comes from all [place] treatment facilities. Appointment Date/Time Appointment Type Appointme nt Facility Name Sep 06, 2024 04:30 PM AMBULATORY - REHAB MEDICIN E [facility] Sep 28, 2024 09:00 AM AMBULATORY - REHAB MEDICIN E [facility] Nov 10, 2024 08:00 AM AMBULATORY - MEDICINE [facility] Dec 07, 2024 09:30 AM AMBULATORY - PSYCHIATRY [facility] Active, Pending, and Scheduled Orders This section includes a listing of several types of active, pending, and scheduled orders, including clinic medications orders, diagnostic test orders, procedure orders and consult orders; where the start date of the order is 45 days before the date of the Encounter or 45 days after the date of theEncounter. The data comes from all [facility] facilities. Test Date/Time Test Type Test Details Facility Name Jul 05, 2024 10:32 AM Consult Order PSYCHIATRI C MEDICATION [facility] OUTPT Cons Dental Equipment Mechanic's Choice [facility] Advance Directives: All historical and current Section Date Range: From patient's date of to the date document was created. This section includes ALL of a patient's completed or amended [place] Advance and Rescinded Directives. The entries below indicate that a directive exists for the patient, but an actual copy is not included with this document. The data comes from all [place] facilities. Date Advance Directives Provider Source Jun 20, 2003 ADVANCE DIRECTIVE EMANI REED [place] [facility] [place] [facility] Encounter Notes: All associated encounter notes This section contains the clinical notes associated to the Encounter. Date/Time Encounter Note(s) Provider Source Jul 06, 2024 07:48 AM PODIATRY CONSULT: [facility] TITLE: CONSULT REPORT/PODIATRY STANDARD TITLE: PODIATRY CONSULT DATE OF NOTE: JUL 06, 2024@07:48 ENTRY DATE: JUL 06, 2024@07:48:13 AUTHOR: GREY RICARDO COSIGNER: URGENCY: STATUS: COMPLETED NAME: ANDRE BALDWIN DATE: JUL 06, 2024 : Feb PCP: NAOMIE HUERTAS LAST SEEN: INITIAL CONSULT VISIT TODAY NOTE: HAS RECEIVED BOTH COVID VACCINE DOSES AT [facility] HPI: Pt. is a 79 yo alert WDWN CAUC MALE who presents for initial podiatric examination with Dr. 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 Patient DENIES HAVING TYPE II DM & BEING at risk of injury with self or other non- professional care. Patient has been referred by: ROXANNE GARCIA Location of symptoms are: PLANTAR LEFT ARCH (APPEARANCE IS THAT OF AN EARLY CHARCOT FOOT TYPE) HAS BEEN PRESENT FOR MANY YEARS Onset of symptoms has been MANY YEARS AGO BUT RECENTLY OVER THE PAST FEW MONTHS CURRENT ORTHOSES APPEAR TO BE WEARING OUT AND LACK SUPPORT due to this being a recurrent condition that has been exacerbating over the past few MONTHS. Duration of symptoms is daily with periods of exacerbation and remission. Description of symptoms is of an ACHING nature. Contributing factors are: shoes and increased activity. Previous treatment: CUSTOM ORTHOSES OUTSIDE COPY CENTER SPECIALIST PMH: Active problems - Computerized Problem List is [...] senile cataract 15. Diabetes mellitus (SNOMED CT 64399999) 16. Essential hypertension (SNOMED CT 27343216) 17. Hyperlipidemia (SNOMED CT 18903406) 18. Chronic tension-type headache (SNOMED CT 162135175) 19. Hearing loss (SNOMED CT 65792801) *NOTE: REVIEWED ABOVE, NOTING NON-CONTRIBUTORY TO THE CC OTHER THAN THE PRESENCE OF TYPE II DM Family History: Non-contributory Social History: N/A Current medications: Active Outpatient Medications (including Supplies): *NOTE: DENIES ANY RECENT CHANGES IN MEDS UPON QUESTIONING TODAY-SEE RECONCILIATION PERFOMED THIS DATE BELOW TOBACCO USE = NONE Active Outpatient Medications Status = 1) CARBOXYMETHYLCELLULOSE NA 0.5% OPH SOLN INSTILL 1 ACTIVE DROP INTO EACH EYE FOUR TIMES A DAY FOR DRY EYE Active Non-VA Medications Status = 1) Non-VA ALBUTEROL 90MCG (CFC-F) 200D ORAL INHL 2 PUFFS ACTIVE BY MOUTH EVERY 6 HOURS NEEDED 2) Non-VA ATORVASTATIN CALCIUM 40MG TAB 20MG BY MOUTH ACTIVE EVERY DAY 3) Non-VA BUDESONIDE 160/FORMOTER 4.5MCG 120D INH 2 ACTIVE PUFFS BY MOUTH TWICE DAILY 4) Non-VA DICYCLOMINE HCL 10MG CAP 10MG BY MOUTH EVERY 6 ACTIVE HOURS NEEDED 5) Non-VA FLUTICASONE PROP 50MCG 120D NASAL INHL 1 SPRAY ACTIVE INTO EACH NOSTRIL TWICE DAILY 6) Non-VA GLUCOSAMINE CAP/TAB 1000 EVERY DAY ACTIVE 7) Non-VA HYDROCHLOROTHIAZIDE 25MG TAB 12.5MG BY MOUTH ACTIVE ONCE DAILY 8) Non-VA LOPERAMIDE HCL 2MG CAP 2MG BY MOUTH EVERY 6 ACTIVE HOURS NEEDED 9) Non-VA LORAZEPAM 2MG TAB 2MG BY MOUTH AT BEDTIME ACTIVE 10) Non-VA LOSARTAN 100MG TAB 100MG BY MOUTH ONCE DAILY ACTIVE 11) Non-VA METOPROLOL SUCCINATE 100MG SA TAB 100MG BY ACTIVE MOUTH EVERY DAY 12) Non-VA MONTELUKAST NA 10MG TAB 10MG BY MOUTH ONCE ACTIVE DAILY 13 Total Medications Allergies:SULFA DRUGS, DILAUDID INJECTION 2 MG/ML, MORPHINE Previous Surgery/Hospitalization: N/A TO THE CC *NOTE: A1C=6.3 (LAST TAKEN: 03/2018) FBS= DNP RISL=2 (PATIENT DENIES THAT HE HAS DM AND TAKES NO MEDS AND DOES NOT PERFORM FINGER STICKS) HEIGHT:208 lb [94.35 kg] (06/04/2024 15:13) WEIGHT:69 in [175.3 cm] (06/04/2024 15:13) REVIEW OF SYSTEMS: DEFERRED BEING NON-CONTRIBUTORY TO THE CC & I HAVE REVIEWED THE PCP NOTES & PMH WELL. O: DERMATOLOGICAL: Exam reveals skin color & text to be WNL. Temp is diminished warm to cool proximal to distal. There is absence of hair noted. Nails are WNLAND NOT IN NEED OF ATTENTION AT THIS TIME. There are no superficial painful hyperkeratotic lesions noted at this time. There are no rashes, ulcers, indurations or nodules noted. VASCULAR: Exam reveals DP & PT pulses to be +2 equal & symmetrical bilateral. CFT is >3 sec x 10. There are no superficial varices noted and there is no edema noted BILAT. MUSCULOSKELETAL: Exam reveals muscle strength and tone to be equal & symmetrical bilaterally & WNL for an individual of this age and present physical-medical condition. There is pain free ROM at all joints distal to and including the ankle.THE LEFT ARCH HAS THE APPEARANCE OF AN EARLY CHARCOT TYPE DEFORMITY AND THIS IS THE SOURCE OF HIS DISCOMFORT. NEUROLOGICAL: Exam reveals S/D, vibratory, light touch & proprioception sensations to be equal & symmetrical bilaterally & WNL for an individual of this age and present physical-medical status. Protective sensation utilizing a [place] lOg monofilament is 10/10 bilateral. BIOMECHANICAL: Exam is deferred at this time due to the presence of pain OTHER THAN NOTING THE VISUAL DEFRMITY WHEN LEFT IS CPMRAED TO THE RT. A: Clinical Impression is painful PLANTAR FASCIITIS SECONDARY TO BONY ABNORMALITY LEFT ARCH AREA P: Treatment consists of STS CASTING FO RCUSTOM ORETHOSES HE HAS REQUESTED A MORE RIGID TYPE OF ORTHOSES THAT WOULD NOT WAER DOWN HIS PRESENT PAIR. I SUGGESTED THAT I WOULD SPEAK TO OUR LAB AND ATTEMPT TO FIND A SUITABLE REPLACEMENT FO RWHAT HE IS CURRENTLY UTILIZING AND IF UNSUCCESSFUL WOULD REFER HIM TO [facility] FOR A SIMILAR TYPE OF INSERT THAT HE HAS BEEN UTILIZING FOR MANY YEARS. HE IS GRATEFUL FOR MY DISCUSSION AND SUGGESTIONS. All care rendered without complications & the patient is progressing well after podiatric care this date and will CALL FOR REASSESSMENT AFTER HE RECEIVES EN CUSTOM ORTHOSES IN E MAIL-I HAVE SUGGESTED A POSSIBLE 6 WEEK ADJUSTMENT DUE TO THE NEW MATERIALS. *DISCUSSED NEW PROTOCOLS WILL CALL [facility] FOR RESCHEDULING WHEN APPROPRIATE I DISCUSSED THE FINDINGS & PLAN WITH PATIENT (UNCHANGED SINCE PREVIOUS VISIT) & PATIENT AGREES AND UNDERSTANDS PLAN Medication Reconciliation: PERFORMED TODAY - SEE BELOW. Outpatient: Has the patient been taking medications as documented in the EMLR? YES: The patient has been taking medications as documented in the EMLR. Essential Medication List for Review used to complete this medication reconciliation. INCLUDED IN THIS LIST: Alphabetical list of active outpatient prescriptions dispensed from this [place] (local) and dispensed from another [place] or [facility] facility (remote) as well as inpatient orders [...] with a VA or non-VA provider. /dereje/ GREY RICARDO DPM COPY CENTER SPECIALIST Signed: 07/06/2024 12:57 GREY RICARDO
--- OUTSIDE RECORDS SUMMARY | 2024-12-13 12:17 | XMS_ITS | Encounter Summary ---
Author Name [facility] Organization [facility] Address [address] [place] [id number] Care Team Providers Care Adjustment Examiner Name Role Phone BAN LIRIANO Primary Care [...] CT MEDICARE (M) CELINA Riggins MEDIB LUE [facility] Feb 13, 2011 [id number] BUSTAMANTEIS PATIENT BCBS [facility] (WNR) MEDICARE ADVANTAGE [facility] (WNR) Feb 13, 2011 [id number] [phone] BYRNES PATIENT [employer] ([id number]) PRESCRIPT ION BCBS Feb 13, 2011 [id number] [phone] BYRNES PATIENT Selected Encounter This section includes the information on record at DC for the Encounter. Date/Time Encounter Type Encounter Description Reason Provider Source Sep 28, 2024 09:00 AM HEARING AID REPAIR/MODIFYIN G AUDIOLOGY ICD-10-CM H90.3 Sensorineural hearing loss, bilateral MCGINNISMAAME Y SHAKIRA CONRAD Encounter Template Text not used by DC Assessments - Encounter Diagnoses This section includes the primary and secondary diagnoses documented for the Encounter. Date/Time Primary/Secondary Diagnosis Diagnosis Name Provider Source Sep 28, 2024 09:46 AM PRIMARY Sensorineural hearing loss, bilateral MAAME MCGINNIS [facility] Sep 28, 2024 09:46 AM SECONDARY Encounter for fitting and adjustment of hearing aid MAAME MCGINNIS [facility] Plan of Treatment: Future Appointments (+ 6 months) and Future Tests (+/- 45 days) The Plan of Treatment section includes future care activities for the patient [facility] This section includes future appointments and future orders which are active, pending or scheduled. Future Appointments This section includes appointments that were scheduled to occur 6 months from the date of the Encounter, up to a maximum of 20 appointments. The data comes from all [facility]. Appointment Date/Time Appointment Type Appointme nt Facility Name Nov 10, 2024 08:00 AM AMBULATORY - MEDICINE [facility] Dec 07, 2024 09:30 AM AMBULATORY - PSYCHIATRY [facility] February 08, 2025 09:00 AM AMBULATORY - PSYCHIATRY [facility] February 10, 2025 10:00 AM AMBULATORY - MEDICINE [facility] Active, Pending, and Scheduled Orders This section includes a listing of several types of active, pending, and scheduled orders, including clinic medications orders, diagnostic test orders, procedure orders and consult orders; where the start date of the order is 45 days before the date of the Encounter or 45 days after the date of theEncounter. The data comes from all [facility]. Test Date/Time Test Type Test Details Facility Name Oct 04, 2024 12:00 AM Laboratory - Chemi stry Order HEMOGLOBIN A1C PANEL BLOOD (LAV-BLOOD) [facility] Nov 04, 2024 12:00 AM Laboratory - Chemi stry Order MICROALBUMIN CREATININE RATIO PANEL URINE (RANDOM) [facility] Lab Results: +/- 30 days of the encounter This section includes the Chemistry and Hematology Lab Results on record with DC for the patient. Radiology Reports and Pathology Reports are provided separately, in subsequent sections. Lab Results This section contains the Chemistry/Hematology Results that were resulted 30 days before or 30 daysafter the date of the Encounter. Date/Time Source Result Type Result - Unit Interpretation Reference Range Comment Oct 18, 2024 10:39 AM [facility] CALCIUM Specimen Type: SERUM No comment entered. Ordering Provider: NAOMIE HUERTAS Report Released Date/Time: Jun 04, 2024 04:01 PM Reporting Lab[facility] [address] [address] Performing Lab: [facility] [address] [address] CALCIUM 9.7 mg/dL 8.5-10.2 Oct 18, 2024 10:39 AM [facility] URIC ACID Specimen Type: SERUM No comment entered. Ordering Provider: NAOMIE HUERTAS Report Released Date/Time: Jun 04, 2024 04:01 PM Reporting Lab: [facility] [address] [address] Performing Lab: [address] [address] URIC ACID 5.5 mg/dL 3.5-7.2 Oct 18, 2024 10:39 AM [facility] LIPID PANEL FASTING Specimen Type: SERUM No comment entered. Ordering Provider: NAOMIE HUERTAS Report Released Date/Time: Jun 04, 2024 04:01 PM Reporting Lab: [facility] [address] [address] Performing Lab: [facility] [address] [address] CHOLESTEROL 139 mg/dL TRIGLYCERIDE 272 mg/dL H 0-150 LDL calculated 51 mg/dL 0-129 CHOL/HDL 4.1 HDL CHOLESTEROL 34 mg/dL L 40-60 Oct 18, 2024 10:39 AM [facility] VITAMIN D (25-OH) Specimen Type: SERUM No comment entered. Ordering Provider: NAOMIE HUERTAS Report Released Date/Time: Jun 04, 2024 04:01 PM Reporting Lab: [facility] [address] Performing Lab: [address] [address] VITAMIN D (25-OH) 14 ng/mL L 20-50 Oct 18, 2024 10:39 AM [facility] VITAMIN B12 Specimen Type: SERUM No comment entered. Ordering Provider: NAOMIE HUERTAS Report Released Date/Time: Jun 04, 2024 04:01 PM Reporting Lab: [address] [address] Performing Lab: [address] [address] VITAMIN B12 384 pg/mL 200-900 Oct 18, 2024 10:39 AM [facility] RETICULOCYTES Specimen Type: BLOOD No comment entered. Ordering Provider: NAOMIE HUERTAS Report Released Date/Time: Jun 04, 2024 04:01 PM Reporting Lab: [address] [address] Performing Lab: [address] [address] RETIC % 2.2 H 0.6-2.0 RETIC, ABS 121.8 10*3/uL H 30.0-90.0 RET-HE 33.2 pg 27.9-42.0 Oct 18, 2024 10:39 AM [facility] FERRITIN Specimen Type: SERUM No comment entered. Ordering Provider: NAOMIE HUERTAS Report Released Date/Time: Jun 04, 2024 04:01 PM Reporting Lab: [address] [address] Performing Lab: [address] [address] FERRITIN 376 ng/mL H 20-300 Oct 18, 2024 10:39 AM [facility] HEMOGLOBIN A1C PANEL Specimen Type: BLOOD Comment: [...] Jun 04, 2024 04:01 PM Reporting Lab: [address] [address] Performing Lab: [facility] [address] [address] HEMOGLOBIN A1C 6.9 H 4.0-5.6 Oct 18, 2024 10:39 AM [facility] CBC AND DIFF (AUTO) Specimen Type: BLOOD No comment entered. Ordering Provider: NAOMIE HUERTAS Report Released Date/Time: Jun 04, 2024 04:01 PM Reporting Lab: [address] [address] Performing Lab: [address] [address] WBC 9.54 10*3/uL 4.50-11.00 RBC 5.51 10*6/uL [...] 10*3/uL 0.00-0.00 Oct 18, 2024 10:39 AM [facility] MICROALBUMIN CREATININE RATIO PANEL Spe cimen Type: URINE No comment entered. Ordering Provider: NAOMIE HUERTAS Report Released Date/Time: Jun 04, 2024 04:01 PM Reporting Lab: [address] [address] Performing Lab: [address] [address] MICROALBUMIN/CR EATININE RATIO 103.3 mg/g H 0-29.9 MICROALBUMIN,QU ANTITATIVE 14.3 mg/dL RR UNAVAIL CREATININE URINE 138.43 mg/dL Oct 18, 2024 10:39 AM [facility] TSH Specimen Type: SERUM No comment entered. Ordering Provider: NAOMIE HUERTAS Report Released Date/Time: Jun 04, 2024 04:01 PM Reporting Lab: [address] [address] Performing Lab: [address] [address] TSH 1.24 u[IU]/mL 0.35-5.00 Oct 18, 2024 10:39 AM [facility] URINALYSIS Specimen Type: URINE Comment: If Glucose = >500 and Ketones are positive, please alert the Physician. Ordering Provider: NAOMIE HUERTAS Report Released Date/Time: Jun 04, 2024 04:01 PM Reporting Lab: [address] [address] Performing Lab: [address] [address] UA COLOR Light-Yellow Yellow UA APPEARANCE Clear Clear UA GLUCOSE Normal mg/dL Negative UA KETONES NEGATIVE mg/dL Negative UA BLOOD NEGATIVE mg/dL Negative UA PROTEIN 30 mg/dL Negative UA NITRITE NEGATIVE mg/dL Negative UA BILIRUBIN NEGATIVE mg/dL Negative UA SPECIFIC GRAVITY 1.021 1.016-1.02 2 UA pH 6.0 5.0-9.0 UA UROBILINOGEN Normal mg/dL <2.0 UA LEUKOCYTE NEGATIVE Negative Oct 18, 2024 10:39 AM [facility] BASIC METABOLIC PANEL (fasting) Specime n Type: SERUM No comment entered. Ordering Provider: NAOMIE HUERTAS Report Released Date/Time: Jun 04, 2024 04:01 PM Reporting Lab: [facility] [address] [address] Performing Lab: [address] [address] UREA NITROGEN 14 mg/dL 7-25 GLUCOSE 167 mg/dL H 65-100 SODIUM 140 mmol/L 135-145 POTASSIUM 3.8 mmol/L 3.5-5.0 CHLORIDE 104 mmol/L 100-110 CO2 27 meq/L 20-30 CREATININE, Serum 1.10 mg/dL 0.50-1.40 eGFR(CKD-EPI 2020) 68 mL/min >60 Oct 18, 2024 10:39 AM [facility] LIVER FUNCTION Specimen Type: SERUM No comment entered. Ordering Provider: NAOMIE HUERTAS Report Released Date/Time: Jun 04, 2024 04:01 PM Reporting Lab: [address] [address] Performing Lab: [address] [address] PROTEIN,TOTAL 7.2 g/dL 6.0-8.3 ALBUMIN 4.0 g/dL 3.5-5.0 ALKALINE PHOSPHATASE 54 U/L 40-150 AST 33 U/L 5-34 ALT 39 U/L BILIRUBIN, TOTAL 0.9 mg/dL 0.2-1.2 Oct 18, 2024 10:39 AM [facility] CREATININE (eGFR 2020) Specimen Type: SERUM No comment entered. Ordering Provider: NAOMIE HUERTAS Report Released Date/Time: Jun 04, 2024 04:01 PM Reporting Lab: [address] [address] Performing Lab: [address] [address] CREATININE, Serum 1.10 mg/dL 0.50-1.40 eGFR(CKD-EPI 2020) 68 mL/min >60 Social History: Smoking Status (Most current) and Tobacco Use (All prior to encounter date) This section includes the most current, and the historical, smoking and tobacco- related health factors from the [place] facility where the Encounter took place. Current Smoking Status This section includes the most current smoking, or tobacco-related health factor, from the DC facility where the Encounter took place. Date/Time Current Smoking Status Comment Avis ity Mar 25, 2024 12:03 PM VA-TOBACCO FORMER USER [facility] Tobacco Use History This section includes a history of the smoking, or tobacco-related health factors, that were collected on or before the date of the Encounter. The data comes from the [place] facility where the Encounter took place. Date/Time Smoking Status/Tobacco Use Comment Maribel acbrittani Mar 25, 2024 12:03 PM [facility] Apr 01, 2019 09:37 AM [facility] Apr 01, 2019 09:37 AM VA-TOBACCO QUIT 15 YRS OR MORE [facility] Apr 01, 2018 09:18 AM VA-TOBACCO FOR[facility]ER [facility] Apr 01, 2018 09:18 AM VA-TOBACCO QUIT 15 YRS OR MORE [facility] Apr 01, 2018 08:44 AM QUIT TOBACCO USE > 7 YEARS AGO [facility] Feb 17, 2017 10:42 AM QUIT TOBACCO USE > 7 YEARS AGO [facility] January 18, 2016 08:51 AM QUIT TOBACCO USE > 7 YEARS AGO . [facility] Mar 12, 2010 11:19 AM QUIT TOBACCO USE > 7 YEARS AGO [facility] Advance Directives: All historical and current Section Date Range: From patient's date of to the date document was created. This section includes ALL of a patient's completed or amended DC Advance and Rescinded Directives. The entries below indicate that a directive exists for the patient, but an actual copy is not included with this document. The data comes from all [place] facilities. Date Advance Directives Provider Source Jun 20, 2003 ADVANCE DIRECTIVE EMANI REED [facility] Encounter Notes: All associated encounter notes This section contains the clinical notes associated to the Encounter. Date/Time Encounter Note(s) Provider Source Sep 28, 2024 08:19 AM AUDIOLOGY E & M NOTE: LOCAL TITLE: AUDIOLOGY CLINIC STANDARD TITLE: AUDIOLOGY E & M NOTE DATE OF NOTE: SEP 28, 2024@08:19 ENTRY DATE: SEP 28, 2024@08:19:53 AUTHOR: VIVIANE MCGINNIS COSIGNER: URGENCY: STATUS: COMPLETED Dx CODE: H90.3-Sensorineural Hearing Loss, Bilateral; Z46.1- Encounter for Fitting/Adjusting Hearing Aid(s) APPOINTMENT TYPE: Hearing Re-Evaluation and Hearing Aid Programming BACKGROUND/HISTORY: [place] was seen 09/28/24 for a hearing re-evaluation and hearing aid programming appointment, accompanied by his . He was fit with [employer] Evolv AI BTE Rs (SN:[id number]) on 07/08/22. 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 He also provides his backup [employer] Fabius mini BTEs (SN:[id number]) to be cleaned and checked. His last hearing evaluation was on 05/31/22 and he believes his hearing has declined since then, especially on the right side. He denies tinnitus or vertigo. ASSESMENT: Results of today's testing are as follows: Otoscopy was WNL bilaterally. Normal tympanograms obtained bilaterally. Pure tone audiometric testing under headphones in the right ear revealed a mild sloping to moderately severe SNHL. Testing in the left ear revealed a mild sloping to severe SNHL. SRT WORD RECOGNITION (Recorded [place] CNC 1/2 Word List) Right 50dBHL 80% @ 85dBHL/40dBm Left 45dBHL 80% @ 85dBHL/40dBm No significant changes were found when compared to the 05/31/22 audiological evaluation. HEARING AID PROGRAMMING: Repaired hearing aids were connected to [employer] and a firmware update was completed. A recalculation was done to today's hearing thresholds. New earmolds were attached to devices. [place] reported satisfaction with sound quality. His old hearing aids were cleaned and checked and found to be in good working order. Thin tubes and microphone covers replaced. EDUCATION/COUNSELING: The patient was counseled re: today's hearing test results. He demonstrated satisfactory understanding of the education and plan, and was given the opportunity to ask questions throughout today's visit. PLAN: 1. Follow-up for hearing aid programming as needed. 2. Hearing re-evaluation in the Fall of 2024, or sooner if change in hearing occurs. 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
--- OUTSIDE RECORDS SUMMARY | 2024-12-13 12:17 | XMS_ITS | Encounter Summary ---
Author Name [facility] [facility] [place] Organization [facility] [place] Address [address] [place] [id number] Care Team Providers Care Sales Attendant Name Role Phone BAN LIRIANO Primary Care [...] Patient's Relationship to Policy Haynes EVELYN BCBS [facility] MEDICARE (M) ANTHE M MEDIB LUE [facility] Feb 13, 2011 [id number] BUSTAMANTEIS PATIENT BCBS [facility] (WNR) MEDICARE ADVANTAGE [facility] (WNR) Feb 13, 2011 [id number] BYRNES PATIENT [employer] ([id number]) PRESCRIPT ION BCBS Feb 13, 2011 [id number] BYRNES PATIENT Selected Encounter This section includes the information on record at [place] for the Encounter. Date/Time Encounter Type Encounter Description Reason Provider Source Dec 07, 2024 09:30 AM OFFICE O/P [place] [facility] - IND ICD-10-CM F41.9 Anxiety disorder, unspecified BETTINA ROACH Encounter Template Text not used by [place] Assessments - Encounter Diagnoses This section includes the primary and secondary diagnoses documented for the Encounter. Date/Time Primary/Secondary Diagnosis Diagnosis Name Provider Source Dec 07, 2024 12:59 PM PRIMARY Anxiety disorder, unspecified BETTINA ROACH Dec 07, 2024 12:59 PM SECONDARY Chronic tension-type headache, not intractable BETTINA ROACH Plan of Treatment: Future Appointments (+ 6 months) and Future Tests (+/- 45 days) The Plan of Treatment section includes future care activities for the patient from all [place] [facility] This section includes future appointments and future orders which are active, pending or scheduled. Future Appointments This section includes appointments that were scheduled to occur 6 months from the date of the Encounter, up to a maximum of 20 appointments. The data comes from all [place] treatment facilities. Appointment Date/Time Appointment Type Appointme nt Facility Name February 08, 2025 09:00 AM AMBULATORY - PSYCHIATRY [facility] February 10, 2025 10:00 AM AMBULATORY - MEDICINE [facility] Active, Pending, and Scheduled Orders This section includes a listing of several types of active, pending, and scheduled orders, including clinic medications orders, diagnostic test orders, procedure orders and consult orders; where the start date of the order is 45 days before the date of the Encounter or 45 days after the date of theEncounter. The data comes from all [place] treatment facilities. Test Date/Time Test Type Test Details Facility Name Nov 04, 2024 12:00 AM Laboratory - Chemi stry Order MICROALBUMIN CREATININE RATIO PANEL URINE (RANDOM) [facility] Advance Directives: All historical and current Section Date Range: From patient's date of to the date document was created. This section includes ALL of a patient's completed or amended [place] Advance and Rescinded Directives. The entries below indicate that a directive exists for the patient, but an actual copy is not included with this document. The data comes from all [place] facilities. Date Advance Directives Provider Source Jun 20, 2003 ADVANCE DIRECTIVE EMANI REED [place] [facility] Encounter Notes: All associated encounter notes This section contains the clinical notes associated to the Encounter. Date/Time Encounter Note(s) Provider Source Dec 07, 2024 10:18 AM PSYCHIATRY NOTE: LOCAL TITLE: PSYCHIATRY NOTE STANDARD TITLE: PSYCHIATRY NOTE DATE OF NOTE: DEC 07, 2024@10:18 ENTRY DATE: DEC 07, 2024@10:18:52 AUTHOR: BETTINA RAOCH EXP COSIGNER: URGENCY: STATUS: COMPLETED F: Psychiatry Note Dixon was seen re: Mental health medication intake Dixon identified himself by name and date of . Forest is alert and oriented to person, place, time, and situation. Forest denies SI/HI, and or the use of any alcohol or illicit drugs. Blood Pressure: 135/75 (06/04/2024 15:13) Pain: 0 (03/30/2020 09:02) Patient Height: 69 in [175.3 cm] (06/04/2024 15:13) Patient Weight: 208 lb. [94.35 kg] (06/04/2024 15:13) Pulse: 76 (06/04/2024 15:13) Respiration: 19 (06/04/2024 15:13) Temperature: 98.2 F [36.8 C] (06/04/2024 15:13) D: Active problems - Computerized Problem List is [...] senile cataract 15. Diabetes mellitus (SNOMED CT 45485734) 16. Essential hypertension (SNOMED CT 11786758) 17. Hyperlipidemia (SNOMED CT 11288032) 18. Chronic tension-type headache (SNOMED CT 349297720) 19. Hearing loss (SNOMED CT 54148273) Active Outpatient Medications (including Supplies): Active Outpatient Medications Status ====== 1) CARBOXYMETHYLCELLULOSE NA 0.5% OPH SOLN INSTILL 1 DROP INTO ACTIVE EACH EYE FOUR TIMES A DAY Indication: FOR DRY EYE 2) LUBRICATING (PF) OPH OINT APPLY THIN RIBBON INTO EACH EYE AT ACTIVE BEDTIME Indication: FOR DRY EYE Active Non-VA Medications Status ====== 1) Non-VA ALBUTEROL 90MCG (CFC-F) 200D ORAL [...] TAB 10MG BY MOUTH ONCE DAILY ACTIVE 14 Total Medications Medication Adherence -use as directed: yes Side effects or adverse reactions: none Psychiatric Diagnoses/Conditions: (based on DSM-5) Addressed in this session today: Active problems - Computerized Problem List is the source for the followin. Carcinoma in situ of kidney Hx Renal CA, L Side 2013; Lesion Excised; No Nephrectomy In Remission; Discharged from [facility] [facility] approx. 2020 Surg Done [facility] 2. Screening for malignant neoplasm of colon done Last Diagnost Colonoscopy approx. 2021; no CRC Poss. Benign Polyposis 3. Malignant melanoma Location - Nose; Excised 2022; Sees Derm Once Yr. for Surveillance 4. Under care of doctor Private PCP is at [place] 5. Pes planus See Podiatry at [place] for Customized Insets 6. Body mass index 40+ - severely obese 7. History of partial resection of colon H/O left hemicolectomy Indication for Partial Colectomy 2007: Diverticulitis 8. History of operative procedure on knee 9. Ex-smoker Ex-smoker, quit 1994 Never Lung Ca; May Have Had Benign Nodules 10. Deviated nasal septum 11. Atrial fibrillation Asymptomatic as of JUN 08: Has Private Cardio - s/p Ablation Yrs. Ago; Is Candidate for Watchman as of JUN 08 Private Cardio - [facility] 12. Irritable bowel syndrome diarrhea 13. Asthma 14. Cortical senile cataract 15. Diabetes mellitus (SNOMED CT 76011896) No Report of DR as of JUN 08: Private Ophth Dr Huffman @ [facility] 16. Essential hypertension (SNOMED CT 02600775) 17. Hyperlipidemia (SNOMED CT 46595679) 18. Chronic tension-type headache (SNOMED CT 313576027) 19. Hearing loss (SNOMED CT 43825884) Has Amplification via [place] xxxxxxxxxxxxxxxxxxxxxxxxxxxxxxxxxxxx xxxxxxxxxxxxxxxxxxxxxxxxxxx Substance Use Hx: Alcohol Use: <once/mo. Other Use: none -- Additional History: Past Psych Hx: No mental health hospitalizations Past Psych Medications: Lorazepam, Xanax PFSH- Denies childhood abuse or trauma See Uniform Intake note on 07/05/2024 for more details. Subjective: CC: same as above listed Diagnoses unless otherwise stated. HPI - Mood: pretty good Headaches can decrease my mood and spike my anxiety - PTSD: Denies - Sleep: I have difficulty with sleep, sometimes I just have too many thoughts going on in my head to sleep - Energy: I have energy, though sometimes I lack the pep/get up and go, but once I am going I am going - Appetite: good - Ability to engage socially or in healthy activities: traveling, spending time with my , shooting club, congregation. [id number]---Medical Decision Making---XXXXXXXXXXXXXXXXXXXXXXXXXXX XXXXX Risk assessment: no acute risk concerns unless otherwise stated. Assessment/Impression: ___stable (ongoing outpatient level of care) SEE beginning of this note for list of DIAGNOSES. XXXXXXXXXXXXXXXXXXXXXXXXXXXXXXXXXXXX XXXXXXXXXXXXXXXXXXXXXXXXXXXXXXXXXXXX XXXXX Objective: Forest is a 79 year old male [employer] who presents for mental health medication intake. Forest is friendly and conversational and reports he is interested in discussing alternative options to Ativan, but is not interested in making any changes at this time. Forest reports he thinks a lot of the tension headaches and anxiety are related to allergies(mold, pollen) and the season. I had some teeth extracted and that seems to have decreased the frequency and intensity of his headaches. MSE Appearance: consistent w/ stated age, appropriate grooming and hygiene Behavior: polite, cooperative and treatment motivated Motor: no tics, tremors, or abnormal movements Speech: normal rate, volume and articulation Thought process: logical, linear and coherent Thought content: denies hallucinations, delusions, lenny, or paranoia. No ideas of reference. No thoughts insertion. Denies homicidal thoughts. Denies suicidal ideation, intent or plan. Insight and Judgment: both intact Cognition: alert and oriented x 4, good attention, memory grossly intact to conversational testing Mood: euthymic Affect: congruent with mood LABS AND STUDIES: Color, Urine (AX 4280): Light-Yellow Appearance, Urine (AX 4280): Clear Glucose, Urine (AX 4280): Normal Ketones, Urine (AX 4280): NEGATIVE Blood, Urine (AX 4280): NEGATIVE Protein, Urine (AX 4280): 30 Nitrite, Urine (AX 4280): NEGATIVE Bilirubin, Urine (AX 4280): NEGATIVE Specific [place], (AX 4280): 1.021 pH, Urine (RA0059): 6.0 Urobilinogen, Urine (AX 4280): Normal Leukocyte Esterase, (AX 4280): NEGATIVE MICROALB/CR RATIO: 103.3 H MICROALBUMIN URINE: 14.3 CREATININE URINE: 138.43 HGB A1C (WR): 6.9 H WBC: 9.54 RBC: 5.51 HGB: 16.2 HCT: 48.2 MCV: 87.5 MCHC: 33.6 RDW: 13.1 PLT: 200 RETICULOCYTES: 2.2 H MCH: 29.4 Neut %: 63.1 Lymph %: 25.4 [place] %: 7.8 Eos %: 2.6 Baso %: 0.6 Neut, Abs: 6.02 Lymph, Abs: 2.42 [place], Abs: 0.74 Eos, Abs: 0.25 Baso, Abs: 0.06 RETIC, ABS: 121.8 H Immature Granulocytes %: 0.5 Immature Granulocytes, Abs: 0.05 RET HE %: 33.2 NRBC%: 0.0 NRBC#: 0.00 VIT. B12 (WROX): 384 FERRITIN (WR): 376 H TSH (Access): 1.24 VITAMIN D TOTAL: 14 L GLUCOSE: 167 H UREA NITROGEN: 14 SODIUM: 140 POTASSIUM: 3.8 CHLORIDE: 104 CO2: 27 CALCIUM: 9.7 URIC ACID: 5.5 CHOLESTEROL: 139 PROTEIN,TOTAL: 7.2 ALBUMIN: 4.0 ALKALINE PHOSPHATASE: 54 SGOT: 33 SGPT: 39 TRIGLYCERIDE: 272 H LDL CHOL: 51 CHOL/HDL RATIO: 4.1 HDL: 34 L BILIRUBIN,TOT.: 0.9 CREATININE-EGFR: 1.10 eGFR CKD-EPI 2020: 68 SAFETY ASSESSMENT: No acute safety concerns. Convincingly denies any thoughts, intents, or plans to harm self or others. TREATMENT PLAN/- Interventions: Psychopharmacology- see medication plan for details __ Psychotherapy - declines __ Alpha-Stim therapy completed trial 1 today. Labs/Radiology/Tests/Consultation __ none ordered MEDICATION PLAN: Reviewed risks and benefits. Medication decisions were made jointly with . Forest has been prescribed benzodiazepines (Ativan, Xanax) for over 30 years from non-VA providers and is interested in discussing other medication options that can target his anxiety and chronic tension headaches. Alternative medication options were discussed antidepressants/SSRI/SNRI/TRICYCLICS , antianxiety agents, anti-seizure medications, muscle relaxants, and mood stabilizers. We also discussed Alpha- Stim therapy as a non-pharmacological therapy and Forest agreed to trial at today's encounter with benefit. Forest will maintain his Non-VA prescriber for the Ativan and Xanax at this time. Forest is aware that health underwriter is willing to make recommendations as to how to decrease his dosage if he desires to discuss with his prescriber. Forest reports his prescriber has retired and a new community prescriber is assuming prescribing and he isn't certain if he will continue with them yet. Forest also is scheduled with a PCP intake appt.(02/10/25) here and is encouraged to keep that appt. to explore his options. Continue the following medications and note changes: No s/sx's c/w TD reported. ___MEDICATION CHANGES: NONE A. Med(s) STOPPED: B. Med(s) ADDED: C. Med dose CHANGES: Pt Education/counseling: The rationale for the psychiatric medications and the alternatives to treatment were discussed with the patient. The side effect profile of the psychiatric medications was reviewed with the patient. This also included discussion of potential drug interactions with the psychiatric medication. Also if the is over 60 years old, additional education was given for medications known to have increased potential for side effects (including but not limited to TCAs and paroxetine.) Patient demonstrated reasonable understanding of the medication side effects and the above issues. The benefits of psychiatric medications outweigh risks for this patient. Compliance (with all treatment recommendations including but not limited to medications) was addressed. F: Alpha-Stim Trial A/P: Rachel is utilizing Alpha-Stim for the diagnoses of Anxiety, depression, and sleep disturbance. Initial trial Product Development Scientist suggested that Forest try the Alpha-Stim device for anxiety, depression, and sleep. Forest was informed that the Alpha-Stim is an FDA indicated non-pharmacological therapy that could be helpful for managing/reducing anxiety and depression as well as promoting improved sleep. Forest was also informed that 3 trials are needed prior to being issued an Alpha-Stim device of his own, Forest agrees to trials. Product Development Scientist explained what to expect, demonstrated how to set-up, and utilize the Alpha-Stim. Forest utilized the Alpha-Stim for 20 minutes and reports he noted benefit after several minutes use. Forest reports feeling more relaxed and experiencing a sense of calm while using the device. Forest is excited by the potential for having reduced anxiety as well as improved sleep in a non-pharmacological way and made a second appointment with health underwriter to trial the Alpha-Stim again. Forest was encouraged to be mindful of anything he notes good or bad after using the Alpha-Stim and is aware that he may contact health underwriter to discuss and or we will discuss at next trial. Product Development Scientist will order Forest his personal device if he continues to find therapeutic benefit and remains interest in acquiring his own Alpha-Stim after the second trial is completed. Forest will be contacted and oriented to his personal Alpha-Stim once it has arrived in the clinic. Return to clinic in (2 month), sooner as needed. The patient denied suicidal and violent ideation, but the suicide prevention information and hotline were reviewed with the patient. The patient also understands to call 911 or to go to ER in the event of an emergency. I completed a thorough risk assessment today and in my clinical opinion he is at low-risk of harm to self and others. I asked the patient to call the clinic or to come to open access if the patient does not like the effects of medications. 60 minutes spent in patient care and education. Suicide Screen: C-SSRS Screening [place] Suicide Severity Rating Scale (C-SSRS) screener 1. Over the past month, have you wished you were or wished you could go to sleep and not wake up? No 2. Over the past month, have you had any actual thoughts of killing yourself? No 3. Over the past month, have you been thinking about how you might do this? Response not required due to responses to other questions. 4. Over the past month, have you had these thoughts and had some intention of acting on them? Response not required due to responses to other questions. 5. Over the past month, have you started to work out or worked out the details of how to kill yourself? Response not required due to responses to other questions. 6. If yes, at any time in the past month did you intend to carry out this plan? Response not required due to responses to other questions. 7. In your lifetime, have you ever done anything, started to do anything, or prepared to do anything to end your life (for example, collected pills, obtained a gun, gave away valuables, went to the roof but didn't jump)? No 8. If YES, was this within the past 3 months? Response not required due to responses to other questions. /dereje/ BETTINA ROACH, MSN, PMHNP- PSYCHIATRIC MENTAL HEALTH NURSE PRACTITIONER Signed: 12/07/2024 16:00 BETTINA ROACH
--- OUTSIDE RECORDS SUMMARY | 2024-12-13 12:17 | XMS_ITS | Encounter Summary ---
Author Name [facility] [place] Address [address] [place] [address] Care Team Providers Care Client Experience Consultant Name Role Phone BAN LIRIANO Primary Care [...] Member ID Insurance Provider's Telephone Number Policy Ahynes's Name Patient's Relationship to Policy Haynes EVELYN [place] MEDICARE (M) ANTHE M MEDIB LUE [facility] Feb 13, 2011 [id number] BYRNES PATIENT BCBS [facility] (WNR) MEDICARE ADVANTAGE [facility] (WNR) Feb 13, 2011 [id number] BYRNES PATIENT [employer] ([id number]) PRESCRIPT ION BCBS Feb 13, 2011 [id number] [phone] BYRNES PATIENT Selected Encounter This section includes the information on record at [place] for the Encounter. Date/Time Encounter Type Encounter Description Reason Pro vider Source May 21, 2024 01:00 PM Outpatient Encounter AUDIOLOGY IHE Encounter Template Text not used by [facility] Plan of Treatment: Future Appointments (+ 6 months) and Future Tests (+/- 45 days) The Plan of Treatment section includes future care activities for the patient from all [place] [facility]. This section includes future appointments and future orders which are active, pending or scheduled. Future Appointments This section includes appointments that were scheduled to occur 6 months from the date of the Encounter, up to a maximum of 20 appointments. The data comes from all [place] treatment facilities. Appointment Date/Time Appointment Type Appointme nt Facility Name Jun 01, 2024 08:30 AM AMBULATORY - REHAB MEDICIN E [facility] Jun 04, 2024 03:00 PM AMBULATORY - MEDICINE [facility] Jul 05, 2024 09:00 AM AMBULATORY - PSYCHIATRY [facility] Jul 06, 2024 10:00 AM AMBULATORY - MEDICINE [facility] Sep 06, 2024 04:30 PM AMBULATORY - REHAB MEDICIN E [facility] Sep 28, 2024 09:00 AM AMBULATORY - REHAB MEDICIN E [facility] Nov 10, 2024 08:00 AM AMBULATORY - MEDICINE [facility] Active, Pending, and Scheduled Orders This section includes a listing of several types of active, pending, and scheduled orders, including clinic medications orders, diagnostic test orders, procedure orders and consult orders; where the start date of the order is 45 days before the date of the Encounter or 45 days after the date of theEncounter. The data comes from all [facility]. Test Date/Time Test Type Test Details Facility Name Jul 05, 2024 10:32 AM Consult Order PSYCHIATRI C MEDICATION [facility] OUTPT Cons Vacuum Truck Driver's Choice [facility] Advance Directives: All historical and current Section Date Range: From patient's date of to the date document was created. This section includes ALL of a patient's completed or amended [place] Advance and Rescinded Directives. The entries below indicate that a directive exists for the patient, but an actual copy is not included with this document. The data comes from all [place] facilities. Date Advance Directives Provider Source Jun 20, 2003 ADVANCE DIRECTIVE EMANI REED [facility] Encounter Notes: All associated encounter notes This section contains the clinical notes associated to the Encounter. Date/Time Encounter Note(s) Provider Source May 21, 2024 03:36 PM CLERICAL NOTE: LOCAL TITLE: APPOINTMENT NO SHOW STANDARD TITLE: CLERICAL NOTE DATE OF NOTE: MAY 21, 2024@15:36 ENTRY DATE: MAY 21, 2024@15:36:13 AUTHOR: JUANITO AGUILERA COSIGNER: URGENCY: STATUS: COMPLETED Patient Name: ANDRE BALDWIN Patient SSN: [id number] Date and time of Appointment No show : 05/21/24 13:00 PATIENT PHONE - PHONE NUMBER [CELLULAR] - NONE FOUND Patient's medical record was reviewed. Follow-up actions were determined and initiated: Please check/complete as applies: [ ]Telephoned Directly [ ]Re-scheduled for next available appt [X]Sent a N0-show letter ( must call for appointment) [ ]Other (Emergent/Overbook, etc.): Additional Comments: Future Clinic Visits 06/30/2024 10:00 NHM/OPTOMETRY/CARRERA/ /dereje/ JUANITO AGUILERA [facility] Concrete Journeyman Signed: 05/21/2024 15:36 Receipt Acknowledged By: 05/21/2024 15:53 /dereje/ FRANK GONSALEZ LEAD PHYSICAL THERAPY NURSE JUANITO AGUILERA
== END 2024-12-13 11:26 | disposition home or self-care (01) ==
LOC: HO.HPS 10:51
PROVIDERS: PCP Nurse Practitioner Family; Visit Provider Hospitalist
DX: R91.8 Other nonspecific abnormal finding of lung field (principal); J41.0 Simple chronic bronchitis; J30.9 Allergic rhinitis, unspecified; I77.810 Thoracic aortic ectasia
CPT/HCPCS: 99214

== ENCOUNTER → 2024-12-13 10:50 | Outpatient (BNVA) | payer MEDICARE, SELFPAY | PROVIDERS: PCP Nurse Practitioner Family; Visit Provider Hospitalist | DX: R91.8 Other nonspecific abnormal finding of lung field (principal); J41.0 Simple chronic bronchitis; J30.9 Allergic rhinitis, unspecified; I77.810 Thoracic aortic ectasia | CPT/HCPCS: 99212 ==

== ENCOUNTER 2025-01-10 06:27 | Outpatient (REF) | payer MEDICARE, SELFPAY ==
--- OUTSIDE RECORDS SUMMARY | 2025-01-10 06:30 | XMS_ITS | Encounter Summary ---
Author Name [facility] [place] Organization [place] Address [address] [place] [address] Care Team Providers Care Poker In Name Role Phone BAN LIRIANO Primary Care [...] CT MEDICARE (M) CELINA M MEDIB LUE [facility] Feb 13, 2011 [id number] [phone] BUSTAMANTEIS PATIENT BCBS [facility] (WNR) MEDICARE ADVANTAGE [facility] (WNR) Feb 13, 2011 [id number] BYRNES PATIENT EXPRESS SCRIPTS ([id number]) PRESCRIPT ION BCBS Feb 13, 2011 [id number] BYRNES PATIENT Selected Encounter This section includes the information on record at [place] for the Encounter. Date/Time Encounter Type Encounter Description Reason Provider Source Nov 10, 2024 08:00 AM OFFICE O/P EST MOD 30 MIN OPTOMETRY ICD-10-CM E11.9 Type 2 diabetes mellitus without complications GLORIA CARRERA Encounter Template Text not used by [place] Assessments - Encounter Diagnoses This section includes the primary and secondary diagnoses documented for the Encounter. 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, left eye [facility]A,[facility] Nov 10, 2024 12:53 PM SECONDARY Dry eye syndrome of bilateral lacrimal glands CARRERA,GLORIA [facility] Nov 10, 2024 12:53 PM SECONDARY Presbyopia [facility] Nov 10, 2024 12:53 PM SECONDARY Presence of intraocular lens C[facility]ERA,[facility] Nov 10, 2024 12:53 PM SECONDARY Unsp lagophthalmos, bilateral, upper and lower eyelids CARRERA,[facility] Plan of Treatment: Future Appointments (+ 6 months) and Future Tests (+/- 45 days) The Plan of Treatment section includes future care activities for the patient from all [facility]. This section includes future appointments and future orders which are active, pending or scheduled. Future Appointments This section includes appointments that were scheduled to occur 6 months from the date of the Encounter, up to a maximum of 20 appointments. The data comes from all [place] treatment [facility]. Appointment Date/Time Appointment Type Appointme nt Facility Name Dec 07, 2024 09:30 AM AMBULATORY - PSYCHIATRY [facility] February 08, 2025 09:00 AM AMBULATORY - PSYCHIATRY [facility] February 10, 2025 10:00 AM AMBULATORY [...] of theEncounter. The data comes from all [place] treatment [facility]. Test Date/Time Test Type Test Details Facility Name Oct 04, 2024 12:00 AM Laboratory - Chemi stry Order HEMOGLOBIN A1C PANEL BLOOD (LAV-BLOOD) [facility] Nov 04, 2024 12:00 AM Laboratory - Chemi stry Order MICROALBUMIN CREATININE RATIO PANEL URINE (RANDOM) [facility] Lab Results: +/- 30 days of the encounter This section includes the Chemistry and Hematology Lab Results on record with [place] for the patient. Radiology Reports and Pathology Reports are provided separately, in subsequent sections. Lab Results This section contains the Chemistry/Hematology Results that were resulted 30 days before or 30 daysafter the date of the Encounter. Date/Time Source Result Type Result - Unit Interpretation Reference Range Specimen Type Comment Oct 18, 2024 10:39 AM [facility] CALCIUM SERUM Specimen Type: SERUM No comment entered. Ordering Provider: NAOMIE HUERTAS Report Released Date/Time: Jun 04, 2024 04:01 PM Reporting Lab: [address] [address] Performing Lab: [address] [address] CALCIUM 9.7 mg/dL 8.5-10.2 Oct 18, 2024 10:39 AM [facility] LIPID PANEL FASTING SERUM Specimen Ty pe: SERUM No comment entered. Ordering Provider: NAOMIE HUERTAS Report Released Date/Time: Jun 04, 2024 04:01 PM Reporting Lab: [address] [address] Performing Lab: [address] [address] CHOLESTEROL 139 mg/dL TRIGLYCERIDE 272 mg/dL H 0-150 LDL calculated 51 mg/dL 0-129 CHOL/HDL 4.1 HDL CHOLESTEROL 34 mg/dL L 40-60 Oct 18, 2024 10:39 AM [facility] URIC ACID SERUM Sp ecimen Type: SERUM No comment entered. Ordering Provider: NAOMIE HUERTAS Report Released Date/Time: Jun 04, 2024 04:01 PM Reporting Lab: [address] [address] Performing Lab: [address] [address] URIC ACID 5.5 mg/dL 3.5-7.2 Oct 18, 2024 10:39 AM [facility] VITAMIN B12 SERUM Specimen Type: SERUM No comment entered. Ordering Provider: NAOMIE HUERTAS Report Released Date/Time: Jun 04, 2024 04:01 PM Reporting Lab: [facility] [address] Performing Lab: [facility] [address] [address] VITAMIN B12 384 pg/mL 200-900 Oct 18, 2024 10:39 AM [facility] VITAMIN D (25-OH) SERUM Specimen Type: SERUM No comment entered. Ordering Provider: NAOMIE HUERTAS Report Released Date/Time: Jun 04, 2024 04:01 PM Reporting [facility] [address] [address] Performing [facility] [address] [address] VITAMIN D (25-OH) 14 ng/mL L 20-50 Oct 18, 2024 10:39 AM [facility] FERRITIN SERUM Sp ecimen Type: SERUM No comment entered. Ordering Provider: NAOMIE HUERTAS Report Released Date/Time: Jun 04, 2024 04:01 PM Reporting [facility] [address] Performing Lab: [facility] [address] [address] FERRITIN 376 ng/mL H 20-300 Oct 18, 2024 10:39 AM [facility] RETICULOCYTES BLOOD Specimen Type: BLOOD No comment entered. Ordering Provider: NAOMIE HUERTAS Report Released Date/Time: Jun 04, 2024 04:01 PM Reporting Lab: [facility] [address] Performing [facility] [address] RETIC % 2.2 H 0.6-2.0 RETIC, ABS 121.8 10*3/uL H 30.0-90.0 RET-HE 33.2 pg 27.9-42.0 Oct 18, 2024 10:39 AM [facility] HEMOGLOBIN A1C PANEL BLOOD Specimen T ype: BLOOD Comment: Values obtained from A1C measurements can vary. For atypical A1C assays, a reported value of 7.0 could actually be between 6.72 and 7.28 if measured by a reference method. A reported value of 9.0 could actually be between 8.73 and 9.27. Ref: http://www.ngsp.org/CAPdata.asp Ordering Provider: NAOMIE HUERTAS Report Released Date/Time: Jun 04, 2024 04:01 PM Reporting Lab: [address] [address] Performing Lab: [address] [address] HEMOGLOBIN A1C 6.9 H 4.0-5.6 Oct 18, 2024 10:39 AM [facility] CBC AND DIFF (AUTO) BLOOD Specimen Ty pe: BLOOD No comment entered. Ordering Provider: NAOMIE HUERTAS Report Released Date/Time: Jun 04, 2024 04:01 PM Reporting Lab: [address] [address] Performing Lab: [address] [address] WBC 9.54 10*3/uL 4.50-11.00 RBC 5.51 10*6/uL [...] 0.5 0.0-0.7 IMMATURE GRAN, ABS 0.05 10*3/uL 0.00-0.0 6 NRBC % 0.0 0.0-0.0 NRBC, ABS 0.00 10*3/uL 0.00-0.00 Oct 18, 2024 10:39 AM [facility] MICROALBUMIN CREATININE RATIO PANEL URINE Specimen Type: URINE No comment entered. Ordering Provider: NAOMIE HUERTAS Report Released Date/Time: Jun 04, 2024 04:01 PM Reporting [facility] [address] [address] Performing [facility]: [facility] [address] [address] MICROALBUMIN/CREATININE RATIO 103.3 mg/g H 0-29.9 MICROALBUMIN,QUANTITATIVE 14.3 mg/dL RR UNAVAIL CREATININE URINE 138.43 mg/dL Oct 18, 2024 10:39 AM [facility] TSH SERUM Sp ecimen Type: SERUM No comment entered. Ordering Provider: NAOMIE HUERTAS Report Released Date/Time: Jun 04, 2024 04:01 PM Reporting [facility] [address] [address] Performing Lab: [address] [address] TSH 1.24 u[IU]/mL 0.35-5.00 Oct 18, 2024 10:39 AM [facility] BASIC METABOLIC PANEL (fasting) SERUM Specimen Type: SERUM No comment entered. Ordering Provider: NAOMIE HUERTAS Report Released Date/Time: Jun 04, 2024 04:01 PM Reporting [facility]: [facility] [address] [address] Performing [facility]: [facility] [address] [address] UREA NITROGEN 14 mg/dL 7-25 GLUCOSE 167 mg/dL H 65-100 SODIUM 140 mmol/L 135-145 POTASSIUM 3.8 mmol/L 3.5-5.0 CHLORIDE 104 mmol/L 100-110 CO2 27 meq/L 20-30 CREATININE, Serum 1.10 mg/dL 0.50-1.40 eGFR(CKD-EPI 2020) 68 mL/min >60 Oct 18, 2024 10:39 AM [facility] URINALYSIS URINE S pecimen Type: URINE Comment: If Glucose = >500 and Ketones are positive, please alert the Physician. Ordering Provider: NAOMIE HUERTAS Report Released Date/Time: Jun 04, 2024 04:01 PM Reporting Lab: [address] [address] Performing Lab: [address] [address] UA COLOR Light-Yellow Yellow UA APPEARANCE Clear Clear UA GLUCOSE Normal mg/dL Negative UA KETONES NEGATIVE mg/dL Negative UA BLOOD NEGATIVE mg/dL Negative UA PROTEIN 30 mg/dL Negative UA NITRITE NEGATIVE mg/dL Negative UA BILIRUBIN NEGATIVE mg/dL Negative UA SPECIFIC GRAVITY 1.021 1.016-1.022 UA pH 6.0 5.0-9.0 UA UROBILINOGEN Normal mg/dL <2.0 UA LEUKOCYTE NEGATIVE Negative Oct 18, 2024 10:39 AM [facility] LIVER FUNCTION SERUM Specimen Type: SERUM No comment entered. Ordering Provider: NAOMIE HUERTAS Report Released Date/Time: Jun 04, 2024 04:01 PM Reporting Lab: [address] [address] Performing Lab: [address] [address] PROTEIN,TOTAL 7.2 g/dL 6.0-8.3 ALBUMIN 4.0 g/dL 3.5-5.0 ALKALINE PHOSPHATASE 54 U/L 40-150 AST 33 U/L 5-34 ALT 39 U/L BILIRUBIN, TOTAL 0.9 mg/dL 0.2-1.2 Oct 18, 2024 10:39 AM [facility] CREATININE (eGFR 2020) SERUM Specimen Type: SERUM No comment entered. Ordering Provider: NAOMIE HUERTAS Report Released Date/Time: Jun 04, 2024 04:01 PM Reporting Lab: [address] [address] Performing Lab: [facility] [place] [facility] [address] [facility] [address] CREATININE, Serum 1.10 mg/dL 0.50-1.40 eGFR(CKD-EPI 2020) 68 mL/min >60 Social History: Smoking Status (Most current) and Tobacco Use (All prior to encounter date) This section includes the most current, and the historical, smoking and tobacco- related health factors from the [facility] facility where the Encounter took place. Current Smoking Status This section includes the most current smoking, or tobacco-related health factor, from the [facility] facility where the Encounter took place. Date/Time Current Smoking Status Comment Facil ity Mar 25, 2024 12:03 PM VA-TOBACCO QUIT 15 [facility] Tobacco Use History This section includes a history of the smoking, or tobacco-related health factors, that were collected on or before the date of the Encounter. The data comes from the [facility] facility where the Encounter took place. Date/Time Smoking Status/Tobacco Use Comment F acility Mar 25, 2024 12:03 PM VA-TOBACCO QUIT 15 YRS OR MORE [facility] [place] [facility] Apr 01, 2019 09:37 AM VA-TOBACCO FORMER USER [facility] [place] [facility] Apr 01, 2019 09:37 AM VA-TOBACCO QUIT 15 YRS OR MORE [facility] [place] [facility] Apr 01, 2018 09:18 AM VA-TOBACCO FORMER USER [facility] [place] [facility] Apr 01, 2018 09:18 AM VA-TOBACCO QUIT 15 YRS OR MORE [facility] [place] [facility] Apr 01, 2018 08:44 AM QUIT TOBACCO USE > 7 YEARS AGO [facility] [place] [facility] Feb 17, 2017 10:42 AM QUIT TOBACCO USE > 7 YEARS AGO [facility] [place] [facility] January 18, 2016 08:51 AM QUIT TOBACCO USE > 7 YEARS AGO . [facility] [place] [facility] Mar 12, 2010 11:19 AM QUIT TOBACCO USE > 7 YEARS AGO [facility] Advance Directives: All historical and current Section Date Range: From patient's date of to the date document was created. This section includes ALL of a patient's completed or amended [facility] Advance and Rescinded Directives. The entries below indicate that a directive exists for the patient, but an actual copy is not included with this document. The data comes from all [facility] facilities. Date Advance Directives Provider Source Jun 20, 2003 ADVANCE DIRECTIVE EMANI REED [facility] [place] [facility] Encounter Notes: All associated encounter notes This section contains the clinical notes associated to the Encounter. Date/Time Encounter Note(s) Provider Source Nov 10, 2024 07:12 AM OPTOMETRY NOTE: LOCAL TITLE: OPTOMETRY NOTE STANDARD TITLE: OPTOMETRY NOTE DATE OF NOTE: NOV 10, 2024@07:12 ENTRY DATE: NOV 10, 2024@07:12:10 AUTHOR: ISABELL LISA EXP COSIGNER: GLORIA CARRERA URGENCY: STATUS: COMPLETED OPTOMETRY [...] senile cataract 15. Diabetes mellitus (SNOMED CT 67802781) 16. Essential hypertension (SNOMED CT 35610397) 17. Hyperlipidemia (SNOMED CT 96151871) 18. Chronic tension-type headache (SNOMED CT 775158626) 19. Hearing loss (SNOMED CT 71318610) Active Outpatient Medications (including Supplies): Active Outpatient [...] MALE is seen today for DIABETIC CEE KHADRA: 05/10/22 Chief Complaint: Denied any vision or [...] in his heart 10/2024. Next appt with grey washer is coming up next month Diabetic - [...] No improvement OD: +0.50-0.50 x075 20/20-2 OS: [place]-0.75 x104 20/25- Add:+2.25 20/20- All the above [...] this VA (local) and dispensed from another [facility] or [facility] facility (remote) as well as inpatient orders [...] Remote Allergy/ADR Data available for this patient [facility] [place] [facility] DILAUDID INJECTION 2 MG/ML [facility] [place] [facility] MORPHINE [facility] [...] display of VA prescriptions dispensed from another VA or DoD facility (remote) is limited to active outpatient prescription entries matched to National Drug File at the originating site and may not include some items such as investigational drugs, compounds, etc. NOT INCLUDED IN THIS LIST: Medications self-entered by the patient into personal health records (i.e. [facility]) are NOT included in this list. Non-VA medications documented outside this UT, remote inpatient orders (regardless of status) and [...] TIMES A DAY FOR DRY EYE Rx# [id number] Last Released: 05/10/24 Qty/Days Supply: Rx Expiration Date: 11/20/24 Refills Remainin Indication: FOR DRY EYE OUTPT CARBOXYMETHYLCELLULOSE NA 0.5% OPH SOLN (Status = Pending) INSTILL 1 DROP INTO EACH EYE FOUR TIMES A DAY FOR DRY EYE Renewed from Rx# [id number] Qty/Days Supply: Login Date: 11/10/24 Refills Ordered: [...] TERMS AND POSSIBLE PATIENT ACTIONS INPT = UT inpatient order IV = UT intravenous medication OUTPT = UT outpatient prescription PHARMACY POSSIBLE PATIENT TERMS EXPLANATION ACTIONS -------- - ACTIVE A prescription that can be If you have refills, filled at the local [facility] pharmacy. you may request a refill of this prescription from your [facility] pharmacy. CLINIC A medication you received during If you have questions a visit to a UT clinic or about this medication emergency department. contact your UT healthcare team. DISCONTINUED A prescription your provider has Contact your UT stopped. It is no longer healthcare team if you available to be sent to you or need more of this picked up at the UT pharmacy medication. window. A prescription which is [...] or out of prescription from either the UT date, please tell your or non VA providers that was VA healthcare team. filled outside the VA. Or, it may be an pyzh-hey-tfozpyo (OTC), herbal, dietary supplements or sample medication. [...] Medication Reconciliation List Offered and Declined by [place] () Medication Reconciliation List Printed for [place] at Exam () Optometry HT Please Print and Mail Copy of Medication Reconciliation List () AMSA Please Print and Mail Copy of Medication Reconciliation List /dereje/ ISABELL LISA OPTOMETRY STUDENT Signed: 11/10/2024 16:04 /dereje/ GLORIA CARRERA OD JEWISH HISTORY PROFESSOR Cosigned: 11/10/2024 16:18 11/10/2024 ADDENDUM STATUS: COMPLETED The optometry internal grinder tender participated in this exam, I saw this in conjunction with the optometry student. The [...] assessment and plan. Ed re today's findings. [place] repeated back the plan and education. All reminders completed by attending and documented in student note. /dereje/ GLORIA CARRERA OD JEWISH HISTORY PROFESSOR Signed: 11/10/2024 16:19 ISABELL LISA [facility]
--- OUTSIDE RECORDS SUMMARY | 2025-01-10 06:30 | XMS_ITS | Encounter Summary ---
Author Name [facility] [place] Organization [place] Address [address] [place] [id number] Care Team Providers Care Breakdown Mill Operator Name Role Phone BAN LIRIANO Primary [...] Patient's Relationship to Policy [place] EVELYN BCBS [facility] MEDICARE (M) ANTHE M MEDIB LUE [facility] Feb 13, 2011 [id number] [place] PATIENT BCBS [facility] (WNR) MEDICARE ADVANTAGE [facility] (WNR) Feb 13, 2011 [id number] [phone] BYRNES PATIENT EXPRESS SCRIPTS ([id number]) PRESCRIPT ION BCBS Feb 13, 2011 [id number] [phone] BYRNES PATIENT Selected Encounter This section includes the information on record at [place] for the Encounter. Date/Time Encounter Type Encounter Description Reason Provider Source Jun 04, 2024 03:00 PM OFFICE O/P EST MOD 30 MIN PRIMARY CARE/MEDICINE ICD-10-CM I48.91 Unspecified atrial fibrillation NAOMIE HUERTAS Encounter Template Text not used by [place] Assessments - Encounter Diagnoses This section includes the primary and secondary diagnoses documented for the Encounter. Date/Time Primary/Secondary Diagnosis Diagnosis Name Provider Source Jun 04, 2024 04:12 PM PRIMARY Unspecified atrial fibrillation NAOMIE HUERTAS [place] Jun 04, 2024 04:12 PM SECONDARY Essential (primary) hypertension NAOMIE HUERTAS [place] Jun 04, 2024 04:12 PM SECONDARY Type 2 diabetes mellitus without complications NAOMIE HUERTASFIELD Plan of Treatment: Future Appointments (+ 6 months) and Future Tests (+/- 45 days) The Plan of Treatment section includes future care activities for the patient from all [facility] This section includes future appointments and future orders which are active, pending or scheduled. Future Appointments This section includes appointments that were scheduled to occur 6 months from the date of the Encounter, up to a maximum of 20 appointments. The data comes from all [place] treatment facilities. Appointment Date/Time Appointment Type Appointme nt Facility Name Jul 05, 2024 09:00 AM [facility] Jul 06, 2024 10:00 AM AMBULATORY - MEDICINE [facility] Sep 06, 2024 04:30 PM AMBULAT[facility] - [facility] Sep 28, 2024 09[facility]00 AM AMBULATORY - [facility] Nov 10, 2024 08:00 AM AMBULATORY - [facility]ICINE [facility] Vital Signs: All taken on the encounter date This section contains inpatient and outpatient Vital Signs collected on the date of the Encounter. Date/Time Temperature Pulse Blood Pressure Respiratory Rate SP02 Pain Height Weight Body Mass Index Source Jun 04, 2024 03:13 PM 98.2 76 135/75 19 95 69 208 31 [facility] IELD Advance Directives: All historical and current Section Date Range: From patient's date of to the date document was created. This section includes ALL of a patient's completed or amended [place] Advance and Rescinded Directives. The entries below indicate that a directive exists for the patient, but an actual copy is not included with this document. The data comes from all [place] facilities. Date Advance Directives Provider Source Jun 20, 2003 ADVANCE DIRECTIVE EMANI REED [facility] Encounter Notes: All associated encounter notes This section contains the clinical notes associated to the Encounter. Date/Time Encounter Note(s) Provider Source Jun 04, 2024 03:09 PM PHYSICIAN DEIRDRE Avalos NOTE: LOCAL TITLE: PA NOTE STANDARD TITLE: PHYSICIAN INTERNET SOURCER NOTE DATE OF NOTE: JUN 04, 2024@15:09 ENTRY DATE: JUN 04, 2024@15:09:14 AUTHOR: NAOMIE HUERTAS COSIGNER: URGENCY: STATUS: COMPLETED Active Outpatient Medications (including [...] or rashes FH: not contributory Mil Hx: [employer] MOS - [employer] WIA - never TBI - no [place]: retired worked at [employer] SH: O - coop A&Ox3 NAD W-N/H/D [...] 12.5 MG) 2) C/V Stable - never [place] 3) A FIB and s/p Ablation Yrs [...] this VA (local) and dispensed from another [place] or [facility] facility (remote) as well as inpatient orders [...] nl SENSORY CHECK: Includes 10 gram Monofilament ([place]-Suzette) test of sensation. Intact (Greater than or [...] Ordered: Eye exam completed elsewhere by an Galvanizing Pot Runner or Pie Bottomer Exam Information: Date: October, ? Exact date [...] provider. /dereje/ NAOMIE HUERTAS PA-C STAFF PHYSICIAN INTERNET SOURCER Signed: 06/04/2024 16:13 NAOMIE HUERTAS
--- OUTSIDE RECORDS SUMMARY | 2025-01-10 06:30 | XMS_ITS ---
Author Name [facility] [facility] [place] Organization [facility] [place] Address [address] [place] [address] Care Team Providers Care Game Moderator Name Role Phone BAN LIRIANO Primary Care [...] EVELY[place] MEDICARE (M) CELINA Riggnis MEDIB LUE [facility] Feb 13, 2011 [id number] [phone] BYRNES PATIENT BCBS [facility] (WNR) MEDICARE ADVANTAGE [facility] (WNR) Feb 13, 2011 [id number] [phone] BYRNES PATIENT EXPRESS SCRIPTS ([id number]) PRESCRIPT ION BCBS Feb 13, 2011 [id number] BYRNES PATIENT Selected Encounter This section includes the information on record at [place] for the Encounter. Date/Time Encounter Type Encounter Description Reason Provider Source Jun 01, 2024 08:30 AM HEARING AID FITTING/CHECKIN G AUDIOLOGY ICD-10-CM Z46.1 Encounter for fitting and adjustment of hearing aid CAMINITI,NIKO E IHE Encounter Template Text not used by [place] Assessments - Encounter Diagnoses This section includes the primary and secondary diagnoses documented for the Encounter. Date/Time Primary/Secondary Diagnosis Diagnosis Name Provider Source Jun 01, 2024 08:56 AM PRIMARY Encounter for fitting and adjustment of hearing aid NIKO PABON [facility] Jun 01, 2024 08:56 AM SECONDARY Sensorineural hearing loss, bilateral NIKO PABON [facility] Plan of Treatment: Future Appointments (+ 6 months) and Future Tests (+/- 45 days) The Plan of Treatment section includes future care activities for the patient from all [place] [facility]. This section includes future appointments and [...] 2024 03:00 PM AMBULATORY - MEDICINE [facility] Jul 05, 2024 09:00 AM [facility] Jul 06, 2024 10:00 AM AMBULATORY - MEDICINE [facility] Sep 06, 2024 04:30 PM AMBULATORY - RE[facility]AB [facility] Sep 28, 2024 09:00 AM AMBULATORY - [facility] Nov 10, 2024 08:00 AM [facility] Social History: Smoking Status (Most current) and Tobacco Use (All prior to encounter date) This section includes the most current, and the historical, smoking and tobacco- related health factors from the [place] facility where the Encounter took place. Current Smoking Status This section includes the most current smoking, or tobacco-related health factor, from the [place] facility where the Encounter took place. Date/Time Current Smoking Status Comment Avis poncey Mar 25, 2024 12:03 PM VA-TOBACCO FORMER USER [facility] Tobacco Use History This section includes a history of the smoking, or tobacco-related health factors, that were collected on or before the date of the Encounter. The data comes from the [place] facility where the Encounter took place. Date/Time Smoking Status/Tobacco Use Comment F acility Mar 25, 2024 12:03 PM VA-TOBACCO QUIT 15 YRS OR MORE [facility] Apr 01, 2019 09:37 AM VA-TOBACCO FORMER USER [facility] Apr 01, 2019 09:37 AM VA-TOBACCO QUIT 15 YRS OR MORE [facility] Apr 01, 2018 09:18 AM VA-TOBACCO FORMER USER [facility] Apr 01, 2018 09:18 AM VA-TOBACCO QUIT 15 YRS OR MORE [facility] Apr 01, 2018 08:44 AM QUIT TOBACCO USE > 7 YEARS AGO [facility] Feb 17, 2017 10:42 AM QUIT TOBACCO USE > 7 YEARS AGO [facility] January 18, 2016 08:51 AM QUIT TOBACCO USE > 7 YEARS AGO . [facility] Mar 12, 2010 11:19 AM QUIT TOBACCO USE > 7 YEARS AGO [facility] Advance Directives: All historical and current Section Date Range: From patient's date of to the date document was created. This section includes ALL of a patient's completed or amended [place] Advance and Rescinded Directives. The entries below indicate that a directive exists for the patient, but an actual copy is not included with this document. The data comes from all [place] facilities. Date Advance Directives Provider Source Jun 20, 2003 ADVANCE DIRECTIVE EMANI REED [facility] Encounter Notes: All associated encounter notes This section contains the clinical notes associated to the Encounter. Date/Time Encounter Note(s) Provider Source Jun 01, 2024 07:45 AM AUDIOLOGY E & M NO TE: LOCAL TITLE: AUDIOLOGY CLINIC STANDARD TITLE: AUDIOLOGY E & M NOTE DATE OF NOTE: JUN 01, 2024@07:45 ENTRY DATE: JUN 01, 2024@07:45:15 AUTHOR: NIKO PABON COSIGNER: URGENCY: STATUS: COMPLETED Muldrow has a history of bilateral sensorineural hearing [...] both hearing aids. They were connected to [facility] a new feedback test was run. Good gain margins were noted. Muldrow will contact the clinic as needed. He asks about an updated hearing test at the next maintenance interval and he was advised this could be scheduled at any time. /dereje/ Wilman KOTHARI, [facility]-A STAFF APRN Signed: 06/01/2024 08:57 NIKO PABON [facility]
--- OUTSIDE RECORDS SUMMARY | 2025-01-10 06:30 | XMS_ITS | Encounter Summary ---
Author Name Department [place] Organization Department [place] Address [address] [place] [address] Care Team Providers Care Ultrasonic Seaming Machine Operator Name Role Phone BAN LIRIANO Primary [...] Patient's Relationship to Policy Haynes EVELYN BCBS [facility] MEDICARE (M) ANTHE M MEDIB LUE [facility] Feb 13, 2011 [id number] BUSTAMANTEIS PATIENT BCBS [facility] (WNR) MEDICARE ADVANTAGE [facility] (WNR) Feb 13, 2011 [id number] [phone] BYRNES PATIENT EXPRESS SCRIPTS ([id number]) PRESCRIPT ION BCBS Feb 13, 2011 [id number] [phone] BYRNES PATIENT Selected Encounter This section includes the information on record at [place] for the Encounter. Date/Time Encounter Type Encounter Description Reason Provider Source Jul 06, 2024 10:00 AM OFFICE O/P NEW LOW 30 MIN PODIATRY ICD-10-CM M21.42 Flat foot [pes planus] (acquired), left foot GREY RICARDO Encounter Template Text not used by [place] Assessments - Encounter Diagnoses This section includes the primary and secondary diagnoses documented for the Encounter. Date/Time Primary/Secondary Diagnosis Diagnosis Name Provider Source Jul 06, 2024 12:57 PM PRIMARY Flat foot [pes planus] (acquired), left foot GREY RICARDO Jul 06, 2024 12:57 PM SECONDARY Charcot's joint, left ankle and foot GREY RICARDO Plan of Treatment: Future Appointments (+ 6 months) and Future Tests (+/- 45 days) The Plan of Treatment section includes future care activities for the patient from all [place] [facility]. This section includes future appointments and future orders which are active, pending or scheduled. Future Appointments This section includes appointments that were scheduled to occur 6 months from the date of the Encounter, up to a maximum of 20 appointments. The data comes from all [place] treatment facilities. Appointment Date/Time Appointment Type Appointme nt Facility Name Sep 06, 2024 04:30 PM AMBULATORY - [facility]HAB [facility]IC[facility] E [facility] Sep 28, 2024 09:00 AM AMBULAT[facility] Nov 10, 2024 08:00 AM AMBULATORY - MEDICINE [facility] Dec 07, 2024 09:30 AM AMBULATORY - PSYCHIATRY [facility] Advance Directives: All historical and current Section Date Range: From patient's date of to the date document was created. This section includes ALL of a patient's completed or amended [place] Advance and Rescinded Directives. The entries below indicate that a directive exists for the patient, but an actual copy is not included with this document. The data comes from all [place] facilities. Date Advance Directives Provider Source Jun 20, 2003 ADVANCE DIRECTIVE EMANI REED [facility] Encounter Notes: All associated encounter notes This section contains the clinical notes associated to the Encounter. Date/Time Encounter Note(s) Provider Source Jul 06, 2024 07:48 AM PODIATRY CONSULT: LOCAL TITLE: CONSULT REPORT/PODIATRY STANDARD TITLE: PODIATRY CONSULT DATE OF NOTE: JUL 06, 2024@07:48 ENTRY DATE: JUL 06, 2024@07:48:13 AUTHOR: GREY RICARDO EXP COSIGNER: URGENCY: STATUS: COMPLETED NAME: ANDRE BALDWIN DATE: JUL 06, 2024 : Feb PCP: NAOMIE HUERTAS LAST SEEN: INITIAL CONSULT VISIT TODAY NOTE: HAS RECEIVED BOTH COVID VACCINE DOSES AT [facility] HPI: Pt. is a 79 yo alert W[facility] MALE who presents for initial podiatric examination with Dr. 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 Patient DENIES HAVING TYPE [...] increased activity. Previous treatment: CUSTOM ORTHOSES OUTSIDE STRAIGHT PIN MAKING MACHINE OPERATOR PMH: Active problems - Computerized Problem List [...] senile cataract 15. Diabetes mellitus (SNOMED CT 26287438) 16. Essential hypertension (SNOMED CT 65109683) 17. Hyperlipidemia (SNOMED CT 25385299) 18. Chronic tension-type headache (SNOMED CT 935389338) 19. Hearing loss (SNOMED CT 48496666) *NOTE: REVIEWED ABOVE, NOTING NON-CONTRIBUTORY TO THE [...] present physical-medical status. Protective sensation utilizing a [place] lOg monofilament is 10/10 bilateral. BIOMECHANICAL: Exam [...] will CALL FOR REASSESSMENT AFTER HE RECEIVES TH ENEW CUSTOM ORTHOSES IN TH E MAIL-I HAVE SUGGESTED A POSSIBLE 6 [...] of active outpatient prescriptions dispensed from this [place] (local) and dispensed from another [place] or [facility] facility (remote) as well as [...] or non-VA provider. /dereje/ GREY RICARDO DPM STRAIGHT PIN MAKING MACHINE OPERATOR Signed: 07/06/2024 12:57 GREY RICARDO
--- OUTSIDE RECORDS SUMMARY | 2025-01-10 06:30 | XMS_ITS | Clinical Summary ---
[facility] Organization [facility] it Address [address] [place] [address] Care Team Providers Care Market Risk Manager Name Role Phone Jesus Miller NP Primary Care Provider [phone] Surgical History Surgery Date Site/Laterality Comments TOTAL KNEE ARTHROPLASTY Right PROCEDURE: HISTORICAL TOTAL KNEE REPLACE OTHER SURGICAL HISTORY N/A PROCEDURE: [place] ANES CARDIAC ELECTROPHYSIOL STDY W/RF ABLATION OTHER SURGICAL HISTORY N/A PROCEDURE: NH CARDIOVERSION ELECTIVE ARRHYTHMIA EXTERNAL NOSE SURGERY N/A PROCEDURE: NH UNLISTED PROCEDURE NOSE OTHER SURGICAL HISTORY 07/09/2023 Left PROCEDURE: NH THORACOSCOPY W/THERA WEDGE RESEXN INITIAL UNILAT; COMMENT: LLL wedge x2 Medical History Medical History Date Comments Ectatic thoracic aorta ([facility] V24) DX:Ectatic thoracic aorta ([facility]) Bifascicular block DX:Bifascicul ar block IBS (irritable bowel syndrome) D X:IBS (irritable bowel syndrome) History of kidney cancer exc luding renal pelvis DX:History of kidney cancer excluding renal pelvis Actinic keratoses DX:Actinic ker atoses PAF (paroxysmal atrial fibri llation) (CMS/HCC V24, CMS/HCC V28) DX:PAF (paroxysmal atrial f ibrillation) ([facility]) Chronic allergic rhinitis DX:Chr onic allergic rhinitis COPD (chronic obstructive pu lmonary disease) ([facility]/HCC V24, [facility]/HCC V28) DX:COPD (chronic o bstructive pulmonary disease) ([facility]) Pulmonary nodules DX:Pulmonary n odules Family [...] Vaccines (1 of 2) 02/22/1996 RSV Immunization Adult Patie nts (1 - 1-dose 75+ series) 2021 Cholesterol Screening (Lipid Panel) 10/09/2023 Depression Screening 10/09/2023 Falls Risk Assessment 10/09/2023 Hepatitis C Screening 10/09/2023 Social Influencers of Health Screening 10/09/2023 COVID-19 Vaccine ( - 2023-2 5 season) 2024 Influenza Vaccine (Season Ended) 2025 HIB Vaccines Aged Out No longer eligi [...] age to complete this topic Meningococcal B Vaccine Aged Out No l onger eligible based on patient's age to complete this topic RSV Immunization Patients Un nury 20 months Aged Out No longer eligible b ased on patient's age to complete this topic Varicella Vaccines Aged Out No longer eligible based on patient's age to complete this topic Care Teams Market Risk Manager Relationship Specialty Start Date End Date Jesus Miller NP [address], [place] PCP - General 10/30/23
--- OUTSIDE RECORDS SUMMARY | 2025-01-10 06:30 | XMS_ITS ---
Author Name [facility] [place] Organization [place] Address [address] [place] [address] Care Team Providers Care News Analyst Name Role Phone BAN LIRIANO Primary Care [...] [place] MEDICARE (M) CELINA Riggins MEDIB LUE [facility] Feb 13, 2011 [id number] BYRNES PATIENT BCBS [facility] (WNR) MEDICARE ADVANTAGE [facility] (WNR) Feb 13, 2011 [id number] BYRNES PATIENT EXPRESS SCRIPTS ([id number]) PRESCRIPT ION BCBS Feb 13, 2011 [id number] BYRNES PATIENT Selected Encounter This section includes the information on record at [place] for the Encounter. Date/Time Encounter Type Encounter Description Reason Provider Source Sep 06, 2024 04:30 PM HEARING AID REPAIR/MODIFYIN G AUDIOLOGY ICD-10-CM Z46.1 Encounter for fitting and adjustment of hearing aid JEMMA LOUIS Encounter Template Text not used by [place] Assessments - Encounter Diagnoses This section includes the primary and secondary diagnoses documented for the Encounter. Date/Time Primary/Secondary Diagnosis Diagnosis Name Provider Source Sep 06, 2024 05:08 PM PRIMARY Encounter for fitting and adjustment of hearing aid [facility] Sep 06, 2024 05:08 PM SECONDARY Sensorineural hearing loss, bilateral JEMMA LOUIS [facility] Plan of Treatment: Future Appointments (+ 6 months) and Future Tests (+/- 45 days) The Plan of Treatment section includes future care activities for the patient from all [place] [facility]. This section includes future appointments and future orders which are active, pending or scheduled. Future Appointments This section includes appointments that were scheduled to occur 6 months from the date of the Encounter, up to a maximum of 20 appointments. The data comes from all [facility]. Appointment Date/Time Appointment Type Appointme nt Facility Name Sep 28, 2024 09:00 AM AM[place]ULAT[facility] [place] [facility] [place] [facility] Nov 10, 2024 08:00 AM AM[facility]UL[facility] Dec 07, 2024 09:30 AM AMBULATORY - PSYCHIATRY [facility] February 08, 2025 09:00 AM AMBULATORY - PSYCHIATRY [facility] February 10, 2025 10:00 AM AMBULATORY - MEDICINE [facility] Active, Pending, and Scheduled Orders This section includes a listing of several types of active, pending, and scheduled orders, including clinic medications orders, diagnostic test orders, procedure orders and consult orders; where the start date of the order is 45 days before the date of the Encounter or 45 days after the date of theEncounter. The data comes from all [facility]. Test Date/Time Test Type Test Details Facility Name Oct 04, 2024 12:00 AM Laboratory - Chemi stry Order HEMOGLOBIN A1C PANEL BLOOD (LAV-BLOOD) [facility] Social History: Smoking Status (Most current) and Tobacco Use (All prior to encounter date) This section includes the most current, and the historical, smoking and tobacco- related health factors from the [place] facility where the Encounter took place. Current Smoking Status This section includes the most current smoking, or tobacco-related health factor, from the [place] facility where the Encounter took place. Date/Time Current Smoking Status Comment Avis ity Mar 25, 2024 12:03 PM VA-TOBACCO QUIT 15 YRS OR MORE [facility] Tobacco Use History This section includes a history of the smoking, or tobacco-related health factors, that were collected on or before the date of the Encounter. The data comes from the [place] facility where the Encounter took place. Date/Time Smoking Status/Tobacco Use Comment Maribel acility Mar 25, 2024 12:03 PM VA-TOBACCO QUIT 15 YRS OR MORE [facility] Apr 01, 2019 09:37 AM VA-TOBACCO FORMER USER [facility] Apr 01, 2019 09:37 AM VA-TOBACCO QUIT 15 YRS OR MORE [facility] Apr 01, 2018 09:18 AM VA-TOBACCO FORMER USER [facility] Apr 01, 2018 09:18 AM VA-TOBACCO QUIT 15 YRS OR MORE [facility] Apr 01, 2018 08:44 AM QUIT TOBACCO USE > 7 YEARS AGO [facility] Feb 17, 2017 10:42 AM QUIT TOBACCO USE > 7 YEARS AGO [facility] January 18, 2016 08:51 AM QUIT TOBACCO USE > 7 YEARS AGO . [facility] Mar 12, 2010 11:19 AM QUIT TOBACCO USE > 7 YEARS AGO [facility] Advance Directives: All historical and current Section Date Range: From patient's date of to the date document was created. This section includes ALL of a patient's completed or amended [place] Advance and Rescinded Directives. The entries below indicate that a directive exists for the patient, but an actual copy is not included with this document. The data comes from all [place] facilities. Date Advance Directives Provider Source Jun 20, 2003 ADVANCE DIRECTIVE EMANI REED [facility] Encounter Notes: All associated encounter notes This section contains the clinical notes associated to the Encounter. Date/Time Encounter Note(s) Provider Source Sep 06, 2024 10:19 AM AUDIOLOGY E & M NO TE: LOCAL TITLE: AUDIOLOGY CLINIC STANDARD TITLE: AUDIOLOGY E & M NOTE DATE OF NOTE: SEP 06, 2024@10:19 ENTRY DATE: SEP 06, 2024@10:19:29 AUTHOR: JEMMA LOUIS COSIGNER: URGENCY: STATUS: COMPLETED AUDIOLOGY CLINIC Has ADDENDA Dx CODE: Z46.1-Encounter for Fitting/Adjusting Hearing Aid(s); H90.3- Sensorineural Hearing Loss, Bilateral APPOINTMENT TYPE: Hearing Aid Check HISTORY/BACKGROUND: Rachel was seen for a hearing aid follow-up appointment, unaccompanied. He was fit on 07/08/22 with OleryV AI BTE Rs. He scheduled today's appointment noting problems with the hearing aids. He notes that the volume seems to fluctuate and decrease in volume. Archer notes that this has been a problem for a while and the efforts made at his last visit did not help. Decided to send the devices for repair due to intermittency. Archer brought his spare 2018 #waywire IQ I2400 MINI BTE 312s with him as well and noted that the earmolds on these devices are more comfortable than the newer molds. The serial numbers of these molds were recorded (L- [id number], R- [id number]) and new canal lock earmolds with size 5 thin tubes were ordered in [place] and will to be attached to the 2021 aids. The 2018 aids were cleaned and checked. Size 5 thin tubes and microphone covers were replaced. These devices are in good working condition. PLAN/RECOMMENDATION(S): 1. RTC on 09/28/24 at 9:00AM in clinic D for an updated hearing evaluation at 's request. Repaired hearing aids and new canal lock earmolds will be issued to at that time. Patient Education Education provided on the following topics: Hearing aids Education provided to: P Response to Education: MK Flaherty Patient P Family F Significant Other SO Verbalizes Understanding VU Returns Demonstration RD Performs Independently PI Lacks Comprehension LC Refused Education RE Not Applicable NA /JUDAH Castro, CCC-A STAFF [employer] SALES REP Signed: 09/06/2024 17:08 Receipt Acknowledged By: 09/09/2024 10:27 /dereje/ FRANK GONSALEZ LEAD TILT TRAY DRIVER 09/28/2024 ADDENDUM STATUS: COMPLETED Repaired hearing aids and earmolds not found in clinic. was called and offered to keep today's test appointment or reschedule upon receipt of repaired devices. He wished to be rescheduled once the hearing aids and earmolds arrive. /dereje/ VIVIANE MCGINNIS STAFF [employer] SALES REP Signed: 09/28/2024 08:01 JEMMA LOUIS [place] CN[facility] W[facility]
--- OUTSIDE RECORDS SUMMARY | 2025-01-10 06:30 | XMS_ITS | Encounter Summary ---
Author Name [facility] Address [address] [place] [id number] Care Team Providers Care Calcine Furnace Tender Name Role Phone BAN LIRIANO Primary Care [...] Patient's Relationship to Policy Haynes EVELYN BCBS [facility] MEDICARE (M) ANTHE M MEDIB LUE [facility] Feb 13, 2011 [id number] BUSTAMANTEIS PATIENT BCBS [facility] (WNR) MEDICARE ADVANTAGE [facility] (WNR) Feb 13, 2011 [id number] BYRNES PATIENT [employer] ([id number]) PRESCRIPT ION BCBS Feb 13, 2011 [id number] [phone] BYRNES PATIENT Selected Encounter This section includes the information on record at [place] for the Encounter. Date/Time Encounter Type Encounter Description Reason Provider Source Dec 07, 2024 09:30 AM OFFICE O/P [place] [facility] - IND ICD-10-CM F41.9 Anxiety disorder, unspecified BETTINA ROACH Encounter Template Text not used by [place] [...] activities for the patient [facility] [place] [facility] This section includes future appointments and future orders which are active, pending or scheduled. Future Appointments This section includes appointments that were scheduled to occur 6 months from the date of the Encounter, up to a maximum of 20 appointments. The data comes from all [place] treatment facilities. Appointment Date/Time Appointment Type Appointme nt Facility Name February 08, 2025 09:00 AM AMBULATORY - PSYCHIATRY [facility] February 10, 2025 10:00 AM AMBULATORY - MEDICINE [facility] Active, Pending, and Scheduled Orders This section includes a listing of several types of active, pending, and scheduled orders, including clinic medications orders, diagnostic test orders, procedure orders and consult orders; where the start date of the order is 45 days before the date of the Encounter or 45 days after the date of theEncounter. The data comes from all [place] treatment facilities. Test Date/Time Test Type Test Details Facility Name Nov 04, 2024 12:00 AM Laboratory - Chemi stry Order MICROALBUMIN CREATININE RATIO PANEL URINE ([facility]) [facility] Advance Directives: All historical and [...] Jun 20, 2003 ADVANCE DIRECTIVE EMANI REED [place] [facility] Encounter Notes: All associated encounter notes This section contains the clinical notes associated to the Encounter. Date/Time Encounter Note(s) Provider Source Dec 07, 2024 10:18 AM PSYCHIATRY NOTE: LOCAL TITLE: PSYCHIATRY NOTE STANDARD TITLE: PSYCHIATRY NOTE DATE OF NOTE: DEC 07, 2024@10:18 ENTRY DATE: DEC 07, 2024@10:18:52 AUTHOR: BETTINA ROACH EXP COSIGNER: URGENCY: STATUS: COMPLETED PSYCHIATRY NOTE Has ADDENDA F: Psychiatry Note [place] was seen re: Mental health medication intake identified himself by name and date of [...] senile cataract 15. Diabetes mellitus (SNOMED CT 47136438) 16. Essential hypertension (SNOMED CT 47648205) 17. Hyperlipidemia (SNOMED CT 72264963) 18. Chronic tension-type headache (SNOMED CT 243237191) 19. Hearing loss (SNOMED CT 51181056) Active Outpatient Medications (including Supplies): Active Outpatient [...] care of doctor Private PCP is at [place] 5. Pes planus See Podiatry at [place] for Customized Insets 6. Body mass index [...] as of JUN 08 Private Cardio - Dr Young [facility] 12. Irritable bowel syndrome diarrhea 13. Asthma 14. Cortical senile cataract 15. Diabetes mellitus (SNOMED CT 12704783) No Report of DR as of JUN 08: Private Ophth Dr Huffman @ [facility] 16. Essential hypertension (SNOMED CT 24090161) 17. Hyperlipidemia (SNOMED CT 15435858) 18. Chronic tension-type headache (SNOMED CT 471275023) 19. Hearing loss (SNOMED CT 98267453) Has Amplification via [place] xxxxxxxxxxxxxxxxxxxxxxxxxxxxxxxxxxxx xxxxxxxxxxxxxxxxxxxxxxxxxxx Substance Use Hx: Alcohol Use: [...] spending time with my , shooting club, faith. XXXXXXXXXXXXXXXX---Medical Decision Making---XXXXXXXXXXXXXXXXXXXXXXXXXXX XXXXX Risk assessment: no acute risk concerns unless otherwise stated. Assessment/Impression: ___stable (ongoing outpatient level of care) SEE beginning of this note for list of DIAGNOSES. XXXXXXXXXXXXXXXXXXXXXXXXXXXXXXXXXXXX XXXXXXXXXXXXXXXXXXXXXXXXXXXXXXXXXXXX XXXXX Objective: Forest is a 79 year old male [employer] [place] who presents for mental health medication intake. [...] NEGATIVE Bilirubin, Urine (AX 4280): NEGATIVE Specific [place], (AX 4280): 1.021 pH, Urine (AU5048): 6.0 Urobilinogen, Urine (AX 4280): Normal Leukocyte Esterase, (AX 4280): NEGATIVE MICROALB/CR RATIO: 103.3 H MICROALBUMIN URINE: 14.3 CREATININE URINE: 138.43 HGB A1C (WR): 6.9 H WBC: 9.54 RBC: 5.51 HGB: 16.2 HCT: 48.2 MCV: 87.5 MCHC: 33.6 RDW: 13.1 PLT: 200 RETICULOCYTES: 2.2 H MCH: 29.4 Neut %: 63.1 Lymph %: 25.4 Mckenzie %: 7.8 Eos %: 2.6 Baso %: 0.6 Neut, Abs: 6.02 Lymph, Abs: 2.42 Mckenzie, Abs: 0.74 Eos, Abs: 0.25 Baso, Abs: [...] at this time. Forest is aware that story writer is willing to make recommendations as to [...] Anxiety, depression, and sleep disturbance. Initial trial Squadron Worker suggested that Forest try the Alpha-Stim device for anxiety, depression, and sleep. Forest was informed that the Alpha-Stim is an FDA indicated non-pharmacological therapy that could be helpful for managing/reducing anxiety and depression as well as promoting improved sleep. Forest was also informed that 3 trials are needed prior to being issued an Alpha-Stim device of his own, Forest agrees to trials. Squadron Worker explained what to expect, demonstrated how to set-up, and utilize the Alpha-Stim. Forest utilized the Alpha-Stim for 20 minutes and reports he noted benefit after several minutes use. Forest reports feeling more relaxed and experiencing a sense of calm while using the device. oFrest is excited by the potential for having reduced anxiety as well as improved sleep in a non-pharmacological way and made a second appointment with story writer to trial the Alpha-Stim again. Forest was encouraged to be mindful of anything he notes good or bad after using the Alpha-Stim and is aware that he may contact story writer to discuss and or we will discuss at next trial. Squadron Worker will order Forest his personal device if [...] care and education. Suicide Screen: C-SSRS Screening [place] Suicide Severity Rating Scale (C-SSRS) screener 1. [...] due to responses to other questions. /dereje/ [facility], [facility]- PSYCHIATRIC MENTAL HEALTH NURSE PRACTITIONER Signed: 12/07/2024 16:00 12/15/2024 ADDENDUM STATUS: COMPLETED Forest reports finding significant therapeutic benefit from his use of Alpha- Stim therapy and is interested in obtaining an Alpha-Stim of his own. /dereje/ [facility], [facility] PSYCHIATRIC MENTAL HEALTH NURSE PRACTITIONER Signed: 12/15/2024 13:24 BETTINA ROACH Dec 07, 2024 09:30 AM PSYCHIATRY CONSULT : LOCAL TITLE: CONSULT REPORT/MENTAL HEALTH/PSYCHIATRY STANDARD TITLE: PSYCHIATRY CONSULT DATE OF NOTE: DEC 07, 2024@09:30 ENTRY DATE: DEC 23, 2024@10:30:45 AUTHOR: ONUR MASON EXP COSIGNER: URGENCY: STATUS: COMPLETED Administratively completing consult, attached to appointment date. Please see chart. /danny MASON CORPORATE OFFICER, S Signed: 12/23/2024 10:31 ONUR MASON
--- OUTSIDE RECORDS SUMMARY | 2025-01-10 06:30 | XMS_ITS | Continuity of Care Document ---
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 Jun 04, 2024 Entered By: NAOMIE HUERTAS Comment: Hx Renal CA, L Side 2013; Lesion Excised; No NephrectomySep 2023 Entered By: NAOIME HUERTAS Comment: In Remission; Discharged from [facility] [facility] approx 1Sep 2023 Entered By: NAOMIE HUERTAS Comment: Surg Done [facility] Chronic tension-type headache (SNOMED CT 833145727) Active Condition [facility] [place] [facility] Cortical senile cataract (ICD-9-CM 366.15/366.10) Active Condition [facility] [place] [facility] Deviated nasal septum Active Condition [facility] [place] [facility] Diabetes mellitus (SNOMED CT 97106076) Active Condition Jun 04, 2024 Entered By: NAOMIE HUERTAS Comment: No Report of DR as of JUN 08: Private Ophth Dr Huffman @ [facility] [place] [facility] Essential hypertension (SNOMED CT 21847420) Active Condition [facility] [place] [facility] Ex-smoker Active Condition May 24 24 Entered By: VIVIANE MONAE Comment: Ex-smoker, quit 1995Sep 2023 Entered By: NAOMIE HUERTAS Comment: Never Lung Ca; May Have Had Benign Nodules [facility] [place] [facility] Hearing loss (SNOMED CT 96295385) Active Condition Jun 04, 2024 Entered By: [...] [facility] [place] [facility] Hyperlipidemia (SNOMED CT 91612179) Active Condition [facility] [place] [facility] Irritable bowel syndrome Active Condition Mar 30, 2020 Entered By: VIRIDIANA GAN Comment: diarrhea [facility] [place] [facility] Malignant melanoma Active Condition Jun 04, 2024 Entered By: NAOMIE HUERTAS Comment: Location - Nose; Excised 2022; Sees Derm Once Yr for Survellance [place] Pes planus Active Condition Jun 04 Entered By: NAOMIE HUERTAS Comment: See Podiatry at [place] for Customized [facility] Screening for malignant neoplasm of colon done Active Condition Jun 04, 2024 Entered By: NAOMIE HUERTAS Comment: Last Diagnost Colonoscopy approx 2021; no CRCSep 2023 Entered By: NAOMIE HUERTAS Comment: Poss. Benign Polyposis [place] Under care of doctor Active Condition Jun 04, 2024 Entered By: NAOMIE HUERTAS Comment: Private PCP is at [facility] Impaired glucose tolerance Inactive Condition 06/04/2024 [facility] [place] [facility] Diagnosis: ICD-10-CM F41.9 Anxiety disorder, unspecified Active Diagnosis [facility] Diagnosis: ICD-10-CM Z46.0 Encounter for fit/adjst of spectacles and contact lenses Active Diagnosis [facility] [place] [facility] Diagnosis: ICD-10-CM E11.9 Type 2 diabetes mellitus without complications Active [facility] Diagnosis: ICD-10-CM H90.3 Sensorineural hearing loss, bilateral Active Diagnosis [facility] [place] [facility] Diagnosis: ICD-10-CM Z46.1 Encounter for fitting and adjustment of hearing aid Active Diagnosis [facility] Diagnosis: ICD-10-CM M21.42 Flat foot [pes planus] (acquired), left foot Active Diagnosis [facility] Diagnosis: ICD-10-CM I48.91 Unspecified atrial fibrillation Active Diagnosis [facility] Medications Combined list of outpatient medications from [facility] and [facility] facilities.Medications provided include 1) outpatient medications from the last 15 months, and 2) patient-reported medications. Medication Details Route Status Patient Instructions Prescription Expires Prescription Number Last Dispense Date Ordering Provider Order Date Order Qty Source ALBUTEROL 90MCG/ACTUA T (CFC-F) INHL,ORAL,8 .5GM DOSE COUNTER INHALE 2 PUFFS BY MOUTH EVERY 6 HOURS NEEDED RESPIR ATORY (INHAL ATION) [facility] ATORVASTATI N CA 40MG TAB TAKE ONE-HALF TABLET BY MOUTH QD ORAL ACTIVE RA JOJO RODRIGUEZ 2018 [facility] [place] BUDESONIDE 160MCG/FORM OTEROL FUM 4.5MCG/SPRA Y INHL,ORAL,1 0.2GM INHALE 2 PUFFS BY MOUTH TWICE DAILY RESPIR ATORY (INHAL ATION) [facility] 2019 [facility] [place] [facility] CARBOXYMETH YLCELLULOSE NA 0.5% SOLN,OPH INSTILL 1 DROP INTO EACH EYE FOUR TIMES A DAY FOR DRY EYE OPHTHA LMIC ACTIVE 11/11/2025 [id number] [place] 2024 45 [place] [facility] [place] [facility] [facility] CARBOXYMETH YLCELLULOSE NA 0.5% SOLN,OPH INSTILL 1 DROP INTO EACH EYE FOUR TIMES A DAY FOR DRY EYE OPHTHA LMIC DISCONT INUED 11/20/2024 [id number] [place] 2023 45 [facility] DICYCLOMINE HCL 10MG CAP TAKE 1 CAPSULE BY MOUTH EVERY 6 HOURS NEEDED ORAL ACTIVE [facility] FLUTICASONE PROPIONATE 50MCG/SPRAY SOLN,NASAL, 16GM INSTILL 1 SPRAY INTO EACH NOSTRIL TWICE DAILY NASAL ACTIVE [facility] 2011 [facility] GLUCOSAMINE CAP/TAB 1000 EVERY DAY ACTIVE [facility] 2011 [facility] HYDROCHLORO THIAZIDE 25MG TAB TAKE ONE-HALF TABLET BY MOUTH ONCE DAILY ORAL ACTIVE JESSICA HUERTAS 2023 IELD LOPERAMIDE HCL 2MG CAP TAKE 1 CAPSULE BY MOUTH EVERY 6 HOURS NEEDED ORAL ACTIVE [facility] LORAZEPAM 2MG TAB TAKE ONE TABLET BY MOUTH AT BEDTIME ORAL ACTIVE [facility] LOSARTAN POTASSIUM 100MG TAB TAKE ONE TABLET BY MOUTH ONCE DAILY ORAL ACTIVE JESSICA HUERTAS 2023 [place] METOPROLOL SUCCINATE 100MG TAB,SA TAKE ONE TABLET BY MOUTH EVERY DAY ORAL ACTIVE [facility] MINERAL OIL,LIGHT/P ETROLATUM (PF) OINT,OPH APPLY THIN RIBBON INTO EACH EYE AT BEDTIME FOR DRY EYE OPHTHA LMIC ACTIVE 11/11/2025 [id number] [place] 2024 3 [facility] MONTELUKAST NA 10MG TAB TAKE ONE TABLET BY MOUTH ONCE DAILY ORAL ACTIVE [facility] 2019 [facility] Allergies, Adverse Reactions, Alerts [...] Site Reaction Lot Number CVX Code Drug Watch Assembler Status Comments Source INFLUENZA, UNSPECIFIED FORMULATION 2023 88 complet ed HISTORICA L INFORMATI ON - FROM PATIENT'S WRITTEN RECORD, [facility] [place] COVID-19 [...] INJECTABLE [address] [place] [facility] [place] [facility] ZOSTER RECOMBINANT [...] 2010 88 complet ed here at [facility] [place] [...] Reference Range Date Interpretation Specimen Comments Source LIPID PANEL FASTING CHOLESTEROL [MASS/VOLUM E] IN SERUM OR PLASMA 139 mg/dL 10/18 Specimen Type: SERUM No comment entered. Ordering Provider: NAOMIE HUERTAS Report Released Date/Time: Jun 04, 2024 04:01 PM Reporting Lab: [facility] [address] [address] Performing Lab: [facility] [address] [address] [place] LIPID PANEL FASTING TRIGLYCERID E [MASS/VOLUM E] IN SERUM OR PLASMA 272 mg/dL 0 - 150 10/18 H Specimen Type: SERUM No comment entered. Ordering Provider: NAOMIE HUERTAS Report Released Date/Time: Jun 04, 2024 04:01 PM Reporting Lab: [facility] [place] [facility] [address] [address] Performing Lab: [address] [address] [place] LIPID PANEL FASTING CHOLESTEROL IN LDL [MASS/VOLUM E] IN SERUM OR PLASMA BY CALCULATION 51 mg/dL 0 - 129 10/18 Specimen Type: SERUM No comment entered. Ordering Provider: NAOMIE HUERTAS Report Released Date/Time: Jun 04, 2024 04:01 PM Reporting Lab: [facility] [address] [address] Performing Lab: [address] [address] [place] LIPID PANEL FASTING CHOLESTEROL .TOTAL/CHOL ESTEROL IN HDL [MASS RATIO] IN SERUM OR PLASMA 4.1 10/18 Specimen Type: SERUM No comment entered. Ordering Provider: NAOMIE HUERTAS Report Released Date/Time: Jun 04, 2024 04:01 PM Reporting Lab: [address] [address] Performing Lab: [address] [address] [place] LIPID PANEL FASTING CHOLESTEROL IN HDL [MASS/VOLUM E] IN SERUM OR PLASMA 34 mg/dL 40 - 60 10/18 L Specimen Type: SERUM No comment entered. Ordering Provider: NAOMIE HUERTAS Report Released Date/Time: Jun 04, 2024 04:01 PM Reporting Lab: [address] [address] Performing Lab: [address] [address] [place] URIC ACID URATE [MASS/VOLUM E] IN SERUM OR PLASMA 5.5 mg/dL 3.5 - 7.2 10/18 Specimen Type: SERUM No comment entered. Ordering Provider: NAOMIE HUERTAS Report Released Date/Time: Jun 04, 2024 04:01 PM Reporting Lab: [address] [address] Performing Lab: [address] [address] [place] CALCIUM CALCIUM [MASS/VOLUM E] IN SERUM OR PLASMA 9.7 mg/dL 8.5 - 10.2 02/03 /2025 Specimen Type: SERUM No comment entered. Ordering Provider: NAOMIE HUERTAS Report Released Date/Time: Jun 04, 2024 04:01 PM Reporting Lab: [address] [address] Performing Lab: [address] [address] [place] VITAMIN D (25-OH) 25-HYDROXYV ITAMIN D3 [MASS/VOLUM E] IN SERUM OR PLASMA 14 ng/mL 20 - 50 10/18 L Specimen Type: SERUM No comment entered. Ordering Provider: NAOMIE HUERTAS Report Released Date/Time: Jun 04, 2024 04:01 PM Reporting Lab: [address] [address] Performing Lab: [address] [address] [place] VITAMIN B12 COBALAMIN (VITAMIN B12) [MASS/VOLUM E] IN SERUM OR PLASMA 384 pg/mL 200 - 900 10/18 Specimen Type: SERUM No comment entered. Ordering Provider: NAOMIE HUERTAS Report Released Date/Time: Jun 04, 2024 04:01 PM Reporting Lab: [address] [address] Performing Lab: [address] [address] [place] RETICULOC YTES RETICULOCYT ES [#/VOLUME] IN BLOOD 2.2 0.6 - 2.0 10/18 H Specimen Type: BLOOD No comment entered. Ordering Provider: NAOMIE HUERTAS Report Released Date/Time: Jun 04, 2024 04:01 PM Reporting Lab: [address] [address] Performing Lab: [address] [address] [place] RETICULOC YTES RETICULOCYT ES/100 ERYTHROCYTE S IN BLOOD BY AUTOMATED COUNT 121.8 10*3/u L 30.0 - 90.0 10/18 H Specimen Type: BLOOD No comment entered. Ordering Provider: NAOMIE HUERTAS Report Released Date/Time: Jun 04, 2024 04:01 PM Reporting Lab: [facility] [address] [address] Performing Lab: [facility] [address] [address] [place] RETICULOC YTES HEMOGLOBIN [ENTITIC MASS] IN RETICULOCYT ES BY AUTOMATED COUNT 33.2 pg 27.9 - 42.0 10/18 Specimen Type: BLOOD No comment entered. Ordering Provider: NAOMIE HUERTAS Report Released Date/Time: Jun 04, 2024 04:01 PM Reporting Lab: [facility] [address] [address] Performing Lab: [facility] [address] [address] [place] CBC AND DIFF (AUTO) LEUKOCYTES [#/VOLUME] IN BLOOD BY AUTOMATED COUNT 9.54 10*3/u L 4.50 - 11.00 10/18 Specimen Type: BLOOD No comment entered. Ordering Provider: NAOMIE HUERTAS Report Released Date/Time: Jun 04, 2024 04:01 PM Reporting Lab: [facility] [address] [address] Performing Lab: [facility] [address] [address] [place] CBC AND DIFF (AUTO) ERYTHROCYTE S [#/VOLUME] IN BLOOD BY AUTOMATED COUNT 5.51 10*6/u L 4.23 - 5.66 10/18 Specimen Type: BLOOD No comment entered. Ordering Provider: NAOMIE HUERTAS Report Released Date/Time: Jun 04, 2024 04:01 PM Reporting Lab: [facility] [address] [address] Performing Lab: [facility] [address] [address] [place] CBC AND DIFF (AUTO) HEMOGLOBIN [MASS/VOLUM E] IN BLOOD 16.2 g/dL 12.8 - 17 10/18 Specimen Type: BLOOD No comment entered. Ordering Provider: NAOMIE HUERTAS Report Released Date/Time: Jun 04, 2024 04:01 PM Reporting Lab: [facility] [address] [address] Performing Lab: [facility] [address] [address] [place] CBC AND DIFF (AUTO) HEMATOCRIT [VOLUME FRACTION] OF BLOOD BY AUTOMATED COUNT 48.2 39.2 - 50.4 10/18 Specimen Type: BLOOD No comment entered. Ordering Provider: NAOMIE HUERTAS Report Released Date/Time: Jun 04, 2024 04:01 PM Reporting Lab: [facility] [address] [address] Performing Lab: [facility] [address] [address] [place] CBC AND DIFF (AUTO) MCV [ENTITIC VOLUME] BY AUTOMATED COUNT 87.5 fL 82 - 99 10/18 Specimen Type: BLOOD No comment entered. Ordering Provider: NAOMIE HUERTAS Report Released Date/Time: Jun 04, 2024 04:01 PM Reporting Lab: [facility] [address] [address] Performing Lab: [facility] [address] [address] [place] CBC AND DIFF (AUTO) MCHC [MASS/VOLUM E] BY AUTOMATED COUNT 33.6 g/dL 30.8 - 35.1 10/18 Specimen Type: BLOOD No comment entered. Ordering Provider: NAOMIE HUERTAS Report Released Date/Time: Jun 04, 2024 04:01 PM Reporting Lab: [facility] [address] [address] Performing Lab: [facility] [address] [address] [place] CBC AND DIFF (AUTO) PLATELETS [#/VOLUME] IN BLOOD BY AUTOMATED COUNT 200 10*3/u L 140 - 360 10/18 Specimen Type: BLOOD No comment entered. Ordering Provider: NAOMIE HUERTAS Report Released Date/Time: Jun 04, 2024 04:01 PM Reporting Lab: [facility] [address] [address] Performing Lab: [facility] [address] [address] [place] CBC AND DIFF (AUTO) ERYTHROCYTE DISTRIBUTIO N WIDTH [RATIO] BY AUTOMATED COUNT 13.1 12.0 - 16.0 10/18 Specimen Type: BLOOD No comment entered. Ordering Provider: NAOMIE HUERTAS Report Released Date/Time: Jun 04, 2024 04:01 PM Reporting Lab: [facility] [address] [address] Performing Lab: [facility] [address] [address] [place] CBC AND DIFF (AUTO) MONOCYTES [#/VOLUME] IN BLOOD BY AUTOMATED COUNT 0.74 10*3/u L 0.30 - 1.10 10/18 Specimen Type: BLOOD No comment entered. Ordering Provider: NAOMIE HUERTAS Report Released Date/Time: Jun 04, 2024 04:01 PM Reporting Lab: [facility] [address] [address] Performing Lab: [facility] [address] [address] [place] CBC AND DIFF (AUTO) MCH [ENTITIC MASS] BY AUTOMATED COUNT 29.4 pg 26.2 - 32.6 10/18 Specimen Type: BLOOD No comment entered. Ordering Provider: NAOMIE HUERTAS Report Released Date/Time: Jun 04, 2024 04:01 PM Reporting Lab: [facility] [address] [address] Performing Lab: [facility] [address] [address] [place] CBC AND DIFF (AUTO) NEUTROPHILS /100 LEUKOCYTES IN BLOOD BY AUTOMATED COUNT 63.1 43.7 - 75.8 10/18 Specimen Type: BLOOD No comment entered. Ordering Provider: NAOMIE HUERTAS Report Released Date/Time: Jun 04, 2024 04:01 PM Reporting Lab: [facility] [place] [facility] [address] [address] Performing Lab: [place] [facility] [address] [address] [place] CBC AND DIFF (AUTO) LYMPHOCYTES /100 LEUKOCYTES IN BLOOD BY AUTOMATED COUNT 25.4 14.0 - 42.3 10/18 Specimen Type: BLOOD No comment entered. Ordering Provider: NAOMIE HUERTAS Report Released Date/Time: Jun 04, 2024 04:01 PM Reporting Lab: [place] [facility] [place] [address] [address] Performing Lab: [facility]RL TRN [facility] [address] [address] [place] CBC AND DIFF (AUTO) MONOCYTES/1 00 LEUKOCYTES IN BLOOD BY AUTOMATED COUNT 7.8 5.1 - 13.7 10/18 Specimen Type: BLOOD No comment entered. Ordering Provider: NAOMIE HUERTAS Report Released Date/Time: Jun 04, 2024 04:01 PM Reporting Lab: [facility] [address] [address] Performing Lab: [facility] [address] [address] [place] CBC AND DIFF (AUTO) EOSINOPHILS /100 LEUKOCYTES IN BLOOD BY AUTOMATED COUNT 2.6 0.4 - 6.8 10/18 Specimen Type: BLOOD No comment entered. Ordering Provider: NAOMIE HUERTAS Report Released Date/Time: Jun 04, 2024 04:01 PM Reporting Lab: [place] [facility] [address] [address] Performing Lab: [facility] [address] [address] [place] CBC AND DIFF (AUTO) BASOPHILS/1 00 LEUKOCYTES IN BLOOD BY AUTOMATED COUNT 0.6 0.1 - 2.0 10/18 Specimen Type: BLOOD No comment entered. Ordering Provider: NAOMIE HUERTAS Report Released Date/Time: Jun 04, 2024 04:01 PM Reporting Lab: [facility] [address] [address] Performing Lab: [facility]ITALRINFIR[facility] HOSPITALTRN [facility]AREUSE[address] [address] [place] CBC AND DIFF (AUTO) NEUTROPHILS [#/VOLUME] IN BLOOD BY AUTOMATED COUNT 6.02 10*3/u L 2.20 - 7.60 10/18 Specimen Type: BLOOD No comment entered. Ordering Provider: NAOMIE HUERTAS Report Released Date/Time: Jun 04, 2024 04:01 PM Reporting Lab: [facility]OSPITALTRN [facility]USE[address] [address] Performing Lab: [facility]ERN [address] [address] [place] CBC AND DIFF (AUTO) LYMPHOCYTES [#/VOLUME] IN BLOOD BY AUTOMATED COUNT 2.42 10*3/u L 1.00 - 3.20 10/18 Specimen Type: BLOOD No comment entered. Ordering Provider: NAOMIE HUERTAS Report Released Date/Time: Jun 04, 2024 04:01 PM Reporting Lab: [facility]ITALTRN [facility]USE[address] [address] Performing Lab: [facility]ERN [address] [address] [place] CBC AND DIFF (AUTO) EOSINOPHILS [#/VOLUME] IN BLOOD BY AUTOMATED COUNT 0.25 10*3/u L 0.03 - 0.44 10/18 Specimen Type: BLOOD No comment entered. Ordering Provider: NAOMIE HUERTAS Report Released Date/Time: Jun 04, 2024 04:01 PM Reporting Lab: [facility]RINF[facility]ITALTRN [facility] [address] Performing Lab: [facility]ERN [address] [address] [place] CBC AND DIFF (AUTO) BASOPHILS [#/VOLUME] IN BLOOD BY AUTOMATED COUNT 0.06 10*3/u L 0.01 - 0.13 10/18 Specimen Type: BLOOD No comment entered. Ordering Provider: NAOMIE HUERTAS Report Released Date/Time: Jun 04, 2024 04:01 PM Reporting Lab: [facility]RINF[facility]OSPITALTRN [facility] [address] Performing Lab: [facility] [address] [address] [place] CBC AND DIFF (AUTO) IMMATURE GRANULOCYTE S/100 LEUKOCYTES IN BLOOD BY AUTOMATED COUNT 0.5 0.0 - 0.7 10/18 Specimen Type: BLOOD No comment entered. Ordering Provider: NAOMIE HUERTAS Report Released Date/Time: Jun 04, 2024 04:01 PM Reporting Lab: [facility]ERN [facility] [address] Performing Lab: [facility] [address] [address] [place] CBC AND DIFF (AUTO) IMMATURE GRANULOCYTE S [#/VOLUME] IN BLOOD 0.05 10*3/u L 0.00 - 0.06 10/18 Specimen Type: BLOOD No comment entered. Ordering Provider: NAOMIE HUERTAS Report Released Date/Time: Jun 04, 2024 04:01 PM Reporting Lab: [facility] [address] [address] Performing Lab: [facility] [address] [address] [place] CBC AND DIFF (AUTO) NRBC % 0.0 0.0 - 0.0 10/18 Specimen Type: BLOOD No comment entered. Ordering Provider: NAOMIE HUERTAS Report Released Date/Time: Jun 04, 2024 04:01 PM Reporting Lab: [facility] [address] [address] Performing Lab: [facility] [address] [address] [place] CBC AND DIFF (AUTO) NRBC, ABS 0.00 10*3/u L 0.00 - 0.00 10/18 Specimen Type: BLOOD No comment entered. Ordering Provider: NAOMIE HUERTAS Report Released Date/Time: Jun 04, 2024 04:01 PM Reporting Lab: [address] [address] Performing Lab: [place] [address] [address] [place] HEMOGLOBI N A1C PANEL HEMOGLOBIN [...] Jun 04, 2024 04:01 PM Reporting Lab: [address] [address] Performing Lab: [address] [address] [place] FERRITIN FERRITIN [MASS/VOLUM E] IN SERUM OR PLASMA 376 ng/mL 20 - 300 10/18 H Specimen Type: SERUM No comment entered. Ordering Provider: NAOMIE HUERTAS Report Released Date/Time: Jun 04, 2024 04:01 PM Reporting Lab: [address] [address] Performing Lab: [address] [address] [place] MICROALBU MIN CREATININ E RATIO PANEL MICROALBUMI N/CREATININ E [MASS RATIO] IN URINE 103.3 mg/g 0 - 29.9 10/18 H Specimen Type: URINE No comment entered. Ordering Provider: NAOMIE HUERTAS Report Released Date/Time: Jun 04, 2024 04:01 PM Reporting Lab: [address] [address] Performing Lab: [address] [address] [place] MICROALBU MIN CREATININ E RATIO PANEL MICROALBUMI N [MASS/VOLUM E] IN URINE 14.3 mg/dL 10/18 Specimen Type: URINE No comment entered. Ordering Provider: NAOMIE HUERTAS Report Released Date/Time: Jun 04, 2024 04:01 PM Reporting Lab: [facility] [address] [address] Performing Lab: [facility]RJ[facility]ENTERN [facility] [address] [address] [place] MICROALBU MIN CREATININ E RATIO PANEL CREATININE [MASS/VOLUM E] IN URINE 138.43 mg/dL 10/18 Specimen Type: URINE No comment entered. Ordering Provider: NAOMIE HUETRAS Report Released Date/Time: Jun 04, 2024 04:01 PM Reporting Lab: [facility] [address] [address] Performing Lab: [facility] [address] [address] [address] [facility] Vital Signs Combined list of inpatient and outpatient Vital Signs from Department of Defense and Veterans Affairs, ranging from 12 months to all on record, depending upon the facility. Vital Sign Value Date Comments Source SYSTOLIC BLOOD PRESSURE 135 06/04/2024 15:13:14 [place] DIASTOLIC BLOOD PRESSURE 75 06/04/2024 15:13:14 [place] PULSE OXIMETRY 95 06/04/2024 15:13:14 [facility] 208 06/04/2024 15:13:14 [facility] BMI 31 kg/m2 06/04/2024 15:13:14 [facility] 69 06/04/2024 15:13:14 [facility] TEMPERATURE 98.2 06/04/2024 15:13:14 [facility] PULSE 76 06/04/2024 15[facility]13:14 [facility] RESPIRATION 19 06/04/2024 15:13:14 [facility] Encounters Combined list of: 1) Encounters from Department of Veterans Affairs facilities going backup to the last 18 months, not all [place] inpatient encounters are included; 2) Encounters from the Department of Defense facilities going backup to 280 months. Location Location Details Encounter Type Encounter Number Reason For Visit Attending Provider ADM Date DC Date Status Disposition Source [facility] Out[facility] Encounter [id number] 10/16 [facility] [place] HEARING AID REPAIR/MOD IFYING [id number] Diagnos is: ICD-10- CM Z46.1 Encount er for fitting and adjustm ent of hearing aid CATA LOWERY 11/13 [place] [facility] Encounter [id number] 11/18 [facility] En[facility] [id number] 03/04 [facility] Encounter [id number] 03/25 [facility] Encounter [id number] 03/25 [facility] Encounter [id number] 05/03 [facility] [place] Outpatient Encounter [id number] 05/21 [place] [facility] Out[facility] Encounter [id number] 05/24 [facility] HEAR[facility] AID FITTING/CH ECKING [id number] Diagnos is: ICD-10- CM Z46.1 Encount er for fitting and adjustm ent of hearing aid Calli PABON 06/01 [facility] Encounter [id number] 06/04 [facility] [place] OFF[place] O/P EST MOD 30 MIN [id number] Diagnos is: ICD-10- CM I48.91 Unspeci fied atrial fibrill ANDREWS Coulter 06/04 [place] [facility] Outpatient Encounter [id number] 1.06/04 [facility] [place] DIAGNOSTIC EVALUATION [id number] Diagnos is: ICD-10- CM F41.9 Anxiety disorde r, unspeci fied AME ZEE 07[place]05 [place] [facility] Outpatient Encounter [id number] 1. AME ZEE 07/05 [facility] OFFICE O/P NEW LOW 30 MIN [id number] Diagnos is: ICD-10- CM M21.42 Flat foot [pes planus] (acquir ed), left foot ROSS,CHARL ES F 07/06 [place] [facility] Outpatient Encounter [id number] 1.07/07 [facility] Outpatient Encounter [id number] 1.08/16 [facility] HEAR[facility] A[facility] REPAIR/MOD IFYING [id number] Diagnos is: ICD-10- CM Z46.1 Encount er for fitting and adjustm ent of hearing aid SENIOR,FRANCOISE OLE L 09/06 [facility] HEAR[facility] A[facility] REPAIR/MOD IFYING [id number] Diagnos is: ICD-10- CM H90.3 Sensori neural hearing loss, bilater WANDY Cardona 09/28 [facility] Outpatient Encounter [id number] 10/21 [facility] OFFICE O/P EST MOD 30 MIN [id number] Diagnos is: ICD-10- CM E11.9 Type 2 diabete s mellitu s without complic ations BRODY CARRERA Nils 11/10 [facility] FIT SPECTACLES BIFOCAL [id number] Diagnos is: ICD-10- CM Z46.0 Encount er for fit/adj st of spectac les and contact lenses DEBICLINTJhonny Georges Wray 11/10 [place] [facility] [place] OFF[place] O/P NEW HI 60 MIN [id number] Diagnos is: ICD-10- CM F41.9 Anxiety disorde r, unspeci fied DOC,W TIKA 12/07 [place] [facility] Outpatient Encounter [id number] 12/13 [place] [facility] Outpatient Encounter [id number] 01/04 [facility] Social History Combined list of available smoking, tobacco, and other social history from Department of Defense and Veterans Affairs facilities. Social History Type Response Date Comment Sourc e Tobacco smoking status NHIS VA-TOBACCO QUIT 15 YRS OR MORE 03/25/2024 [facility] History of tobacco use VA-TOBACCO FORMER USER 03/25/2024 [facility] History of tobacco use VA-TOBACCO QUIT 15 YRS OR MORE 04/01/2019 [facility] History of tobacco use VA-TOBACCO FORMER USER 04/01/2018 [facility] History of tobacco use QUIT TOBACCO USE > 7 YEARS AGO 04/01/2018 [facility] History of tobacco use QUIT TOBACCO USE > 7 YEARS AGO 02/17/2017 [facility] History of tobacco use QUIT TOBACCO USE > 7 YEARS AGO 01/18/2016 . [facility] History of tobacco use QUIT TOBACCO USE > 7 YEARS AGO 03/12/2010 [facility] Plan of Care List of future care activities from [facility] facilities. Additional future care activities may be listed in the Assessment and Plan section. Date/Time Care Activity Care Activity Detail Facili ty 02/08/2025 AMBULAT[facility] Advance Directives List of completed, amended, or rescinded Advance Directives on record at [facility] facilities. An actual copy of the Directive is not included. Date Advance Directive Provider Source 06/20/2003 ADVANCE DIRECTIVE EMANI REED [facility]
--- OUTSIDE RECORDS SUMMARY | 2025-01-10 06:30 | XMS_ITS | Encounter Summary ---
Author Name [place] Address [address] [place] [address] Care Team Providers Care Inspector And Clipper Name Role Phone BAN LIRIANO Primary Care [...] BCBS OF [place] MEDICARE (M) [facility] Feb 13, 2011 [id number] BUSTAMANTEIS PATIENT BCBS [facility] (WNR) MEDICARE ADVANTAGE [facility] (WNR) Feb 13, 2011 [id number] BYRNES PATIENT EXPRESS S[employer]IPTS ([id number]) PRESCRIPT ION BCBS Feb 13, 2011 [id number] BYRNES PATIENT Selected Encounter This section includes the information on record at [place] for the Encounter. Date/Time Encounter Type Encounter [...] 2024 10:16 AM PRIMARY Anxiety disorder, unspecified MARITA ZEE Jul 05, 2024 10:16 AM SECONDARY Chronic tension-type headache, not intractable MARITA ZEE Plan of Treatment: Future Appointments (+ 6 months) and Future Tests (+/- 45 days) The Plan of Treatment section includes future care activities for the patient from all [place] treatmentfacilities. This section includes future appointments and future orders which are active, pending or scheduled. Future Appointments This section includes appointments that were scheduled to occur 6 months from the date of the Encounter, up to a maximum of 20 appointments. The data comes from all [place] treatment facilities. Appointment Date/Time Appointment Type Appointme nt Facility Name Jul 06, 2024 10:00 AM AMBULATORY - MEDICINE [facility] Sep 06, 2024 04:30 PM [facility] [place] [facility] Sep 28, 2024 09:00 AM AMBUL[place]ORY [place] [facility] [place] [facility] Nov 10, 2024 08:00 AM [facility] Dec 07, 2024 09:30 AM AMBULATORY - PSYCHIATRY [facility] Advance Directives: All historical and current Section Date Range: From patient's date of to the date document was created. This section includes ALL of a patient's completed or amended [place] Advance and Rescinded Directives. The entries below indicate that a directive exists for the patient, but an actual copy is not included with this document. The data comes from all [place] facilities. Date Advance Directives Provider Source Jun 20, 2003 ADVANCE DIRECTIVE EMANI REED [facility] Encounter Notes: All associated encounter notes This section contains the clinical notes associated to the Encounter. Date/Time Encounter Note(s) Provider Source Jul 05, 2024 08:56 AM MENTAL HEALTH CONS ULT: LOCAL TITLE: CONSULT REPORT/UNIFORM OUTPATIENT MENTAL HEALTH ASS STANDARD TITLE: MENTAL HEALTH CONSULT DATE OF NOTE: JUL 05, 2024@08:56 ENTRY DATE: JUL 05, 2024@08:56:44 AUTHOR: MCDANNALD,AME EXP COSIGNER: URGENCY: STATUS: COMPLETED INFORMED CONSENT TO PARTICIPATE IN ASSESSMENT: At beginning of session reviewed rights and limits of confidentiality, mandatory reporting situations, duty to warn and protect, Pineda Warning, (if treatment team finds patient to be an acute danger to himself or others, that this information could be relayed to a court of law and presented to a fire control system installer), and DOD access for active duty service members. Provided Suicide Prevention Hotline number, and other contact numbers as necessary. Uniform Outpatient Mental Health Assessment I. IDENTIFYING INFORMATION: ANDRE BALDWIN Feb [id number] SERVICE CONNECTED % - NONE FOUND MARITAL STATUS - Referral source: Present at time of intake: [X] Family member [ ] Supportive person(s) Name: Language Preference:Ethiopian Language Spoken:Ethiopian II. PRESENTING SITUATION: A. What brings you into Mental Health at this time: Rachel was recently seen by new PCP and [...] are some of your goals for treatment: [facility] is open to trying something new and [...] ] If yes, please describe: Worked at [employer] and i was the kenny who signed [...] ] No [X] If yes, please identify Cross Anchor's primary and secondary substances of choice: ALCOHOL [...] history): Raised by mother/father, grew up in [place], [place]. 3 brothers and 1 sister-- he [...] to [place] but pulled and sent to [employer]-- in [place]. 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 Are you comfortable with your current living arrangement (Have you ever been homelessness or at risk for homelessness): denies G. What are your social or community Supports, your healthy or positive relationships: , anglican, shooting club H: What is your educational history or current goals: two college degrees-- business and management I. 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 Threw out of job 20 years ago--[employer] had a huge fine they had to pay to the federal government and huge percentage of workforce was let go. has not worked since then and has no goals in this area. J. Do you have a legal history (incarcerations, probation, parole, divorce, child custody issues): no K. What is your level of uatsdin or spiritual fulfillment: father was in a long line of ministers-he is uatsdin but skeptical about uatsdin institutions. L. How do you culturally identify? Can you anticipate any particular cultural on treatment? mostly tremaine background M. Is there anybody you would [...] in a position of power? no--had a butcher supervisor that treated him poorly because he was a man, he thinks. P. Income source: father WWII vet and invested money-- dividends from that, still. V. PHYSICAL HEALTH SCREENING A. 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 06/04/2024 HUERTASNAOMIE TINAJERO Screening for malignant neoplasm of 06/04/2024 NAOMIE HUERTAS Malignant melanoma C43.9 06/04/2024 ALEKSANDARNAOMIE Under care of doctor Z76.89 06/04/2024 ALEKSANDARNAOMIE Pes planus M21.40 06/04/2024 ALEKSANDARNAOMIE Body mass index 40+ - severely obes 05/24/2024January,VIVIANE Fowler History of partial resection of col 06/04/2024 ALEKSANDARNAOMIE History of operative procedure on k 05/24/2024January,VIVIANE Fowler Ex-smoker Z87.891 06/04/2024 ALEKSANDARNAOMIE Deviated nasal septum J34.2 05/24/2024January,VIVIANE Fowler Atrial fibrillation I48.91 06/04/2024 NAOMIE HUERTAS Irritable bowel syndrome K58.0 03/30/2020 ELVIAMOHAMMED JAWED Asthma J45.998 03/30/2020 ELVIAMOHAMMED JAWED Cortical senile cataract (ICD-9-CM 09/18/2012 JONELLE ROSS Diabetes mellitus (SNOMED CT 472808 06/04/2024 NAOMIE HUERTAS Essential hypertension (SNOMED CT 5 01/21/2016 VIRIDIANA GAN JAWED Hyperlipidemia (SNOMED CT 33453568) 04/01/2019 DAMON GANED JAWED Chronic tension-type headache (SNOM 04/01/2018 ELVIAMOHAMMED JAWED Hearing loss (SNOMED CT 32978203) H 06/04/2024 NAOMIE HUERTAS Other medical problems [...] Chronic tension-type headaches VII: SUMMARY AND IMPRESSIONS: [facility] is a 79 year old, , , [employer] [facility] presenting to clinic for reassessment of medications [...] are alternatives that might be more effective. Cold Roll Operator recommended psychotherapy to help him with behavioral interventions for anxiety/stress management but is not interested, stating I think I just have a chemical imbalance . VIII: NEXT STEPS: A: How can we work to meet your goals: psychiatry referral /es/ AME ZEE CLINICAL PSYCHOLOGIST Signed: 07/05/2024 10:31 AME ZEE [place]
--- OUTSIDE RECORDS SUMMARY | 2025-01-10 06:30 | XMS_ITS | Encounter Summary ---
Author Name [facility] [place] [facility] Address [address] [place] [address] Care Team Providers Care Drama Director Name Role Phone BAN LIRIANO Primary [...] Name Patient's Relationship to Policy Haynes [facility] MEDICARE (M) ANTHE M MEDIB LUE [facility] Feb 13, 2011 [id number] [phone] BYRNES PATIENT BCBS [facility] (WNR) MEDICARE ADVANTAGE [facility] (WNR) Feb 13, 2011 [id number] BYRNES PATIENT EXPRESS S[employer]IP[employer] ([id number]) PRESCRIPT ION BCBS Feb 13, 2011 [id number] [phone] BYRNES PATIENT Selected Encounter This section includes the information on record at [place] for the Encounter. Date/Time Encounter Type Encounter [...] this document. The data comes from all [place] facilities. Date Advance Directives Provider Source Jun 20, 2003 ADVANCE DIRECTIVE EMANI REED [place] [facility]
--- OUTSIDE RECORDS SUMMARY | 2025-01-10 06:30 | XMS_ITS | Encounter Summary ---
Author Name [facility] [place] Address [address] [place] [address] Care Team Providers Care Sales Producer Name Role Phone BAN LIRIANO Primary Care [...] CT MEDICARE (M) ANTHE M MEDIB LUE [facility] Feb 13, 2011 [id number] BYRNES PATIENT BCBS [facility] (WNR) MEDICARE ADVANTAGE [facility] (WNR) Feb 13, 2011 [id number] BYRNES PATIENT EXPRESS SCRIPTS ([id number]) PRESCRIPT ION BCBS Feb 13, 2011 [id number] BYRNES PATIENT Selected Encounter This section includes the information on record at [place] for the Encounter. Date/Time Encounter Type Encounter Description Reason Pro vider Source May 21, 2024 01:00 PM Outpatient Encounter AUDIOLOGY IHE Encounter Template Text not used by [facility] Plan of Treatment: Future Appointments (+ 6 months) and Future Tests (+/- 45 days) The Plan of Treatment section includes future care activities for the patient from all [place] treatmentfamount [facility]. This section includes future appointments and future orders which are active, pending or scheduled. Future Appointments This section includes appointments that were scheduled to occur 6 months from the date of the Encounter, up to a maximum of 20 appointments. The data comes from all [place] treatment facilities. Appointment Date/Time Appointment Type Appointme nt Facility Name Jun 01, 2024 08:30 AM [facility] Jun 04, 2024 03:00 PM AMBULATORY - MEDICINE [facility] Jul 05, 2024 09:00 AM [facility] Jul 06, 2024 10:00 AM [facility] Sep 06, 2024 04:30 PM [facility] Sep 28, 2024 09:00 AM [facility] Nov 10, 2024 08:00 AM AMBULATORY - MEDICINE [facility] Advance Directives: All historical and current Section Date Range: From patient's date of to the date document was created. This section includes ALL of a patient's completed or amended [place] Advance and Rescinded Directives. The entries below indicate that a directive exists for the patient, but an actual copy is not included with this document. The data comes from all [place] facilities. Date Advance Directives Provider Source Jun 20, 2003 ADVANCE DIRECTIVE EMANI REED [facility] Encounter Notes: All associated encounter notes This section contains the clinical notes associated to the Encounter. Date/Time Encounter Note(s) Provider Source May 21, 2024 03:36 PM CLERICAL NOTE: LOCAL TITLE: APPOINTMENT NO SHOW STANDARD TITLE: CLERICAL NOTE DATE OF NOTE: MAY 21, 2024@15:36 ENTRY DATE: MAY 21, 2024@15:36:13 AUTHOR: JUANITO AGUILERA COSIGNER: URGENCY: STATUS: COMPLETED Patient Name: ANDRE BALDWIN Patient SSN: [id number] Date and time of Appointment No show [...] Comments: Future Clinic Visits 06/30/2024 10:00 NHM/OPTOMETRY/CARRERA/ /es/ JUANITO AGUILERA [facility] Receptionist Signed: 05/21/2024 15:36 Receipt Acknowledged By: 05/21/2024 15:53 /es/ FRANK GONSALEZ LEAD COMPUTER PROGRAMMER CHIEF JUANITO AGUILERA
--- OUTSIDE RECORDS SUMMARY | 2025-01-10 06:30 | XMS_ITS ---
Author Name [facility] [facility] [place] [facility] [place] Address [address] [place] [id number] Care Team Providers Care Continuous Pickling Line Pickler Helper Name Role Phone BAN LIRIANO Primary Care [...] CT MEDICARE (M) CELINA Riggins MEDIB LUE [facility] Feb 13, 2011 [id number] [phone] BUSTAMANTEIS PATIENT BCBS [facility] (WNR) MEDICARE ADVANTAGE [facility] (WNR) Feb 13, 2011 [id number] [phone] BYRNES PATIENT [employer] ([id number]) PRESCRIPT ION BCBS Feb 13, 2011 [id number] [phone] BYRNES PATIENT Selected Encounter This section includes the information on record at [place] for the Encounter. Date/Time Encounter Type Encounter Description Reason Provider Source Sep 28, 2024 09:00 AM HEARING AID REPAIR/MODIFYIN G AUDIOLOGY ICD-10-CM H90.3 Sensorineural hearing loss, bilateral MCGINNISMAAME Y SHAKIRA CONRAD Encounter Template Text not used by [place] Assessments - Encounter Diagnoses This section includes the primary and secondary diagnoses documented for the Encounter. Date/Time Primary/Secondary Diagnosis Diagnosis Name Provider Source Sep 28, 2024 09:46 AM PRIMARY Sensorineural hearing loss, bilateral MAAME MCGINNIS [facility] Sep 28, 2024 09:46 AM SECONDARY Encounter for fitting and adjustment of hearing aid MAAME MCGINNIS [facility] Plan of Treatment: Future Appointments (+ 6 months) and Future Tests (+/- 45 days) The Plan of Treatment section includes future care activities for the patient from all [place] [facility] This section includes future appointments and future orders which are active, pending or scheduled. Future Appointments This section includes appointments that were scheduled to occur 6 months from the date of the Encounter, up to a maximum of 20 appointments. The data comes from all [facility]. Appointment Date/Time Appointment Type Appointme nt Facility Name Nov 10, 2024 08:00 AM AMBULATORY - MEDICINE [facility] Dec 07, 2024 09:30 AM AMBULATORY - PSYCHIATRY [facility] February 08, 2025 09:00 AM AMBULATORY - PSYCHIATRY [facility] February 10, 2025 10:00 AM AMBULATORY - MEDICINE [facility] Active, Pending, and Scheduled Orders This section includes a listing of several types of active, pending, and scheduled orders, including clinic medications orders, diagnostic test orders, procedure orders and consult orders; where the start date of the order is 45 days before the date of the Encounter or 45 days after the date of theEncounter. The data comes from all [facility]. Test Date/Time Test Type Test Details Facility Name Oct 04, 2024 12:00 AM Laboratory - Chemi stry Order HEMOGLOBIN A1C PANEL BLOOD (LAV-BLOOD) [facility] Nov 04, 2024 12:00 AM Laboratory - Chemi stry Order MICROALBUMIN CREATININE RATIO PANEL URINE (RANDOM) [facility] Lab Results: +/- 30 days of the encounter This section includes the Chemistry and Hematology Lab Results on record with [place] for the patient. Radiology Reports and Pathology Reports are provided separately, in subsequent sections. Lab Results This section contains the Chemistry/Hematology Results that were resulted 30 days before or 30 daysafter the date of the Encounter. Date/Time Source Result Type Result - Unit Interpretation Reference Range Specimen Type Comment Oct 18, 2024 10:39 AM [facility] CALCIUM SERUM Specimen Type: SERUM No comment entered. Ordering Provider: NAOMIE HUERTAS Report Released Date/Time: Jun 04, 2024 04:01 PM Reporting [facility] [address] [facility] [address] Performing Lab: [address] [address] CALCIUM 9.7 mg/dL 8.5-10.2 Oct 18, 2024 10:39 AM [facility] URIC ACID SERUM Sp ecimen Type: SERUM No comment entered. Ordering Provider: NAOMIE HUERTAS Report Released Date/Time: Jun 04, 2024 04:01 PM Reporting Lab: [address] [address] Performing Lab: [address] [address] URIC ACID 5.5 mg/dL 3.5-7.2 Oct 18, 2024 10:39 AM [facility] LIPID PANEL FASTING SERUM Specimen Ty pe: SERUM No comment entered. Ordering Provider: NAOMIE HUERTAS Report Released Date/Time: Jun 04, 2024 04:01 PM Reporting Lab: [address] [address] Performing Lab: [address] [address] CHOLESTEROL 139 mg/dL TRIGLYCERIDE 272 mg/dL H 0-150 LDL calculated 51 mg/dL 0-129 CHOL/HDL 4.1 HDL CHOLESTEROL 34 mg/dL L 40-60 Oct 18, 2024 10:39 AM [facility] VITAMIN D (25-OH) SERUM Specimen Type: SERUM No comment entered. Ordering Provider: NAOMIE HUERTAS Report Released Date/Time: Jun 04, 2024 04:01 PM Reporting Lab: [address] [address] Performing Lab: [address] [address] VITAMIN D (25-OH) 14 ng/mL L 20-50 Oct 18, 2024 10:39 AM [facility] VITAMIN B12 SERUM Specimen Type: SERUM No comment entered. Ordering Provider: NAOMIE HUERTAS Report Released Date/Time: Jun 04, 2024 04:01 PM Reporting Lab: [address] [address] Performing Lab: [address] [address] VITAMIN B12 384 pg/mL 200-900 Oct 18, 2024 10:39 AM [facility] RETICULOCYTES BLOOD Specimen Type: BLOOD No comment entered. Ordering Provider: NAOMIE HUERTAS Report Released Date/Time: Jun 04, 2024 04:01 PM Reporting Lab: [address] [address] Performing Lab: [address] [address] RETIC % 2.2 H 0.6-2.0 RETIC, ABS 121.8 10*3/uL H 30.0-90.0 RET-HE 33.2 pg 27.9-42.0 Oct 18, 2024 10:39 AM [facility] FERRITIN SERUM Sp ecimen Type: SERUM No comment entered. Ordering Provider: NAOMIE HUERTAS Report Released Date/Time: Jun 04, 2024 04:01 PM Reporting Lab: [address] [address] Performing Lab: [address] [address] FERRITIN 376 ng/mL H 20-300 Oct 18, 2024 10:39 AM [facility] HEMOGLOBIN A1C PANEL BLOOD Specimen T ype: [...] 04, 2024 04:01 PM Reporting Lab: [facility] [address] [facility] [address] Performing Lab: [facility] [address] [facility] [address] HEMOGLOBIN A1C 6.9 H 4.0-5.6 Oct 18, 2024 10:39 AM [facility] CBC AND DIFF (AUTO) BLOOD Specimen Ty pe: BLOOD No comment entered. Ordering Provider: NAOMIE HUERTAS Report Released Date/Time: Jun 04, 2024 04:01 PM Reporting Lab: [facility] [address] [facility] [address] Performing Lab: [address] [address] WBC 9.54 10*3/uL 4.50-11.00 RBC 5.51 10*6/uL [...] 10*3/uL 0.00-0.00 Oct 18, 2024 10:39 AM [facility] MICROALBUMIN CREATININE RATIO PANEL URINE Specimen Type: URINE No comment entered. Ordering Provider: NAOMIE HUERTAS Report Released Date/Time: Jun 04, 2024 04:01 PM Reporting Lab: [address] [address] Performing Lab: [address] [address] MICROALBUMIN/CREATININE RATIO 103.3 mg/g H 0-29.9 MICROALBUMIN,QUANTITATIVE 14.3 mg/dL RR UNAVAIL CREATININE URINE 138.43 mg/dL Oct 18, 2024 10:39 AM [facility] TSH SERUM Sp ecimen Type: SERUM No comment entered. Ordering Provider: NAOMIE HUERTAS Report Released Date/Time: Jun 04, 2024 04:01 PM Reporting Lab: [address] [address] Performing Lab: [address] [address] TSH 1.24 u[IU]/mL 0.35-5.00 Oct 18, 2024 10:39 AM [facility] URINALYSIS URINE S pecimen Type: URINE Comment: If Glucose = >500 and Ketones are positive, please alert the Physician. Ordering Provider: NAOMIE HUERTAS Report Released Date/Time: Jun 04, 2024 04:01 PM Reporting Lab: [address] [address] Performing Lab: [address] [address] UA COLOR Light-Yellow Yellow UA APPEARANCE Clear Clear UA GLUCOSE Normal mg/dL Negative UA KETONES NEGATIVE mg/dL Negative UA BLOOD NEGATIVE mg/dL Negative UA PROTEIN 30 mg/dL Negative UA NITRITE NEGATIVE mg/dL Negative UA BILIRUBIN NEGATIVE mg/dL Negative UA SPECIFIC GRAVITY 1.021 1.016-1.022 UA pH 6.0 5.0-9.0 UA UROBILINOGEN Normal mg/dL <2.0 UA LEUKOCYTE NEGATIVE Negative Oct 18, 2024 10:39 AM [facility] BASIC METABOLIC PANEL (fasting) SERUM Specimen Type: SERUM No comment entered. Ordering Provider: NAOMIE HUERTAS Report Released Date/Time: Jun 04, 2024 04:01 PM Reporting Lab: [address] [address] Performing Lab: [address] [address] [facility]A NITROGEN 14 mg/dL 7-25 GLUCOSE 167 mg/dL H 65-100 SODIUM 140 mmol/L 135-145 POTASSIUM 3.8 mmol/L 3.5-5.0 CHLORIDE 104 mmol/L 100-110 CO2 27 meq/L 20-30 CREATININE, Serum 1.10 mg/dL 0.50-1.40 eGFR(CKD-EPI 2020) 68 mL/min >60 Oct 18, 2024 10:39 AM [facility] LIVER FUNCTION SERUM Specimen Type: SERUM No comment entered. Ordering Provider: NAOMIE HUERTAS Report Released Date/Time: Jun 04, 2024 04:01 PM Reporting Lab: [address] [address] Performing Lab: [address] [address] PROTEIN,TOTAL 7.2 g/dL 6.0-8.3 ALBUMIN 4.0 g/dL 3.5-5.0 ALKALINE PHOSPHATASE 54 U/L 40-150 AST 33 U/L 5-34 ALT 39 U/L BILIRUBIN, TOTAL 0.9 mg/dL 0.2-1.2 Oct 18, 2024 10:39 AM [facility] CREATININE (eGFR 2020) SERUM Specimen Type: SERUM No comment entered. Ordering Provider: NAOMIE HUERTAS Report Released Date/Time: Jun 04, 2024 04:01 PM Reporting Lab: [address] [address] Performing Lab: [address] [address] CREATININE, Serum 1.10 mg/dL 0.50-1.40 eGFR(CKD-EPI 2020) 68 mL/min >60 Social History: Smoking Status (Most current) and Tobacco Use (All prior to encounter date) This section includes the most current, and the historical, smoking and tobacco- related health factors from the [place] facility where the Encounter took place. Current Smoking Status This section includes the most current smoking, or tobacco-related health factor, from the [place] facility where the Encounter took place. Date/Time Current Smoking Status Comment Avis ity Mar 25, 2024 12:03 PM [place]-TOBACCO QUIT 15 YRS OR MORE [facility] Tobacco Use History This section includes a history of the smoking, or tobacco-related health factors, that were collected on or before the date of the Encounter. The data comes from the [place] facility where the Encounter took place. Date/Time Smoking Status/Tobacco Use Comment Maribel acbrittani Mar 25, 2024 12:03 PM [place]-TOBACCO QUIT 15 YRS OR MORE [facility] Apr 01, 2019 09:37 AM VA-TOBACCO FORMER USER [facility] Apr 01, 2019 09:37 AM [place]-TOBACCO QUIT 15 YRS OR MORE [facility] Apr 01, 2018 09:18 AM VA-TOBACCO FORMER USER [facility] Apr 01, 2018 09:18 AM [place]-TOBACCO QUIT [facility] YRS OR MORE [facility] Apr 01, 2018 08:44 AM QUIT TOBACCO USE > 7 YEARS AGO [facility] Feb 17, 2017 10:42 AM QUIT TOBACCO USE > 7 YEARS AGO [facility] January 18, 2016 08:51 AM QUIT TOBACCO USE > 7 YEARS AGO . [facility] Mar 12, 2010 11:19 AM QUIT TOBACCO USE > 7 YEARS AGO [facility] Advance Directives: All historical and current Section Date Range: From patient's date of to the date document was created. This section includes ALL of a patient's completed or amended [place] Advance and Rescinded Directives. The entries below indicate that a directive exists for the patient, but an actual copy is not included with this document. The data comes from all [facility]. Date Advance Directives Provider Source Jun 20, 2003 ADVANCE DIRECTIVE EMANI REED [facility] Encounter Notes: All associated encounter [...] Hearing Re-Evaluation and Hearing Aid Programming BACKGROUND/HISTORY: Panora was seen 09/28/24 for a hearing re-evaluation and hearing aid programming appointment, accompanied by his . He was fit with [employer] Evolv AI BTE Rs (SN:[id number]) on 07/08/22. He was scheduled to greens picker these repaired devices with new earmolds. He also provides his backup [employer] Advance mini BTEs (SN:[id number]) to be cleaned and checked. His last [...] PROGRAMMING: Repaired hearing aids were connected to [employer] and a firmware update was completed. A recalculation was done to today's hearing thresholds. New earmolds were attached to devices. reported satisfaction with sound quality. His old [...] Applicable NA * /dereje/ VIVIANE MCGINNIS STAFF TEST EXAMINER Signed: 09/28/2024 09:46 VIVIANE MCGINNIS [facility] [place] [facility] [place]
[2025-01-10 10:03] LABS: MANUAL DIFF FLAG NO
[2025-01-10 10:09] LABS: Basophils Absolute Auto 0.1 X10*3/uL (0.0-0.2); Basophils Percent Auto 0.9 % (0-2); Eosinophils Absolute Auto 0.2 X10*3/uL (0.0-0.4); Eosinophils Percent Auto 2.5 % (0-4); Hematocrit 48.5 % (42.0-52.0); Hemoglobin 16.4 g/dl (14.0-18.0); Imm Gran Abs Auto 0.05 X10*3/uL (0.00-0.03); Imm Gran Pct Auto 0.5 % (0.0-0.4); Lymphocytes Absolute Auto 2.7 X10*3/uL (1.2-4.9); Lymphocytes Percent Auto 28.5 % (20-40); Mean Corpuscular HGB Conc 33.8 g/dl (31.0-36.0); Mean Corpuscular Hemoglobin 29.5 pg (27.0-33.0); Mean Corpuscular Volume 87.2 fL (80.0-98.0); Mean Platelet Volume 10.3 fL (9.4-12.4); Monocytes Absolute Auto 0.8 X10*3/uL (0.1-1.2); Monocytes Percent Auto 8.5 % (2-11); Neutrophils Absolute Auto 5.7 x10*3/uL (2.0-8.3); Neutrophils Percent Auto 59.1 % (45-73); Platelet Count 221 X10*3/uL (160-400); Red Blood Count 5.56 X10*6/uL (4.60-5.80); Red Cell Distribution Width 13.4 % (11.0-16.0); White Blood Count 9.6 X10*3/uL (4.8-10.8)
[2025-01-10 10:17] LABS: Appearance Urine Clear; Color Urine Yellow; Glucose Urine UA Negative (Negative); Leukocyte Esterase Urine Negative (Negative); Nitrite Urine Negative (Negative); PH 5.5 (5.0-9.0); UMIC TRIGGER UACC YES; Urine Blood Negative (Negative); Urine Ketones Negative (Negative); Urine Protein 30 (1+) mg/dL (Neg-Trace)
[2025-01-10 10:21] LABS: Bacteria Urine None Seen (None Seen); Hyaline Casts Urine 0-2 /LPF (0-2); RBC Urine 0-2 /HPF (0-2); Squamous Epithelial Cell Urine 0-2 /HPF (0-2); WBC Urine 0-5 /HPF (0-5)
[2025-01-10 10:31] LABS: Alanine Aminotransferase 49 U/L (0-40); Albumin Level 4.1 g/dL (3.5-5.0); Alkaline Phosphatase 69 U/L (39-117); Anion Gap 13 (12-20); Aspartate Amino Transferase 48 U/L (5-37); Bilirubin Total 0.6 mg/dL (0.0-1.0); Blood Urea Nitrogen 17 mg/dL (9-16); Calcium 9.6 mg/dL (8.4-10.2); Carbon Dioxide 25 mmol/L (22-29); Chloride 105 mmol/L (96-108); Cholesterol 128 mg/dL (<200); Estimated Glomerular Filt Rate > 60; Glucose Fasting 153 mg/dL (60-99); HDL Cholesterol 33 mg/dL (>40); LDL Cholesterol Calculated 52 mg/dL (<100); Potassium 3.5 mmol/L (3.3-5.1); Sodium 139 mmol/L (135-145); Triglycerides 219 mg/dL (<150)
[2025-01-10 10:39] LABS: Prostate Specific Antigen Scr 0.55 ng/mL (<0.05-4.0)
[2025-01-10 10:45] LABS: Vitamin D 25-OH Total 23.1 ng/mL (>30)
== END 2025-01-10 06:28 | disposition home or self-care (01) ==
LOC: HO.HMGCLDS 06:27
PROVIDERS: PCP Nurse Practitioner Family; Referring Provider Internal Medicine Hypertension Specialist; Visit Provider Nurse Practitioner Family
DX: Z00.00 Encounter for general adult medical examination without abnormal findings (principal); E55.9 Vitamin D deficiency, unspecified; K76.0 Fatty (change of) liver, not elsewhere classified; Z12.5 Encounter for screening for malignant neoplasm of prostate
CPT/HCPCS: 36415; 80053; 80061; 81001; 82306; 84153; 85025

== ENCOUNTER 2025-01-21 10:25 | Outpatient (AMB) | payer BC, SELFPAY ==
[2025-01-21 10:29] VITALS: BP 110/64; PULSE 87; O2SAT 92; BMI 30.4
--- NOTE | 2025-01-21 10:29 | HO.NEPHOV ---
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 Operator Required: No Accompanied by: Spouse Allergies amiodarone Allergy (Severe, Verified 01/21/25 10:32) Rash/Itching amlodipine Allergy (Severe, Verified 01/21/25 10:32) tachycardia sulfamethoxazole [From Sulfamethoxazole-Trimethoprim] Allergy (Severe, Verified 01/21/25 10:32) Rash and itching trimethoprim [From Sulfamethoxazole-Trimethoprim] Allergy (Severe, Verified 01/21/25 10:32) Rash and itching environmental allergies Allergy (Intermediate, Verified 01/21/25 10:32) Hayfever morphine [MORPHINE] Allergy (Intermediate, Verified 01/21/25 10:32) Itching and congestion hydromorphone [From Dilaudid] Allergy (Mild, Verified 01/21/25 10:32) Itching and anxiety Seasonal Allergies Allergy (Mild, Verified 01/21/25 10:32) Unknown Sulfa (Sulfonamide Antibiotics) [Sulfa (Sulfonamides)] Allergy (Mild, Verified 01/21/25 10:32) Rash and Itching Medication List - Last Reconciled 01/21/25 by Christian Watson MD albuterol sulfate 90 mcg/actuation 2 inhalations inhalation Q6H PRN 30 days alprazolam 0.25 mg PO BEDTIME atorvastatin 20 mg PO DAILY azelastine 2 sprays intranasal BID 90 days betamethasone dipropionate 0.05% 1 appl topical DAILY PRN budesonide-formoterol 160-4.5 mcg/actuation (Symbicort) 2 puffs inhalation BID PRN carboxymethylcellulose sodium 0.5% (Lubricant Eye Drops) 1 drp ophthalmic (eye) BID clopidogrel 75 mg PO DAILY dicyclomine 10 mg PO PRN fluoride (sodium) 1.1% PO BEDTIME fluticasone propionate 50 mcg/actuation 2 sprays intranasal DAILY PRN 90 days glucosamine sulfate mg PO .nightly lactobacillus combination no.9 (Adult 50 Plus Probiotic) 4,000 mmu cells PO DAILY lorazepam 1 mg PO DAILY losartan-hydrochlorothiazide 100-25 mg 1 tab PO DAILY metoprolol succinate ER 100 mg PO DAILY HPI Comments Details: 78-year-old man with a history of hypertension has been referred for proteinuria. He has a history of renal cell carcinoma. In this was encapsulated mass. This was removed in 2013. He was having periodic surveillance at [facility]. He has had no further follow-up for the last year or so. He carries a diagnosis of diabetes mellitus. However he has not had any anti diabetic medications. He denies having diabetes. Using recent fasting blood sugars have been more than 100 and staying around 126. Recently a hemoglobin A1c is 6.3 11/24/23 ;Doing well. No new issues;Had CT chest last month ;NO nodules; CT abd shows multiple cysts 07/13/24 ;Had USG and MRI- results pending ;No hematuria ;No edema 01/21/25 Overall doing well. s/p Watchman in Aug 2024 [facility] Medical History (Updated 08/23/24 @ 10:35 by Jesus Miller, [facility]) Presence of Watchman left atrial appendage closure device Splenomegaly Ectatic thoracic aorta Bifascicular block IBS (irritable bowel syndrome) History of kidney cancer Actinic keratoses Paroxysmal atrial fibrillation Chronic allergic rhinitis COPD (chronic obstructive pulmonary disease) Pulmonary nodules Surgical History History of total right knee replacement H/O left hemicolectomy H/O inguinal hernia repair H/O cardiac radiofrequency ablation History of cardioversion S/P correction of deviated nasal septum Family History Father Heart attack Mother No problems noted. Social History Housing: House Are you a primary manager career to a significant other at home: No Do you presently have visiting nurse or other home services: No Patient Tobacco Use Status: Former Tobacco user Tobacco use type: Cigarette Years Smoked: 20 years e-Cigarette/Vaping Use: Never Used Second Hand Smoke Exposure: No Advance Directives Date on File: 06/19/20 service: Yes Current occupational status: retired Cognitive needs: No Hearing needs: Yes Vision needs: Yes Physical Exam Vital Signs: Last Vital Signs Pulse 87 05/09/25 10:29 BP 110/64 01/21/25 10:29 Pulse Ox 92 01/21/25 10:29 Oxygen Delivery Method Room Air 01/21/25 10:29 BMI result Body Mass Index 30.4 Const General: comfortable; No acute distress Orientation/consciousness: patient oriented x3 Eyes General: appearance normal, both eyes and all related structures Visual Dangelo: normal visual dangelo by confrontation Neck Neck: Yes supple and Yes no JVD Resp Effort & Inspection: normal respiratory effort and respiratory effort not decreased Cardio Palpation: no palpable S3 and no palpable S4 Heart sounds: no rubs GI Inspection: Yes normal to inspection Palpation (GI): Soft to palpation Percussion: Yes normal to percussion Auscultation: normal bowel sounds General: Yes no CVA tenderness Back/Spine/Pelvis Back: no CVA tenderness Skin General skin exam: no petechiae and no purpura Neuro General: patient oriented x3 and no focal motor deficits Extrem General: No clubbing and No edema Results Reviewed Nephrology Results: Hgb 16.4 g/dl (14.0-18.0) 01/10/25 WBC 9.6 X10*3/uL (4.8-10.8) 01/10/25 Plt Count 221 X10*3/uL (160-400) 01/10/25 Sodium 139 mmol/L (135-145) 01/10/25 Potassium 3.5 mmol/L (3.3-5.1) 01/10/25 Chloride 105 mmol/L (96-108) 01/10/25 Carbon Dioxide 25 mmol/L (22-29) 01/10/25 BUN 17 mg/dL (9-16) H 01/10/25 Creatinine 1.02 mg/dL (0.5-1.4) 01/10/25 Calcium 9.6 mg/dL (8.4-10.2) 01/10/25 Urine Protein 30 (1+) mg/dL (Neg-Trace) H 01/10/25 Assessment & Plan Assessment & Plan (1) Microalbuminuria: Code(s): R80.9 - Proteinuria, unspecified Category: Medical (2) HTN (hypertension): Code(s): I10 - Essential (primary) hypertension Category: Medical (3) Renal cyst: Code(s): N28.1 - Cyst of kidney, acquired Category: Medical (4) Malignant neoplasm of kidney: Code(s): C64.9 - Malignant neoplasm of unspecified kidney, except renal pelvis Category: Medical Plan Elderly man with a history of microalbuminuria in the setting of hypertension and a questionable diagnosis of diabetes mellitus and obesity. He is currently on losartan for renal protection. He has no significant hematuria. No evidence of any active glomerulonephritis. continue with angiotensin receptor samanta. Maintain blood pressure less than 130/80. Maintain A1c less than 6% Mild increase in creatinine to 1.27 AFTER increasing Losartan HCT in May 2024 BP is well controlled Watch for now Cr is down to 1.05 h/o renal cell carcinoma CT abdomen shows multiple cysts MRI in Jun 2024: Bosniak type III and IIf lesions with a hemorrhagic and proteinaceous component. Underlying lesion/mass cannot be excluded. Will repeat MRI in Apr and rerefer to Urology as needed Orders: Orders MR abdomen wo/w con 3 Months C64.9 - Malignant neoplasm of unspecified kidney, except renal pelvis, N28.1 - Cyst of kidney, acquired Basic Metabolic Panel 6 Months N28.1 - Cyst of kidney, acquired, R80.9 - Proteinuria, unspecified Coding Level of Care Code Est Pt Level 4 (78179) Diagnoses Microalbuminuria R80.9 HTN (hypertension) I10 Renal cyst N28.1 Malignant neoplasm of kidney C64.9
--- OUTSIDE RECORDS SUMMARY | 2025-01-21 10:55 | XMS_ITS | Continuity of Care Document ---
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.15/366.10) Active Condition [facility] [place] Deviated nasal septum Active Condition [facility] Diabetes mellitus (SNOMED CT 93259475) Active Condition Jun 04, 2024 Entered By: NAOMIE HUERTAS Comment: No Report of DR as of JUN 08: Private Ophth Dr Huffman @ [facility] [place] [facility] Essential hypertension (SNOMED CT 44612566) Active Condition [facility] [place] [facility] Ex-smoker Active Condition May 24 24 Entered By: VIVIANE MONAE Comment: Ex-smoker, quit 1995Sep 2023 Entered By: NAOMIE HUERTAS Comment: Never Lung Ca; May Have Had Benign Nodules [facility] [place] [facility] Hearing loss (SNOMED CT 92988607) Active Condition Jun 04, 2024 Entered By: [...] [facility] [place] [facility] Hyperlipidemia (SNOMED CT 19786404) Active Condition [facility] [place] [facility] Irritable bowel syndrome Active Condition Mar 30, 2020 Entered By: VIRIDIANA GAN Comment: diarrhea [facility] [place] [facility] Malignant melanoma Active Condition Jun 04, 2024 Entered By: NAOMIE HUERTAS Comment: Location - Nose; Excised 2022; Sees Derm Once Yr for Survellance [place] Pes planus Active Condition Jun 04 Entered By: NAOMIE HUERTAS Comment: See [facility] [place] [facility] for malignant neoplasm of colon done Active Condition Jun 04, 2024 Entered By: NAOMIE HUERTAS Comment: Last Diagnost Colonoscopy approx 2021; no CRCSep 2023 Entered By: NAOMIE HUERTAS Comment: Poss. Benign Polyposis [place] Under care of doctor Active Condition Jun 04, 2024 Entered By: NAOMIE HUERTAS Comment: Private PCP is at [facility] Impaired glucose tolerance Inactive Condition 06/04/2024 [place] [facility] [place] [facility] Diagnosis: ICD-10-CM F41.9 Anxiety disorder, unspecified Active Diagnosis [place] Diagnosis: ICD-10-CM Z46.0 Encounter for fit/adjst of spectacles and contact lenses Active Diagnosis [facility] [place] Diagnosis: ICD-10-CM E11.9 Type 2 diabetes mellitus without complications [facility] Diagnosis: ICD-10-CM H90.3 Sensorineural hearing loss, bilateral Active Diagnosis [facility] [place] [facility] Diagnosis: ICD-10-CM Z46.1 Encounter for fitting and adjustment of hearing aid Active Diagnosis [facility] Diagnosis: ICD-10-CM M21.42 Flat foot [pes planus] (acquired), left foot Active Diagnosis [place] Diagnosis: ICD-10-CM I48.91 Unspecified atrial fibrillation Active Diagnosis [place] Medications Combined list of outpatient medications from Department of Defense and [facility] facilities.Medications provided include 1) outpatient medications from the last 15 months, and 2) patient-reported medications. Medication Details Route Status Patient Instructions Prescription Expires Prescription Number Last Dispense Date Ordering Provider Order Date Order Qty Source ALBUTEROL 90MCG/ACTUA T (CFC-F) INHL,ORAL,8 .5GM DOSE COUNTER INHALE 2 PUFFS BY MOUTH EVERY 6 HOURS NEEDED RESPIR ATORY (INHAL ATION) [facility] ATORVASTATI N CA 40MG TAB TAKE ONE-HALF TABLET BY MOUTH QD ORAL ACTIVE RA JOJO RODRIGUEZ 2018 [facility] BUDESONIDE 160MCG/FORM OTEROL FUM 4.5MCG/SPRA Y INHL,ORAL,1 0.2GM INHALE 2 PUFFS BY MOUTH TWICE DAILY RESPIR ATORY (INHAL ATION) [facility] 2019 [facility] [place] [facility] CARBOXYMETH YLCELLULOSE NA 0.5% SOLN,OPH INSTILL 1 DROP INTO EACH EYE FOUR TIMES A DAY FOR DRY EYE OPHTHA LMIC ACTIVE 11/11/2025 [id number] [place] 2024 45 [place] [facility] [place] [facility] CARBOXYMETH YLCELLULOSE NA 0.5% SOLN,OPH INSTILL 1 DROP INTO EACH EYE FOUR TIMES A DAY FOR DRY EYE OPHTHA LMIC DISCONT INUED 11/20/2024 [id number] [place] 2023 45 [facility] DICYCLOMINE HCL 10MG CAP TAKE 1 CAPSULE BY MOUTH EVERY 6 HOURS NEEDED [facility]AL [facility] FLUTICASONE PROPIONATE 50MCG/SPRAY SOLN,NASAL, 16GM INSTILL 1 SPRAY INTO EACH NOSTRIL TWICE DAILY NASAL [facility] GLUCOSAMINE CAP/TAB 1000 EVERY DAY [facility] HYDROCHLORO THIAZIDE 25MG TAB TAKE ONE-HALF TABLET BY MOUTH ONCE DAILY ORAL ACTIVE JESSICA HUERTAS 2023 [facility] LOPERAMIDE HCL 2MG CAP TAKE 1 CAPSULE BY MOUTH EVERY 6 HOURS NEEDED ORAL [facility] LORAZEPAM 2MG TAB TAKE ONE TABLET BY MOUTH AT BEDTIME ORAL [facility] [place] POTASSIUM 100MG TAB TAKE ONE TABLET BY MOUTH ONCE DAILY ORAL ACTIVE JESSICA HUERTAS 2023 [place] METOPROLOL SUCCINATE 100MG TAB,SA TAKE ONE TABLET BY MOUTH EVERY DAY ORAL [facility] MINERAL OIL,LIGHT/P ETROLATUM (PF) OINT,OPH APPLY THIN RIBBON INTO EACH EYE AT BEDTIME FOR DRY EYE OPHTHA LMIC ACTIVE 11/11/2025 [id number] [place] 2024 3 [facility] MONTELUKAST NA 10MG TAB TAKE ONE TABLET BY MOUTH ONCE DAILY ORAL [facility] Allergies, Adverse Reactions, Alerts [...] Site Reaction Lot Number CVX Code Drug Manager Ems Status Comments Source INFLUENZA, UNSPECIFIED FORMULATION 2023 [...] INJECTABLE [address] [place] [facility] [place] [facility] ZOSTER RECOMBINANT [...] 2010 [facility] complet [facility] [place] [...] Reference Range Date Interpretation Specimen Comments Source URIC ACID URATE [MASS/VOLUM E] IN SERUM OR PLASMA 5.5 mg/dL 3.5 - 7.2 10/18 Specimen Type: SERUM No comment entered. Ordering Provider: NAOMIE HUERTAS Report Released Date/Time: Jun 04, 2024 04:01 PM Reporting Lab: [facility] [place] [facility] [address] [address] Performing Lab: [facility] [place] [facility] [address] [address] [facility] CALCIUM CALCIUM [MASS/VOLUM E] IN SERUM OR PLASMA 9.7 mg/dL 8.5 - 10.2 10/18 Specimen Type: SERUM No comment entered. Ordering Provider: NAOMIE HUERTAS Report Released Date/Time: Jun 04, 2024 04:01 PM Reporting Lab: [facility] [place] [facility] [address] [address] Performing Lab: [facility] [address] [address] [place] LIPID PANEL FASTING CHOLESTEROL [MASS/VOLUM E] IN SERUM OR PLASMA 139 mg/dL 10/18 Specimen Type: SERUM No comment entered. Ordering Provider: NAOMIE HUERTAS Report Released Date/Time: Jun 04, 2024 04:01 PM Reporting Lab: [facility] [address] [address] Performing Lab: [facility] [address] [address] [place] LIPID PANEL FASTING TRIGLYCERID E [MASS/VOLUM E] IN SERUM OR PLASMA 272 mg/dL 0 - 150 10/18 H Specimen Type: SERUM No comment entered. Ordering Provider: NAOMIE HUERTAS Report Released Date/Time: Jun 04, 2024 04:01 PM Reporting Lab: [address] [address] Performing Lab: [address] [address] [place] LIPID PANEL FASTING CHOLESTEROL IN LDL [MASS/VOLUM E] IN SERUM OR PLASMA BY CALCULATION 51 mg/dL 0 - 129 10/18 Specimen Type: SERUM No comment entered. Ordering Provider: NAOMIE HUERTAS Report Released Date/Time: Jun 04, 2024 04:01 PM Reporting Lab: [address] [address] Performing Lab: [address] [address] [place] LIPID PANEL FASTING CHOLESTEROL .TOTAL/CHOL ESTEROL IN HDL [MASS RATIO] IN SERUM OR PLASMA 4.1 10/18 Specimen Type: SERUM No comment entered. Ordering Provider: NAOMIE HUERTAS Report Released Date/Time: Jun 04, 2024 04:01 PM Reporting Lab: [facility] [address] [address] Performing Lab: [facility] [address] [address] [place] LIPID PANEL FASTING CHOLESTEROL IN HDL [MASS/VOLUM E] IN SERUM OR PLASMA 34 mg/dL 40 - 60 10/18 L Specimen Type: SERUM No comment entered. Ordering Provider: NAOMIE HUERTAS Report Released Date/Time: Jun 04, 2024 04:01 PM Reporting Lab: [address] [address] Performing Lab: [address] [address] [place] VITAMIN D (25-OH) 25-HYDROXYV ITAMIN D3 [MASS/VOLUM E] IN SERUM OR PLASMA 14 ng/mL 20 - 50 10/18 L Specimen Type: SERUM No comment entered. Ordering Provider: NAOMIE HUERTAS Report Released Date/Time: Jun 04, 2024 04:01 PM Reporting Lab: [address] [address] Performing Lab: [address] [address] [place] VITAMIN B12 COBALAMIN (VITAMIN B12) [MASS/VOLUM E] IN SERUM OR PLASMA 384 pg/mL 200 - 900 10/18 Specimen Type: SERUM No comment entered. Ordering Provider: NAOMIE HUERTAS Report Released Date/Time: Jun 04, 2024 04:01 PM Reporting Lab: [address] [address] Performing Lab: [address] [address] [place] RETICULOC YTES RETICULOCYT ES [#/VOLUME] IN BLOOD 2.2 0.6 - 2.0 10/18 H Specimen Type: BLOOD No comment entered. Ordering Provider: NAOMIE HUERTAS Report Released Date/Time: Jun 04, 2024 04:01 PM Reporting Lab: [address] [address] Performing Lab: [address] [address] [place] RETICULOC YTES RETICULOCYT ES/100 ERYTHROCYTE S IN BLOOD BY AUTOMATED COUNT 121.8 10*3/u L 30.0 - 90.0 10/18 H Specimen Type: BLOOD No comment entered. Ordering Provider: NAOMIE HUERTAS Report Released Date/Time: Jun 04, 2024 04:01 PM Reporting Lab: [address] [address] Performing Lab: [address] [address] [place] RETICULOC YTES HEMOGLOBIN [ENTITIC MASS] IN RETICULOCYT ES BY AUTOMATED COUNT 33.2 pg 27.9 - 42.0 10/18 Specimen Type: BLOOD No comment entered. Ordering Provider: NAOMIE HUERTAS Report Released Date/Time: Jun 04, 2024 04:01 PM Reporting Lab: [address] [address] Performing Lab: [address] [address] [place] FERRITIN FERRITIN [MASS/VOLUM E] IN SERUM OR PLASMA 376 ng/mL 20 - 300 10/18 H Specimen Type: SERUM No comment entered. Ordering Provider: NAOMIE HUERTAS Report Released Date/Time: Jun 04, 2024 04:01 PM Reporting Lab: [address] [address] Performing Lab: [address] [address] [place] HEMOGLOBI N A1C PANEL HEMOGLOBIN A1C/HEMOGLO [...] Jun 04, 2024 04:01 PM Reporting Lab: [address] [address] Performing Lab: [facility] [address] [address] [place] CBC AND DIFF (AUTO) LEUKOCYTES [#/VOLUME] IN BLOOD BY AUTOMATED COUNT 9.54 10*3/u L 4.50 - 11.00 10/18 Specimen Type: BLOOD No comment entered. Ordering Provider: NAOMIE HUERTAS Report Released Date/Time: Jun 04, 2024 04:01 PM Reporting Lab: [facility] [place] [address] [address] Performing Lab: [facility] [place] [address] [address] [place] CBC AND DIFF (AUTO) ERYTHROCYTE S [#/VOLUME] IN BLOOD BY AUTOMATED COUNT 5.51 10*6/u L 4.23 - 5.66 10/18 Specimen Type: BLOOD No comment entered. Ordering Provider: NAOMIE HUERTAS Report Released Date/Time: Jun 04, 2024 04:01 PM Reporting Lab: [facility] [place] [address] [address] Performing Lab: [facility] [address] [address] [place] CBC AND DIFF (AUTO) HEMOGLOBIN [MASS/VOLUM E] IN BLOOD 16.2 g/dL 12.8 - 17 10/18 Specimen Type: BLOOD No comment entered. Ordering Provider: NAOMIE HUERTAS Report Released Date/Time: Jun 04, 2024 04:01 PM Reporting Lab: [facility] [place] [address] [address] Performing Lab: [facility] [address] [address] [place] CBC AND DIFF (AUTO) HEMATOCRIT [VOLUME FRACTION] OF BLOOD BY AUTOMATED COUNT 48.2 39.2 - 50.4 10/18 Specimen Type: BLOOD No comment entered. Ordering Provider: NAOMIE HUERTAS Report Released Date/Time: Jun 04, 2024 04:01 PM Reporting Lab: [facility] [address] [address] Performing Lab: [facility] [place] [facility] [address] [address] [place] CBC AND DIFF (AUTO) MCV [ENTITIC VOLUME] BY AUTOMATED COUNT 87.5 fL 82 - 99 10/18 Specimen Type: BLOOD No comment entered. Ordering Provider: NAOMIE HUERTAS Report Released Date/Time: Jun 04, 2024 04:01 PM Reporting Lab: [facility] [address] [address] Performing Lab: [facility] [address] [address] [place] CBC AND DIFF (AUTO) MCHC [MASS/VOLUM E] BY AUTOMATED COUNT 33.6 g/dL 30.8 - 35.1 10/18 Specimen Type: BLOOD No comment entered. Ordering Provider: NAOMIE HUERTAS Report Released Date/Time: Jun 04, 2024 04:01 PM Reporting Lab: [facility] [address] [address] Performing Lab: [facility] [address] [address] [place] CBC AND DIFF (AUTO) PLATELETS [#/VOLUME] IN BLOOD BY AUTOMATED COUNT 200 10*3/u L 140 - 360 10/18 Specimen Type: BLOOD No comment entered. Ordering Provider: NAOMIE HUERTAS Report Released Date/Time: Jun 04, 2024 04:01 PM Reporting Lab: [facility] [address] [address] Performing Lab: [facility] [address] [address] [place] CBC AND DIFF (AUTO) ERYTHROCYTE DISTRIBUTIO N WIDTH [RATIO] BY AUTOMATED COUNT 13.1 12.0 - 16.0 10/18 Specimen Type: BLOOD No comment entered. Ordering Provider: NAOMIE HUERTAS Report Released Date/Time: Jun 04, 2024 04:01 PM Reporting Lab: [facility] [address] [address] Performing Lab: [facility] [address] [address] [place] CBC AND DIFF (AUTO) MONOCYTES [#/VOLUME] IN BLOOD BY AUTOMATED COUNT 0.74 10*3/u L 0.30 - 1.10 10/18 Specimen Type: BLOOD No comment entered. Ordering Provider: NAOMIE HUERTAS Report Released Date/Time: Jun 04, 2024 04:01 PM Reporting Lab: [facility] [address] [address] Performing Lab: [place] [facility] [place] [address] [place] CBC AND DIFF (AUTO) MCH [ENTITIC MASS] BY AUTOMATED COUNT 29.4 pg 26.2 - 32.6 10/18 Specimen Type: BLOOD No comment entered. Ordering Provider: NAOMIE HUERTAS Report Released Date/Time: Jun 04, 2024 04:01 PM Reporting Lab: [facility] [address] [address] Performing Lab: [facility] [address] [address] [place] CBC AND DIFF (AUTO) NEUTROPHILS /100 LEUKOCYTES IN BLOOD BY AUTOMATED COUNT 63.1 43.7 - 75.8 10/18 Specimen Type: BLOOD No comment entered. Ordering Provider: NAOMIE HUERTAS Report Released Date/Time: Jun 04, 2024 04:01 PM Reporting Lab: [facility] [address] [address] Performing Lab: [facility] [address] [place] CBC AND DIFF (AUTO) LYMPHOCYTES /100 LEUKOCYTES IN BLOOD BY AUTOMATED COUNT 25.4 14.0 - 42.3 10/18 Specimen Type: BLOOD No comment entered. Ordering Provider: NAOMIE HUERTAS Report Released Date/Time: Jun 04, 2024 04:01 PM Reporting Lab: [facility] [address] Performing Lab: [facility] [address] [address] [place] CBC AND DIFF (AUTO) MONOCYTES/1 00 LEUKOCYTES IN BLOOD BY AUTOMATED COUNT 7.8 5.1 - 13.7 10/18 Specimen Type: BLOOD No comment entered. Ordering Provider: NAOMIE HUERTAS Report Released Date/Time: Jun 04, 2024 04:01 PM Reporting Lab: [place] [facility] [place] [facility] [address] [address] Performing Lab: [place] [facility] [address] [address] [place] CBC AND DIFF (AUTO) EOSINOPHILS /100 LEUKOCYTES IN BLOOD BY AUTOMATED COUNT 2.6 0.4 - 6.8 10/18 Specimen Type: BLOOD No comment entered. Ordering Provider: NAOMIE HUERTAS Report Released Date/Time: Jun 04, 2024 04:01 PM Reporting Lab: [place] [facility] [address] [address] Performing Lab: [place] [facility] [address] [address] [place] CBC AND DIFF (AUTO) BASOPHILS/1 00 LEUKOCYTES IN BLOOD BY AUTOMATED COUNT 0.6 0.1 - 2.0 10/18 Specimen Type: BLOOD No comment entered. Ordering Provider: NAOMIE HUERTAS Report Released Date/Time: Jun 04, 2024 04:01 PM Reporting Lab: [place] [facility] [address] [address] Performing Lab: [place] [facility] [address] [address] [place] CBC AND DIFF (AUTO) NEUTROPHILS [#/VOLUME] IN BLOOD BY AUTOMATED COUNT 6.02 10*3/u L 2.20 - 7.60 10/18 Specimen Type: BLOOD No comment entered. Ordering Provider: NAOMIE HUERTAS Report Released Date/Time: Jun 04, 2024 04:01 PM Reporting Lab: [place] [facility] [address] [address] Performing Lab: [place] [facility] [address] [address] [place] CBC AND DIFF (AUTO) LYMPHOCYTES [#/VOLUME] IN BLOOD BY AUTOMATED COUNT 2.42 10*3/u L 1.00 - 3.20 10/18 Specimen Type: BLOOD No comment entered. Ordering Provider: NAOMIE HUERTAS Report Released Date/Time: Jun 04, 2024 04:01 PM Reporting Lab: [facility] [address] [address] Performing Lab: [facility] [address] [address] [place] CBC AND DIFF (AUTO) EOSINOPHILS [#/VOLUME] IN BLOOD BY AUTOMATED COUNT 0.25 10*3/u L 0.03 - 0.44 10/18 Specimen Type: BLOOD No comment entered. Ordering Provider: NAOMIE HUERTAS Report Released Date/Time: Jun 04, 2024 04:01 PM Reporting Lab: [facility] [address] [address] Performing Lab: [facility] [address] [address] [place] CBC AND DIFF (AUTO) BASOPHILS [#/VOLUME] IN BLOOD BY AUTOMATED COUNT 0.06 10*3/u L 0.01 - 0.13 10/18 Specimen Type: BLOOD No comment entered. Ordering Provider: NAOMIE HUERTAS Report Released Date/Time: Jun 04, 2024 04:01 PM Reporting Lab: [facility] [address] [address] Performing Lab: [facility] [address] [address] [place] CBC AND DIFF (AUTO) IMMATURE GRANULOCYTE S/100 LEUKOCYTES IN BLOOD BY AUTOMATED COUNT 0.5 0.0 - 0.7 10/18 Specimen Type: BLOOD No comment entered. Ordering Provider: NAOMIE HUERTAS Report Released Date/Time: Jun 04, 2024 04:01 PM Reporting Lab: [facility] [address] [address] Performing Lab: [facility] [address] [address] [place] CBC AND DIFF (AUTO) IMMATURE GRANULOCYTE S [#/VOLUME] IN BLOOD 0.05 10*3/u L 0.00 - 0.06 10/18 Specimen Type: BLOOD No comment entered. Ordering Provider: NAOMIE HUERTAS Report Released Date/Time: Jun 04, 2024 04:01 PM Reporting Lab: [place] [facility] [address] [address] Performing Lab: [facility] [address] [address] [place] CBC AND DIFF (AUTO) NRBC % 0.0 0.0 - 0.0 10/18 Specimen Type: BLOOD No comment entered. Ordering Provider: NAOMIE HUERTAS Report Released Date/Time: Jun 04, 2024 04:01 PM Reporting Lab: [facility] [address] [address] Performing Lab: [facility] [address] [place] CBC AND DIFF (AUTO) NRBC, ABS 0.00 10*3/u L 0.00 - 0.00 10/18 Specimen Type: BLOOD No comment entered. Ordering Provider: NAOMIE HUERTAS Report Released Date/Time: Jun 04, 2024 04:01 PM Reporting Lab: [facility] [address] [address] Performing Lab: [facility] [address] [address] [place] MICROALBU MIN CREATININ E RATIO PANEL MICROALBUMI N/CREATININ E [MASS RATIO] IN URINE 103.3 mg/g 0 - 29.9 10/18 H Specimen Type: URINE No comment entered. Ordering Provider: NAOMIE HUERTAS Report Released Date/Time: Jun 04, 2024 04:01 PM Reporting Lab: [facility] [address] [address] Performing Lab: [facility] [address] [address] [place] MICROALBU MIN CREATININ E RATIO PANEL MICROALBUMI N [MASS/VOLUM E] IN URINE 14.3 mg/dL 10/18 Specimen Type: URINE No comment entered. Ordering Provider: NAOMIE HUERTAS Report Released Date/Time: Jun 04, 2024 04:01 PM Reporting Lab: [facility] [address] [address] Performing Lab: [facility]N [facility] [address] [address] [place] MICROALBU MIN CREATININ E RATIO PANEL CREATININE [MASS/VOLUM E] IN URINE 138.43 mg/dL 10/18 Specimen Type: URINE No comment entered. Ordering Provider: NAOMIE HUERTAS Report Released Date/Time: Jun 04, 2024 04:01 PM Reporting Lab: [facility] [address] [address] Performing Lab: [facility] [address] [address] [facility] Vital Signs Combined list of inpatient and outpatient Vital Signs from Department of Defense and Veterans Affairs, ranging from 12 months to all on record, depending upon the facility. Vital Sign Value Date Comments Source SYSTOLIC BLOOD PRESSURE 135 06/04/2024 15:13:14 [place] DIASTOLIC BLOOD PRESSURE 75 06/04/2024 15:13:14 [place] PULSE OXIMETRY 95 06/04/2024 15:13:14 [facility] 208 06/04/2024 15:13[facility]14 [facility] BMI 31 kg/m2 06/04/2024 15[facility]13:[facility] 69 06/04/2024 15:13[facility] TEMPERATURE 98.2 06/04/2024 15:13:14 [facility] PULSE 76 06/04/2024 15:13:14 [facility] RESP[facility] 19 06/04/2024 15:13:14 [facility] Encounters Combined list of: 1) Encounters from Department of Veterans Affairs facilities going backup to the last 18 months, not all [place] inpatient encounters are included; 2) Encounters from the Department of Defense facilities going backup to 280 months. Location Location Details Encounter Type Encounter Number Reason For Visit Attending Provider ADM Date DC Date Status [facility] Out[facility] Encounter [id number] 10/16 [facility] [place] HEARING AID REPAIR/MOD IFYING [id number] Diagnos is: ICD-10- CM Z46.1 Encount er for fitting and adjustm ent of hearing aid [place] [place] 11/13 [place] [facility] Encounter [id number] 11/18 [facility] Encounter [id number] 03/04 [facility] Encounter [id number] 03/25 [facility] Encounter [id number] 03/25 [facility] Encounter [id number] 05/03 [facility] [place] Outpatient Encounter [id number] 05/21 [place] [facility] Out[facility] Encounter [id number] 05/24 [facility] HEARING AID FITTING/CH ECKING [id number] Diagnos is: ICD-10- CM Z46.1 Encount er for fitting and adjustm ent of hearing aid Calli PABON 06/01 [facility] Out[facility] Encounter [id number] 06/04 [facility] [place] OFF[place] O/P EST MOD 30 MIN [id number] Diagnos is: ICD-10- CM I48.91 Unspeci fied atrial fibrill ANDREWS Coulter 06/04 [place] [facility] Outpatient Encounter [id number] 1.06/04 [facility] [place] [facility] DIAGNOSTIC EVALUATION [id number] Diagnos is: ICD-10- CM F41.9 Anxiety disorde r, unspeci fied AME ZEE 07/05 [place] [facility] Outpatient Encounter [id number] 1. AME ZEE 07/05 [facility] OFFICE O/P NEW LOW 30 MIN [id number] Diagnos is: ICD-10- CM M21.42 Flat foot [pes planus] (acquir ed), left foot ROSS,CHARL ES F 07/06 [place] [facility] Outpatient Encounter [id number] 1.07/07 [facility] Outpatient Encounter [id number] 1.08/16 [facility] HEARING AID REPAIR/MOD IFYING [id number] Diagnos is: ICD-10- CM Z46.1 Encount er for fitting and adjustm ent of hearing aid SENIOR,FRANCOISE OLE L 09/06 [facility] HEARING AID REPAIR/MOD IFYING [id number] Diagnos is: ICD-10- CM H90.3 Sensori neural hearing loss, bilater WANDY Cardona 09/28 [facility] Outpatient Encounter [id number] 10/21 [facility] OFFICE O/P EST MOD 30 MIN [id number] Diagnos is: ICD-10- CM E11.9 Type 2 diabete s mellitu s without complic ations BRODY CARRERA Nils 11/10 [facility] FIT SPECTACLES BIFOCAL [id number] Diagnos is: ICD-10- CM Z46.0 Encount er for fit/adj st of spectac les and contact lenses DEBICLINTJhonny Georges Wray 11/10 [facility] [place] OFFICE O/P NEW HI 60 MIN [id number] Diagnos is: ICD-10- CM F41.9 Anxiety disorde r, unspeci fied DOC,W TIKA 12/07 [place] [facility] Outpatient Encounter [id number] 12/13 [facility] Outpatient Encounter [id number] 01/04 [facility] Social History Combined list of available smoking, tobacco, and other social history from [facility] of Defense and [facility] Affairs facilities. Social History Type Response Date Comment Sourc e Tobacco smoking status WAIS VA-TOBACCO FORMER USER 03/25/2024 [facility] History of tobacco use VA-TOBACCO QUIT 15 YRS OR MORE 03/25/2024 [facility] History of tobacco use VA-TOBACCO QUIT 15 YRS OR MORE 04/01/2019 [facility] History of tobacco use VA-TOBACCO QUIT 15 YRS OR MORE 04/01/2018 [facility] History of tobacco use QUIT TOBACCO USE > 7 YEARS AGO 04/01/2018 [facility] History of tobacco use QUIT TOBACCO USE > 7 YEARS AGO 02/17/2017 [facility] History of tobacco use QUIT TOBACCO USE > 7 YEARS AGO 01/18/2016 . [facility] History of tobacco use QUIT TOBACCO USE > 7 YEARS AGO 03/12/2010 [facility] Plan of Care List of future care activities from [facility] facilities. Additional future care activities may be listed in the Assessment and Plan section. Date/Time Care Activity Care Activity Detail Facili ty 02/08/2025 [facility] Advance Directives List of completed, amended, or rescinded Advance Directives on record at [facility] facilities. An actual copy of the Directive is not included. Date Advance Directive Provider Source 06/20/2003 ADVANCE DIRECTIVE EMANI REED [facility]
--- OUTSIDE RECORDS SUMMARY | 2025-01-21 10:56 | XMS_ITS ---
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 Role Phone NAOMIE SMALL Primary Care Provider Jeremías Cole [phone] REASON FOR VISIT Needs refill Medications Medication SIG (Take, Route, Fr equency, Duration) Notes Start Date End Date Status Dicyclomine HCl 10 MG 1 or 2 capsules Or ally Every 6 hours as needed for abdominal cramps, bloating, or discomfort for 90 days 09/02/2023 Active Encounters Encounter Location Date Provider Diagnosis [facility] [address] [place] [phone] 09/01/2023 Jeremías Gómez Plan Of Treatment Medication Medication Name Sig Start Date Stop Date Notes Dicyclomine HCl 10 MG 1 or 2 capsules Or ally Every 6 hours as needed for abdominal cramps, bloating, or discomfort for 90 days 09/02/2023 Progress Notes * ANDRE BALDWINDOB:1945 (78 yo M)Acc No.[id number]:09/01/2023 Patient:?ANDRE BALDWIN :1945???Age:78 Y???Sex:Male Address:[address] [place] [address] * Refills? Start Dicyclomine HCl Capsule, 10 MG, Orally, 360, 1 or 2 capsules, Every 6 hours as needed for abdominal cramps, bloating, or discomfort, 90 days, Refills=3 * true * Date:? Generated for Printi ng/Faxing/eTransmitting on:?01/21/2025 10:55 AM EDT
--- OUTSIDE RECORDS SUMMARY | 2025-01-21 10:56 | XMS_ITS | Patient Health Record ---
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 Name Role Phone NAOMIE SMALL Primary Care Provider Jeremías Cole [phone] Allergies Allergen (clinical drug ingredient) Drug/Non Drug Allergy documented on EMR Reaction Allergy Type Onset Date Status Sulfa Unknown Drug Allergy Active morphine Morphine Sulfate Unknown Drug Allergy Active hydromorphone Dilaudid Unknown Drug Allergy Act sigrid amiodarone Amiodarone HCl Unknown Drug Allergy A ctive Reason For Referral No Information Medications Medication SIG (Take, Route, Frequency, Duration) Notes Start Date End Date Status Arcade 3 Not-Taking Fluticasone Propionate 50 MCG/ACT 1 [...] Problem Status W/U Status Risk Notes Problem 686695104 Encounter for screening for malignant neoplasm of colon (Z12.11) Active confirmed Problem 211787615 History of adenomatous polyp of colon (Z86.010) Active confirmed Problem 549404252 Irritable bowel syndrome with diarrhea (K58.0) Active confirmed Problem 448138814 Gastroesophageal reflux disease without esophagitis (K21.9) Active confirmed Problem 893182075 Hx of adenomatou s colonic polyps (Z86.010) Active confirmed Problem 17950608 Hypertension, unspecified type (I10) Active confirmed Problem Diverticulosis of colon (934980320) Diverticulosis of colon (K57.30) Active confirmed Plan [...] Insured Coverage Start Date Coverage End Date [facility] [address] [place], [place] [id number] ANDRE BALDWIN Self - patient is the insured Medical (General) History Medical History History ICD Code Tubular adenomas of the colo n--he had a relatively large and sessile tubular adenoma removed from transverse colon 2006--followup colonoscopies in 2008 and February of 2012 revealed small tubular adenomas that were removed Diverticulitis with surgery as below Hypertension Diet-controlled DM Hyperlipidemia Denies PR,CVA,Lung disease,renal disease Kidney cancer--Partial left nephrectomy at the [facility]--04/2014 Atrial fibrillation--had an ablation EGD 02/2015--small hiatal [...] nephrectomy in April of [address] [facility] Right knee replacement 04/08/2022
--- OUTSIDE RECORDS SUMMARY | 2025-01-21 10:56 | XMS_ITS | Clinical Summary ---
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 Name Role Phone Jesus Miller NP Primary Care Provider Surgical History Surgery Date Site/Laterality Comments TOTAL KNEE ARTHROPLASTY Right PROCEDURE: HISTORICAL TOTAL KNEE REPLACE OTHER SURGICAL HISTORY N/A PROCEDURE: NE ANES CARDIAC ELECTROPHYSIOL STDY W/RF ABLATION OTHER SURGICAL HISTORY N/A PROCEDURE: NE CARDIOVERSION ELECTIVE ARRHYTHMIA EXTERNAL NOSE SURGERY N/A PROCEDURE: NE UNLISTED PROCEDURE NOSE OTHER SURGICAL HISTORY 07/09/2023 Left PROCEDURE: NE THORACOSCOPY W/THERA WEDGE RESEXN INITIAL UNILAT; COMMENT: LLL wedge x2 Medical History Medical History Date Comments Ectatic thoracic aorta ([facility] V24) DX:Ectatic thoracic aorta ([facility]) Bifascicular block DX:Bifascicul ar block IBS (irritable bowel syndrome) D X:IBS (irritable bowel syndrome) History of kidney cancer exc luding renal pelvis DX:History of kidney cancer excluding renal pelvis Actinic keratoses DX:Actinic ker atoses PAF (paroxysmal atrial fibri llation) (CMS/HCC V24, CMS/HCC V28) DX:PAF (paroxysmal atrial f ibrillation) ([facility]) Chronic allergic rhinitis DX:Chr onic allergic rhinitis COPD (chronic obstructive pu lmonary disease) ([facility]/HCC V24, [facility]/HCC V28) DX:COPD (chronic o bstructive pulmonary disease) ([facility]) Pulmonary nodules DX:Pulmonary n odules Family History [...] age to complete this topic Care Teams Food Service Worker Hospital Relationship Specialty Start Date End Date Jesus Miller NP [address] [place], [place] PCP - General 10/30/23
== END 2025-01-21 11:02 | disposition home or self-care (01) ==
PROVIDERS: PCP Nurse Practitioner Family; Visit Provider Internal Medicine Hypertension Specialist
DX: R80.9 Proteinuria, unspecified (principal); I10 Essential (primary) hypertension; N28.1 Cyst of kidney, acquired; C64.9 Malignant neoplasm of unspecified kidney, except renal pelvis
CPT/HCPCS: 99214

== ENCOUNTER → 2025-01-24 08:46 | Outpatient (REF) | payer BC, SELFPAY ==
--- NOTE | 2025-01-24 08:48 | CA_ITS ---
Transthoracic Echocardiogram Patient (Last, First, Middle): Forest Stevens R Gender: Male Date of : 1945 Age: 79 Procedure Date: 01/24/2025 Procedure Type: Transthoracic Echocardiogram Location: OP Height: 175. cm Weight: 92.99 kg BSA: 2.09 m2 Heart Rate: 71 bpm BP: 148 / 82 mmHg Pharmacometrician: ROMEO Referring MD: Ivan Young MD Film Splicer: Ivan Young MD Symptoms: I48.0 - Paroxysmal atrial fibrillation Study Quality: Fair ECG Rhythm: Sinus Conclusions: - 1. Normal LV ejection fraction of 65-70% with pseudonormal filling pattern with mild LVH 2. Calcific aortic and mitral valve changes noted with normal cardiac valvular Dopplers Findings Left Ventricle Normal left ventricular size and systolic function. The visually estimated ejection fraction is between 65-70%. Regional wall motion abnormalities can not be excluded due to suboptimal endocardial definition. Spectral Doppler is indicative of a pseudonormal filling pattern. E/E prime ratio is between 8 and 15 consistent with indeterminate filling pressures. Right Ventricle Normal right ventricular cavity size. Atria The left atrium is likely dilated. There is lipomatous hypertrophy of the interatrial septum. Interatrial shunt cannot be excluded. The right atrium was not well visualized. Aortic Valve There is mild calcification of the aortic valve. There is mild thickening of the aortic valve. There is no aortic valve stenosis. There is no aortic valve regurgitation. Mitral Valve There is mild anterior and posterior mitral leaflet thickening. There is mild mitral annular calcification. There is trace mitral valve regurgitation. There is no mitral valve stenosis. Pulmonic Valve The pulmonic valve was not well visualized. Tricuspid Valve The tricuspid valve was not well visualized. Tricuspid regurgitation envelope is inadequate for calculation of right ventricular systolic pressure. Normal right atrial pressure. Great Vessels All visible segments of the aorta are normal in size. The pulmonary artery was not well visualized. There is no dilatation of the ascending aorta measuring 3.40 cm. Venous The inferior vena cava is normal in size and collapses greater than 50% with inspiration. Pericardium/Pleural The pericardium was not well visualized. Measurements 2D Linear Measurements IVSd: 1.36 0.6-0.9/0.6-1.0 cm LVIDd: 3.65 3.9-5.3/4.2-5.9 cm LVIDd Index: 1.75 2.4-3.2/2.2-3.1 cm/m2 LVIDs: 2.22 2.0-3.6 cm LVPWd: 1.37 0.7-1.1 cm LA Diam: 4.00 2.7-3.8/3.0-4.0 cm LAIDs Index: 1.91 1.5-2.3 cm/m2 LV Mass: 219.51 67-162/88-224 g LV Mass Index: 105.03 43-95/49-115 g/m2 LVOT Diam: 2.00 3.0+(-)1.3 cm 2D Systolic Function EF 4C: 71.60 >55% EF 2C: 58.30 >55% EF BiP: 67.40 >55% Mitral Valve MV Pk E: 0.78 MV PK A: 0.69 MV Decel Time: 232.00 E/A: 1.10 E'Lateral: 5.55 E'Medial: 4.79 E/E' Med: 16.30 E/E' Lat: 14.10 PHT: 68.00 MVA PHT: 3.24 Decel [place]: 3.36 Aortic Valve AoV Pk Slick: 1.16 AoV Mn Slick: 0.91 AoV VTI: 0.26 AoV Pk Grad: 5.00 Aov Mn Grad: 4.00 NAIDA Cont.VTI: 2.53 LVOT LVOT Pk Slick: 0.97 LVOT Mn Slick: 0.75 LVOT VTI: 0.21 LVOT Pk Grad: 4.00 LVOT Mn Grad: 2.00 LVOT Diam: 2.00 LVOT Area: 3.14 Diastolic Function MV Pk E: 0.78 MV Pk A: 0.69 E/A: 1.10 E'Medial: 4.79 E/E' Med: 16.30 E' Laterial: 5.55 E/E' Lat: 14.10 Right Ventricle TAPSE (mm): 17.50 TVS' Slick: 9.90 Tricuspid Valve RA Press: 8.00 Great Vessels Aorta Sinus of Valsalva: 3.20 2.0-3.5 cm Ao Asc: 3.40 2.1-3.4 cm Ao Arch: 3.20 Pulmonary Valve PV Pk Slick: 0.90 Peak PV Grad: 3.00 Updated in Other Vendor System with Status of Final Ivan Young MD electronically signed on 01/25/2025 10:29:10 AM with status of Final
--- OUTSIDE RECORDS SUMMARY | 2025-01-24 08:51 | XMS_ITS | Continuity of Care Document ---
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.15/366.10) Active Condition [facility] [place] [facility] Deviated nasal septum Active Condition [facility] [place] [facility] Diabetes mellitus (SNOMED CT 04789887) Active Condition Jun 04, 2024 Entered By: NAOMIE HUERTAS Comment: No Report of DR as of JUN 08: Private Ophth Dr Huffman @ [facility] [place] [facility] Essential hypertension (SNOMED CT 40702351) [facility] [place] [facility] Ex-smoker Active Condition May 24 24 Entered By: VIVIANE MONAE Comment: Ex-smoker, quit 1995Sep 2023 Entered By: NAOMIE HUERTAS Comment: Never Lung Ca; May Have Had Benign Nodules [facility] [place] [facility] Hearing loss (SNOMED CT 95162567) Active Condition Jun 04, 2024 Entered By: [...] [facility] [place] [facility] Hyperlipidemia (SNOMED CT 03948774) Active Condition [facility] [place] [facility] Irritable bowel syndrome Active Condition Mar 30, 2020 Entered By: VIRIDIANA GAN Comment: diarrhea [facility] [place] [facility] Malignant melanoma Active Condition Jun 04, 2024 Entered By: NAOMIE HUERTAS Comment: Location - Nose; Excised 2022; Sees Derm Once Yr for Survellance [place] Pes planus Active Condition Jun 04 Entered By: NAOMIE HUERTAS Comment: See Podiatry [place] for Customized [facility] Screening for malignant neoplasm of colon done Active Condition Jun 04, 2024 Entered By: NAOMIE HUERTAS Comment: Last Diagnost Colonoscopy approx 2021; no CRCSep 2023 Entered By: NAOMIE HUERTAS Comment: Poss. Benign Polyposis [place] Under care of doctor Active Condition Jun 04, 2024 Entered By: NAOMIE HUERTAS Comment: Private PCP is at [facility] Impaired glucose tolerance Inactive Condition 06/04/2024 [place] [facility] [place] [facility] Diagnosis: ICD-10-CM F41.9 Anxiety disorder, unspecified Active Diagnosis [place] Diagnosis: ICD-10-CM Z46.0 Encounter for fit/adjst of spectacles and contact lenses Active Diagnosis [facility] [place] [facility] Diagnosis: ICD-10-CM E11.9 Type 2 diabetes mellitus without complications Active Diagnosis [facility] Diagnosis: ICD-10-CM H90.3 Sensorineural hearing loss, bilateral Active Diagnosis [facility] [place] [facility] Diagnosis: ICD-10-CM Z46.1 Encounter for fitting and adjustment of hearing aid Active Diagnosis [facility] Diagnosis: ICD-10-CM M21.42 Flat foot [pes planus] (acquired), left foot Active Diagnosis [place] Diagnosis: ICD-10-CM I48.91 Unspecified atrial fibrillation Active Diagnosis [place] Medications Combined list of outpatient medications from [facility] of Defense and [facility] facilities.Medications provided include 1) outpatient medications from the last 15 months, and 2) patient-reported medications. Medication Details Route Status Patient Instructions Prescription Expires Prescription Number Last Dispense Date Ordering Provider Order Date Order Qty Source ALBUTEROL 90MCG/ACTUA T (CFC-F) INHL,ORAL,8 .5GM DOSE COUNTER INHALE 2 PUFFS BY MOUTH EVERY 6 HOURS NEEDED RESPIR ATORY (INHAL ATION) [facility] ATORVASTATI N CA 40MG TAB TAKE ONE-HALF TABLET BY MOUTH QD ORAL ACTIVE RA JOJO RODRIGUEZ 2018 [facility] [place] [facility] BUDESONIDE 160MCG/FORM OTEROL FUM 4.5MCG/SPRA Y INHL,ORAL,1 0.2GM INHALE 2 PUFFS BY MOUTH TWICE DAILY RESPIR ATORY (INHAL ATION) [facility] 2019 [facility] [place] [facility] CARBOXYMETH YLCELLULOSE NA 0.5% SOLN,OPH INSTILL 1 DROP INTO EACH EYE FOUR TIMES A DAY FOR DRY EYE OPHTHA LMIC ACTIVE 11/11/2025 [id number] [place] 2024 45 [place] [facility] [place] [facility] CARBOXYMETH YLCELLULOSE NA 0.5% SOLN,OPH INSTILL 1 DROP INTO EACH EYE FOUR TIMES A DAY FOR DRY EYE OPHTHA LMIC DISCONT INUED 11/20/2024 [id number] [place] 2023 45 [facility] DICYCLOMINE HCL 10MG CAP TAKE 1 CAPSULE BY MOUTH EVERY 6 HOURS NEEDED ORAL [facility] FLUTICASONE PROPIONATE 50MCG/SPRAY SOLN,NASAL, 16GM INSTILL 1 SPRAY INTO EACH NOSTRIL TWICE DAILY NASAL ACTIVE [facility] GLUCOSAMINE CAP/TAB 1000 EVERY DAY ACTIVE [facility] 2011 [facility] HYDROCHLORO THIAZIDE 25MG TAB TAKE ONE-HALF TABLET BY MOUTH ONCE DAILY ORAL ACTIVE JESSICA HUERTAS 2023 [facility] LOPERAMIDE HCL 2MG CAP TAKE 1 CAPSULE BY MOUTH EVERY 6 HOURS NEEDED ORAL [facility] LORAZEPAM 2MG TAB TAKE ONE TABLET BY MOUTH AT BEDTIME ORAL ACTIVE [facility] [place]AN POTASSIUM 100MG TAB TAKE ONE TABLET BY MOUTH ONCE DAILY ORAL ACTIVE JESSICA HUERTAS 2023 [place] METOPROLOL SUCCINATE 100MG TAB,SA TAKE ONE TABLET BY MOUTH EVERY DAY ORAL ACTIVE [facility] MINERAL OIL,LIGHT/P ETROLATUM (PF) OINT,OPH APPLY THIN RIBBON INTO EACH EYE AT BEDTIME FOR DRY EYE OPHTHA LMIC ACTIVE 11/11/2025 [id number] [place] 2024 3 [facility] MONTELUKAST NA 10MG TAB TAKE ONE TABLET BY MOUTH ONCE DAILY ORAL ACTIVE [facility] Allergies, Adverse Reactions, Alerts [...] Site Reaction Lot Number CVX Code Drug Oracle Brm Developer Status Comments Source INFLUENZA, UNSPECIFIED FORMULATION 2023 [...] INJECTABLE [address] [place] [facility] [place] [facility] ZOSTER RECOMBINANT [...] 2010 88 complet ed here at [facility] on [facility] [...] Jun 04, 2024 04:01 PM Reporting Lab: [facility] [place] [facility] [address] [facility] [address] Performing Lab: [facility] [address] [facility] [place] [facility] [address] [facility] [address] [facility] CALCIUM CALCIUM [MASS/VOLUM E] IN SERUM OR PLASMA 9.7 mg/dL 8.5 - 10.2 10/18 Specimen Type: SERUM No comment entered. Ordering Provider: NAOMIE HUERTAS Report Released Date/Time: Jun 04, 2024 04:01 PM Reporting Lab: [facility] [place] [facility] [address] [facility] [address] Performing Lab: [facility] [address] [address] [place] LIPID PANEL FASTING CHOLESTEROL [MASS/VOLUM E] IN SERUM OR PLASMA 139 mg/dL 10/18 Specimen Type: SERUM No comment entered. Ordering Provider: NAOMIE HUERTAS Report Released Date/Time: Jun 04, 2024 04:01 PM Reporting Lab: [facility] [address] [address] Performing Lab: [facility] [address] [address] [place] LIPID PANEL FASTING TRIGLYCERID E [MASS/VOLUM E] IN SERUM OR PLASMA 272 mg/dL 0 - 150 10/18 H Specimen Type: SERUM No comment entered. Ordering Provider: NAOMIE HUERTAS Report Released Date/Time: Jun 04, 2024 04:01 PM Reporting Lab: [address] [address] Performing Lab: [address] [address] [place] LIPID PANEL FASTING CHOLESTEROL IN LDL [MASS/VOLUM E] IN SERUM OR PLASMA BY CALCULATION 51 mg/dL 0 - 129 10/18 Specimen Type: SERUM No comment entered. Ordering Provider: NAOMIE HUERTAS Report Released Date/Time: Jun 04, 2024 04:01 PM Reporting Lab: [address] [address] Performing Lab: [address] [address] [place] LIPID PANEL FASTING CHOLESTEROL .TOTAL/CHOL ESTEROL IN HDL [MASS RATIO] IN SERUM OR PLASMA 4.1 10/18 Specimen Type: SERUM No comment entered. Ordering Provider: NAOMIE HUERTAS Report Released Date/Time: Jun 04, 2024 04:01 PM Reporting Lab: [facility] [address] [address] Performing Lab: [facility] [address] [address] [place] LIPID PANEL FASTING CHOLESTEROL IN HDL [MASS/VOLUM E] IN SERUM OR PLASMA 34 mg/dL 40 - 60 10/18 L Specimen Type: SERUM No comment entered. Ordering Provider: NAOMIE HUERTAS Report Released Date/Time: Jun 04, 2024 04:01 PM Reporting Lab: [address] [address] Performing Lab: [address] [address] [place] VITAMIN D (25-OH) 25-HYDROXYV ITAMIN D3 [MASS/VOLUM E] IN SERUM OR PLASMA 14 ng/mL 20 - 50 10/18 L Specimen Type: SERUM No comment entered. Ordering Provider: NAOMIE HUERTAS Report Released Date/Time: Jun 04, 2024 04:01 PM Reporting Lab: [address] [address] Performing Lab: [address] [address] [place] VITAMIN B12 COBALAMIN (VITAMIN B12) [MASS/VOLUM E] IN SERUM OR PLASMA 384 pg/mL 200 - 900 10/18 Specimen Type: SERUM No comment entered. Ordering Provider: NAOMIE HUERTAS Report Released Date/Time: Jun 04, 2024 04:01 PM Reporting Lab: [address] [address] Performing Lab: [address] [address] [place] RETICULOC YTES RETICULOCYT ES [#/VOLUME] IN BLOOD 2.2 0.6 - 2.0 10/18 H Specimen Type: BLOOD No comment entered. Ordering Provider: NAOMIE HUERTAS Report Released Date/Time: Jun 04, 2024 04:01 PM Reporting Lab: [address] [address] Performing Lab: [address] [address] [place] RETICULOC YTES RETICULOCYT ES/100 ERYTHROCYTE S IN BLOOD BY AUTOMATED COUNT 121.8 10*3/u L 30.0 - 90.0 10/18 H Specimen Type: BLOOD No comment entered. Ordering Provider: NAOMIE HUERTAS Report Released Date/Time: Jun 04, 2024 04:01 PM Reporting Lab: [address] [address] Performing Lab: [address] [address] [place] RETICULOC YTES HEMOGLOBIN [ENTITIC MASS] IN RETICULOCYT ES BY AUTOMATED COUNT 33.2 pg 27.9 - 42.0 10/18 Specimen Type: BLOOD No comment entered. Ordering Provider: NAOMIE HUERTAS Report Released Date/Time: Jun 04, 2024 04:01 PM Reporting Lab: [address] [address] Performing Lab: [address] [address] [place] FERRITIN FERRITIN [MASS/VOLUM E] IN SERUM OR PLASMA 376 ng/mL 20 - 300 10/18 H Specimen Type: SERUM No comment entered. Ordering Provider: NAOMIE HUERTAS Report Released Date/Time: Jun 04, 2024 04:01 PM Reporting Lab: [address] [address] Performing Lab: [address] [address] [place] HEMOGLOBI N A1C PANEL HEMOGLOBIN A1C/HEMOGLO [...] Jun 04, 2024 04:01 PM Reporting Lab: [address] [address] Performing Lab: [facility] [address] [address] [place] CBC AND DIFF (AUTO) LEUKOCYTES [#/VOLUME] IN BLOOD BY AUTOMATED COUNT 9.54 10*3/u L 4.50 - 11.00 10/18 Specimen Type: BLOOD No comment entered. Ordering Provider: NAOMIE HUERTAS Report Released Date/Time: Jun 04, 2024 04:01 PM Reporting Lab: [facility] [place] [address] [address] Performing Lab: [facility] [place] [address] [address] [place] CBC AND DIFF (AUTO) ERYTHROCYTE S [#/VOLUME] IN BLOOD BY AUTOMATED COUNT 5.51 10*6/u L 4.23 - 5.66 10/18 Specimen Type: BLOOD No comment entered. Ordering Provider: NAMOIE HUERTAS Report Released Date/Time: Jun 04, 2024 04:01 PM Reporting Lab: [facility] [place] [address] [address] Performing Lab: [facility]ITALTRN [facility] [address] [address] [place] CBC AND DIFF (AUTO) HEMOGLOBIN [MASS/VOLUM E] IN BLOOD 16.2 g/dL 12.8 - 17 10/18 Specimen Type: BLOOD No comment entered. Ordering Provider: NAOMIE HUERTAS Report Released Date/Time: Jun 04, 2024 04:01 PM Reporting Lab: [facility]ITALTRN [place] [address] [address] Performing Lab: [facility]ITALTRN [facility] [address] [address] [place] CBC AND DIFF (AUTO) HEMATOCRIT [VOLUME FRACTION] OF BLOOD BY AUTOMATED COUNT 48.2 39.2 - 50.4 10/18 Specimen Type: BLOOD No comment entered. Ordering Provider: NAOMIE HUERTAS Report Released Date/Time: Jun 04, 2024 04:01 PM Reporting Lab: [facility]ITALTRN [facility] [address] [address] Performing Lab: [facility]TR[facility] [place] [facility] [address] [facility] [address] [place] CBC AND DIFF (AUTO) MCV [ENTITIC VOLUME] BY AUTOMATED COUNT 87.5 fL 82 - 99 10/18 Specimen Type: BLOOD No comment entered. Ordering Provider: NAOMIE HUERTAS Report Released Date/Time: Jun 04, 2024 04:01 PM Reporting Lab: [facility] [address] [facility] [address] Performing Lab: [facility] [address] [address] [place] CBC AND DIFF (AUTO) MCHC [MASS/VOLUM E] BY AUTOMATED COUNT 33.6 g/dL 30.8 - 35.1 10/18 Specimen Type: BLOOD No comment entered. Ordering Provider: NAOMIE HUERTAS Report Released Date/Time: Jun 04, 2024 04:01 PM Reporting Lab: [facility] [address] [address] Performing Lab: [facility] [address] [address] [place] CBC AND DIFF (AUTO) PLATELETS [#/VOLUME] IN BLOOD BY AUTOMATED COUNT 200 10*3/u L 140 - 360 10/18 Specimen Type: BLOOD No comment entered. Ordering Provider: NAOMIE HUERTAS Report Released Date/Time: Jun 04, 2024 04:01 PM Reporting Lab: [facility] [address] [address] Performing Lab: [facility] [address] [address] [place] CBC AND DIFF (AUTO) ERYTHROCYTE DISTRIBUTIO N WIDTH [RATIO] BY AUTOMATED COUNT 13.1 12.0 - 16.0 10/18 Specimen Type: BLOOD No comment entered. Ordering Provider: NAOMIE HUERTAS Report Released Date/Time: Jun 04, 2024 04:01 PM Reporting Lab: [facility] [address] [address] Performing Lab: [facility] [address] [address] [place] CBC AND DIFF (AUTO) MONOCYTES [#/VOLUME] IN BLOOD BY AUTOMATED COUNT 0.74 10*3/u L 0.30 - 1.10 10/18 Specimen Type: BLOOD No comment entered. Ordering Provider: NAOMIE HUERTAS Report Released Date/Time: Jun 04, 2024 04:01 PM Reporting Lab: [facility] W[facility]N [address] [address] Performing Lab: [place] [facility] TRN [place] [address] [place] CBC AND DIFF (AUTO) MCH [ENTITIC MASS] BY AUTOMATED COUNT 29.4 pg 26.2 - 32.6 10/18 Specimen Type: BLOOD No comment entered. Ordering Provider: NAOMIE HUERTAS Report Released Date/Time: Jun 04, 2024 04:01 PM Reporting Lab: [facility]N [address] [address] Performing Lab: [facility]ITALR[facility]OR[facility]ITALN [address] [address] [place] CBC AND DIFF (AUTO) NEUTROPHILS /100 LEUKOCYTES IN BLOOD BY AUTOMATED COUNT 63.1 43.7 - 75.8 10/18 Specimen Type: BLOOD No comment entered. Ordering Provider: NAOMIE HUERTAS Report Released Date/Time: Jun 04, 2024 04:01 PM Reporting Lab: [facility]ITALN [address] [address] Performing Lab: [facility]ITALRFLOR[facility]ITALN [facility]USE[address] [address] [place] CBC AND DIFF (AUTO) LYMPHOCYTES /100 LEUKOCYTES IN BLOOD BY AUTOMATED COUNT 25.4 14.0 - 42.3 10/18 Specimen Type: BLOOD No comment entered. Ordering Provider: NAOMIE HUERTAS Report Released Date/Time: Jun 04, 2024 04:01 PM Reporting Lab: [facility]RL TRN [facility]ENTERUSE[address] [address] Performing Lab: [facility]ITALRFLORALA [facility]PITALN [address] [address] [place] CBC AND DIFF (AUTO) MONOCYTES/1 00 LEUKOCYTES IN BLOOD BY AUTOMATED COUNT 7.8 5.1 - 13.7 10/18 Specimen Type: BLOOD No comment entered. Ordering Provider: NAOMIE HUERTAS Report Released Date/Time: Jun 04, 2024 04:01 PM Reporting Lab: [facility] [place] [facility] [address] [facility] [address] Performing Lab: [place] [facility] W[facility]ENTER[facility]ETS [address] [address] [place] CBC AND DIFF (AUTO) EOSINOPHILS /100 LEUKOCYTES IN BLOOD BY AUTOMATED COUNT 2.6 0.4 - 6.8 10/18 Specimen Type: BLOOD No comment entered. Ordering Provider: NAOMIE HUERTAS Report Released Date/Time: Jun 04, 2024 04:01 PM Reporting Lab: [place] [facility] [address] [address] Performing Lab: [place] [facility] TRN [facility] [address] [address] [place] CBC AND DIFF (AUTO) BASOPHILS/1 00 LEUKOCYTES IN BLOOD BY AUTOMATED COUNT 0.6 0.1 - 2.0 10/18 Specimen Type: BLOOD No comment entered. Ordering Provider: NAOMIE HUERTAS Report Released Date/Time: Jun 04, 2024 04:01 PM Reporting Lab: [place] [facility] [address] [address] Performing Lab: [place] [facility] [address] [address] [place] CBC AND DIFF (AUTO) NEUTROPHILS [#/VOLUME] IN BLOOD BY AUTOMATED COUNT 6.02 10*3/u L 2.20 - 7.60 10/18 Specimen Type: BLOOD No comment entered. Ordering Provider: NAOMIE HUERTAS Report Released Date/Time: Jun 04, 2024 04:01 PM Reporting Lab: [place] [facility] [place] [address] [address] Performing Lab: [place] [facility] [address] [address] [place] CBC AND DIFF (AUTO) LYMPHOCYTES [#/VOLUME] IN BLOOD BY AUTOMATED COUNT 2.42 10*3/u L 1.00 - 3.20 10/18 Specimen Type: BLOOD No comment entered. Ordering Provider: NAOMIE HUERTAS Report Released Date/Time: Jun 04, 2024 04:01 PM Reporting Lab: [facility]RCOMM[facility]ITY HOSPITALTRN [address] [address] Performing Lab: [facility]ITALRFLORALA [facility]OSPITALN [address] [address] [place] CBC AND DIFF (AUTO) EOSINOPHILS [#/VOLUME] IN BLOOD BY AUTOMATED COUNT 0.25 10*3/u L 0.03 - 0.44 10/18 Specimen Type: BLOOD No comment entered. Ordering Provider: NAOMIE HUERTAS Report Released Date/Time: Jun 04, 2024 04:01 PM Reporting Lab: [facility]ITALRFLORAL[facility]PITALN [address] [address] Performing Lab: [facility] [address] [address] [place] CBC AND DIFF (AUTO) BASOPHILS [#/VOLUME] IN BLOOD BY AUTOMATED COUNT 0.06 10*3/u L 0.01 - 0.13 10/18 Specimen Type: BLOOD No comment entered. Ordering Provider: NAOMIE HUERTAS Report Released Date/Time: Jun 04, 2024 04:01 PM Reporting Lab: [facility]ITALRFLORAL[facility]PITALN [address] [address] Performing Lab: [facility] [address] [address] [place] CBC AND DIFF (AUTO) IMMATURE GRANULOCYTE S/100 LEUKOCYTES IN BLOOD BY AUTOMATED COUNT 0.5 0.0 - 0.7 10/18 Specimen Type: BLOOD No comment entered. Ordering Provider: NAOMIE HUERTAS Report Released Date/Time: Jun 04, 2024 04:01 PM Reporting Lab: [facility]ITALRCOMM[facility]ITY HOSPITALTRN [address] [address] Performing Lab: [facility]ITALRFLORALA [facility]OSPITALN [address] [address] [place] CBC AND DIFF (AUTO) IMMATURE GRANULOCYTE S [#/VOLUME] IN BLOOD 0.05 10*3/u L 0.00 - 0.06 10/18 Specimen Type: BLOOD No comment entered. Ordering Provider: NAOMIE HUERTAS Report Released Date/Time: Jun 04, 2024 04:01 PM Reporting Lab: [place] [facility] [address] [facility] [address] Performing Lab: [facility]RCOMM[facility] HOSPITALTRN [facility]ENTERUSETS [address] [address] [place] CBC AND DIFF (AUTO) NRBC % 0.0 0.0 - 0.0 10/18 Specimen Type: BLOOD No comment entered. Ordering Provider: NAOMIE HUERTAS Report Released Date/Time: Jun 04, 2024 04:01 PM Reporting Lab: [facility]RCOMM[facility]ITY HOSPITALTRN [facility] CAM[facility]STS [address] [address] Performing Lab: [facility]RCOMM[facility] HOSPITALTRN [facility]ENTERUSE[address] [address] [place] CBC AND DIFF (AUTO) NRBC, ABS 0.00 10*3/u L 0.00 - 0.00 10/18 Specimen Type: BLOOD No comment entered. Ordering Provider: NAOMIE HUERTAS Report Released Date/Time: Jun 04, 2024 04:01 PM Reporting Lab: [facility]RCOMM[facility]ITY HOSPITALTRN [facility]ENTERUSETS [address] [address] Performing Lab: [facility]ITALRL TRN [facility]ENTERUSETS [address] [address] [place] MICROALBU MIN CREATININ E RATIO PANEL MICROALBUMI N/CREATININ E [MASS RATIO] IN URINE 103.3 mg/g 0 - 29.9 10/18 H Specimen Type: URINE No comment entered. Ordering Provider: NAOMIE HUERTAS Report Released Date/Time: Jun 04, 2024 04:01 PM Reporting Lab: [facility]ITALRL TRN [facility] CENTERUSETS [address] [address] Performing Lab: [facility]ITALRL WSTRN [facility]ENTERUSETS [address] [address] [place] MICROALBU MIN CREATININ E RATIO PANEL MICROALBUMI N [MASS/VOLUM E] IN URINE 14.3 mg/dL 10/18 Specimen Type: URINE No comment entered. Ordering Provider: NAOMIE HUERTAS Report Released Date/Time: Jun 04, 2024 04:01 PM Reporting Lab: [facility]N [facility] [address] [facility] [address] Performing Lab: [facility]ITALRFLORALA [facility]OSPITALN [facility]USERY[facility] [address] [facility] [address] [place] MICROALBU MIN CREATININ E RATIO PANEL CREATININE [MASS/VOLUM E] IN URINE 138.43 mg/dL 10/18 Specimen Type: URINE No comment entered. Ordering Provider: NAOMIE HUERTAS Report Released Date/Time: Jun 04, 2024 04:01 PM Reporting Lab: [facility] [address] [address] Performing Lab: [facility] [address] [address] [facility] Vital Signs Combined list of inpatient and outpatient Vital Signs from Department of Defense and Veterans Affairs, ranging from 12 months to all on record, depending upon the facility. Vital Sign Value Date Comments Source SYSTOLIC BLOOD PRESSURE 135 06/04/2024 15:13:14 [place] DIASTOLIC BLOOD PRESSURE 75 06/04/2024 15:13:14 [place] PULSE OXIMETRY 95 06/04/2024 15:13:14 [facility] 208 06/04/2024 15:13:14 [facility] BMI 31 kg/m2 06/04/2024 15:13:14 [facility] HEIGHT 69 06/04/2024 15:13:14 [facility] TEMPERATURE 98.2 06/04/2024 15:13:14 [facility] PULSE 76 06/04/2024 15:13:14 [facility] RESPIRATION 19 06/04/2024 15:13:14 [facility] Encounters Combined list of: 1) Encounters from Department of Veterans Affairs facilities going backup to the last 18 months, not all [place] inpatient encounters are included; 2) Encounters from the Department of Defense facilities going backup to 280 months. Location Location Details Encounter Type Encounter Number Reason For Visit Attending Provider ADM Date DC Date Status [facility] Out[facility] Encounter [id number] 10/16 [facility] [place] HEARING AID REPAIR/MOD IFYING [id number] Diagnos is: ICD-10- CM Z46.1 Encount er for fitting and adjustm ent of hearing aid CATA LOWERY 11/13 [place] [facility] En[facility] [id number] 11/18 [facility] En[facility] [id number] 03/04 [facility] Encounter [id number] 03/25 [facility] Encounter [id number] 03/25 [facility] Encounter [id number] 05/03 [facility] [place] [facility] [id number] 05/21 [place] [facility] Out[facility] Encounter [id number] 05/24 [facility] HEARING AID FITTING/CH ECKING [id number] Diagnos is: ICD-10- CM Z46.1 Encount er for fitting and adjustm ent of hearing aid Calli PABON 06/01 [facility] Out[facility] Encounter [id number] 06/04 [facility] [place] OFF[place] O/P EST MOD 30 MIN [id number] Diagnos is: ICD-10- CM I48.91 Unspeci fied atrial fibrill ANDREWS Coulter 06/04 [place] [facility] Outpatient Encounter [id number] 1.06/04 [facility] [place] [facility] DIAGNOSTIC EVALUATION [id number] Diagnos is: ICD-10- CM F41.9 Anxiety disorde r, unspeci fied AME ZEE 07[place]05 [place] [facility] Outpatient Encounter [id number] 1. AME ZEE 07/05 [facility] OFF[facility] O/P NEW LOW 30 MIN [id number] Diagnos is: ICD-10- CM M21.42 Flat foot [pes planus] (acquir ed), left foot ROSS,CHARL ES F 07/06 [place] [facility] Outpatient Encounter [id number] 1.07/07 [facility] Outpatient Encounter [id number] 1.08/16 [facility] HEARING AID REPAIR/MOD IFYING [id number] Diagnos is: ICD-10- CM Z46.1 Encount er for fitting and adjustm ent of hearing aid SENIOR,FRANCOISE OLE L 09/06 [facility] HEARING AID REPAIR/MOD IFYING [id number] Diagnos is: ICD-10- CM H90.3 Sensori neural hearing loss, bilater WANDY Cardona 09/28 [facility] Outpatient Encounter [id number] 10/21 [facility] OFFICE O/P EST MOD 30 MIN [id number] Diagnos is: ICD-10- CM E11.9 Type 2 diabete s mellitu s without complic ations BRODY CARRERA Nils 11/10 [facility] FIT SPECTACLES BIFOCAL [id number] Diagnos is: ICD-10- CM Z46.0 Encount er for fit/adj st of spectac les and contact lenses DEBICLINTJhonny Georges Wray 11/10 [facility] [place] OFF[place] O/P NEW HI 60 MIN [id number] Diagnos is: ICD-10- CM F41.9 Anxiety disorde r, unspeci fied DOC,W TIKA 12/07 [place] [facility] Outpatient Encounter [id number] 12/13 [facility] Outpatient Encounter [id number] 01/04 [facility] Social History Combined list of available smoking, tobacco, and other social history from Department of Defense and Veterans Affairs facilities. Social History Type Response Date Comment Sourc e Tobacco smoking status HIIS VA-TOBACCO FORMER USER 03/25/2024 [facility] History of tobacco use VA-TOBACCO QUIT 15 YRS OR MORE 03/25/2024 [facility] History of tobacco use VA-TOBACCO QUIT 15 YRS OR MORE 04/01/2019 [facility] History of tobacco use VA-TOBACCO QUIT 15 YRS OR MORE 04/01/2018 [facility] History of tobacco use QUIT TOBACCO USE > 7 YEARS AGO 04/01/2018 [facility] History of tobacco use QUIT TOBACCO USE > 7 YEARS AGO 02/17/2017 [facility] History of tobacco use QUIT TOBACCO USE > 7 YEARS AGO 01/18/2016 . [facility] History of tobacco use QUIT TOBACCO USE > 7 YEARS AGO 03/12/2010 [facility] Plan of Care List of future care activities from [facility] facilities. Additional future care activities may be listed in the Assessment and Plan section. Date/Time Care Activity Care Activity Detail Facili ty 02/08/2025 AM[facility] Advance Directives List of completed, amended, or rescinded Advance Directives on record at [facility] facilities. An actual copy of the Directive is not included. Date Advance Directive Provider Source 06/20/2003 ADVANCE DIRECTIVE EMANI REED [facility]
--- OUTSIDE RECORDS SUMMARY | 2025-01-24 08:51 | XMS_ITS | Patient Health Record ---
Author Organization [facility] Address [address] [place] [address] Care Team Providers Care Branch Retail Executive Name Role Phone NAOMIE SMALL Primary Care Provider Jeremías Cole [phone] Allergies Allergen (clinical drug ingredient) Drug/Non Drug Allergy documented on EMR Reaction Allergy Type Onset Date Status Sulfa Unknown Drug Allergy Active morphine Morphine Sulfate Unknown Drug Allergy Active hydromorphone Dilaudid Unknown Drug Allergy Act sigrid amiodarone Amiodarone HCl Unknown Drug Allergy A ctive Reason For Referral No Information Medications Medication SIG (Take, Route, Frequency, Duration) Notes Start Date End Date Status [place] 3 Not-Taking Fluticasone Propionate 50 MCG/ACT 1 [...] Problem Status W/U Status Risk Notes Problem [id number] Encounter for screening for malignant neoplasm of colon (Z12.11) Active confirmed Problem 802865737 History of adenomatous polyp of colon (Z86.010) Active confirmed Problem 412341702 Irritable bowel syndrome with diarrhea (K58.0) Active confirmed Problem 478365863 Gastroesophageal reflux disease without esophagitis (K21.9) Active confirmed Problem 266092023 Hx of adenomatou s colonic polyps (Z86.010) Active confirmed Problem 49527164 Hypertension, unspecified type (I10) Active confirmed Problem Diverticulosis of colon (489871657) Diverticulosis of colon (K57.30) Active confirmed Plan [...] Insured Coverage Start Date Coverage End Date [employer] [address] [place], [place] [id number] ANDRE BALDWIN Self - patient is the insured Medical (General) History Medical History History ICD Code Tubular adenomas of the colo n--he had a relatively large and sessile tubular adenoma removed from transverse colon 2006--followup colonoscopies in 2008 and February of 2012 revealed small tubular adenomas that were removed Diverticulitis with surgery as below Hypertension Diet-controlled DM Hyperlipidemia Denies AR,CVA,Lung disease,renal disease Kidney cancer--Partial left nephrectomy at the [facility]--04/2014 Atrial fibrillation--had an ablation EGD 02/2015--small [...] in April of [address] [facility] Right knee replacement 04/08/2022
--- OUTSIDE RECORDS SUMMARY | 2025-01-24 08:52 | XMS_ITS ---
Author Organization [facility] Address [address] [place] [phone] Care Team Providers Care Tax Associate Attorney Name Role Phone NAOMIE SMALL Primary Care Provider Jeremías Cole [phone] REASON FOR VISIT Needs refill Medications Medication SIG (Take, Route, Fr equency, Duration) Notes Start Date End Date Status Dicyclomine HCl 10 MG 1 or 2 capsules Or ally Every 6 hours as needed for abdominal cramps, bloating, or discomfort for 90 days 09/02/2023 Active Encounters Encounter Location Date Provider Diagnosis [facility] [address] [place] [phone] 09/01/2023 Jeremías Gómez Plan Of Treatment Medication Medication Name Sig Start Date Stop Date Notes Dicyclomine HCl 10 MG 1 or 2 capsules Or ally Every 6 hours as needed for abdominal cramps, bloating, or discomfort for 90 days 09/02/2023 Progress Notes * ANDRE BALDWINDOB:1945 (78 yo M)Acc No.[id number]:09/01/2023 Patient:?ANDRE BALDWIN :1945???Age:78 Y???Sex:Male Address:[address] [place] [id number] * Refills? Start Dicyclomine HCl Capsule, 10 MG, Orally, 360, 1 or 2 capsules, Every 6 hours as needed for abdominal cramps, bloating, or discomfort, 90 days, Refills=3 * true * Date:? Generated for Printi ng/Faxing/eTransmitting on:?01/24/2025 08:51 AM EDT
== END ==
LOC: HO.CARD 08:46
PROVIDERS: PCP Nurse Practitioner Family; Visit Provider Internal Medicine Cardiovascular Disease
DX: I48.0 Paroxysmal atrial fibrillation (principal)
CPT/HCPCS: 93306

== ENCOUNTER → 2025-01-24 08:48 | Outpatient (BNV) | payer BC, SELFPAY | PROVIDERS: PCP Nurse Practitioner Family; Visit Provider Internal Medicine Cardiovascular Disease | DX: I35.8 Other nonrheumatic aortic valve disorders (principal); I34.81 Nonrheumatic mitral (valve) annulus calcification; I42.8 Other cardiomyopathies | CPT/HCPCS: 93306 ==

== ENCOUNTER 2025-02-03 09:32 | Outpatient (AMB) | payer MEDICARE, SELFPAY ==
--- NOTE | 2025-02-03 09:46 | MHC.OFFVIS ---
Vital Signs 02/03/25 09:47 Height 5 ft 9 in Weight 213 lb BMI 31.5 BP 120/70 Blood Pressure Location Lt brachial Position Sitting Pulse 75 Intake Visit Reasons: 1 yr follow up Intake Note: 1 year follow-up with ekg feeling good Carbonating Stone Cleaner Required: No Patient Services Technician: Patient Services Technician Present Accompanied by: Spouse Allergies amiodarone Allergy (Severe, Verified 01/21/25 10:32) Rash/Itching amlodipine Allergy (Severe, Verified 01/21/25 10:32) tachycardia sulfamethoxazole [From Sulfamethoxazole-Trimethoprim] Allergy (Severe, Verified 01/21/25 10:32) Rash and itching trimethoprim [From Sulfamethoxazole-Trimethoprim] Allergy (Severe, Verified 01/21/25 10:32) Rash and itching environmental allergies Allergy (Intermediate, Verified 01/21/25 10:32) Hayfever morphine [MORPHINE] Allergy (Intermediate, Verified 01/21/25 10:32) Itching and congestion hydromorphone [From Dilaudid] Allergy (Mild, Verified 01/21/25 10:32) Itching and anxiety Seasonal Allergies Allergy (Mild, Verified 01/21/25 10:32) Unknown Sulfa (Sulfonamide Antibiotics) [Sulfa (Sulfonamides)] Allergy (Mild, Verified 01/21/25 10:32) Rash and Itching Medication List - Last Reconciled 02/03/25 by Ivan Young MD albuterol sulfate 90 mcg/actuation 2 inhalations inhalation Q6H PRN 30 days alprazolam 0.25 mg PO BEDTIME atorvastatin 20 mg PO DAILY azelastine 2 sprays intranasal BID 90 days betamethasone dipropionate 0.05% 1 appl topical DAILY PRN budesonide-formoterol 160-4.5 mcg/actuation (Symbicort) 2 puffs inhalation BID PRN carboxymethylcellulose sodium 0.5% (Lubricant Eye Drops) 1 drp ophthalmic (eye) BID clopidogrel 75 mg PO DAILY dicyclomine 10 mg PO PRN fluoride (sodium) 1.1% PO BEDTIME fluticasone propionate 50 mcg/actuation 2 sprays intranasal DAILY PRN 90 days glucosamine sulfate mg PO .nightly lactobacillus combination no.9 (Adult 50 Plus Probiotic) 4,000 mmu cells PO DAILY lorazepam 1 mg PO DAILY losartan-hydrochlorothiazide 100-25 mg 1 tab PO DAILY metoprolol succinate ER 100 mg PO DAILY HPI Comments Details: Forest comes for follow-up. He underwent Watchman device last year, currently on dual antiplatelet agent and is planned to come off Plavix soon. He has not had any recurrent epistaxis. He denies any exertional chest pain or shortness of breath. Denies any prolonged episodes of palpitation for atrial fibrillation. Takes all his medications. No lightheadedness, syncope. No orthopnea, PND, leg edema. [facility] Medical History Presence of Watchman left atrial appendage closure device Splenomegaly Ectatic thoracic aorta Bifascicular block IBS (irritable bowel syndrome) History of kidney cancer Actinic keratoses Paroxysmal atrial fibrillation Chronic allergic rhinitis COPD (chronic obstructive pulmonary disease) Pulmonary nodules Surgical History History of total right knee replacement H/O left hemicolectomy H/O inguinal hernia repair H/O cardiac radiofrequency ablation History of cardioversion S/P correction of deviated nasal septum Family History Father Heart attack Mother No problems noted. Social History Housing: House Are you a primary care assistant to a significant other at home: No Do you presently have visiting nurse or other home services: No Patient Tobacco Use Status: Former Tobacco user Tobacco use type: Cigarette Years Smoked: 20 years e-Cigarette/Vaping Use: Never Used Second Hand Smoke Exposure: No Advance Directives Date on File: 06/19/20 service: Yes Current occupational status: retired Cognitive needs: No Hearing needs: Yes Vision needs: Yes Review of Systems Const Denies chills, Denies fatigue, Denies fever(s), Denies frequent falls, Denies weakness, Denies weight gain and Denies weight loss ENT Denies dizziness Card Denies chest pain, Denies leg edema, Denies lightheadedness, Denies palpitations, Denies dyspnea, Denies dyspnea on exertion, Denies orthopnea and Denies other (loss of consciousness) Resp Denies cough, Denies dyspnea and Denies dyspnea on exertion GI Denies hematochezia and Denies change in stool character Musc Denies abnormal gait, Denies muscle weakness, Denies numbness, Denies radiating pain into limb and Denies tingling Neuro Denies abnormal gait, Denies dizziness, Denies frequent falls, Denies numbness, Denies tingling and Denies weakness Endo Denies fatigue and Denies palpitations Physical Exam Vital Signs: Last Vital Signs Pulse 75 02/03/25 09:47 BP 120/70 02/03/25 09:47 BMI result Body Mass Index 31.5 Const General: cooperative, comfortable, no acute distress, alert, awake and well groomed Nutritional Appearance: overweight Orientation/consciousness: patient oriented x3 Limitations: no limitations Neck Neck: Yes trachea midline, Yes supple and Yes no JVD Resp Effort & Inspection: normal respiratory effort Auscultation: clear to auscultation bilaterally Cardio Jugular venous distension: no JVD Palpation: normal PMI Rate: regular rate Rhythm: regular rhythm Heart sounds: S1 normal heart sound present and S2 normal heart sound present GI Auscultation: normal bowel sounds Skin General skin exam: no rashes or lesions noted Neuro General: patient oriented x3 and no focal motor deficits Extrem General: Yes no clubbing, cyanosis or edema Psych Appearance: grossly normal Assessment & Plan Assessment & Plan (1) Paroxysmal atrial fibrillation: Code(s): I48.0 - Paroxysmal atrial fibrillation Category: Medical Plan: Highly symptomatic paroxysmal atrial fibrillation without any clear recurrence at this point time. She is status post ablation. Continue current metoprolol therapy. Avoidance of stimulants was discussed. Continue aggressive blood pressure control. Status post Watchman device for recurrent epistaxis. Being followed by Watchman team at [facility]. Will need lifelong aspirin therapy and this was discussed with him. (2) HTN (hypertension): Code(s): I10 - Essential (primary) hypertension Category: Medical Plan: Hypertension which is currently well optimized advised to monitor blood pressure at home maintain a log. Goal blood pressure less than 130/84. Low-salt diet was discussed. Importance of good blood pressure control was discussed. Encouraged to increase activity level as tolerated. Advised to call me with any new symptoms. (3) Bifascicular block: Code(s): I45.2 - Bifascicular block Category: Medical Plan: Bifascicular block on EKGs remained stable. No change. No interventions required per se for bifascicular block. Annual EKGs required. Will follow up in the clinic in 1 year's time, sooner p.r.n.. Thank you for allowing me to partake in his care Coding Level of Care Code Est Pt Level 4 (84522) Complex EM visit Add On G2211 Diagnoses Paroxysmal atrial fibrillation I48.0 HTN (hypertension) I10 Bifascicular block I45.2
[2025-02-03 09:47] VITALS: BP 120/70; PULSE 75; BMI 31.5
--- OUTSIDE RECORDS SUMMARY | 2025-02-03 09:50 | XMS_ITS | Continuity of Care Document ---
Author Name [facility] Organization [facility] Care Team Providers Care Tour Sales Representative Name Role Phone [facility] Unavailable Unavailable Problems Combined list of problems [...] NAOMIE HUERTAS Comment: Private Cardio - H[facility] [place] [facility] Body mass index [...] Entered By: NAOMIE HUERTAS Comment: Surg Done [facility] Chronic tension-type headache (SNOMED CT 251554808) [facility] [place] [facility] Cortical senile cataract (ICD-9-CM 366.15/366.10) Active Condition [facility] [place] [facility] Deviated nasal septum Active Condition [facility] [place] [facility] Diabetes mellitus (SNOMED CT 12861368) Active Condition Jun 04, 2024 Entered By: NAOMIE HUERTAS Comment: No Report of DR as of JUN 08: Private Ophth Dr Huffman @ [facility] [place] [facility] Essential hypertension (SNOMED CT 80222619) Active [facility] [place] [facility] Ex-smoker Active Condition May 24 24 Entered By: VIVIANE MONAE Comment: Ex-smoker, quit 1995Sep 2023 Entered By: NAOMIE HUERTAS Comment: Never Lung Ca; May Have Had Benign Nodules [facility] [place] [facility] Hearing loss (SNOMED CT 27225377) Active Condition Jun 04, 2024 Entered By: [...] [facility] [place] [facility] Hyperlipidemia (SNOMED CT 79240541) Active Condition [facility] [place] [facility] Irritable bowel syndrome Active Condition Mar 30, 2020 Entered By: VIRIDIANA GAN Comment: [facility] [place] [facility] Malignant melanoma Active Condition Jun 04, 2024 Entered By: NAOMIE HUERTAS Comment: Location - Nose; Excised 2022; Sees Derm Once Yr for Survellance [facility] Pes planus Active Condition Jun 04 Entered By: NAOMIE HUERTAS Comment: [place] for Customized [facility] Screening for malignant neoplasm of colon done Active Condition Jun 04, 2024 Entered By: NAOMIE HUERTAS Comment: Last Diagnost Colonoscopy approx 2021; no CRCSep 2023 Entered By: NAOMIE HUERTAS Comment: Poss. Benign Polyposis [facility] Under care of doctor Active Condition Jun 04, 2024 Entered By: NAOMIE HUERTAS Comment: Private PCP is at [facility] Impaired glucose tolerance Inactive Condition 06/04/2024 [place] [facility] [place] [facility] Diagnosis: ICD-10-CM F41.9 Anxiety disorder, unspecified Active Diagnosis [facility] Diagnosis: ICD-10-CM Z46.0 Encounter for fit/adjst of spectacles and contact lenses Active Diagnosis [facility] [place] [facility] Diagnosis: ICD-10-CM E11.9 Type 2 diabetes mellitus without complications [facility] Diagnosis: ICD-10-CM H90.3 Sensorineural hearing loss, bilateral Active [facility] [place] [facility] Diagnosis: ICD-10-CM Z46.1 Encounter for fitting and adjustment of hearing aid [facility] Diagnosis: ICD-10-CM M21.42 Flat foot [pes planus] (acquired), left foot Active Diagnosis [facility] Diagnosis: ICD-10-CM I48.91 Unspecified atrial fibrillation Active Diagnosis [facility] Medications Combined list of outpatient medications from Department of Defense and [facility] facilities.Medications provided include 1) outpatient medications from the last 15 months, and 2) patient-reported medications. Medication Details Route Status Patient Instructions Prescription Expires Prescription Number Last Dispense Date Ordering Provider Order Date Order Qty Source ALBUTEROL 90MCG/ACTUA T (CFC-F) INHL,ORAL,8 .5GM DOSE COUNTER INHALE 2 PUFFS BY MOUTH EVERY 6 HOURS NEEDED RESPIR ATORY (INHAL ATION) [facility] [facility] [place] [facility] ATORVASTATI N [place] 40MG TAB TAKE ONE-HALF TABLET BY MOUTH QD ORAL ACTIVE RA JOJO RODRIGUEZ 2018 [facility] [place] [facility] BUDESONIDE 160MCG/FORM OTEROL FUM 4.5MCG/SPRA Y INHL,ORAL,1 0.2GM INHALE 2 PUFFS BY MOUTH TWICE DAILY RESPIR ATORY (INHAL ATION) [place] [facility] [place] [facility] [place] [facility] 2019 [facility] [place] [facility] CARBOXYMETH YLCELLULOSE NA 0.5% SOLN,OPH INSTILL 1 DROP INTO EACH EYE FOUR TIMES A DAY FOR DRY EYE OPHTHA LMIC ACTIVE 11/11/2025 [id number] 5 [place] 2024 45 [place] [facility] [place] [facility] CARBOXYMETH YLCELLULOSE NA 0.5% SOLN,OPH INSTILL 1 DROP INTO EACH EYE FOUR TIMES A DAY FOR DRY EYE OPHTHA LMIC DISCONT INUED 11/20/2024 [id number] [place] 2023 45 [facility] DICYCLOMINE HCL 10MG CAP TAKE 1 CAPSULE BY MOUTH EVERY 6 HOURS NEEDED ORAL [facility] FLUTICASONE PROPIONATE 50MCG/SPRAY SOLN,NASAL, 16GM INSTILL 1 SPRAY INTO EACH NOSTRIL TWICE DAILY NASAL [facility] GLUCOSAMINE CAP/TAB 1000 EVERY DAY [facility] 2011 [facility] HYDROCHLORO THIAZIDE 25MG TAB TAKE ONE-HALF TABLET BY MOUTH ONCE DAILY ORAL ACTIVE JESSICA HUERTAS 2023 [facility]ELD LOPERAMIDE HCL 2MG CAP TAKE 1 CAPSULE BY MOUTH EVERY 6 HOURS NEEDED ORAL [facility] LORAZEPAM 2MG TAB TAKE ONE TABLET BY MOUTH AT BEDTIME ORAL [facility]IVE [facility] LOSARTAN POTASSIUM 100MG TAB TAKE ONE TABLET BY MOUTH ONCE DAILY ORAL ACTIVE JESSICA HUERTAS 2023 [place] METOPROLOL SUCCINATE 100MG TAB,SA TAKE ONE TABLET BY MOUTH EVERY DAY ORAL ACTIVE [facility] 2016 [facility] MINERAL OIL,LIGHT/P ETROLATUM (PF) OINT,OPH APPLY THIN RIBBON INTO EACH EYE AT BEDTIME FOR DRY EYE OPHTHA LMIC ACTIVE 11/11/2025 [id number] 5 [place] 2024 3 [facility] MONTELUKAST NA 10MG TAB TAKE ONE TABLET BY MOUTH ONCE DAILY ORAL [facility] 2019 [facility] Allergies, Adverse Reactions, Alerts Combined [...] Site Reaction Lot Number CVX Code Drug Technical Training Specialist Status Comments Source INFLUENZA, UNSPECIFIED FORMULATION 2023 [...] INJECTABLE [address] [place] [facility] [place] [facility] ZOSTER RECOMBINANT [...] 2010 88 complet ed here at [facility] [place] [facility] [place] [...] 2024 04:01 PM Reporting Lab: [facility] [place] [facility] [address] [facility] [address] Performing Lab: [facility] [place] [facility] [address] [facility] [address] [place] URIC ACID URATE [MASS/VOLUM E] IN SERUM OR PLASMA 5.5 mg/dL 3.5 - 7.2 10/18 Specimen Type: SERUM No comment entered. Ordering Provider: NAOMIE HUERTAS Report Released Date/Time: Jun 04, 2024 04:01 PM Reporting Lab: [facility] [place] [facility] [address] [facility] [address] Performing Lab: [facility] [address] [place] LIPID PANEL FASTING CHOLESTEROL [MASS/VOLUM E] IN SERUM OR PLASMA 139 mg/dL 10/18 Specimen Type: SERUM No comment entered. Ordering Provider: NAOMIE HUERTAS Report Released Date/Time: Jun 04, 2024 04:01 PM Reporting Lab: [facility] [address] [address] Performing Lab: [facility] [address] [address] [place] LIPID PANEL FASTING TRIGLYCERID E [MASS/VOLUM E] IN SERUM OR PLASMA 272 mg/dL 0 - 150 10/18 H Specimen Type: SERUM No comment entered. Ordering Provider: NAOMIE HUERTAS Report Released Date/Time: Jun 04, 2024 04:01 PM Reporting Lab: [address] [address] Performing Lab: [address] [address] [place] LIPID PANEL FASTING CHOLESTEROL IN LDL [MASS/VOLUM E] IN SERUM OR PLASMA BY CALCULATION 51 mg/dL 0 - 129 10/18 Specimen Type: SERUM No comment entered. Ordering Provider: NAOMIE HUERTAS Report Released Date/Time: Jun 04, 2024 04:01 PM Reporting Lab: [address] [address] Performing Lab: [address] [address] [place] LIPID PANEL FASTING CHOLESTEROL .TOTAL/CHOL ESTEROL IN HDL [MASS RATIO] IN SERUM OR PLASMA 4.1 10/18 Specimen Type: SERUM No comment entered. Ordering Provider: NAOMIE HUERTAS Report Released Date/Time: Jun 04, 2024 04:01 PM Reporting Lab: [facility] [address] [address] Performing Lab: [facility] [address] [address] [place] LIPID PANEL FASTING CHOLESTEROL IN HDL [MASS/VOLUM E] IN SERUM OR PLASMA 34 mg/dL 40 - 60 10/18 L Specimen Type: SERUM No comment entered. Ordering Provider: NAOMIE HUERTAS Report Released Date/Time: Jun 04, 2024 04:01 PM Reporting Lab: [address] [address] Performing Lab: [address] [address] [place] VITAMIN D (25-OH) 25-HYDROXYV ITAMIN D3 [MASS/VOLUM E] IN SERUM OR PLASMA 14 ng/mL 20 - 50 10/18 L Specimen Type: SERUM No comment entered. Ordering Provider: NAOMIE HUERTAS Report Released Date/Time: Jun 04, 2024 04:01 PM Reporting Lab: [address] [address] Performing Lab: [address] [address] [place] VITAMIN B12 COBALAMIN (VITAMIN B12) [MASS/VOLUM E] IN SERUM OR PLASMA 384 pg/mL 200 - 900 10/18 Specimen Type: SERUM No comment entered. Ordering Provider: NAOMIE HUERTAS Report Released Date/Time: Jun 04, 2024 04:01 PM Reporting Lab: [address] [address] Performing Lab: [address] [address] [place] RETICULOC YTES RETICULOCYT ES [#/VOLUME] IN BLOOD 2.2 0.6 - 2.0 10/18 H Specimen Type: BLOOD No comment entered. Ordering Provider: NAOMIE HUERTAS Report Released Date/Time: Jun 04, 2024 04:01 PM Reporting Lab: [address] [address] Performing Lab: [address] [address] [place] RETICULOC YTES RETICULOCYT ES/100 ERYTHROCYTE S IN BLOOD BY AUTOMATED COUNT 121.8 10*3/u L 30.0 - 90.0 10/18 H Specimen Type: BLOOD No comment entered. Ordering Provider: NAOMIE HUERTAS Report Released Date/Time: Jun 04, 2024 04:01 PM Reporting Lab: [address] [address] Performing Lab: [address] [address] [place] RETICULOC YTES HEMOGLOBIN [ENTITIC MASS] IN RETICULOCYT ES BY AUTOMATED COUNT 33.2 pg 27.9 - 42.0 10/18 Specimen Type: BLOOD No comment entered. Ordering Provider: NAOMIE HUERTAS Report Released Date/Time: Jun 04, 2024 04:01 PM Reporting Lab: [address] [address] Performing Lab: [address] [address] [place] FERRITIN FERRITIN [MASS/VOLUM E] IN SERUM OR PLASMA 376 ng/mL 20 - 300 10/18 H Specimen Type: SERUM No comment entered. Ordering Provider: NAOMIE HUERTAS Report Released Date/Time: Jun 04, 2024 04:01 PM Reporting Lab: [address] [address] Performing Lab: [address] [address] [place] HEMOGLOBI N A1C PANEL HEMOGLOBIN A1C/HEMOGLO [...] Jun 04, 2024 04:01 PM Reporting Lab: [address] [address] Performing Lab: [facility] [address] [address] [place] CBC AND DIFF (AUTO) LEUKOCYTES [#/VOLUME] IN BLOOD BY AUTOMATED COUNT 9.54 10*3/u L 4.50 - 11.00 10/18 Specimen Type: BLOOD No comment entered. Ordering Provider: NAOMIE HUERTAS Report Released Date/Time: Jun 04, 2024 04:01 PM Reporting Lab: [facility] [place] [address] [address] Performing Lab: [facility] [place] [address] [address] [place] CBC AND DIFF (AUTO) ERYTHROCYTE S [#/VOLUME] IN BLOOD BY AUTOMATED COUNT 5.51 10*6/u L 4.23 - 5.66 10/18 Specimen Type: BLOOD No comment entered. Ordering Provider: NAOMIE HUERTAS Report Released Date/Time: Jun 04, 2024 04:01 PM Reporting Lab: [facility] [place] [address] [address] Performing Lab: [facility]TR[facility] [address] [address] [place] CBC AND DIFF (AUTO) HEMOGLOBIN [MASS/VOLUM E] IN BLOOD 16.2 g/dL 12.8 - 17 10/18 Specimen Type: BLOOD No comment entered. Ordering Provider: NAOMIE HUERTAS Report Released Date/Time: Jun 04, 2024 04:01 PM Reporting Lab: [facility] [place] [address] [address] Performing Lab: [facility]TR[facility] [address] [address] [place] CBC AND DIFF (AUTO) HEMATOCRIT [VOLUME FRACTION] OF BLOOD BY AUTOMATED COUNT 48.2 39.2 - 50.4 10/18 Specimen Type: BLOOD No comment entered. Ordering Provider: NAOMIE HUERTAS Report Released Date/Time: Jun 04, 2024 04:01 PM Reporting Lab: [facility]TR[facility] [address] [address] Performing Lab: [facility] [place] [facility] [address] [facility] [address] [place] CBC AND DIFF (AUTO) MCV [ENTITIC VOLUME] BY AUTOMATED COUNT 87.5 fL 82 - 99 10/18 Specimen Type: BLOOD No comment entered. Ordering Provider: NAOMIE HUERTAS Report Released Date/Time: Jun 04, 2024 04:01 PM Reporting Lab: [facility] [address] [facility] [address] Performing Lab: [facility] [address] [address] [place] CBC AND DIFF (AUTO) MCHC [MASS/VOLUM E] BY AUTOMATED COUNT 33.6 g/dL 30.8 - 35.1 10/18 Specimen Type: BLOOD No comment entered. Ordering Provider: NAOMIE HUERTAS Report Released Date/Time: Jun 04, 2024 04:01 PM Reporting Lab: [facility] [address] [address] Performing Lab: [facility] [address] [address] [place] CBC AND DIFF (AUTO) PLATELETS [#/VOLUME] IN BLOOD BY AUTOMATED COUNT 200 10*3/u L 140 - 360 10/18 Specimen Type: BLOOD No comment entered. Ordering Provider: NAOMIE HUERTAS Report Released Date/Time: Jun 04, 2024 04:01 PM Reporting Lab: [facility] [address] [address] Performing Lab: [facility] [address] [address] [place] CBC AND DIFF (AUTO) ERYTHROCYTE DISTRIBUTIO N WIDTH [RATIO] BY AUTOMATED COUNT 13.1 12.0 - 16.0 10/18 Specimen Type: BLOOD No comment entered. Ordering Provider: NAOMIE HUERTAS Report Released Date/Time: Jun 04, 2024 04:01 PM Reporting Lab: [facility] [address] [address] Performing Lab: [facility] [address] [address] [place] CBC AND DIFF (AUTO) MONOCYTES [#/VOLUME] IN BLOOD BY AUTOMATED COUNT 0.74 10*3/u L 0.30 - 1.10 10/18 Specimen Type: BLOOD No comment entered. Ordering Provider: NAOMIE HUERTAS Report Released Date/Time: Jun 04, 2024 04:01 PM Reporting Lab: [facility] [address] [address] Performing Lab: [place] [facility] [place] [place] [address] [place] CBC AND DIFF (AUTO) MCH [ENTITIC MASS] BY AUTOMATED COUNT 29.4 pg 26.2 - 32.6 10/18 Specimen Type: BLOOD No comment entered. Ordering Provider: NAOMIE HUERTAS Report Released Date/Time: Jun 04, 2024 04:01 PM Reporting Lab: [facility]N [address] [address] Performing Lab: [facility] [address] [address] [place] CBC AND DIFF (AUTO) NEUTROPHILS /100 LEUKOCYTES IN BLOOD BY AUTOMATED COUNT 63.1 43.7 - 75.8 10/18 Specimen Type: BLOOD No comment entered. Ordering Provider: NAOMIE HUERTAS Report Released Date/Time: Jun 04, 2024 04:01 PM Reporting Lab: [facility] [address] [address] Performing Lab: [facility]N [facility] [address] [place] CBC AND DIFF (AUTO) LYMPHOCYTES /100 LEUKOCYTES IN BLOOD BY AUTOMATED COUNT 25.4 14.0 - 42.3 10/18 Specimen Type: BLOOD No comment entered. Ordering Provider: NAOMIE HUERTAS Report Released Date/Time: Jun 04, 2024 04:01 PM Reporting Lab: [facility]N [facility]ITAL[facility] [address] Performing Lab: [facility]N [address] [address] [place] CBC AND DIFF (AUTO) MONOCYTES/1 00 LEUKOCYTES IN BLOOD BY AUTOMATED COUNT 7.8 5.1 - 13.7 10/18 Specimen Type: BLOOD No comment entered. Ordering Provider: NAOMIE HUERTAS Report Released Date/Time: Jun 04, 2024 04:01 PM Reporting Lab: [place] [facility] [place] [facility] [address] [facility] [address] Performing Lab: [place] [facility]ITAL[facility] [address] [address] [place] CBC AND DIFF (AUTO) EOSINOPHILS /100 LEUKOCYTES IN BLOOD BY AUTOMATED COUNT 2.6 0.4 - 6.8 10/18 Specimen Type: BLOOD No comment entered. Ordering Provider: NAOMIE HUERTAS Report Released Date/Time: Jun 04, 2024 04:01 PM Reporting Lab: [place] [facility] [address] [address] Performing Lab: [place] [facility]N [facility]ITAL[facility] [address] [address] [place] CBC AND DIFF (AUTO) BASOPHILS/1 00 LEUKOCYTES IN BLOOD BY AUTOMATED COUNT 0.6 0.1 - 2.0 10/18 Specimen Type: BLOOD No comment entered. Ordering Provider: NAOMIE HUERTAS Report Released Date/Time: Jun 04, 2024 04:01 PM Reporting Lab: [place] [facility] [address] [address] Performing Lab: [place] [facility] [address] [address] [place] CBC AND DIFF (AUTO) NEUTROPHILS [#/VOLUME] IN BLOOD BY AUTOMATED COUNT 6.02 10*3/u L 2.20 - 7.60 10/18 Specimen Type: BLOOD No comment entered. Ordering Provider: NAOMIE HUERTAS Report Released Date/Time: Jun 04, 2024 04:01 PM Reporting Lab: [place] [facility] [place] [address] [address] Performing Lab: [place] [facility] [address] [address] [place] CBC AND DIFF (AUTO) LYMPHOCYTES [#/VOLUME] IN BLOOD BY AUTOMATED COUNT 2.42 10*3/u L 1.00 - 3.20 10/18 Specimen Type: BLOOD No comment entered. Ordering Provider: NAOMIE HUERTAS Report Released Date/Time: Jun 04, 2024 04:01 PM Reporting Lab: [facility]ENTERTRN [address] [address] Performing Lab: [facility]N [address] [address] [place] CBC AND DIFF (AUTO) EOSINOPHILS [#/VOLUME] IN BLOOD BY AUTOMATED COUNT 0.25 10*3/u L 0.03 - 0.44 10/18 Specimen Type: BLOOD No comment entered. Ordering Provider: NAOMIE HUERTAS Report Released Date/Time: Jun 04, 2024 04:01 PM Reporting Lab: [facility]N [address] [address] Performing Lab: [facility] [address] [address] [place] CBC AND DIFF (AUTO) BASOPHILS [#/VOLUME] IN BLOOD BY AUTOMATED COUNT 0.06 10*3/u L 0.01 - 0.13 10/18 Specimen Type: BLOOD No comment entered. Ordering Provider: NAOMIE HUERTAS Report Released Date/Time: Jun 04, 2024 04:01 PM Reporting Lab: [facility]N [address] [address] Performing Lab: [facility] [address] [address] [place] CBC AND DIFF (AUTO) IMMATURE GRANULOCYTE S/100 LEUKOCYTES IN BLOOD BY AUTOMATED COUNT 0.5 0.0 - 0.7 10/18 Specimen Type: BLOOD No comment entered. Ordering Provider: NAOMIE HUERTAS Report Released Date/Time: Jun 04, 2024 04:01 PM Reporting Lab: [facility]RS[facility] CENTERTRN [address] [address] Performing Lab: [facility]N [address] [address] [place] CBC AND DIFF (AUTO) IMMATURE GRANULOCYTE S [#/VOLUME] IN BLOOD 0.05 10*3/u L 0.00 - 0.06 10/18 Specimen Type: BLOOD No comment entered. Ordering Provider: NAOMIE HUERTAS Report Released Date/Time: Jun 04, 2024 04:01 PM Reporting Lab: [place] [facility] [address] [facility] [address] Performing Lab: [facility]ENTERTRN [facility]ITALUSETS [address] [address] [place] CBC AND DIFF (AUTO) NRBC % 0.0 0.0 - 0.0 10/18 Specimen Type: BLOOD No comment entered. Ordering Provider: NAOMIE HUERTAS Report Released Date/Time: Jun 04, 2024 04:01 PM Reporting Lab: [facility]ENTERTRN [facility]TS [address] [address] Performing Lab: [facility]ENTERTRN [facility]ITALUSE[address] [address] [place] CBC AND DIFF (AUTO) NRBC, ABS 0.00 10*3/u L 0.00 - 0.00 10/18 Specimen Type: BLOOD No comment entered. Ordering Provider: NAOMIE HUERTAS Report Released Date/Time: Jun 04, 2024 04:01 PM Reporting Lab: [facility]ENTERTRN [facility]ITALUSETS [address] [address] Performing Lab: [facility] TRN [facility]ITALUSETS [address] [address] [place] MICROALBU MIN CREATININ E RATIO PANEL MICROALBUMI N/CREATININ E [MASS RATIO] IN URINE 103.3 mg/g 0 - 29.9 10/18 H Specimen Type: URINE No comment entered. Ordering Provider: NAOMIE HUERTAS Report Released Date/Time: Jun 04, 2024 04:01 PM Reporting Lab: [facility]N [facility]ITALUSETS [address] [address] Performing Lab: [facility]RL W[facility]N [facility]ITALUSETS [address] [address] [place] MICROALBU MIN CREATININ E RATIO PANEL MICROALBUMI N [MASS/VOLUM E] IN URINE 14.3 mg/dL 10/18 Specimen Type: URINE No comment entered. Ordering Provider: NAOMIE HUERTAS Report Released Date/Time: Jun 04, 2024 04:01 PM Reporting Lab: [facility] [address] [facility] [address] Performing Lab: [facility]REL[facility]ITALN [facility]ITALUSEST[facility] [address] [facility] [address] [place] MICROALBU MIN CREATININ E RATIO PANEL CREATININE [MASS/VOLUM E] IN URINE 138.43 mg/dL 10/18 Specimen Type: URINE No comment entered. Ordering Provider: NAOMIE HUERTAS Report Released Date/Time: Jun 04, 2024 04:01 PM Reporting Lab: [facility] [address] [facility] [address] Performing Lab: [facility] [address] [id number] [facility] V[facility] Sign[facility] Combined list of inpatient and outpatient Vital Signs from Department of Defense and Veterans Affairs, ranging from 12 months to all on record, depending upon the facility. Vital Sign Value Date Comments Source SYSTOLIC BLOOD PRESSURE 135 06/04/2024 15:13:14 [facility] DIASTOLIC BLOOD PRESSURE 75 06/04/2024 15:13:14 [facility] PULSE OXIMETRY 95 06/04/2024 15:13:14 [facility] WEIGHT 208 06/04/2024 15:13:14 [facility] BMI 31 kg/m2 06/04/2024 15:13:14 [facility] 69 06/04/2024 15:13:14 [facility] TEMPERATURE 98.2 06/04/2024 15:13:14 [facility] PULSE 76 06/04/2024 15:13:14 [facility] RESPIRATION 19 06/04/2024 15:13:14 [facility] Encounters Combined list of: 1) Encounters from Department of Veterans Affairs facilities going backup to the last 18 months, not all [place] inpatient encounters are included; 2) Encounters from the Department of Defense facilities going backup to 280 months. Location Location Details Encounter Type Encounter Number Reason For Visit Attending Provider ADM Date DC Date Status [facility] Encounter [id number] 10/16 [facility] [place] HEARING AID REPAIR/MOD IFYING [id number] Diagnos is: ICD-10- CM Z46.1 Encount er for fitting and adjustm ent of hearing aid CATA LOWERY 11/13 [place] [facility] En[facility] [id number] 11/18 [facility] En[facility] [id number] 03/04 [facility] Encounter [id number] 03/25 [facility] Encounter [id number] 03/25 [facility] Out[facility] Encounter [id number] 05/03 [facility] [place] Outpatient Encounter [id number] 05/21 [place] [facility] Outpatient Encounter [id number] 05/24 [facility] HEARING AID FITTING/CH ECKING [id number] Diagnos is: ICD-10- CM Z46.1 Encount er for fitting and adjustm ent of hearing aid Calli PABON 06/01 [facility] Out[facility] Encounter [id number] 06/04 [facility] [place] OFF[place] O/P EST MOD 30 MIN [id number] Diagnos is: ICD-10- CM I48.91 Unspeci fied atrial fibrill ANDREWS Coulter 06/04 [place] [facility] Outpatient Encounter [id number] 1.06/04 [facility] [place] [facility] DIAGNOSTIC EVALUATION [id number] Diagnos is: ICD-10- CM F41.9 Anxiety disorde r, unspeci fied AME ZEE 07/05 [place] [facility] Outpatient Encounter [id number] 1. AME ZEE 07/05 [facility] OFFICE O/P NEW LOW 30 MIN [id number] Diagnos is: ICD-10- CM M21.42 Flat foot [pes planus] (acquir ed), left foot ROSS,CHARL ES F 07/06 [place] [facility] Outpatient Encounter [id number] 1.07/07 [facility] Outpatient [facility]counter [id number] 1.08/16 [facility] HEARING AID REPAIR/MOD IFYING [id number] Diagnos is: ICD-10- CM Z46.1 Encount er for fitting and adjustm ent of hearing aid SENIOR,FRANCOISE OLE L 09/06 [facility] HEARING AID REPAIR/MOD IFYING [id number] Diagnos is: ICD-10- CM H90.3 Sensori neural hearing loss, bilater WANDY Cardona 09/28 [facility] Outpatient [facility]counter [id number] 10/21 [facility] OFFICE O/P EST MOD 30 MIN [id number] Diagnos is: ICD-10- CM E11.9 Type 2 diabete s mellitu s without complic ations BRODY CARRERA Nils 11/10 [facility] FIT SPECTACLES BIFOCAL [id number] Diagnos is: ICD-10- CM Z46.0 Encount er for fit/adj st of spectac les and contact lenses DEBICLINTJhonny Su Nils 11/10 [facility] [place] OFF[place] O/P NEW HI 60 MIN [id number] Diagnos is: ICD-10- CM F41.9 Anxiety disorde r, unspeci fied DOC,W TIKA 12/07 [place] [facility] Outpatient Encounter [id number] 12/13 [facility] Outpatient Encounter [id number] 01/04 [facility] Social History Combined list of available smoking, tobacco, and other social history from Department of Defense and Veterans Affairs facilities. Social History Type Response Date Comment Sourc e Tobacco smoking status NHIS VA-TOBACCO FORMER USER 03/[facility]/2024 [facility] History of tobacco use VA-TOBACCO QUIT 15 YRS OR MORE 03/25/2024 [facility] History of tobacco use VA-TOBACCO FORMER USER 04/01/2019 [facility] History of tobacco use VA-TOBACCO FORMER USER 04/01/2018 [facility] History of tobacco use QUIT TOBACCO USE > 7 YEARS AGO 04/01/2018 [facility] History of tobacco use QUIT TOBACCO USE > 7 YEARS AGO 02/17/2017 [facility] History of tobacco use QUIT TOBACCO USE > 7 YEARS AGO 01/18/2016 . [facility] History of tobacco use QUIT TOBACCO USE > 7 YEARS AGO 03/12/2010 [facility] Plan of Care List of future care activities from [facility] facilities. Additional future care activities may be listed in the Assessment and Plan section. Date/Time Care Activity [facility] AM[facility]ULATORY - REHAB MEDICINE AMBULATORY - REHAB MEDICINE [facility] Advance Directives List of completed, amended, or rescinded Advance Directives on record at [facility] facilities. An actual copy of the Directive is not included. Date Advance Directive Provider Source 06/20/2003 ADVANCE DIRECTIVE EMANI REED [facility]
--- OUTSIDE RECORDS SUMMARY | 2025-02-03 09:51 | XMS_ITS | Clinical Summary ---
[facility] Address [address] [place] [address] Care Team Providers Care Geomagnetician Name Role Phone Jesus Miller NP Primary Care Provider [phone] Surgical History Surgery Date Site/Laterality Comments TOTAL KNEE ARTHROPLASTY Right PROCEDURE: HISTORICAL TOTAL KNEE REPLACE OTHER SURGICAL HISTORY N/A PROCEDURE: [place] ANES CARDIAC ELECTROPHYSIOL STDY W/RF ABLATION OTHER SURGICAL HISTORY N/A PROCEDURE: DC CARDIOVERSION ELECTIVE ARRHYTHMIA EXTERNAL NOSE SURGERY N/A PROCEDURE: DC UNLISTED PROCEDURE NOSE OTHER SURGICAL HISTORY 07/09/2023 Left PROCEDURE: DC THORACOSCOPY W/THERA WEDGE RESEXN INITIAL UNILAT; COMMENT: LLL wedge x2 Medical History Medical History Date Comments Ectatic thoracic aorta ([facility] V24) DX:Ectatic thoracic aorta ([facility]) Bifascicular block DX:Bifascicul ar block IBS (irritable bowel syndrome) D X:IBS (irritable bowel syndrome) History of kidney cancer exc luding renal pelvis DX:History of kidney cancer excluding renal pelvis Actinic keratoses DX:Actinic ker atoses PAF (paroxysmal atrial fibri llation) (CMS/HCC V24, CMS/HCC V28) DX:PAF (paroxysmal atrial f ibrillation) ([facility]) Chronic allergic rhinitis DX:Chr onic allergic rhinitis COPD (chronic obstructive pu lmonary disease) ([facility]/HCC V24, [facility]/HCC V28) DX:COPD (chronic o bstructive pulmonary disease) ([facility]) Pulmonary nodules DX:Pulmonary n odules Family History [...] age to complete this topic Care Teams Geomagnetician Relationship Specialty Start Date End Date Jesus Miller NP [address] [place], [place] PCP - General 10/30/23
--- OUTSIDE RECORDS SUMMARY | 2025-02-03 09:51 | XMS_ITS ---
Author Organization [facility] Address [address] [place] [address] Care Team Providers Care Hat Binder Name Role Phone NAOMIE SMALL Primary Care Provider Jeremías Cole [phone] REASON FOR VISIT Needs refill Medications Medication SIG (Take, Route, Fr equency, Duration) Notes Start Date End Date Status Dicyclomine HCl 10 MG 1 or 2 capsules Or ally Every 6 hours as needed for abdominal cramps, bloating, or discomfort for 90 days 09/02/2023 Active Encounters Encounter Location Date Provider Diagnosis [facility] [address] [place] [address] 09/01/2023 Jeremías Gómez Plan Of Treatment Medication Medication Name Sig Start Date Stop Date Notes Dicyclomine HCl 10 MG 1 or 2 capsules Or ally Every 6 hours as needed for abdominal cramps, bloating, or discomfort for 90 days 09/02/2023 Progress Notes * ANDRE BALDWINDOB:1945 (78 yo M)Acc No.[id number]:09/01/2023 Patient:?ANDRE BALDWIN :1945???Age:78 Y???Sex:Male Address:[address] [place] [address] * Refills? Start Dicyclomine HCl Capsule, 10 MG, Orally, 360, 1 or 2 capsules, Every 6 hours as needed for abdominal cramps, bloating, or discomfort, 90 days, Refills=3 * true * Date:? Generated for Printi ng/Faxing/eTransmitting on:?02/03/2025 09:50 AM EDT
--- OUTSIDE RECORDS SUMMARY | 2025-02-03 09:51 | XMS_ITS | Patient Health Record ---
Author Organization [facility] Address [address] [place] [address] Care Team Providers Care Roller Coaster Operator Name Role Phone NAOMIE SMALL Primary Care Provider Jeremías Cole [phone] Allergies Allergen (clinical drug ingredient) Drug/Non Drug Allergy documented on EMR Reaction Allergy Type Onset Date Status Sulfa Unknown Drug Allergy Active morphine Morphine Sulfate Unknown Drug Allergy Active hydromorphone Dilaudid Unknown Drug Allergy Act sigrid amiodarone Amiodarone HCl Unknown Drug Allergy A ctive Reason For Referral No Information Medications Medication SIG (Take, Route, Frequency, Duration) Notes Start Date End Date Status [place] 3 Not-Taking Fluticasone Propionate 50 MCG/ACT 1 [...] Problem Status W/U Status Risk Notes Problem 005668779 Encounter for screening for malignant neoplasm of colon (Z12.11) Active confirmed Problem 483495446 History of adenomatous polyp of colon (Z86.010) Active confirmed Problem 718938775 Irritable bowel syndrome with diarrhea (K58.0) Active confirmed Problem 700066585 Gastroesophageal reflux disease without esophagitis (K21.9) Active confirmed Problem 203116931 Hx of adenomatou s colonic polyps (Z86.010) Active confirmed Problem 46782731 Hypertension, unspecified type (I10) Active confirmed Problem Diverticulosis of colon (797421827) Diverticulosis of colon (K57.30) Active confirmed Plan [...] Insured Coverage Start Date Coverage End Date [facility] [address] [place], [place] [id number] [phone] [id number] ANDRE BALDWIN Self - patient is the insured Medical (General) History Medical History History ICD Code Tubular adenomas of the colo n--he had a relatively large and sessile tubular adenoma removed from transverse colon 2006--followup colonoscopies in 2008 and February of 2012 revealed small tubular adenomas that were removed Diverticulitis with surgery as below Hypertension Diet-controlled DM Hyperlipidemia Denies [place],CVA,Lung disease,renal disease Kidney cancer--Partial left nephrectomy at the [facility]--04/2014 Atrial fibrillation--had an ablation EGD 02/2015--small hiatal [...] nephrectomy in April of 2014 at the [facility] Right knee replacement 04/08/2022
== END 2025-02-03 10:10 | disposition home or self-care (01) ==
LOC: HO.HCS 09:33
PROVIDERS: PCP Nurse Practitioner Family; Visit Provider Internal Medicine Cardiovascular Disease
DX: I48.0 Paroxysmal atrial fibrillation (principal); I10 Essential (primary) hypertension; I45.2 Bifascicular block
CPT/HCPCS: 99214; G2211

== ENCOUNTER → 2025-02-03 09:32 | Outpatient (BNVA) | payer MEDICARE, SELFPAY | PROVIDERS: PCP Nurse Practitioner Family; Visit Provider Internal Medicine Cardiovascular Disease | DX: I10 Essential (primary) hypertension (principal); I45.2 Bifascicular block; I48.0 Paroxysmal atrial fibrillation; Z79.01 Long term (current) use of anticoagulants | CPT/HCPCS: 99212 ==

== ENCOUNTER → 2025-05-23 11:05 | Outpatient (BNV) | payer MEDICARE, SELFPAY | PROVIDERS: PCP Nurse Practitioner Family; Visit Provider Radiology Diagnostic Radiology | DX: K86.2 Cyst of pancreas (principal) | CPT/HCPCS: 74183 ==

== ENCOUNTER 2025-05-23 11:09 | Outpatient (REF) | payer MEDICARE, SELFPAY ==
--- NOTE | ~2025-05-23 | MR_ITS ---
EXAMINATION: MR ABDOMEN WITHOUT THEN WITH IV CONTRAST HISTORY: N28.1 - Cyst of kidney, acquired COMPARISON: Comparison is made with the prior examination dated 06/22/2024. Correlation is also made with a CT of the abdomen without contrast dated 09/26/2023. TECHNIQUE: Axial in and out of phase T1-weighted gradient echo, axial diffusion weighted, and axial and coronal HASTE T2 with fat saturation images were obtained through the abdomen. Subsequently, fat suppressed axial and coronal T1-weighted images were obtained after the intravenous administration of 10 mL Gadavist. Subtraction imaging was also performed. FINDINGS: Liver: There is no loss of signal intensity in the liver on opposed phase imaging to suggest steatosis. There is no enhancing liver mass identified, although the entire liver is not imaged on the postcontrast series. The hepatic and portal veins are patent. There is no intrahepatic biliary dilatation. Gallbladder/biliary tree: No gallstones are identified. The common bile duct is normal in caliber. No intraluminal filling defects are identified to suggest choledocholithiasis. Spleen: The spleen is unremarkable. Pancreas: There is a 7 mm bilobed cystic focus in the uncinate process of the pancreas without change. There is no enhancing pancreatic mass. The pancreatic duct is normal in caliber. Adrenals: The adrenal glands are unremarkable. Kidneys: Again seen are multiple lesions in both kidneys, many of which are T2 hypointense and T1 hyperintense. Several of these demonstrate fluid/fluid levels after the administration of intravenous gadolinium. Several lesions are seen to have thin enhancing septa. No definite solid enhancing components are identified. There are post ablation changes at the lateral aspect of the left kidney. Lymph nodes: There is no retroperitoneal lymphadenopathy in the upper abdomen. Fluid: There is no ascites in the upper abdomen. Visualized bowel: The visualized small and large bowel loops are unremarkable in appearance. Visualized bones: The visualized bones demonstrate normal marrow signal intensity. MR/MR abdomen wo/w con IMPRESSION: 1. Multiple bilateral renal cysts, many of which demonstrate hemorrhagic/proteinaceous components or enhancing septa. No suspicious lesion is identified. Continued follow-up is recommended. 2. Post ablative changes involving the left kidney3 3. 7 mm bilobed cystic focus in the uncinate process of the pancreas. Continued follow-up is recommended. Electronically signed by: Jeremías Jc MD 05/23/2025 12:49 PM EDT RP
--- OUTSIDE RECORDS SUMMARY | 2025-05-23 13:42 | XMS_ITS | Patient Health Record ---
Author Organization [facility] Address [address] [place] [address] Care Team Providers Care Importer Or Exporter Name Role Phone NAOMIE SMALL Primary Care Provider Jeremías Cole [phone] Allergies Allergen (clinical drug ingredient) Drug/Non Drug Allergy documented on EMR Reaction Allergy Type Onset Date Status Sulfa Unknown Drug Allergy Active morphine Morphine Sulfate Unknown Drug Allergy Active hydromorphone Dilaudid Unknown Drug Allergy Act sigrid amiodarone Amiodarone HCl Unknown Drug Allergy A ctive Reason For Referral No Information Medications Medication SIG (Take, Route, Frequency, Duration) Notes Start Date End Date Status [place] 3 Not-Taking Fluticasone Propionate 50 MCG/ACT 1 [...] Problem Status W/U Status Risk Notes Problem 250050114 Encounter for screening for malignant neoplasm of colon (Z12.11) Active confirmed Problem 538542225 History of adenomatous polyp of colon (Z86.010) Active confirmed Problem 691660037 Irritable bowel syndrome with diarrhea (K58.0) Active confirmed Problem 671506304 Gastroesophageal reflux disease without esophagitis (K21.9) Active confirmed Problem 858206192 Hx of adenomatou s colonic polyps (Z86.010) Active confirmed Problem 01214910 Hypertension, unspecified type (I10) Active confirmed Problem Diverticulosis of colon (937163182) Diverticulosis of colon (K57.30) Active confirmed Plan [...] Insured Coverage Start Date Coverage End Date [facility] [address] [place], [place] [id number] ANDRE BALDWIN Self - patient is the insured Medical (General) History Medical History History ICD Code Tubular adenomas of the colo n--he had a relatively large and sessile tubular adenoma removed from transverse colon 2006--followup colonoscopies in 2008 and February of 2012 revealed small tubular adenomas that were removed Diverticulitis with surgery as below Hypertension Diet-controlled DM Hyperlipidemia Denies [place],CVA,Lung disease,renal disease Kidney cancer--Partial left nephrectomy at the [facility]--04/2014 Atrial fibrillation--had an ablation EGD 02/2015--small hiatal [...] nephrectomy in April of 2014 at the [facility] Right knee replacement 04/08/2022
--- OUTSIDE RECORDS SUMMARY | 2025-05-23 13:42 | XMS_ITS | Clinical Summary ---
Author Organization [facility] Address [address] [place] [address] Care Team Providers Care Driver Merchandiser Name Role Phone Jesus Miller NP Primary Care Provider [phone] Surgical History Surgery Date Site/Laterality Comments TOTAL KNEE ARTHROPLASTY Right PROCEDURE: HISTORICAL TOTAL KNEE REPLACE OTHER SURGICAL HISTORY N/A PROCEDURE: ID ANES CARDIAC ELECTROPHYSIOL STDY W/RF ABLATION OTHER SURGICAL HISTORY N/A PROCEDURE: ID CARDIOVERSION ELECTIVE ARRHYTHMIA EXTERNAL NOSE SURGERY N/A PROCEDURE: ID UNLISTED PROCEDURE NOSE OTHER SURGICAL HISTORY 07/09/2023 Left PROCEDURE: ID THORACOSCOPY W/THERA WEDGE RESEXN INITIAL UNILAT; COMMENT: LLL wedge x2 Medical History Medical History Date Comments Ectatic thoracic aorta ([facility] V24) DX:Ectatic thoracic aorta ([facility]) Bifascicular block DX:Bifascicul ar block IBS (irritable bowel syndrome) D X:IBS (irritable bowel syndrome) History of kidney cancer exc luding renal pelvis DX:History of kidney cancer excluding renal pelvis Actinic keratoses DX:Actinic ker atoses PAF (paroxysmal atrial fibri llation) (CMS/HCC V24, CMS/HCC V28) DX:PAF (paroxysmal atrial f ibrillation) ([facility]) Chronic allergic rhinitis DX:Chr onic allergic rhinitis COPD (chronic obstructive pu lmonary disease) ([facility]/HCC V24, [facility]/HCC V28) DX:COPD (chronic o bstructive pulmonary disease) ([facility]) Pulmonary nodules DX:Pulmonary n odules Family [...] series) 2021 Cholesterol Screening (Lipid Panel) 10/09/2023 Falls Risk Assessment 10/09/2023 Hepatitis C Screening 10/09/2023 Social Influencers of Health Screening 10/09/2023 Depression Screening 09/15/2024 COVID-19 Vaccine (1 - 2023-2 5 season) 2025 Influenza Vaccine (#1) 2025 HIB Vaccines Aged Out No longer [...] age to complete this topic Care Teams Driver Merchandiser Relationship Specialty Start Date End Date Jesus Miller NP [address] [place], [place] PCP - General 10/30/23
== END 2025-05-23 11:10 | disposition home or self-care (01) ==
LOC: HO.MRI 11:09
PROVIDERS: PCP Nurse Practitioner Family; Visit Provider Internal Medicine Hypertension Specialist
DX: N28.1 Cyst of kidney, acquired (principal); C64.9 Malignant neoplasm of unspecified kidney, except renal pelvis
CPT/HCPCS: 74183; A9585

== ENCOUNTER 2025-07-01 06:12 | Outpatient (REF) | payer MEDICARE, SELFPAY ==
--- OUTSIDE RECORDS SUMMARY | 2025-07-01 06:15 | XMS_ITS | Clinical Summary ---
Author Organization [facility] Address [address] [place] [address] Care Team Providers Care Commercial Stripper Name Role Phone Jesus Miller NP Primary Care Provider Surgical History Surgery Date Site/Laterality Comments TOTAL KNEE ARTHROPLASTY Right PROCEDURE: HISTORICAL TOTAL KNEE REPLACE OTHER SURGICAL HISTORY N/A PROCEDURE: [place] ANES CARDIAC ELECTROPHYSIOL STDY W/RF ABLATION OTHER SURGICAL HISTORY N/A PROCEDURE: [place] CARDIOVERSION ELECTIVE ARRHYTHMIA EXTERNAL NOSE SURGERY N/A PROCEDURE: [place] UNLISTED PROCEDURE NOSE OTHER SURGICAL HISTORY 07/09/2023 Left PROCEDURE: [place] THORACOSCOPY W/THERA WEDGE RESEXN INITIAL UNILAT; COMMENT: LLL wedge x2 Medical History Medical History Date Comments Ectatic thoracic aorta ([facility] V24) DX:Ectatic thoracic aorta ([facility]) Bifascicular block DX:Bifascicul ar block IBS (irritable bowel syndrome) D X:IBS (irritable bowel syndrome) History of kidney cancer exc luding renal pelvis DX:History of kidney cancer excluding renal pelvis Actinic keratoses DX:Actinic ker atoses PAF (paroxysmal atrial fibri llation) ([facility]/HCC V24, CMS/HCC V28) DX:PAF (paroxysmal atrial f ibrillation) ([facility]) Chronic allergic rhinitis DX:Chr onic allergic rhinitis COPD (chronic obstructive pu lmonary disease) ([facility]/HCC V24, [facility] V28) DX:COPD (chronic o bstructive pulmonary disease) ([facility]) Pulmonary nodules DX:Pulmonary n odules Family History [...] age to complete this topic Care Teams Commercial Stripper Relationship Specialty Start Date End Date Jesus Miller NP [address] [place], [place] PCP - General 10/30/23
--- OUTSIDE RECORDS SUMMARY | 2025-07-01 06:15 | XMS_ITS | Patient Health Record ---
Author Organization [facility] Address [address] [place] [address] Care Team Providers Care Medical Radiation Therapist Name Role Phone NAOMIE SMALL Primary Care Provider Jeremías Cole [phone] Allergies Allergen (clinical drug ingredient) Drug/Non Drug Allergy documented on EMR Reaction Allergy Type Onset Date Status Sulfa Unknown Drug Allergy Active Morphine Sulfate Unknown Drug Allergy Active hydromorphone Dilaudid Unknown Drug Allergy Act sigrid amiodarone Amiodarone HCl Unknown Drug Allergy A ctive Reason For Referral No Information Medications Medication SIG (Take, Route, Frequency, Duration) Notes Start Date End Date Status [place] 3 Not-Taking Fluticasone Propionate 50 MCG/ACT 1 spray in each nostril Nasally Twice a day Active Magnesium 500 MG 1 tablet with a meal Orally Once a day Not-Taking Dicyclomine HCl 10 MG 1 or 2 capsules Or ally Every 6 hours as needed for abdominal cramps, bloating, or discomfort; Duration: 90 days 09/02/2023 Active Metoprolol Succinate ER [...] MG 1-2 Orally QID prn abdominal cramps/discomfort/bloa ting; Duration: 90 days 07/18/2020 Active Symbicort 160-4.5 MCG/ACT 2 puffs Inhala tion Twice a day Active Montelukast Sodium 10 MG 1 tablet Orally Once a day; Duration: 30 day(s) Active Cholestyramine 4 GM/DOSE 1/2 to 1 scoop mixed in a glass of orange juice or water Orally Once or twice a day for diarrhea; Duration: 30 day(s) 11/12/2021 Active LORazepam 1 MG [...] Problem Status W/U Status Risk Notes Problem Screening for malignant neoplasm of colon (405777613) Encounter for screening for malignant neoplasm of colon (Z12.11) Active confirmed Problem History of adenomatous polyp of colon (605051758) History of adenomatous polyp of colon (Z86.010) Active confirmed Problem Irritable bowel syndrome with diarrhea (367175689) Irritable bowel syndrome with diarrhea (K58.0) Active confirmed Problem Gastroesophageal reflux disease without esophagitis (327966930) Gastroesophageal reflux disease without esophagitis (K21.9) Active confirmed Problem History of adenomatous polyp of colon (472205286) Hx of adenomatous colonic polyps (Z86.010) Active confirmed Problem Essential hypertension (52646084) Hypertension, unspecified type (I10) Active confirmed Problem Diverticulosis of colon (994476346) Diverticulosis of colon (K57.30) Active confirmed Plan [...] Insured Coverage Start Date Coverage End Date [facility] [address] [place], [place] [id number] [phone] [id number] ANDRE BALDWIN Self - patient is the insured Medical (General) History Medical History History ICD Code Tubular adenomas of the colo n--he had a relatively large and sessile tubular adenoma removed from transverse colon 2006--followup colonoscopies in 2008 and February of 2012 revealed small tubular adenomas that were removed Diverticulitis with surgery as below Hypertension Diet-controlled DM Hyperlipidemia Denies [place],CVA,Lung disease,renal disease Kidney cancer--Partial left nephrectomy at the [facility]--04/2014 Atrial fibrillation--had an ablation EGD 02/2015--small [...] nephrectomy in April of 2014 at the [facility] Right knee replacement 04/08/2022
[2025-07-01 10:12] LABS: Appearance Urine Clear; Glucose Urine UA Negative (Negative); PH 6.0 (5.0-9.0); Specific Gravity - Urine 1.015 (1.005-1.025)
[2025-07-01 13:56] LABS: Anion Gap 12 (12-20); Blood Urea Nitrogen 13 mg/dL (9-16); Calcium 9.3 mg/dL (8.4-10.2); Carbon Dioxide 27 mmol/L (22-29); Chloride 105 mmol/L (96-108); Estimated Glomerular Filt Rate 55; Potassium 3.5 mmol/L (3.3-5.1); Sodium 140 mmol/L (135-145)
== END 2025-07-01 06:13 | disposition home or self-care (01) ==
LOC: HO.HMGCLDS 06:12
PROVIDERS: Internal Medicine Hypertension Specialist; PCP Nurse Practitioner Family; Visit Provider Nurse Practitioner Family
DX: N28.1 Cyst of kidney, acquired (principal); R80.9 Proteinuria, unspecified; K76.0 Fatty (change of) liver, not elsewhere classified; Z12.5 Encounter for screening for malignant neoplasm of prostate
CPT/HCPCS: 36415; 80048; 81003

== ENCOUNTER 2025-07-07 07:40 | Outpatient (AMB) | payer MEDICARE, SELFPAY ==
--- OUTSIDE RECORDS SUMMARY | 2025-07-07 07:43 | XMS_ITS | Clinical Summary ---
[facility] Organization [facility] Address [address] [place] [address] Care Team Providers Care Mold Capper Helper Name Role Phone Jesus Miller NP Primary Care Provider [phone] Surgical History Surgery Date Site/Laterality Comments TOTAL [...] Medical History Date Comments Ectatic thoracic aorta ([facility] V24) DX:Ectatic thoracic aorta ([facility]) Bifascicular block DX:Bifascicul ar block IBS (irritable bowel syndrome) D X:IBS (irritable bowel syndrome) History of kidney cancer exc luding renal pelvis DX:History of kidney cancer excluding renal pelvis Actinic keratoses DX:Actinic ker atoses PAF (paroxysmal atrial fibri llation) (CMS/HCC V24, CMS/HCC V28) DX:PAF (paroxysmal atrial f ibrillation) ([facility]) Chronic allergic rhinitis DX:Chr onic allergic rhinitis COPD (chronic obstructive pu lmonary disease) ([facility]/HCC V24, [facility]/HCC V28) DX:COPD (chronic o bstructive pulmonary disease) ([facility]) Pulmonary nodules DX:Pulmonary n odules Family [...] age to complete this topic Care Teams Mold Capper Helper Relationship Specialty Start Date End Date Jesus Miller NP [address] [place], [place] PCP - General 10/30/23
[2025-07-07 07:48] VITALS: BP 134/80; PULSE 71; RESP 16; TEMP 36.6; O2SAT 95; BMI 30.4
--- NOTE | 2025-07-07 07:48 | A.OFFPC_ITS ---
Vital Signs 07/07/25 07:48 Height 5 ft 9 in Weight 206 lb BMI 30.4 BP 134/80 Blood Pressure Location Lt brachial Position Sitting Respiration 16 Pulse 71 Pulse Source Pulse Oximeter Temp 97.9 F Temp Source Oral Pulse Oximetry (%) 95 Oxygen Delivery Method Room Air Intake Visit Reasons: PE - see comments Intake Note: Pt is here today for his PE Security Incident Handler Required: No Allergies amiodarone Allergy (Severe, Verified 07/07/25 08:42) Rash/Itching amlodipine Allergy (Severe, Verified 07/07/25 08:42) tachycardia sulfamethoxazole (From Sulfamethoxazole-Trimethoprim) Allergy (Severe, Verified 07/07/25 08:42) Rash and itching trimethoprim (From Sulfamethoxazole-Trimethoprim) Allergy (Severe, Verified 07/07/25 08:42) Rash and itching environmental allergies Allergy (Intermediate, Verified 07/07/25 08:42) Hayfever morphine (MORPHINE) Allergy (Intermediate, Verified 07/07/25 08:42) Itching and congestion hydromorphone (From Dilaudid) Allergy (Mild, Verified 07/07/25 08:42) Itching and anxiety Seasonal Allergies Allergy (Mild, Verified 07/07/25 08:42) Unknown Sulfa (Sulfonamide Antibiotics) (Sulfa (Sulfonamides)) Allergy (Mild, Verified 07/07/25 08:42) Rash and Itching Medication List - Last Reconciled 07/07/25 by CHRISTINA Rodriguez- albuterol sulfate 90 mcg/actuation 2 inhalations inhalation Q6H PRN 90 days alprazolam 0.25 mg PO DAILY PRN 90 days atorvastatin 20 mg PO DAILY azelastine 2 sprays intranasal BID 90 days betamethasone dipropionate 0.05% 1 appl topical DAILY PRN budesonide-formoterol 160-4.5 mcg/actuation (Symbicort) 2 puffs inhalation BID PRN carboxymethylcellulose sodium 0.5% (Lubricant Eye Drops) 1 drp ophthalmic (eye) BID dicyclomine 10 mg PO PRN fluticasone propionate 50 mcg/actuation 2 sprays intranasal DAILY PRN 90 days glucosamine sulfate mg PO .nightly lactobacillus combination no.9 (Adult 50 Plus Probiotic) 4,000 mmu cells PO DAILY lorazepam 2 mg (2 x 1 mg) PO DAILY 90 days losartan-hydrochlorothiazide 100-25 mg 1 tab PO DAILY metoprolol succinate ER 100 mg PO DAILY Tobacco use date assessed: 07/07/25 Fall risk assessment: No Falls in past year Last assessed Fall Risk: 07/07/25 Dental Screening Dental Screen Date: 07/07/25 Did you have a dental visit in the last 12 months?: Yes Did you have a dental problem in the last 6 months where you did not have access to dental care?: No Was dental information given to patient?: Patient has dentist HPI PE - see comments HPI Details History of Present Illness The patient is a 80-year-old male presenting for a physical examination. He has a history of diabetes mellitus and is scheduled for an A1c test along with other laboratory evaluations, including a microalbumin test, in the near future. He receives regular annual eye examinations and is under the care of a insurance compliance analyst, ecologist, pulmonary, and a road equipment operator. His prostate-specific antigen (PSA) screening is current, and no further colon cancer screenings are required. Vaccination-alexander, he has been advised to receive the RSV vaccine (pharmacy) and has been administered the most recent Prevnar vaccine during this visit. He uses hearing aids to assist with hearing. Health Maintenance - Annual eye examinations - PSA screening up to date - No further colon cancer screening need ed - RSV vaccination recommended - Prevnar vaccination administered Social History Review of Systems Physical Exam General: Cooperative, healthy appearing, comfortable, no acute distress and well developed Orientation: Patient oriented x3 Limitations: No limitations Head: Normal to inspection Ears: Hearing aids worn Nose: Normal external nose present Face and sinus: Normal facial exam Eyes: Appearance normal, both eyes and all related structures Neck: Normal visual inspection and Yes full ROM Respiratory: Normal respiratory effort and able to speak in complete sentences. Clear to auscultation bilaterally Cardiovascular: Regular rate and rhythm. Normal S1 and S2 GI: Normal to inspection. Soft to palpation and nontender : testicles without masses/lesions and no hernias appreciated Skin: wart like lesions to BUE, dorsal hands/fingers Neuro: Patient oriented x3 Extremities: Normal to inspection, flat feet bilat, + sensation with use of monofilament, feet intact Results Plan 1. Diabetes Mellitus The patient will undergo an A1c test and a microalbumin test as part of his diabetes management. 2. Preventative Care The patient is advised to continue with annual eye examinations and maintain regular follow-ups with his insurance compliance analyst, secretary board of commissioners, ecologist, and road equipment operator. His PSA screening is current, and no further colon cancer screenings are necessary. He is recommended to receive the RSV vaccine and has been administered the Prevnar vaccine during this visit. Discussion Notes Patient Instructions [facility] Medical History Presence of Watchman left atrial appendage closure device Splenomegaly Ectatic thoracic aorta Bifascicular block IBS (irritable bowel syndrome) History of kidney cancer Actinic keratoses Paroxysmal atrial fibrillation Chronic allergic rhinitis COPD (chronic obstructive pulmonary disease) Pulmonary nodules Surgical History History of total right knee replacement H/O left hemicolectomy H/O inguinal hernia repair H/O cardiac radiofrequency ablation History of cardioversion S/P correction of deviated nasal septum Family History Father Heart attack Mother No problems noted. Social History Housing: House Are you a primary acute care assistant to a significant other at home: No Do you presently have visiting nurse or other home services: No Patient Tobacco Use Status: Former Tobacco user Tobacco use type: Cigarette Years Smoked: 20 years e-Cigarette/Vaping Use: Never Used Second Hand Smoke Exposure: No Advance Directives Date on File: 06/19/20 service: Yes Current occupational status: retired Cognitive needs: No Hearing needs: Yes Vision needs: Yes Questionnaire Thrive Questionnaire Date Thrive assessed: 07/07/25 I am a: Patient What is your living situation today?: I have a steady place to live Within the past 12 months, did the food you bought not last and you didn't have the money to get more?: Never true Within the past 12 months, did you worry whether your food would run out before you got money to buy more?: Never true Do you have trouble paying for medicines?: No Do you have trouble getting transportation to medical appointments?: No Do you have trouble paying your heating and electricity bill?: No Do you have trouble taking care of your child, family member or friend?: No Do you have trouble with day-to-day activities such as bathing, preparing meals, shopping, managing finances, etc.?: No Are you interested in more education?: No Please select the resources that you would like help with: None Currently or been in a relationship where the following occur: I choose not to answer THRIVE Score: 0 AUDIT C Alcohol Use Questionnaire (AUDIT-C) 1. How often do you have a drink containing alcohol?: Monthly or less 2. How many drinks containing alcohol do you have on a typical day when you are drinking?: 1 or 2 3. How often do you have six or more drinks on one occasion?: Never Total Score: 1 Score Reviewed/Action Taken: Yes JUAN-7 AMB Questionnaire JUAN-7 Date JUAN - 7 assessed: 07/07/25 Feeling nervous, anxious, or on edge: 1 = Several days Not being able to stop or control worryin = Not at all Worrying too much about different things: 0 = Not at all Trouble relaxin = Not at all Being so restless that it is hard to sit still: 0 = Not at all Becoming easily annoyed or irritable: 0 = Not at all Feeling afraid as if something awful might happen: 0 = Not at all Total JUAN-7 score (0-4 normal; 5-9 mild; 10-14 moderate; 15-21 severe): 1 Source: Developed by Drs. Jeremías Pisano, Yolie Jones, Yordy Reynolds and colleagues, with an educational crystal from [employer]. JUAN-7 Assessment Billing JUAN-7 Assessment Tool: JUAN-7 Assessment 66424 Physical exam (Primary Care) Vital Signs: Last Vital Signs Temp 97.9 F 07/07/25 07:48 Pulse 71 07/07/25 07:48 Resp 16 07/07/25 07:48 BP 134/80 07/07/25 07:48 Pulse Ox 95 07/07/25 07:48 Oxygen Delivery Method Room Air 07/07/25 07:48 BMI result Body Mass Index 30.4 Tobacco/Smoking Status: Tobacco use Status Tobacco use date assessed 07/07/25 07/07/25 07:59 Patient Tobacco Use Status Former Tobacco user 07/07/25 07:49 Tobacco use type Cigarette 07/07/25 07:49 e-Cigarette/Vaping Use Never Used 07/07/25 07:49 Thrive Assessment: Date of Thrive Assessment Date Thrive assessed 07/07/25 07/07/25 07:59 Currently or been in a relationship where the following occur: I choose not to answer Immunizations pneumoc 20-demetrice conj-dip cr(PF) 0.5 mL IM syringe Performing Provider: MARK Rodriguez Performing Location: [facility] Administered by: JERONIMO Fuentes on 07/07/25 08:23 Dose Route Admin Location Dispensed Lot Number Expiration Date ND Protective Signal Operator 0.5 mL IM Left Deltoid 0.5 mL [id number] 11/12/25 Xendo /Mocoplex Total Dispensed Waste 0.5 mL 0 % VIS Given Date VIS Provided VIS Publication Date 07/07/25 Single Vaccine 25 Eligibility Eligibility Date Funding Source Not [facility] Eligible 07/07/25 Private Coding Level of Care Code Est Pt Level 3 (99840) Est Pt Prev Care >65y(42391) Diagnoses Diabetes E11.9 Encounter for routine adult physical exam with abnormal findings Z00. Additional Codes JUAN-7 Assessment Billing - JUAN-7 Assessment Tool: JUAN-7 Assessment 04155 ([id number]) Assessment & Plan Assessment & Plan (1) Diabetes: Code(s): E11.9 - Type 2 diabetes mellitus without complications Category: Medical (2) Encounter for routine adult physical exam with abnormal findings: Code(s): Z00.01 - Encounter for general adult medical examination with abnormal findings Category: Medical Plan . Orders: Orders Comprehensive [place]. Panel Fast Today E11.9 - Type 2 diabetes mellitus without complications, Z00.01 - Encounter for general adult medical examination with abnormal findings UA CC w/rflx Micro + Cult Today E11.9 - Type 2 diabetes mellitus without complications, Z00.01 - Encounter for general adult medical examination with abnormal findings Lipid Panel Today E11.9 - Type 2 diabetes mellitus without complications, Z00.01 - Encounter for general adult medical examination with abnormal findings Pneumococcal 20 Immunization Today Z23 - Encounter for immunization Complete Blood Count Auto Diff Today E11.9 - Type 2 diabetes mellitus without complications, Z00.01 - Encounter for general adult medical examination with abnormal findings TSH reflex Free T4 Today E11.9 - Type 2 diabetes mellitus without complications, Z00.01 - Encounter for general adult medical examination with abnormal findings Microalbumin, Random (w Creat) Today E11.9 - Type 2 diabetes mellitus without complications, Z00.01 - Encounter for general adult medical examination with abnormal findings Vitamin D 25-OH Total Today E55.9 - Vitamin D deficiency, unspecified Hemoglobin A1c Today E11.9 - Type 2 diabetes mellitus without complications
== END 2025-07-07 08:29 | disposition home or self-care (01) ==
LOC: HO.HMCC 07:41
PROVIDERS: PCP Nurse Practitioner Family; Visit Provider Nurse Practitioner Family
DX: Z00.01 Encounter for general adult medical examination with abnormal findings (principal); E11.9 Type 2 diabetes mellitus without complications; Z23 Encounter for immunization

== ENCOUNTER → 2025-07-07 07:40 | Outpatient (BNVA) | payer MEDICARE, SELFPAY | PROVIDERS: PCP Nurse Practitioner Family; Visit Provider Nurse Practitioner Family | DX: Z00.01 Encounter for general adult medical examination with abnormal findings (principal); E11.9 Type 2 diabetes mellitus without complications; E55.9 Vitamin D deficiency, unspecified; Z23 Encounter for immunization | CPT/HCPCS: 90471; 90677; 96127; 99397 ==

== ENCOUNTER 2025-07-19 14:49 | Outpatient (AMB) | payer BC, SELFPAY ==
[2025-07-19 14:49] VITALS: BP 128/70; PULSE 50; O2SAT 93; BMI 30.6
--- NOTE | 2025-07-19 14:49 | HO.NEPHOV ---
Vital Signs 07/19/25 14:49 Height 5 ft 9 in Weight 207 lb BMI 30.6 BP 128/70 Blood Pressure Location Rt brachial Position Sitting Pulse 50 Pulse Source Pulse Oximeter Pulse Oximetry (%) 93 Oxygen Delivery Method Room Air Intake Visit Reasons: 6 MO FU, conf. Dietetic Assistant Required: No Allergies amiodarone Allergy (Severe, Verified 07/19/25 14:52) Rash/Itching amlodipine Allergy (Severe, Verified 07/19/25 14:52) tachycardia sulfamethoxazole (From Sulfamethoxazole-Trimethoprim) Allergy (Severe, Verified 07/19/25 14:52) Rash and itching trimethoprim (From Sulfamethoxazole-Trimethoprim) Allergy (Severe, Verified 07/19/25 14:52) Rash and itching environmental allergies Allergy (Intermediate, Verified 07/19/25 14:52) Hayfever morphine (MORPHINE) Allergy (Intermediate, Verified 07/19/25 14:52) Itching and congestion hydromorphone (From Dilaudid) Allergy (Mild, Verified 07/19/25 14:52) Itching and anxiety Seasonal Allergies Allergy (Mild, Verified 07/19/25 14:52) Unknown Sulfa (Sulfonamide Antibiotics) (Sulfa (Sulfonamides)) Allergy (Mild, Verified 07/19/25 14:52) Rash and Itching Medication List - Last Reconciled 07/19/25 by Christian Watson MD albuterol sulfate 90 mcg/actuation 2 inhalations inhalation Q6H PRN 90 days alprazolam 0.25 mg PO DAILY PRN 90 days atorvastatin 20 mg PO DAILY azelastine 2 sprays intranasal BID 90 days betamethasone dipropionate 0.05% 1 appl topical DAILY PRN budesonide-formoterol 160-4.5 mcg/actuation (Symbicort) 2 puffs inhalation BID PRN carboxymethylcellulose sodium 0.5% (Lubricant Eye Drops) 1 drp ophthalmic (eye) BID dicyclomine 10 mg PO PRN fluticasone propionate 50 mcg/actuation 2 sprays intranasal DAILY PRN 90 days glucosamine sulfate mg PO .nightly lactobacillus combination no.9 (Adult 50 Plus Probiotic) 4,000 mmu cells PO DAILY lorazepam 2 mg (2 x 1 mg) PO DAILY 90 days losartan-hydrochlorothiazide 100-25 mg 1 tab PO DAILY metoprolol succinate ER 100 mg PO DAILY HPI Comments Details: 78-year-old man with a history of hypertension has been referred for proteinuria. He has a history of renal cell carcinoma. In this was encapsulated mass. This was removed in 2013. He was having periodic surveillance at [facility]. He has had no further follow-up for the last year or so. He carries a diagnosis of diabetes mellitus. However he has not had any anti diabetic medications. He denies having diabetes. Using recent fasting blood sugars have been more than 100 and staying around 126. Recently a hemoglobin A1c is 6.3 11/24/23 ;Doing well. No new issues;Had CT chest last month ;NO nodules; CT abd shows multiple cysts 07/13/24 ;Had USG and MRI- results pending ;No hematuria ;No edema 01/21/25 Overall doing well. s/p Watchman in Aug 2024 07/19/25 The patient is a 80-year-old male presenting with a routine follow-up for chronic conditions management, including COPD and hypertension. The patient has a history of Chronic Obstructive Pulmonary Disease (COPD), managed by avoiding activities that worsen symptoms like shortness of breath. He has had part of his lung removed and experiences chronic bronchial issues, but denies recent chest pain or significant breathing difficulties. [facility] Medical History Presence of Watchman left atrial appendage closure device Splenomegaly Ectatic thoracic aorta Bifascicular block IBS (irritable bowel syndrome) History of kidney cancer Actinic keratoses Paroxysmal atrial fibrillation Chronic allergic rhinitis COPD (chronic obstructive pulmonary disease) Pulmonary nodules Surgical History History of total right knee replacement H/O left hemicolectomy H/O inguinal hernia repair H/O cardiac radiofrequency ablation History of cardioversion S/P correction of deviated nasal septum Family History Father Heart attack Mother No problems noted. Social History Housing: House Are you a primary zoo caretaker to a significant other at home: No Do you presently have visiting nurse or other home services: No Patient Tobacco Use Status: Former Tobacco user Tobacco use type: Cigarette Years Smoked: 20 years e-Cigarette/Vaping Use: Never Used Second Hand Smoke Exposure: No Advance Directives Date on File: 06/19/20 service: Yes Current occupational status: retired Cognitive needs: No Hearing needs: Yes Vision needs: Yes Physical Exam Vital Signs: Last Vital Signs Pulse 50 07/19/25 14:49 BP 128/70 07/19/25 14:49 Pulse Ox 93 07/19/25 14:49 Oxygen Delivery Method Room Air 07/19/25 14:49 BMI result Body Mass Index 30.6 Results Reviewed Nephrology Results: Hgb, (14.0-18.0) 16.4 g/dl 01/10/25 WBC, (4.8-10.8) 9.6 X10*3/uL 01/10/25 Plt Count, (160-400) 221 X10*3/uL 01/10/25 Sodium, (135-145) 140 mmol/L 07/01/25 Potassium, (3.3-5.1) 3.5 mmol/L 07/01/25 Chloride, (96-108) 105 mmol/L 07/01/25 Carbon Dioxide, (22-29) 27 mmol/L 07/01/25 BUN, (9-16) 13 mg/dL 07/01/25 Creatinine, (0.5-1.4) 1.26 mg/dL 07/01/25 Calcium, (8.4-10.2) 9.3 mg/dL 07/01/25 Urine Protein, (Neg-Trace) Trace mg/dL 07/01/25 Assessment & Plan Assessment & Plan (1) Microalbuminuria: Code(s): R80.9 - Proteinuria, unspecified Category: Medical (2) HTN (hypertension): Code(s): I10 - Essential (primary) hypertension Category: Medical (3) Renal cyst: Code(s): N28.1 - Cyst of kidney, acquired Category: Medical (4) Malignant neoplasm of kidney: Code(s): C64.9 - Malignant neoplasm of unspecified kidney, except renal pelvis Category: Medical Plan Elderly man with a history of microalbuminuria in the setting of hypertension and a questionable diagnosis of diabetes mellitus and obesity. He is currently on losartan for renal protection. He has no significant hematuria. No evidence of any active glomerulonephritis. continue with angiotensin receptor samanta. Maintain blood pressure less than 130/80. Maintain A1c less than 6% Mild increase in creatinine to 1.27 AFTER increasing Losartan HCT in May 2024 BP is well controlled Watch for now h/o renal cell carcinoma CT abdomen shows multiple cysts MRI in Jun 2024: Bosniak type III and IIf lesions with a hemorrhagic and proteinaceous component. Underlying lesion/mass cannot be excluded. MRI repeated in May 2025. Lesions remained essentially unchanged. Shall continue to monitor as needed Orders: Orders Basic Metabolic Panel 6 Months C64.9 - Malignant neoplasm of unspecified kidney, except renal pelvis, I10 - Essential (primary) hypertension, N28.1 - Cyst of kidney, acquired Creatinine Urine 6 Months C64.9 - Malignant neoplasm of unspecified kidney, except renal pelvis, I10 - Essential (primary) hypertension, N28.1 - Cyst of kidney, acquired Total Protein Urine Random 6 Months C64.9 - Malignant neoplasm of unspecified kidney, except renal pelvis, I10 - Essential (primary) hypertension, N28.1 - Cyst of kidney, acquired UA and rflx microscopic 6 Months C64.9 - Malignant neoplasm of unspecified kidney, except renal pelvis, I10 - Essential (primary) hypertension, N28.1 - Cyst of kidney, acquired Coding Level of Care Code Est Pt Level 4 (01425) Diagnoses Microalbuminuria R80.9 HTN (hypertension) I10 Renal cyst N28.1 Malignant neoplasm of kidney C64.9
--- OUTSIDE RECORDS SUMMARY | 2025-07-19 17:51 | XMS_ITS | Patient Health Record ---
Author Organization [facility] Address [address] [place] [address] Care Team Providers Care Firewall Administrator Name Role Phone NAOMIE SMALL Primary Care Provider Jeremías Cole [phone] Allergies Allergen (clinical drug ingredient) Drug/Non Drug Allergy documented on EMR Reaction Allergy Type Onset Date Status Sulfa Unknown Drug Allergy Active morphine Morphine Sulfate Unknown Drug Allergy Active hydromorphone Dilaudid Unknown Drug Allergy Act sigrid amiodarone Amiodarone HCl Unknown Drug Allergy A ctive Reason For Referral No Information Medications Medication SIG (Take, Route, Frequency, Duration) Notes Start Date End Date Status Buchanan 3 Not-Taking Fluticasone Propionate 50 MCG/ACT 1 [...] Problem Screening for malignant neoplasm of colon (234462235) Encounter for screening for malignant neoplasm of colon (Z12.11) Active confirmed Problem History of adenomatous polyp of colon (182706736) History of adenomatous polyp of colon (Z86.010) Active confirmed Problem Irritable bowel syndrome with diarrhea (636543554) Irritable bowel syndrome with diarrhea (K58.0) Active confirmed Problem Gastroesophageal reflux disease without esophagitis (966704613) Gastroesophageal reflux disease without esophagitis (K21.9) Active confirmed Problem History of adenomatous polyp of colon (103642519) Hx of adenomatous colonic polyps (Z86.010) Active confirmed Problem Essential hypertension (47489005) Hypertension, unspecified type (I10) Active confirmed Problem Diverticulosis of colon (965455395) Diverticulosis of colon (K57.30) Active confirmed Plan [...] Insured Coverage Start Date Coverage End Date [facility] [address] [place], [place] [id number] [phone] [id number] ANDRE BALDWIN Self - patient is the insured Medical (General) History Medical History History ICD Code Tubular adenomas of the colo n--he had a relatively large and sessile tubular adenoma removed from transverse colon 2006--followup colonoscopies in 2008 and February of 2012 revealed small tubular adenomas that were removed Diverticulitis with surgery as below Hypertension Diet-controlled DM Hyperlipidemia Denies FL,CVA,Lung disease,renal disease Kidney cancer--Partial left nephrectomy at the [facility]--04/2014 Atrial fibrillation--had an ablation EGD 02/2015--small [...] nephrectomy in April of 2014 at the [facility] Right knee replacement 04/08/2022
--- OUTSIDE RECORDS SUMMARY | 2025-07-19 17:51 | XMS_ITS | Clinical Summary ---
[facility] [address] [place] [address] Care Team Providers Care Paster Hat Lining Name Role Phone Jesus Miller NP Primary Care Provider [phone] Surgical History Surgery Date Site/Laterality Comments TOTAL KNEE ARTHROPLASTY Right PROCEDURE: HISTORICAL TOTAL KNEE REPLACE OTHER SURGICAL HISTORY N/A PROCEDURE: ME ANES CARDIAC ELECTROPHYSIOL STDY W/RF ABLATION OTHER SURGICAL HISTORY N/A PROCEDURE: ME CARDIOVERSION ELECTIVE ARRHYTHMIA EXTERNAL NOSE SURGERY N/A PROCEDURE: ME UNLISTED PROCEDURE NOSE OTHER SURGICAL HISTORY 07/09/2023 Left PROCEDURE: ME THORACOSCOPY W/THERA WEDGE RESEXN INITIAL UNILAT; COMMENT: LLL wedge x2 Medical History Medical History Date Comments Ectatic thoracic aorta ([facility] V24) DX:Ectatic thoracic aorta ([facility]) Bifascicular block DX:Bifascicul ar block IBS (irritable bowel syndrome) D X:IBS (irritable bowel syndrome) History of kidney cancer exc luding renal pelvis DX:History of kidney cancer excluding renal pelvis Actinic keratoses DX:Actinic ker atoses PAF (paroxysmal atrial fibri llation) (CMS/HCC V24, CMS/HCC V28) DX:PAF (paroxysmal atrial f ibrillation) ([facility]) Chronic allergic rhinitis DX:Chr onic allergic rhinitis COPD (chronic obstructive pu lmonary disease) ([facility]/HCC V24, [facility]/HCC V28) DX:COPD (chronic o bstructive pulmonary disease) ([facility]) Pulmonary nodules DX:Pulmonary n odules Family [...] age to complete this topic Care Teams Paster Hat Lining Relationship Specialty Start Date End Date Jesus Miller NP [address] [place], [place] PCP - General 10/30/23
== END 2025-07-19 15:06 | disposition home or self-care (01) ==
LOC: HO.HKA 14:49
PROVIDERS: PCP Nurse Practitioner Family; Visit Provider Internal Medicine Hypertension Specialist
DX: R80.9 Proteinuria, unspecified (principal); I10 Essential (primary) hypertension; N28.1 Cyst of kidney, acquired; C64.9 Malignant neoplasm of unspecified kidney, except renal pelvis
CPT/HCPCS: 99214